=== PATIENT | female | born 1940 | race Caucasian/White ===

== ENCOUNTER 2017-03-04 08:17 | Emergency (ER) | payer MEDICARE ==
[~2017-03-04] VITALS: Ht 160 cm; Wt 52.2 kg
[~2017-03-04 08:17] MED LIST: ASP325TEC; ASP325TEC PO; ATEN25TA PO; ATN25T; BILB40CA PO; BILBERRY; CALC-80 PO; CHOL10003 PO; CLD600T; CLON0.5T3 PO; CLOP75TA PO; DEXL60CA PO; DICLOFENAC SODIUM; FERR325C PO; HSC375CCR; HYCOSAMINE PO; HYDROXYCHLOROQUINE; HYDROXYCHLOROQUINE PO; IRON1TAB94 PO; ISM30TCR; ISM60TCR PO; LISI5TAB PO; MELO7.5T; MULT1TAB63; MV,C1TAB21 PO; NF-ESOM40C; NF-PILO5T PO; NITR0.4T12 SL; NITR12SP6 TL; OMEG1CAP51 PO; OMG1KC; ONDA-43 PO; ONDA8TAB13 PO; OXYB5TAB9 PO; OXYC500S2 PO; PANT40TA PO; PL1OP15; POLY119P PO; PRAV10TA23 PO; PRV20T; RLX60T; RLX60T PO; SOLI10TA4 PO; TOLT4CAP PO; TRAM50TA2 PO; VISION FORMULA; VIT1TABL83 PO
[2017-03-04 08:44] LABS: BASOPHILS # (AUTO) 0.1 10^3/uL (0.0-0.1); BASOPHILS % (AUTO) 1 % (0-10); EOSINOPHILS # (AUTO) 0.5 10^3/uL (0.0-0.3); EOSINOPHILS % (AUTO) 9 % (0-10); LYMPHOCYTES # (AUTO) 2.1 X 10^3 (1.0-4.0); LYMPHOCYTES % (AUTO) 39 % (12-44); MEAN CORPUSCULAR HEMOGLOBIN 32 PG (25-34); MEAN CORPUSCULAR HGB CONC 32 G/DL (32-36); MEAN CORPUSCULAR VOLUME 99 FL (80-99); MEAN PLATELET VOLUME 10.1 FL (7.4-10.4); MONOCYTES # (AUTO) 0.8 X 10^3 (0.0-1.0); MONOCYTES % (AUTO) 15 % (0-12); NEUTROPHILS % (AUTO) 36 % (42-75); PLATELET COUNT 291 10^3/uL (130-400); RED BLOOD COUNT 3.95 10^6/uL (4.35-5.85); RED CELL DISTRIBUTION WIDTH 13.4 % (10.0-14.5); WHITE BLOOD COUNT 5.4 10^3/uL (4.3-11.0)
[2017-03-04] MEDS ORDERED: RX-NITROGLYCERIN 0.4 MG TAB BTL 25'S SL ONE (08:44)
[2017-03-04] MEDS ORDERED: BILB100C PO (08:47)
[2017-03-04] MEDS ORDERED: ASPI-999 PO (08:47)
[2017-03-04] MEDS ORDERED: CALC600T12 PO (08:47)
[2017-03-04] MEDS ORDERED: AMIT10TA6 PO (08:47)
[2017-03-04 08:48] LABS: PROTHROMBIN TIME PATIENT 12.9 SEC (12.2-14.7)
[2017-03-04] MEDS ORDERED: BETA1TAB12 PO (08:48)
[2017-03-04] MEDS ORDERED: CHOL10007 PO (08:48)
[2017-03-04] MEDS ORDERED: LISI-556 PO (08:48)
[2017-03-04] MEDS ORDERED: CLOP75TA28 PO (08:48)
[2017-03-04] MEDS ORDERED: CLON0.5T3 PO (08:48)
[2017-03-04] MEDS ORDERED: OMG1KC PO (08:48)
[2017-03-04] MEDS ORDERED: HYDR200T46 PO (08:48)
[2017-03-04] MEDS ORDERED: ISM60TCR PO (08:48)
[2017-03-04] MEDS ORDERED: OXYB5TAB9 PO (08:48)
[2017-03-04] MEDS: NITROGLYCERIN SUBLINGUAL 0.4 MG TAB (NITROSTAT) SL ONE (08:50)
[2017-03-04 08:59] LABS: ALANINE AMINOTRANSFERASE 19 U/L (0-55); ALBUMIN 4.2 GM/DL (3.2-4.5); ANION GAP 11 MMOL/L (5-14); ASPARTATE AMINO TRANSFERASE 23 U/L (5-34); BILIRUBIN,TOTAL 0.6 MG/DL (0.1-1.0); BLOOD UREA NITROGEN 22 MG/DL (7-18); BUN/CREATININE RATIO 21 (0-20); CALCIUM 10.1 MG/DL (8.5-10.1); CARBON DIOXIDE 23 MMOL/L (21-32); CHLORIDE 108 MMOL/L (98-107); CREATININE SERUM 1.06 MG/DL (0.60-1.30); GFR ESTIMATED 51; GLUCOSE 91 MG/DL (70-105); HEMOLYSIS 27 (-100-29); ICTERUS 0.7 (-100-1.9); LIPEMIA 2 (-100-49); MAGNESIUM 2.3 MG/DL (1.8-2.4); POTASSIUM 4.2 MMOL/L (3.6-5.0); SODIUM 142 MMOL/L (135-145); TOTAL PROTEIN 7.7 GM/DL (6.4-8.2)
--- NOTE | 2017-03-04 09:04 | Diagnostic Imaging Report ---
EXAMINATION: Portable upright radiograph of the chest. INDICATION: Chest pain. FINDINGS: The lungs are hyperinflated. The heart size is slightly enlarged. No focal infiltrate is seen. Post CABG changes and sternotomy wires are seen. There is suggestion of a minimal right pleural effusion. There is density in the lower central mediastinum, compatible with a moderate-sized hiatal hernia. IMPRESSION: COPD. Cardiomegaly. Hiatal hernia. Dictated by: Dictated on workstation # [id number]
[2017-03-04 09:05] LABS: MYOGLOBIN SERUM 47.2 NG/ML (10.0-92.0)
[2017-03-04] MEDS ORDERED: ANTACID SUSP 30 ML UDC (MYLANTA) PO ONE (09:30)
[2017-03-04] MEDS ORDERED: LIDOCAINE 2% VISCOUS 15 ML UDC PO ONE (09:30)
--- NOTE | 2017-03-04 10:02 | ED Chest Pain ---
General Chief Complaint: Chest Pain Stated Complaint: CHEST PAIN Nursing Triage Note: PT BROUGHT IN BY [facility] WITH C/O CP THAT BEGAN THIS AM WHILE PT WAS BRUSHING HER TEETH. SHE REPORTS PAIN RADIATED TO HER BACK. SHE DENIES N/V/DIAPHORESIS OR ANY OTHER S/S. 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 PT REPORTS NO PAIN AT THIS TIME. Nursing Sepsis Screen: No Definite Risk Source: patient Exam Limitations: no limitations History of Present Illness Time seen by provider: 08:23 Initial Comments Here with report of left-sided moderate to severe pressure that radiated to her back. Onset at 730 a.m. while brushing her teeth. Does have history of cardiac disease and CABG. Also has history of esophageal problems including stricture with previous rupture during dilation and large hiatal hernia that's been repaired. She has gastroenterology doctor MARIJA that follows that. She does appointment with that doctor on Tuesday (3 days). She was in route to the hospital with her daughter in the car when they became concerned and stopped and an EMS station. EMS then transported the patient here. Patient did not have any nitroglycerin at home because she was out. EMS did give her 324 mg of aspirin as well as a nitroglycerin sublingual. This did completely resolve her pain. On arrival she is pain-free. 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 SL WAXING MACHINE OPERATOR: Yes Associated Symptoms: No abdominal pain, back pain, No diaphoresis, No dizziness , No fever/chills, No nausea/vomiting, No shortness of breath, No weakness Allergies and Home Medications Allergies Coded Allergies: metoclopramide (Unverified Allergy, Severe, TARDIVE DYKENIESIA, 12/15/14) Home Medications Amitriptyline HCl 10 Mg Tablet, 10 MG PO DAILY LATE, (Reported) Aspirin 81 Mg Tab.chew, 81 MG PO DAILY, (Reported) Beta-Carotene(A) W-C & E/Min 1 Each Tablet, 1 EACH PO DAILY, (Reported) Bilberry 100 Mg Capsule, 1,000 MG PO DAILY LATE, (Reported) Calcium Carbonate 600 Mg Tablet, 600 MG PO DAILY, (Reported) Cholecalciferol (Vitamin D3) 1,000 Unit Capsule, 1,000 UNIT PO DAILY, (Reported) Clonazepam 0.5 Mg Tablet, 0.5 MG PO BID, (Reported) Clopidogrel Bisulfate 75 Mg Tablet, 75 MG PO DAILY, (Reported) Hydroxychloroquine Sulfate 200 Mg Tablet, 200 MG PO BID, (Reported) Isosorbide Mononitrate 60 Mg Tab, 60 MG PO DAILY, (Reported) Lisinopril 5 Mg Tablet, 5 MG PO DAILY LATE, (Reported) [place] 3 Polyunsat Fatty Acids 1,000 Mg Cap, 2,000 MG PO BID, (Reported) Oxybutynin Chloride 5 Mg Tablet, 5 MG PO BID, (Reported) Review of Systems Constitutional: see HPI, No chills, No fever EENTM: No Symptoms Reported Respiratory: No Symptoms Reported Cardiovascular: See HPI, Chest Pain, Denies Edema, Denies Lightheadedness Gastrointestinal: No Symptoms Reported Genitourinary: No Symptoms Reported All Other Systems Reviewed Negative Unless Noted: Yes Past Rooveqx-Aancwl-Pudsge Hx Patient Social History Alcohol Use: Denies Use Recreational Drug Use: No Smoking Status: Never a Smoker 2nd Hand Smoke Exposure: No Recent Foreign Travel: No Contact w/Someone Who Travel: No Recent Infectious Disease Expo: No Recent Hopitalizations: No Immunizations Up To Date Date of Pneumonia Vaccine: May 13, 2011 Date of Influenza Vaccine: Sep 12, 2014 Seasonal Allergies Seasonal Allergies: No Surgeries HX Surgeries: Yes (HIATEL HERNIA, RUPTURED ESPOPHAGUS/REPAIR, SPLEENECTOMY) Surgeries: Abdominal, CABG Respiratory Hx Respiratory Disorders: No Cardiovascular Hx Cardiac Disorders: Yes (DOUBLE BYPASS (CABG X2)) Cardiac Disorders: Coronary Artery Disease Neurological Hx Neurological Disorders: Yes Reproductive System Hx Reproductive Disorders: No Genitourinary Hx Genitourinary Disorders: No Gastrointestinal Hx Gastrointestinal Disorders: Yes (ESOPHAGEAL REPAIR ) Gastrointestinal Disorders: Gastroesophageal Reflux, Chronic Diarrhea, Hiatal Hernia Musculoskeletal Hx Musculoskeletal Disorders: Yes (ARTHRITIS IN HANDS ) Musculoskeletal Disorders: Osteoporosis, Arthritis, Chronic Back Pain Endocrine Hx Endocrine Disorders: No HEENT HX ENT Disorders: Yes (SJOGREN'S DX (MOUTH DOESNT PRODUCE SALIVA)) Hearing Impairment: Hard of Hearing Cancer Hx Cancer: No Psychosocial Hx Psychiatric Problems: No Integumentary HX Skin/Integumentary Disorder: Yes (ECZEMA A CHILD) Skin/Integumentary Disorders: Eczema Blood Transfusions Hx Blood Disorders: No Reviewed Nursing Assessment Reviewed/Agree w Nursing PMH: Yes Family Medical History Significant Family History: Heart Disease Family Medial History: Diabetes mellitus G8 BROTHER, , Age:62 G8 SISTER, , Age:60 years and older GREAT AUNT FH: ovarian cancer AUNT Myocardial infarction 19 FATHER, , Age:39 19 MOTHER, , Age:83 G8 BROTHER, , Age:62 G8 SISTER, , Age:60 years and older Physical Exam Vital Signs Vital Sign - Last 12Hours 03/04/17 08:20 Temp 98.3 Pulse 60 Resp 15 B/P (MAP) 147/85 Pulse Ox 95 O2 Delivery Room Air Capillary Refill : Less Than 3 Seconds General Appearance: No Apparent Distress, WD/WN HEENT: PERRL/EOMI, Pharynx Normal Neck: Non Tender, Supple Respiratory: Lungs Clear, Normal Breath Sounds Cardiovascular: Regular Rate, Rhythm, No Murmur Gastrointestinal: Non Tender, Soft Extremity: Non Tender, No Calf Tenderness Neurologic/Psychiatric: Alert, Oriented x3 Skin: Normal Color, Warm/Dry Progress/Results/Core Measures Results/Orders Lab Results Laboratory Tests Test 03/04/17 08:20 03/04/17 11:32 Range/Units White Blood Count 5.4 4.3-11.0 10^3/uL Red Blood Count 3.95 L 4.35-5.85 10^6/uL Hemoglobin 12.5 11.5-16.0 G/DL Hematocrit 39 35-52 % Mean Corpuscular Volume 99 80-99 FL Mean Corpuscular Hemoglobin 32 25-34 PG Mean Corpuscular Hemoglobin Concent 32 32-36 G/DL Red Cell Distribution Width 13.4 10.0-14.5 % Platelet Count 291 130-400 10^3/uL Mean Platelet Volume 10.1 7.4-10.4 FL Neutrophils (%) (Auto) 36 L 42-75 % Lymphocytes (%) (Auto) 39 12-44 % Monocytes (%) (Auto) 15 H 0-12 % Eosinophils (%) (Auto) 9 0-10 % Basophils (%) (Auto) 1 0-10 % Neutrophils # (Auto) 2.0 1.8-7.8 X 10^3 Lymphocytes # (Auto) 2.1 1.0-4.0 X 10^3 Monocytes # (Auto) 0.8 0.0-1.0 X 10^3 Eosinophils # (Auto) 0.5 H 0.0-0.3 10^3/uL Basophils # (Auto) 0.1 0.0-0.1 10^3/uL Prothrombin Time 12.9 12.2-14.7 SEC INR Comment 1.0 0.8-1.4 Activated Partial Thromboplast Time 42 H 24-35 SEC Sodium Level 142 135-145 MMOL/L Potassium Level 4.2 3.6-5.0 MMOL/L Chloride Level 108 H 98-107 MMOL/L Carbon Dioxide Level 23 21-32 MMOL/L Anion Gap 11 5-14 MMOL/L Blood Urea Nitrogen 22 H 7-18 MG/DL Creatinine 1.06 0.60-1.30 MG/DL Estimat Glomerular Filtration Rate 51 BUN/Creatinine Ratio 21 H 0-20 Glucose Level 91 70-105 MG/DL Calcium Level 10.1 8.5-10.1 MG/DL Magnesium Level 2.3 1.8-2.4 MG/DL Total Bilirubin 0.6 0.1-1.0 MG/DL Aspartate Amino Transf (AST/SGOT) 23 5-34 U/L Alanine Aminotransferase (ALT/SGPT) 19 0-55 U/L Alkaline Phosphatase 50 40-136 U/L Myoglobin 47.2 43.6 10.0-92.0 NG/ML Troponin I < 0.30 < 0.30 <0.30 NG/ML Total Protein 7.7 6.4-8.2 GM/DL Albumin 4.2 3.2-4.5 GM/DL My Orders Orders - VENKAT MANRIQUEZ MD Cbc With Automated Diff (03/04/17 08:37) Magnesium (03/04/17 08:37) Chest 1 View, Ap/Pa Only (03/04/17 08:37) Ekg Tracing (03/04/17 08:37) Cardiac Profile 1 (03/04/17 08:37) Comprehensive Metabolic Panel (03/04/17 08:37) Myoglobin Serum (03/04/17 08:37) Protime With Inr (03/04/17 08:37) Partial Thromboplastin Time (03/04/17 08:37) O2 (03/04/17 08:37) Monitor-Rhythm Ecg Trace Only (03/04/17 08:37) Lipid Panel (03/05/17 06:00) Saline Lock/Iv-Start (03/04/17 08:37) Nitroglycerin Sublingual (Nitrostat Sub (03/04/17 09:00) Rx-Nitroglycerin Sl Tabs (Rx-Nitrostat S (03/04/17 08:44) Lidocaine 2% Viscous 15 Ml (Xylocaine Vi (03/04/17 09:30) Antacid Suspension (Mylanta Suspension (03/04/17 09:30) Myoglobin Serum (03/04/17 11:29) Troponin I (03/04/17 11:29) Ekg Tracing (03/04/17 11:29) Medications Given in ED Current Medications Medications Dose Ordered Sig/Dahlia Route Start Time Stop Time Status Last Admin Dose Admin Al Hydrox/Mg Hydrox/Simethicone 30 ml ONCE ONCE PO 03/04/17 09:30 03/04/17 09:31 DC 03/04/17 09:36 30 ML Lidocaine HCl 15 ml ONCE ONCE PO 03/04/17 09:30 03/04/17 09:31 DC 03/04/17 09:36 15 ML Nitroglycerin 0.4 mg STK-MED ONCE SL 03/04/17 08:44 03/04/17 08:50 DC 03/04/17 08:50 0.4 MG Vital Signs/I&O Vital Sign - Last 12Hours 03/04/17 03/04/17 08:20 08:20 Temp 98.3 Pulse 60 Resp 15 B/P (MAP) 147/85 Pulse Ox 95 O2 Delivery Room Air Room Air Blood Pressure Mean: 105 Progress Note : Progress Note Seen and evaluated. IV, labs, EKG and chest x-ray ordered. Patient has received aspirin and nitroglycerin. She is pain-free currently. 0 850: Patient had return of some back pressure. Nitroglycerin sublingual given. 0930 : Patient is pain-free and remains pain free since last nitroglycerin. GI cocktail given due to her history of GI disease. We will monitor the patient and reevaluate. We discussed different options including admission and repeat testing. At a minimum, we will need to retest at 1130. If enzymes remain negative and no changes on EKG as well as pain-free, we could consider discharged home as she has follow-up. If she has any pain in the interim, patient will be admitted. Monitor patient. 1200: Repeat EKG does not show any acute changes. Repeat troponin and myoglobin are negative. Patient remains chest pain-free and wants to go home. Discharged home with return precautions. Patient verbalize understanding instructions and agreement with plan. ECG Initial ECG Impression Date: Mar 04, 2017 Initial ECG Impression Time: 08:23 Initial ECG Rate: 56 Initial ECG Rhythm: Normal Sinus Initial ECG Impression: Normal Initial ECG Comparisson: No Previous ECG Available Comment Sinus rhythm with normal axis. No evidence of ST elevation [place]. Similar to previous of 12/15/14. Interpreted by me. Diagnostic Imaging Diagonstic Imaging: Xray Plain Films/CT/US/NM/MRI: chest Comments NAME: MELLISSA DOWNING [facility] REC#: [id number] PT STATUS: REG ER : 1940 PHYSICIAN: VENKAT MANRIQUEZ MD ADMIT DATE: 03/04/17/ER Signed Date of Exam: 03/04/17 CHEST 1 VIEW, AP/PA ONLY EXAMINATION: Portable upright radiograph of the chest. INDICATION: Chest pain. FINDINGS: The lungs are hyperinflated. The heart size is slightly enlarged. No focal infiltrate is seen. Post CABG changes and sternotomy wires are seen. There is suggestion of a minimal right pleural effusion. There is density in the lower central mediastinum, compatible with a moderate-sized hiatal hernia. IMPRESSION: COPD. Cardiomegaly. Hiatal hernia. Dictated by: Dictated on workstation # [id number] Dict: 03/04/17 0850 Trans: 03/04/17 0908 Interpreted by: SUDEEP ALVARADO MD Electronically signed by: SUDEEP ALVARADO MD 03/04/17 0908 Departure Impression Impression: Primary Impression: Chest pain Qualified Codes: R07.9 - Chest pain, unspecified Disposition: 01 HOME, SELF-CARE Condition: Improved Departure-Patient Inst. Decision time for Depature: 12:10 Referrals: MENA SKY DO (PCP/Family) Primary Care Physician Patient Instructions: Chest Pain (DC), Acid Reflux (Gastroesophageal Reflux Disease), Adult (DC) Add. Discharge Instructions: All discharge instructions reviewed with patient and/or family. Voiced understanding. Continue home medications as directed. Keep appointment on Tuesday with your GI doctor. You should follow-up with your style advisor next week for recheck and further evaluation related to today's events as well. Return for worse pain, fever, vomiting, weakness, breathing problems or other concerns as needed. VENKAT MANRIQUEZ MD Mar 04, 2017 10:02
[2017-03-04 11:58] LABS: MYOGLOBIN SERUM 43.6 NG/ML (10.0-92.0); TROPONIN I < 0.30 NG/ML (<0.30)
[2017-03-04 12:14] VITALS: BP 134/74
--- OUTSIDE RECORDS SUMMARY | 2017-03-07 14:36 | XMS REPORT | Continuity of Care Document ---
Author Author [facility] Organization [facility] Address Unknown Phone Unavailable Allergies Active Description Code Type Severity Reaction Onset Reported/Identified Relationship to Patient Clinical Status Yes No Known Drug Allergies [id number] Drug Allergy Unknown N/ A 05/12/2007 Yes metoclopramide [id number] Drug Allergy Severe TARDIVE DYKENIE 12/15/2014 Medications Problems Date Dx Coded Attending Type Code Diagnosis Diagnosed By 05/18/2011 Ot 272.4 HYPERLIPIDEMIA NEC/NOS 05/18/2011 Ot 365.9 GLAUCOMA NOS 05/18/2011 Ot 401.9 HYPERTENSION NOS 05/18/2011 Ot 414.01 CORONARY ATHEROSCLEROSIS [place] CORON 05/18/2011 Ot 414.2 CHRONIC TOTAL OCCLUSION OF CORONARY [place] 05/18/2011 Ot 424.0 MITRAL VALVE DISORDER 05/18/2011 Ot 427.89 CARDIAC DYSRHYTHMIAS NEC 05/18/2011 Ot 433.10 CAROTID ARTERY OCCLUSION W O CEREBRAL IN 05/18/2011 Ot 715.90 OSTEOARTHROS NOS-UNSPEC 05/18/2011 Ot 786.59 CHEST PAIN NEC 05/18/2011 Ot V45.81 AORTOCORONARY BYPASS 05/18/2011 Ot V58.63 LONG-TERM(CURRENT)USE OF ANTIPLATELET/AN 05/18/2011 Ot V58.66 LONG-TERM (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 05/18/2011 Ot V58.69 OTH MED,LT,CURRENT USE 10/31/2012 Ot 780.60 FEVER, UNSPECIFIED 10/31/2012 Ot 787.91 DIARRHEA 01/19/2013 MENA SKY DO Ot 272.4 HYPERLIPIDEMIA NEC/NOS 01/19/2013 MENA SKY DO Ot 401.9 HYPERTENSION NOS 01/19/2013 MENA SKY DO Ot 414.01 CORONARY ATHEROSCLEROSIS [place] CORON 01/19/2013 MENA SKY DO Ot 414.8 CHR ISCHEMIC HRT DIS NEC 01/19/2013 MENA SKY DO Ot 424.1 AORTIC VALVE DISORDER 01/19/2013 MENA SKY DO Ot 427.89 CARDIAC DYSRHYTHMIAS NEC 01/19/2013 MENA SKY DO Ot 530.81 ESOPHAGEAL REFLUX 01/19/2013 MENA SKY DO Ot 553.3 DIAPHRAGMATIC HERNIA 01/19/2013 EMNA SKY DO Ot 710.2 SICCA SYNDROME 01/19/2013 MENA SKY DO Ot 715.90 OSTEOARTHROS NOS-UNSPEC 01/19/2013 MENA SKY DO Ot 733.00 OSTEOPOROSIS NOS 01/19/2013 MENA SKY DO Ot 786.50 CHEST PAIN NOS 01/19/2013 MENA SKY DO Ot V45.81 AORTOCORONARY BYPASS 03/25/2013 MENA SKY DO Ot 787.91 DIARRHEA 06/15/2013 EMRE MARS MD Ot 530.81 ESOPHAGEAL REFLUX 06/15/2013 EMRE MARS MD, Ot 553.3 DIAPHRAGMATIC HERNIA 06/19/2013 EMRE MARS MD Ot 272.0 PURE HYPERCHOLESTEROLEM 06/19/2013 EMRE MARS MD Ot 272.4 HYPERLIPIDEMIA NEC/NOS 06/19/2013 EMRE MARS MD Ot 276.8 HYPOPOTASSEMIA 06/19/2013 EMRE MARS MD Ot 338.18 OTHER ACUTE POSTOPERATIVE PAIN 06/19/2013 EMRE MARS MD Ot 401.9 HYPERTENSION NOS 06/19/2013 EMRE MARS MD Ot 410.71 AC MYOCARDIAL INFARCT,SUBENDO INFARCT,IN 06/19/2013 EMRE MARS MD Ot 414.00 CORON ATHEROSCLER NOS TYPE VESSEL, NATIV 06/19/2013 EMRE MARS MD Ot 414.8 CHR ISCHEMIC HRT DIS NEC 06/19/2013 EMRE MARS MD Ot 416.8 CHR PULMON HEART DIS NEC 06/19/2013 EMRE MARS MD Ot 424.0 MITRAL VALVE DISORDER 06/19/2013 EMRE MARS MD Ot 530.5 DYSKINESIA OF ESOPHAGUS 06/19/2013 EMRE MARS MD Ot 530.81 ESOPHAGEAL REFLUX 06/19/2013 EMRE MARS MD Ot 536.2 PERSISTENT VOMITING 06/19/2013 EMRE MARS MD Ot 553.3 DIAPHRAGMATIC HERNIA 06/19/2013 EMRE MARS MD Ot 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 06/19/2013 EMRE MARS MD Ot 710.2 SICCA SYNDROME 06/19/2013 EMRE MARS MD Ot 714.0 RHEUMATOID ARTHRITIS 06/19/2013 EMRE MARS MD Ot 733.00 OSTEOPOROSIS NOS 06/19/2013 EMRE MARS MD Ot 787.20 DYSPHAGIA, UNSPECIFIED 06/19/2013 EMRE MARS MD Ot 998.2 ACCIDENTAL OP LACERATION 06/19/2013 EMRE MARS MD Ot V45.81 AORTOCORONARY BYPASS 06/27/2014 NARCISO KERNS Ot 553.3 DIAPHRAGMATIC HERNIA 06/27/2014 NARCISO KERNS Ot 787.02 NAUSEA ALONE 06/27/2014 NARCISO KERNS Ot 789.04 ABDOMINAL PAIN, LEFT LOWER QUADRANT 06/27/2014 NARCISO KERNS Ot V58.69 OT MED,LT,CURRENT USE 11/22/2014 Ot 558.9 NONINF GASTROENTERIT NEC 11/22/2014 Ot 787.02 NAUSEA ALONE 12/12/2014 Ot 575.8 12/12/2014 Ot 789.01 12/12/2014 Ot 790.4 12/12/2014 Ot 414.01 12/12/2014 Ot 729.5 12/12/2014 Ot 786.50 12/12/2014 Ot V58.63 12/12/2014 Ot V58.66 12/12/2014 Ot V58.69 12/12/2014 Ot 433.10 12/12/2014 Ot 729.5 12/12/2014 Ot 998.12 12/12/2014 Ot 440.20 12/12/2014 Ot 780.60 12/12/2014 Ot 787.91 12/12/2014 DOMENICO MERRITT, UZMA Thompson Ot 553.3 12/12/2014 Ot 787.91 12/12/2014 EMRE MARS MD Ot 414.01 12/12/2014 EMRE MARS MD Ot 553.3 12/12/2014 EMRE MARS MD Ot 791.9 12/12/2014 EMRE MARS MD Ot V72.63 12/12/2014 EMRE MARS MD Ot V74.8 12/12/2014 MENA SKY DO Ot V55.1 12/12/2014 [place] APRN Ot V55.4 12/12/2014 MENA SKY DO Ot 781.0 12/12/2014 MENA SKY DO Ot 793.0 12/15/2014 Ot 780.60 12/15/2014 Ot 787.91 12/15/2014 Ot 787.91 12/17/2014 MENA SKY DO Ot 008.8 VIRAL ENTERITIS NOS 12/17/2014 MENA SKY DO Ot 272.4 HYPERLIPIDEMIA NEC/NOS 12/17/2014 MENA SKY DO Ot 276.2 ACIDOSIS 12/17/2014 MENA SKY DO Ot 333.85 SUBACUTE DYSKINESIA DUE TO DRUGS 12/17/2014 MENA SKY DO Ot 403.90 HYPTNSV CHR KID DIS, UNSPEC, W CHR KD ST 12/17/2014 MENA SKY DO Ot 414.00 CORON ATHEROSCLER NOS TYPE VESSEL, NATIV 12/17/2014 MENA SKY DO Ot 574.20 CHOLELITHIASIS NOS 12/17/2014 MENA SKY DO Ot 585.9 CHRONIC KIDNEY DISEASE, UNSPECIFIED 12/17/2014 MENA SKY DO Ot 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 12/17/2014 MENA SKY DO Ot 790.29 OTHER ABNORMAL GLUCOSE 12/17/2014 MENA SKY DO Ot E933.0 ADV EFF ANALLRG/ANTEMET 12/17/2014 MENA SKY DO Ot V45.81 AORTOCORONARY BYPASS 01/14/2015 MENA SKY DO Ot 793.82 01/14/2015 MENA SKY DO Ot V76.12 12/26/2015 Ot 575.8 DIS OF GALLBLADDER NEC 12/26/2015 Ot 789.01 ABDOMINAL PAIN, RIGHT UPPER QUADRANT 12/26/2015 Ot 790.4 ELEV TRANSAMINASE/LDH 12/26/2015 Ot 414.01 CORONARY ATHEROSCLEROSIS [place] CORON 12/26/2015 Ot 729.5 PAIN IN LIMB 12/26/2015 Ot 786.50 CHEST PAIN NOS 12/26/2015 Ot V58.63 LONG-TERM(CURRENT)USE OF ANTIPLATELET/AN 12/26/2015 Ot V58.66 LONG-TERM (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 12/26/2015 Ot V58.69 OT MED,LT,CURRENT USE 12/26/2015 Ot 433.10 CAROTID ARTERY OCCLUSION W O CEREBRAL IN 12/26/2015 Ot 729.5 PAIN IN LIMB 12/26/2015 Ot 998.12 HEMATOMA COMPLIC A PROC 12/26/2015 Ot 440.20 ATHEROSCLEROSIS [place] ARTERIES EXTREMIT 12/26/2015 Ot 780.60 FEVER, UNSPECIFIED 12/26/2015 Ot 787.91 DIARRHEA 12/26/2015 DOMENICO MERRITT, UZMA Thompson Ot 553.3 DIAPHRAGMATIC HERNIA 12/26/2015 Ot 787.91 DIARRHEA 12/26/2015 EMRE MARS MD Ot 414.01 CORONARY ATHEROSCLEROSIS [place] CORON 12/26/2015 EMRE MARS MD Ot 553.3 DIAPHRAGMATIC HERNIA 12/26/2015 EMRE MARS MD Ot 791.9 ABN URINE FINDINGS NEC 12/26/2015 EMRE MARS MD Ot V72.63 PRE-PROCEDURAL LABORATORY EXAMINATION 12/26/2015 EMRE MARS MD Ot V74.8 SCREEN-BACTERIAL DIS NEC 12/26/2015 MENA SKY DO Ot V55.1 ATTEN TO GASTROSTOMY 12/26/2015 [place] APRN Ot V55.4 ATTEN TO ENTEROSTOMY NEC 12/26/2015 MENA SKY DO Ot 781.0 ABN INVOLUN MOVEMENT NEC 12/26/2015 MENA SKY DO Ot 793.0 NOSP (ABN) FINDINGS ON RADIOLOGICAL OT 12/26/2015 MENA SYK DO Ot 793.82 INCONCLUSIVE MAMMOGRAM 12/26/2015 MENA SKY DO Ot V76.12 OT SCREEN MAMMO-MALIGN NEOPLASM OF [place] 12/29/2015 MENA SKY DO Ot Z12.31 ENCNTR SCREEN MAMMOGRAM FOR MALIGNANT NE 12/29/2015 MENA SKY DO Ot Z12.31 ENCNTR SCREEN MAMMOGRAM FOR MALIGNANT NE 01/01/2016 MENA SKY DO Ot Z12.31 ENCNTR SCREEN MAMMOGRAM FOR MALIGNANT NE 01/15/2016 MENA SKY DO Ot Z12.31 ENCNTR SCREEN MAMMOGRAM FOR MALIGNANT NE Procedures Code Description Performed By Performed On 45.13 06/16/2013 Results Test Result Range Complete blood count (CBC) with automated white blood cell (WBC) differential - 03/04/17 08:20 Blood leukocytes automated count (number/volume) 5.4 10*3/ uL 4.3-11.0 Blood erythrocytes automated count (number/volume) 3.95 10*6 /uL 4.35-5.85 Venous blood hemoglobin measurement (mass/volume) 12.5 g/dL 11.5-16.0 Blood hematocrit (volume fraction) 39 % 35-52 Automated erythrocyte mean corpuscular volume 99 [foz_us] 80-99 Automated erythrocyte mean corpuscular hemoglobin (mass per erythrocyte) 32 pg 25-34 Automated erythrocyte mean corpuscular hemoglobin concentration measurement ( mass/volume) 32 g/dL 32-36 Automated erythrocyte distribution width ratio 13.4 % 10.0-14.5 Automated blood platelet count (count/volume) 291 10*3/uL 130-400 Automated blood platelet mean volume measurement 10.1 [foz_ us] 7.4-10.4 Automated blood neutrophils/100 leukocytes 36 % 42-75 Automated blood lymphocytes/100 leukocytes 39 % 12-44 Blood monocytes/100 leukocytes 15 % 0-12 Automated blood eosinophils/100 leukocytes 9 % 0-10 Automated blood basophils/100 leukocytes 1 % 0-10 Blood neutrophils automated count (number/volume) 2.0 10*3 1.8-7.8 Blood lymphocytes automated count (number/volume) 2.1 10*3 1.0-4.0 Blood monocytes automated count (number/volume) 0.8 10*3 0.0-1.0 Automated eosinophil count 0.5 10*3/uL 0.0-0.3 Automated blood basophil count (count/volume) 0.1 10*3/uL 0.0-0.1 PT panel in platelet poor plasma by coagulation assay - 03/04/17 08:20 Prothrombin time (PT) in platelet poor plasma by coagulation assay 12.9 s 12.2-14.7 INR in platelet poor plasma or blood by coagulation assay 1.0 0.8-1.4 Activated partial thromboplastin time (aPTT) in platelet poor plasma bycoagulation assay - 03/04/17 08:20 Activated partial thromboplastin time (aPTT) in platelet poor plasma bycoagulation assay 42 s 24-35 Comprehensive metabolic panel - 03/04/17 08:20 Serum or plasma sodium measurement (moles/volume) 142 mmol/ L 135-145 Serum or plasma potassium measurement (moles/volume) 4.2 mmol/L 3.6-5.0 Serum or plasma chloride measurement (moles/volume) 108 mmol /L 98-107 Carbon dioxide 23 mmol/L 21-32 Serum or plasma anion gap determination (moles/volume) 11 mmol/L 5-14 Serum or plasma urea nitrogen measurement (mass/volume) 22 mg/dL 7-18 Serum or plasma creatinine measurement (mass/volume) 1.06 mg /dL 0.60-1.30 Serum or plasma urea nitrogen/creatinine mass ratio 21 0-20 Serum or plasma creatinine measurement with calculation of estimated glomerular filtration rate 51 NRG Serum or plasma glucose measurement (mass/volume) 91 mg/dL 70-105 Serum or plasma calcium measurement (mass/volume) 10.1 mg/ dL 8.5-10.1 Serum or plasma total bilirubin measurement (mass/volume) 0.6 mg/dL 0.1-1.0 Serum or plasma alkaline phosphatase measurement (enzymatic activity/volume) 50 U/L 40-136 Serum or plasma aspartate aminotransferase measurement (enzymatic activity/ volume) 23 U/L 5-34 Serum or plasma alanine aminotransferase measurement (enzymatic activity/volume ) 19 U/L 0-55 Serum or plasma protein measurement (mass/volume) 7.7 g/dL 6.4-8.2 Serum or plasma albumin measurement (mass/volume) 4.2 g/dL 3.2-4.5 Magnesium - 03/04/17 08:20 Magnesium 2.3 mg/dL 1.8-2.4 Serum or plasma troponin i.cardiac measurement (mass/volume) - 03/04/17 08:20 Serum or plasma troponin i.cardiac measurement (mass/volume) < ng/mL <0.30 Myoglobin, serum - 03/04/17 08:20 Myoglobin, serum 47.2 ng/mL 10.0-92.0 Serum or plasma troponin i.cardiac measurement (mass/volume) - 03/04/17 11:32 Serum or plasma troponin i.cardiac measurement (mass/volume) < ng/mL <0.30 Myoglobin, serum - 03/04/17 11:32 Myoglobin, serum 43.6 ng/mL 10.0-92.0 Encounters ACCT No. Visit Date/Time Discharge Status Pt. Type Provider Facility Loc./Unit Complaint [id number] 03/04/2017 08:19:00 2016 12:14:00 DIS Emergency VENKAT MANRIQUEZ MD [facility] ER CHEST PAIN [id number] 12/15/2014 16:40:00 2014 10:28:00 DIS Inpatient JOSE DANIEL DAHL MENA Tamela [facility] CSD [id number] 12/13/2014 09:32:00 2014 23:59:59 CLS Outpatient MENA SKY DO [facility] RAD [id number] 06/27/2014 16:32:00 2013 20:58:00 DIS Emergency NARCISO KERNS [facility] ER [id number] 03/26/2014 09:28:00 2013 23:59:59 CLS Outpatient MENA SKY DO [facility] RAD [id number] 07/24/2013 14:12:00 2012 23:59:59 CLS Outpatient [place] APRN [facility] RAD [id number] 07/23/2013 17:24:00 2012 23:59:59 CLS Outpatient MENA SKY DO [facility] RAD [id number] 06/16/2013 12:56:00 2012 16:10:00 DIS Inpatient EMRE MARS MD [facility] ICU [id number] 06/14/2013 08:58:00 2012 15:45:00 DIS Outpatient EMRE MARS MD [facility] SDC [id number] 06/12/2013 13:32:00 2012 23:59:59 CLS Outpatient EMRE MARS MD [facility] PREOP [id number] 01/02/2013 11:34:00 2012 00:01:00 DIS Outpatient MENA SKY DO [facility] LAB [id number] 03/16/2013 09:07:00 2012 23:59:59 CLS Outpatient DOMENICO MERRITT, UZMA Thompson [facility] RAD [id number] 01/18/2013 17:16:00 2012 10:54:00 DIS Inpatient MENA SKY DO [facility] [id number] 12/26/2015 15:29:00 ACT Outpatient MENA SKY DO [facility] RAD [id number] 12/12/2014 15:27:00 Document Registration [id number] 12/12/2014 15:27:00 Document Registration [id number] 11/22/2014 08:33:00 Document Registration [id number] 03/26/2013 00:00:00 Document Registration [id number] 11/01/2012 00:00:00 Document Registration [id number] 08/02/2012 13:58:00 Document Registration [id number] 11/04/2011 11:45:00 Document Registration [id number] 05/18/2011 11:09:00 Document Registration [id number] 12/21/2010 11:30:00 Document Registration [id number] 12/14/2010 11:55:00 Document Registration
--- OUTSIDE RECORDS SUMMARY | 2017-03-07 14:36 | XMS REPORT | Continuity of Care Document ---
Author Author [facility] Organization [facility] Address Unknown Phone Unavailable Care Team Providers Care Swiss Type Screw Machine Operator Name Role Phone Armin Ulrich PCP Unavailable Source Comments Some departments are not documenting in the electronic medical record. If you do not see the information that you expected, contact Release of Information in the Health Information Management department at [phone] for further assistance in locating additional records.[facility] Active Allergies and Adverse Reactions Allergen Noted Date Severity Reactions Comments Metoclopramide 07/26/2014 Low AGITATION causes involuntary body movements rigidity Current Medications Prescription Sig. Disp. Refills Start End Date Status Date fish oil /omega-3 fatty Take 2 Caps by mouth Active acids (SEA-OMEGA) twice daily. 340/1000 mg capsule BILBERRY PO Take 2 Caps by mouth at Active bedtime daily. calcium carbonate/vitamin Take 1 Tab by mouth four Active D-3 (OSCAL-500+D) 1250 times weekly. Calcium mg/200 unit tablet Carb 1250mg delivers 500mg elemental Ca ferrous sulfate 325 mg Take 325 mg by mouth Active (65 mg iron) tablet daily. hydroxychloroquine Take 200 mg by mouth Active (PLAQUENIL) 200 mg tablet twice daily. pravastatin (PRAVACHOL) Take 10 mg by mouth every Active 10 mg tablet morning. pantoprazole [address] Take 40 mg by mouth every Active (PROTONIX) 40 mg tablet morning. clopiDOGrel (PLAVIX) 75 Take 75 mg by mouth every Active mg tablet morning. lisinopril (PRINIVIL; Take 5 mg by mouth at Active ZESTRIL) 5 mg tablet bedtime daily. isosorbide mononitrate SR Take 30 mg by mouth every Active (IMDUR) 30 mg tablet morning. tolterodine LA(+) (DETROL Take 4 mg by mouth twice Active LA) 4 mg capsule daily. cholecalciferol (Vitamin Take 1,000 Units by mouth Active D3) (VITAMIN D-3) 1,000 daily. units tablet nitroglycerin (NITROSTAT) Place 0.4 mg under tongue Active 0.4 mg tablet every 5 minutes as needed for Chest Pain. Vit C-Vit Take 1 Cap by mouth Active Y-Edpwnl-Epj-OM-3 daily. 781-92-8-150 cq-xxgn-nc-mg cap Cyanocobalamin 1,[address] 1 Tab under tongue Active subl daily. naproxen sodium(+) Take 220 mg by mouth Active (ALEVE) 220 mg tablet twice daily. amitriptyline (ELAVIL) 10 Take 20 mg by mouth at Active mg tablet bedtime daily. magnesium chloride (MAG Take 535 mg by mouth Active DELAY) 64 mg tablet twice daily. acetaminophen SR(+) Take 650 mg by mouth Active (TYLENOL) 650 mg tablet twice daily. zinc sulfate 220 mg (50 Take 220 mg by mouth Active mg elemental zinc) daily. capsule aspirin EC 81 mg tablet Take 81 mg by mouth Active daily. oxybutynin XL (DITROPAN Take 10 mg by mouth. Active XL) 5 mg tablet acetaminophen/lidocaine/a Take 5 to 10 mL by mouth 60 mL 0 03/07/20 Active ntacid DS(#) (GI every 8 hours as needed. 17 COCKTAIL) 1:1:3 oxyCODONE/acetaminophen Take 1-2 Tabs by mouth 60 Tab 0 02/22/20 Discontin (PERCOCET; ENDOCET; every 6 hours as needed 16 17 ued ROXICET) 5/325 mg tablet for Pain Earliest Fill Date: 02/22/16 polyethylene glycol 3350 Take 17 g by mouth daily. 238 g 3 02/22/20 03/07/20 Discontin (GLYCOLAX; MIRALAX) 17 16 17 ued gram/dose powder senna (SENOKOT) 8.6 mg Take 1-2 Tabs by mouth 90 Tab 3 02/22/20 Discontin tablet twice daily. 16 17 ued Active Problems Problem Noted Date S/P ventral herniorrhaphy 02/20/2016 Incisional hernia, without obstruction or gangrene 01/20/2016 Gastroparesis 05/13/2015 Nausea and vomiting 12/24/2014 Acute blood loss anemia 08/07/2014 Metabolic acidosis 08/07/2014 Lactic acidosis 08/07/2014 Acute respiratory failure (HCC) 08/07/2014 Pulmonary hypertension (HCC) 06/21/2013 History of [place] (myocardial infarction) 06/20/2013 Status post Robert fundoplication (without gastrostomy tube) procedure 06/20 S/P CABG (coronary artery bypass graft) 06/20/2013 Esophageal perforation 06/19/2013 Hiatal hernia 06/19/2013 Most Recent Encounters Date Type Specialty Providers Description 03/07/2017 Office Visit Gastroenterology Delfina Parks ARNP Arrived 03/07/2017 Surgery Elliott Daigle MD ESOPHAGOGASTRODUODENOSCOP Y 03/07/2017 Hospital Elliott Daigle MD Dysphagia Encounter 03/07/2017 Prep for Case Gastroenterology Dlefina Parks ARNP Immunizations Name Dates Previously Given Next Due Acthib Vaccine 08/14/2014 Flu Vaccine Trivalent=>3 06/27/2013 Yo (Preservative Free) Meningococcal Conjug 08/14/2014 Vaccine Pneumococcal Vaccine 08/14/2014 (23-Jasmina Adult) Social History Tobacco Use Types Packs/Day Years Used Date Never Smoker Smokeless Tobacco: Never Used Alcohol Use Drinks/Week oz/Week Comments No Last Filed Vital Signs Vital Sign Reading Time Taken Blood Pressure 126/62 03/07/2017 9:28 AM CDT Pulse 48 03/07/2017 9:28 AM CDT Temperature 36.4 C (97.6 F) 03/07/2017 9:28 AM CDT Respiratory Rate 12 03/07/2017 9:28 AM CDT Height 1.626 m (5' 4") 03/07/2017 9:28 AM CDT Weight 60.056 kg (132 lb 6.4 oz) 03/07/2017 9:28 AM CDT Body Mass Index 22.72 03/07/2017 9:28 AM CDT Oxygen Saturation 92% 02/22/2016 11:01 AM CDT Plan of Care Health Maintenance Due Date Last Done Comments Physical (Comprehensive) 1947 Exam Pertussis Vaccine 1952 Tetanus Vaccine 1958 Colorectal Cancer 1991 Screening Shingles Vaccine 2001 Osteoporosis Screening 2006 Prevnar/Pneumovax (#2) 08/14/2015 08/14/2014 Influenza Vaccine 05/13/2017 06/27/2013 Results from Last 3 Months Not on file
== END 2017-03-04 12:14 | disposition home or self-care (01) ==
LOC: EDUNIT# 08:17 → ER 08:19
DX: R07.9 Chest pain, unspecified (principal); K21.9 Gastro-esophageal reflux disease without esophagitis; I25.10 Atherosclerotic heart disease of native coronary artery without angina pectoris; Z95.1 Presence of aortocoronary bypass graft; Z79.82 Long term (current) use of aspirin
CPT/HCPCS: 36415; 71010; 80053; 83735; 83874; 84484; 85025; 85610; 85730; 93005; 93041

== ENCOUNTER 2017-09-03 18:52 | Emergency (ER) | payer MEDICARE ==
[~2017-09-03] VITALS: Ht 160 cm; Wt 52.2 kg
[~2017-09-03 18:52] MED LIST changes: +AMIT10TA6 PO; +ASPI-999 PO; +BETA1TAB12 PO; +BILB100C PO; +CALC600T12 PO; +CHOL10007 PO; +CLOP75TA28 PO; +HYDR200T46 PO; +LISI-556 PO; +OMG1KC PO
--- OUTSIDE RECORDS SUMMARY | 2017-09-03 18:59 | XMS REPORT | Clinical Summary ---
Author Author [facility] Organization [facility] Address Unknown Phone Unavailable Care Team Providers Care Complex Director Name Role Phone PCP Unavailable Source Comments Some departments are not documenting in the electronic medical record. If you do not see the information that you expected, contact Release of Information in the Health Information Management department at [phone] for further assistance in locating additional records.[facility] Allergies Active Allergy Reactions Severity Noted Date Comments Metoclopramide AGITATION Low 07/26/2014 causes involuntary body movements rigidity Current Medications [...] C-Vit Take 1 Cap by mouth Active Q-Dytols-Uee-OM-3 daily. 790-31-8-150 en-zgqz-dn-mg cap Cyanocobalamin 1,[address] 1 Tab [...] 10 mL by mouth 60 mL 0 06/13/20 Active ntacid DS(#) (GI every 8 hours as needed. 17 COCKTAIL) 1:1:3 Active Problems Problem Noted Date Slipped Robert fundoplication 05/10/2017 Overview: Added automatically from request for surgery [id number] S/P ventral herniorrhaphy 02/20/2016 Incisional hernia, without obstruction or gangrene 01/20/2016 Gastroparesis 05/13/2015 Nausea and vomiting 12/24/2014 Acute blood loss anemia 08/07/2014 Metabolic acidosis 08/07/2014 Lactic acidosis 08/07/2014 Acute respiratory failure (HCC) 08/07/2014 Pulmonary hypertension 06/21/2013 History of [place] (myocardial infarction) 06/20/2013 Status post Robert fundoplication (without gastrostomy tube) procedure 06/20 S/P CABG (coronary artery bypass graft) 06/20/2013 Esophageal perforation 06/19/2013 Hiatal hernia 06/19/2013 Encounters Date Type Specialty Care Team Description 2017 Office Visit Cardiothoracic Surgery Elliott Daigle MD Slipped Robert George Lynch, fundoplication (Primary MD Dx) 07/22/2017 Documentation Cardiothoracic Surgery George Lynch MD 06/21/2017 Telephone Gastroenterology Elliott Daigle MD Follow-up Phone Call 06/10/2017 Refill Gastroenterology Delfina Parks ARNP 06/10/2017 Orders Only Gastroenterology Delfina Parks ARNP from Last 3 Months Immunizations Name Dates Previously Given Next Due Acthib Vaccine 08/14/2014 Flu Vaccine Trivalent=>3 06/27/2013 Yo (Preservative Free) Meningococcal Conjug 08/14/2014 Vaccine Pneumococcal Vaccine 08/14/2014 (23-Jasmina Adult) Family History Medical History Relation Name Comments Diabetes Type II Brother Cancer-Ovarian Maternal Aunt Diabetes Type II Sister Colon Polyps Neg Hx Inflammatory Bowel Neg Hx Disease Ulcerative Colitis Neg Hx Relation Name Status Comments Brother Maternal Aunt Sister Social History Tobacco Use Types Packs/Day Years Used Date Never Smoker Smokeless Tobacco: Never Used Alcohol Use Drinks/Week oz/Week Comments No Sex Assigned at Date Recorded Not on file Last Filed Vital Signs Vital Sign Reading Time Taken Blood Pressure 116/64 2017 8:43 AM BAKERY SALES CLERK Pulse 61 2017 8:43 AM BAKERY SALES CLERK Temperature 36.7 C (98.1 F) 2017 8:43 AM BAKERY SALES CLERK Respiratory Rate 12 03/07/2017 9:28 AM CDT Oxygen Saturation 98% 2017 8:43 AM BAKERY SALES CLERK Inhaled Oxygen - - Concentration Weight 59.9 kg (132 lb) 2017 8:43 AM BAKERY SALES CLERK Height 162.6 cm (5' 4") 2017 8:43 AM BAKERY SALES CLERK Body Mass Index 22.66 2017 8:43 AM BAKERY SALES CLERK Plan of Treatment Health Maintenance Due Date Last Done Comments PHYSICAL (COMPREHENSIVE) 1947 EXAM PERTUSSIS VACCINE 1952 TETANUS VACCINE 1958 SHINGLES VACCINE 2001 OSTEOPOROSIS SCREENING 2006 PREVNAR/PNEUMOVAX (#2) 08/14/2015 08/14/2014 INFLUENZA VACCINE 04/12/2017 06/27/2013 Implants Implanted Type Area Embossed Or Impressed Lettering Painter Device Expiration Model / Identifier Date Serial / Lot Mesh Surgical Proceed 6x4in Fascial JandJ:ETHICON:E 11/10/2016 [id number] / Flexible Tissue Separate NDO-SURGERY NA / Implanted: Qty: 1 on 02/20/2016 by [id number] Lance Mahmood MD Results Not on filefrom Last 3 Months
--- OUTSIDE RECORDS SUMMARY | 2017-09-03 18:59 | XMS REPORT | Encounter Summary ---
Author Author [facility] Organization [facility] Address Unknown Phone Unavailable Care Team Providers Care Door Core Assembler Name Role Phone PCP Unavailable Reason for Visit * Reason Comments Appointment Encounter Details Date Type Department Care Team Description 07/22/2017 Documentation [facility] Cardi[facility] Sur[facility] [address] [place] [address] [place] [address] [place] [address] [phone] Social History Tobacco Use Types Packs/Day Years Used Date Never Smoker Smokeless Tobacco: Never Used Alcohol Use Drinks/Week oz/Week Comments No Sex Assigned at Date Recorded Not on file as of this encounter Functional Status Functional Status Response Date of Assessment Does the patient have a hearing impairment: No 03/07/2017 Does the patient have a visual impairment: Yes 03/07/2017 Does the patient have impaired ambulation: No 03/07/2017 Does the patient have an activity of daily living No 03/07/2017 (ADL) impairment: Does the patient have an instrumental activity of No 03/07/2017 daily living (IADL) impairment: Cognitive Status Response Date of Assessment Does the patient have a cognitive impairment: No 03/07/2017 as of this encounter Progress Notes * Laura Bledsoe, RN - 07/22/2017 10:14 AM [facility] Thoracic Surgery Navigation Intake Document Patient Name: Eboni Avila : 1940 --- Patient being seen on her birthday! Insurance: Medicare Appointment Info: , 07/28/17 at 9:00am w/ Dr. Lizeth Lynch Diagnosis & Reason for Visit: Dysphagia R13.10; slipped Robert K91.89/discuss surgical options Physician Info: Referring Physician: Dr. Elliott Daigle Contact Name & Number: [phone] Surgeon: Dr. Gonsalez ([place], [place]); Dr. Mahmood and Dr. Nix PCP: Dr. Armin Ulrich - [place], [place] Location of Films: IN HOUSE Location of Pathology: n/a History/timeline: 06/14/13 - surgery w/ Dr. Gonsalez ([place], [place]) - Laparoscopic hiatal hernia repair; Robert fundoplication 06/19/13 - trasferred to [facility] w/ iatrogenic esophageal perforation 06/19/13 - surgery w/ Dr. Nix - left thoracotomy w/ exploration; repair o esophageal perforation/ mini laparotomy w/ placement of gastrostomy tube 06/26/13 - exploratory lap, replacement of gastrostomy tube, jejunostomy placed 08/07/14 - surgery w/ Dr. Mahmood - robotic-assisted laparoscopic exploration converted to open hiatal hernia repair w/ SurgiMend mesh, Robert fundoplication and splenectomy 01/17/2016 - CT c/a/p - development of tiny upper abdominal midline fat- containing ventral hernia; below this level is a new moderate-sized midline ventral hernia containing a portion of the transverse colon, w/ assoc diastases of the rectus musculature. 02/20/16 - surgery w/ Dr. Mahmood - Incisional hernia hernia repair, lysis of adhesions, implantation of mesh 04/20/17 - EGD - Tortuous esophagus; food in the lower third of the esophagus; Robert fundoplication found, wrap appears intact; paraesophageal hernia 05/06/17 - esophagram - s/p gastric fundoplication; findings suggestive of a slipped fundal wrap and recurrent hiatal hernia; mildly patulous esophagus w/ visualization of scattered tertiary contractions consistent w/ mild esophageal dysmotility. 05/13/17 - esophageal manometry Comments: Patient lives in [place], [place] (2+ hrs from [facility]) Have requested office notes from PCP - will forward as soon as received. in this encounter Plan of Treatment Not on fileas of this encounter Visit Diagnoses Not on filein this encounter
--- OUTSIDE RECORDS SUMMARY | 2017-09-03 18:59 | XMS REPORT | Encounter Summary ---
Author Author [facility] Organization [facility] Address Unknown Phone Unavailable Care Team Providers Care Satellite Installation Technician Name Role Phone PCP Unavailable Reason for Visit * Reason Comments Medication Refill APAP/LIDO/ANTACID DS Encounter Details Date Type Department Care Team Description 06/10/2017 Refill [facility] Delfina Parks ARNP Physicians - Internal [address] [facility] Medicine [place] [address] [place] [address] [place] [address] Social History Tobacco Use Types Packs/Day Years [...] impairment: No 03/07/2017 as of this encounter Miscellaneous Notes * Telephone Encounter - Tahmina Sadlivar LPN - 06/10/2017 3:37 PM CDT REFILL APAP/LIDO/ANTACID DS in this encounter Plan of Treatment Not on fileas of this encounter Visit Diagnoses Not on filein this encounter
--- OUTSIDE RECORDS SUMMARY | 2017-09-03 18:59 | XMS REPORT | Encounter Summary ---
Author Author [facility] Organization [facility] Address Unknown Phone Unavailable Care Team Providers Care Boat Fueler Name Role Phone PCP Unavailable Encounter Details Date Type Department Care Team Description 06/10/2017 Orders Only [facility] Delfina Parks ARNP Physicians - Internal [address] [facility] Medicine [place] [address] [place] [address] [place] [phone] Social History Tobacco Use Types Packs/Day Years [...] impairment: No 03/07/2017 as of this encounter Plan of Treatment Not on fileas of this encounter Visit Diagnoses Not on filein this encounter
--- OUTSIDE RECORDS SUMMARY | 2017-09-03 18:59 | XMS REPORT | Encounter Summary ---
Author Author [facility] Organization [facility] Address Unknown Phone Unavailable Care Team Providers Care Ammonia Print Operator Name Role Phone PCP Unavailable Reason for Referral * Consult, Test & Treat Status Reason Specialty Diagnoses / Referred By Referred To Procedures Contact Contact New Request Specialty Cardiothoracic Diagnoses Elliott Daigle, Services Surgery Slipped MD George Jenkins MD Required fundoplication [address] [place] [address] [place], [place] [phone] Phone: Reason for Visit * Reason Comments Follow-up Phone Call Encounter Details Date Type Department Care Team Description 06/21/2017 Telephone [facility] Elliott Daigle MD Follow -up Phone Call Physicians - Internal [address] [facility] Medicine [place] [address] [place] [address] [address] [facility] MED [phone] [place] [address] Social History Tobacco Use Types Packs/Day Years [...] encounter Miscellaneous Notes * Telephone Encounter - Dago Flores RN - 06/23/2017 4:09 PM CDT Pt agreeing to referral. Placing. Dago Flores RN * Telephone Encounter - Elliott Daigle MD - 06/21/2017 2:11 PM CDT EGD, manometry and esophagram all consistent with slipped Robert, recurrent hiatal hernia We had discussed consultation with Dr. Lynch, if she would like to pursue that. * Telephone Encounter - Dago Flores RN - 06/21/2017 1:36 PM CDT Pt calling in for results from her recent manometry done. Dago Flores RN in this encounter Plan of Treatment Name Priority Associated Diagnoses Order Schedule AMB REFERRAL TO CARDIOTHORACIC SURGEON Routine Slipped Robert Ordered: 06/23/2017 fundoplication as of this encounter Visit Diagnoses Diagnosis Slipped Robert fundoplication - Primary Other digestive system complications in this encounter
--- OUTSIDE RECORDS SUMMARY | 2017-09-03 18:59 | XMS REPORT | Continuity of Care Document ---
Author Author [facility] Organization [facility] Address Unknown Phone Unavailable Care Team Providers Care Ship Fitter Name Role Phone [facility] Unavailable Unavailable Problems Medications Allergies, Adverse Reactions, Alerts Immunizations Results Vital Signs Encounters Procedures Plan of Care Social History Assessment and Plan Family History Value Date Source Advance Directives Order Name Results Value Date Source
--- OUTSIDE RECORDS SUMMARY | 2017-09-03 18:59 | XMS REPORT | Encounter Summary ---
Author Author [facility] Organization [facility] Address Unknown Phone Unavailable Care Team Providers Care Cardiothoracic Physiotherapist Name Role Phone PCP Unavailable Reason for Visit * Reason Comments New Patient Dysphagia R13.10, slipped Robert K91.89 * Consult, Test & Treat Status Reason Specialty Diagnoses / Referred By Referred To Procedures Contact Contact New Request Specialty Cardiothoracic Diagnoses Elliott Daigle, Services Surgery Slipped MD George Jenkins MD Required fundoplication [address] [place] [address] [place] [address] Phone: Encounter Details Date Type Department Care Team Description 2017 Office Visit [facility] Elliott Daigle MD Slipped Robert [facility] [address] fundoplication (Primary [address] [place] [address] [place]x) [place] [address] [place] [address] [phone] George Peter MD [address] [place] [address] [place] [address] [phone] Social History Tobacco Use Types Packs/Day Years Used Date Never Smoker Smokeless Tobacco: Never Used Alcohol Use Drinks/Week oz/Week Comments No Sex Assigned at Date Recorded Not on file as of this encounter Last Filed Vital Signs Vital Sign Reading Time Taken Blood Pressure 116/64 2017 8:43 AM [facility] Pulse 61 2017 8:43 AM [facility] Temperature 36.7 C (98.1 F) 2017 8:43 AM [facility] Respiratory Rate - - Oxygen Saturation 98% 2017 8:43 AM [facility] Inhaled Oxygen - - Concentration Weight 59.9 kg (132 lb) 2017 8:43 AM [facility] Height 162.6 cm (5' 4") 2017 8:43 AM [facility] Body Mass Index 22.66 2017 8:43 AM [facility] in this encounter Functional Status Functional Status Response [...] as of this encounter Progress Notes * George Lynch MD - 2017 9:00 AM [facility] Formatting of this note may be different from the original. Date of Service: 2017 Name: Eboni Avila : 1940 Referring Provider: Elliott Daigle PCP: Armin Ulrich (Inactive) Chief Complaint Patient presents with New Patient Dysphagia R13.10, slipped Robert K91.89 History of Present Illness Eboni Avila is a 77 y.o. female who She has a many-year history of significant dysphagia. The patient reports regurgitation and food sticking. She often depends on a cocktail of antacid and viscus lidocaine to help with pain with eating. ([id number]) History Past Medical History: Diagnosis Date Accidental perforation of esophagus during procedure 2012 Arthritis CAD (coronary artery disease) Chest pain Hiatal hernia HTN (hypertension) Hx of CABG Nausea & vomiting Osteoporosis Past Surgical History: Procedure Laterality Date GASTRIC FUNDOPLICATION 2013 NM ROBOTIC SURGICAL SYSTEM N/A 02/20/2016 ROBOT-ASSISTED INCISIONAL HERNIA REPAIR, LYSIS OF ADHESIONS 35 MINUTES, IMPLANTATION OF MESH performed by Lance Mahmood MD at Main OR/Periop UPPER GASTROINTESTINAL ENDOSCOPY N/A 04/20/2017 ESOPHAGOGASTRODUODENOSCOPY performed by Elliott Daigle MD at ENDO/GI UPPER GASTROINTESTINAL ENDOSCOPY 04/20/2017 ESOPHAGOGASTRODUODENOSCOPY BIOPSY performed by Elliott Daigle MD at ENDO/GI ESOPHAGEAL MOTILITY STUDY N/A 05/13/2017 MANOMETRY ESOPHAGEAL performed by Olivia Dumas MD at ENDO/GI ESOPHAGUS SURGERY repair of perforation HX CORONARY ARTERY BYPASS GRAFT 20 years ago HX HEART CATHETERIZATION HX TUBAL LIGATION SPLENECTOMY Social History Social History Marital status: Single Spouse name: N/A Number of children: N/A Years of education: N/A Social History Main Topics Smoking status: Never Smoker Smokeless tobacco: Never Used Alcohol use No Drug use: No Sexual activity: Not Asked Other Topics Concern None Social History Narrative Family History Problem Relation Age of Onset Diabetes Type II Brother Diabetes Type II Sister Cancer-Ovarian Maternal Aunt Colon Polyps Neg Hx Ulcerative Colitis Neg Hx Inflammatory Bowel Disease Neg Hx Allergies Allergen Reactions Metoclopramide AGITATION causes involuntary body movements rigidity Immunization History Administered Date(s) Administered Acthib Vaccine 08/14/2014 Flu Vaccine Trivalent=>3 Yo (Preservative Free) 06/27/2013 Meningococcal Conjug Vaccine 08/14/2014 Pneumococcal Vaccine (23-Jasmina Adult) 08/14/2014 Medications: acetaminophen SR(+) (TYLENOL) 650 mg tablet Take 650 mg by mouth twice daily. acetaminophen/lidocaine/antacid DS(#) (GI COCKTAIL) 1:1:3 Take 5 to 10 mL by mouth every 8 hours as needed. amitriptyline (ELAVIL) 10 mg tablet Take 20 mg by mouth at bedtime daily. aspirin EC 81 mg tablet Take 81 mg by mouth daily. BILBERRY PO Take 2 Caps by mouth at bedtime daily. calcium carbonate/vitamin D-3 (OSCAL-500+D) 1250 mg/200 unit tablet Take 1 Tab by mouth four times weekly. Calcium Carb 1250mg delivers 500mg elemental Ca cholecalciferol (Vitamin D3) (VITAMIN D-3) 1,000 units tablet Take 1,000 Units by mouth daily. clopiDOGrel (PLAVIX) 75 mg tablet Take 75 mg by mouth every morning. Cyanocobalamin 1,[address] 1 Tab under tongue daily. ferrous sulfate 325 mg (65 mg iron) tablet Take 325 mg by mouth daily. fish oil /omega-3 fatty acids (SEA-OMEGA) 340/1000 mg capsule Take 2 Caps by mouth twice daily. hydroxychloroquine (PLAQUENIL) 200 mg tablet Take 200 mg by mouth twice daily. isosorbide mononitrate SR (IMDUR) 30 mg tablet Take 30 mg by mouth every morning. lisinopril (PRINIVIL; ZESTRIL) 5 mg tablet Take 5 mg by mouth at bedtime daily. magnesium chloride (MAG DELAY) 64 mg tablet Take 535 mg by mouth twice daily. naproxen sodium(+) (ALEVE) 220 mg tablet Take 220 mg by mouth twice daily. nitroglycerin (NITROSTAT) 0.[address] 0.4 mg under tongue every 5 minutes as needed for Chest Pain. oxybutynin XL (DITROPAN XL) 5 mg tablet Take [address] (PROTONIX) 40 mg tablet Take 40 mg by mouth every morning. pravastatin (PRAVACHOL) 10 mg tablet Take 10 mg by mouth every morning. tolterodine LA(+) (DETROL LA) 4 mg capsule Take 4 mg by mouth twice daily. Vit C-Vit [id number]-OM-3 128-28-4-150 jj-masy-sp-mg cap Take 1 Cap by mouth daily. zinc sulfate 220 mg (50 mg elemental zinc) capsule Take 220 mg by mouth daily. I have reviewed the [facility] [employer] [facility] meds and they are correct. Anti-coagulation: clopidogrel (Plavix) Occupation: retired Functional Assessment [place] Performance Status: 1 - Symptomatic but completely ambulatory ( Restricted in physically strenuous activity but ambulatory and able to carry out work of a light or sedentary nature. For example, light housework, office work.)) Pain Scale (0=No Pain, 10=Severe Pain): 0 Comments/Interventions: none Clinical Nutrition Status PO Intake compared to normal: Dysphagia to solids and liquids Weight loss last 3 months: 0 lbs Estimated body mass index is 22.66 kg/(m^2) as calculated from the following: Height as of this encounter: 1.626 m (5' 4"). Weight as of this encounter: 59.9 kg (132 lb). BMI class: Acceptable (19 to <25) Patient demonstrates no malnutrition Review of Systems Constitution: Negative. HENT: Negative. Eyes: Negative. Cardiovascular: Negative. Respiratory: Negative. Endocrine: Negative. Hematologic/Lymphatic: Negative. Skin: Negative. Musculoskeletal: Positive for arthritis. Gastrointestinal: Positive for dysphagia and hemorrhoids. Genitourinary: Negative. Neurological: Negative. Psychiatric/Behavioral: Negative. Review of systems Obtained from patient Physical Exam Constitutional: oriented to person, place, and time. appears thin and elderly. No distress. HENT: Head: Normocephalic and atraumatic. Mouth/Throat: Oropharynx is clear and moist. Eyes: EOM are normal. Pupils are equal, round, and reactive to light. No scleral icterus. Neck: Normal range of motion. Cardiovascular: Normal rate and regular rhythm. No murmur heard. Pulmonary/Chest: Effort normal. No respiratory distress. Abdominal: . Soft, NT, no masses, incisions healed. Musculoskeletal: Normal range of motion. no back tenderness Lymphadenopathy: no cervical or supraclavicular adenopathy Neurological: He is alert and oriented to person, place, and time. No cranial nerve deficit. He exhibits normal muscle tone. Coordination normal. Skin: Skin is warm and dry. No rash noted. Vitals reviewed. Objective Vitals: 07/28/17 0843 BP: 116/64 Pulse: 61 Temp: 36.7 C (98.1 F) SpO2: 98% Primary Diagnosis: No diagnosis found. Currently Active Problems: Patient Active Problem List Diagnosis Date Noted Slipped Robert fundoplication 05/10/2017 S/P ventral herniorrhaphy 02/20/2016 Incisional hernia, without obstruction or gangrene 01/20/2016 Gastroparesis 05/13/2015 Nausea and vomiting 12/24/2014 Acute blood loss anemia 08/07/2014 Metabolic acidosis 08/07/2014 Lactic acidosis 08/07/2014 Acute respiratory failure (HCC) 08/07/2014 Pulmonary hypertension 06/21/2013 History of RI (myocardial infarction) 06/20/2013 Status post Robert fundoplication (without gastrostomy tube) procedure 06/20 S/P CABG (coronary artery bypass graft) 06/20/2013 Esophageal perforation 06/19/2013 Hiatal hernia 06/19/2013 Assessment and Plan Mrs. Avila is a 77-year-old referred to me from Dr. Carlos Daigle. This is a patient with a very complex surgical history. In 2012, she had attempted laparoscopic hiatal hernia repair which was complicated by an esophageal perforation. She was transferred to within days of that operation and underwent a left thoracotomy with exploration and repair of the perforation. She subsequently, one year later, saw Dr. Lance Mahmood who performed a robotic-assisted laparoscopic exploration in order to fix this hernia. He converted this to an open operation and performed a splenectomy at the same time. Over the subsequent 2 years, the patient has developed additional surgical complications including an incision repaired with mesh again by Dr. Mahmood. Since her last operation in 2013, the patient has found it increasingly difficult to eat. The patient reports that even liquids sometimes cause dysphagia and sensation of fullness at the level of the mid chest. An esophagogram was performed in April of this year which demonstrates a very patulous distal esophagus with a portion of her stomach in the intrathoracic location. The fundoplication appears to have unraveled partially. Manometry done a few days after this reveals a significant esophageal dysmotility problem with essentially a minimally peristaltic esophagus with only one of 10 swallows actually being cleared. The patient requests consultation for any potential surgical intervention. Unfortunately, there is no straight forward way of repairing this problem. Typically, for patients like this, I would recommend an esophagectomy. However , this is further complicated in this patient. She is elderly and frail. Her main activity is to walk around her yard. She lives under the care of one of her daughters. I explained the conduct of an operation. I would doubt the multiple operations that she had that her stomach would be usable as a gastric conduit in which case we would need to realistically plan for a colon interposition. The patient's health status is further complicated by what appears to be symptoms of rectal prolapse for which she is seeing a local surgeon. Given her overall frail status and relatively stable weight, I recommended continued treatment in the manner that she is currently undergoing. In the event the patient starts to experience worsening dysphagia, or begins to experience weight loss or malnutrition, one reasonable option is to consider replacement of her gastrostomy feeding tube. I explained the quality of life with feeding tube, and she is agreeable to this should the need arise. I spent over 30 minutes with the patient and her daughter in consultation. I reviewed all of the available films as well as the manometry studies. I answered all their questions to their satisfaction, and they understand the underlying anatomic and pathophysiologic problems. I am pleased to see them in followup as needed. ([id number]) in this encounter Plan of Treatment Not on fileas of this encounter Visit Diagnoses Diagnosis Slipped Robert fundoplication - Primary Other digestive system complications in this encounter
--- OUTSIDE RECORDS SUMMARY | 2017-09-03 19:00 | XMS REPORT | Continuity of Care Document ---
Author Author [facility] Organization [facility] Address Unknown Phone Unavailable Allergies Active Description Code Type Severity Reaction Onset Reported/Identified Relationship to Patient Clinical Status Yes No Known Drug Allergies [id number] Drug Allergy Unknown N/A 05/12/2007 Yes metoclopramide [id number] Drug Allergy Severe TARDIVE DYKENIE 12/15/2014 Medications There is no data. Problems Date Dx Coded Attending Type Code Diagnosis Diagnosed By 05/18/2011 Ot 272.4 HYPERLIPIDEMIA NEC/NOS 05/18/2011 Ot 365.9 GLAUCOMA NOS 05/18/2011 Ot 401.9 HYPERTENSION NOS 05/18/2011 Ot 414.01 CORONARY ATHEROSCLEROSIS OF [place] CORON 05/18/2011 Ot 414.2 CHRONIC TOTAL OCCLUSION OF CORONARY [place] 05/18/2011 Ot 424.0 MITRAL VALVE DISORDER 05/18/2011 Ot 427.89 CARDIAC DYSRHYTHMIAS NEC 05/18/2011 Ot 433.10 CAROTID ARTERY OCCLUSION W O CEREBRAL IN 05/18/2011 Ot 715.90 OSTEOARTHROS NOS-UNSPEC 05/18/2011 Ot 786.59 CHEST PAIN NEC 05/18/2011 Ot V45.81 AORTOCORONARY BYPASS 05/18/2011 Ot V58.63 LONG-TERM( CURRENT)USE OF ANTIPLATELET/AN 05/18/2011 Ot V58.66 LONG-TERM ( 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 05/18/2011 Ot V58.69 OTH MED,LT, CURRENT USE 10/31/2012 Ot 780.60 FEVER, UNSPECIFIED 10/31/2012 Ot 787.91 DIARRHEA 01/19/2013 MENA SKY DO Ot 272.4 HYPERLIPIDEMIA NEC/NOS 01/19/2013 MENA SKY DO Ot 401.9 HYPERTENSION NOS 01/19/2013 MENA SKY DO Ot 414.01 CORONARY ATHEROSCLEROSIS OF [place] CORON 01/19/2013 MENA SKY DO Ot 414.8 CHR ISCHEMIC HRT DIS NEC 01/19/2013 MENA SKY DO Ot 424.1 AORTIC VALVE DISORDER 01/19/2013 MENA SKY DO Ot 427.89 CARDIAC DYSRHYTHMIAS NEC 01/19/2013 MENA SKY DO Ot 530.81 ESOPHAGEAL REFLUX 01/19/2013 MENA SKY DO Ot 553.3 DIAPHRAGMATIC HERNIA 01/19/2013 MENA SKY DO Ot 710.2 SICCA SYNDROME 01/19/2013 MENA SKY DO Ot 715.90 OSTEOARTHROS NOS-UNSPEC 01/19/2013 MENA SKY DO Ot 733.00 OSTEOPOROSIS NOS 01/19/2013 MENA SKY DO Ot 786.50 CHEST PAIN NOS 01/19/2013 MENA SKY DO Ot V45.81 AORTOCORONARY BYPASS 03/25/2013 MENA SKY DO Ot 787.91 DIARRHEA 06/15/2013 EMRE MARS MD, Ot 530.81 ESOPHAGEAL REFLUX 06/15/2013 EMRE MARS MD Ot 553.3 DIAPHRAGMATIC HERNIA [...] MARS MD Ot 536.2 PERSISTENT VOMITING 06/19/2013 KIDO MD, TAKAAKI Ot 553.3 DIAPHRAGMATIC HERNIA 06/19/2013 JERAD MERRITT, EMRE Ot 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 06/19/2013 JERAD MERRITT, EMRE Ot 710.2 SICCA SYNDROME 06/19/2013 JERAD MERRITT, EMRE Ot 714.0 RHEUMATOID ARTHRITIS 06/19/2013 JERAD MERRITT, EMRE Ot 733.00 OSTEOPOROSIS NOS 06/19/2013 JERAD MERRITT, EMRE Ot 787.20 DYSPHAGIA, UNSPECIFIED 06/19/2013 JERAD MERRITT, EMRE Ot 998.2 ACCIDENTAL OP LACERATION 06/19/2013 JERAD MERRITT, EMRE Ot V45.81 AORTOCORONARY BYPASS 06/27/2014 NARCISO KERNS [...] Thompson Ot 553.3 12/12/2014 Ot 787.91 12/12/2014 JERAD MERRITT, EMRE Ot 414.01 12/12/2014 JERAD MERRITT, EMRE Ot 553.3 12/12/2014 JERAD MERRITT, EMRE Ot 791.9 12/12/2014 JERAD MERRITT, EMRE Ot V72.63 12/12/2014 EMRE MARS MD Ot [...] TRANSAMINASE/LDH 12/26/2015 Ot 414.01 CORONARY ATHEROSCLEROSIS [place] CORON 12/26/2015 Ot 729.5 PAIN IN LIMB 12/26/2015 Ot 786.50 CHEST PAIN NOS 12/26/2015 Ot V58.63 LONG-TERM( CURRENT)USE OF ANTIPLATELET/AN 12/26/2015 Ot V58.66 LONG-TERM ( 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 12/26/2015 Ot V58.69 OTH MED,LT, CURRENT USE 12/26/2015 Ot 433.10 CAROTID ARTERY OCCLUSION W O CEREBRAL IN 12/26/2015 Ot 729.5 PAIN IN LIMB 12/26/2015 Ot 998.12 HEMATOMA COMPLIC A PROC 12/26/2015 Ot 440.20 ATHEROSCLEROSIS [place] ARTERIES EXTREMIT 12/26/2015 Ot 780.60 FEVER, UNSPECIFIED 12/26/2015 Ot 787.91 DIARRHEA 12/26/2015 DOMENICO MERRITT, UZMA Thompson Ot 553.3 DIAPHRAGMATIC HERNIA 12/26/2015 Ot 787.91 DIARRHEA 12/26/2015 EMRE MARS MD Ot 414.01 CORONARY ATHEROSCLEROSIS OF [place] CORON 12/26/2015 EMRE MARS MD Ot 553.3 DIAPHRAGMATIC HERNIA 12/26/2015 EMRE MARS MD Ot 791.9 ABN URINE FINDINGS NEC 12/26/2015 EMRE MARS MD Ot V72.63 PRE-PROCEDURAL LABORATORY EXAMINATION 12/26/2015 EMRE MARS MD Ot V74.8 SCREEN-BACTERIAL DIS NEC 12/26/2015 MENA SKY DO Ot V55.1 ATTEN TO GASTROSTOMY 12/26/2015 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[employer] Ot V55.4 ATTEN TO ENTEROSTOMY NEC 12/26/2015 MENA SKY DO Ot 781.0 ABN INVOLUN MOVEMENT NEC 12/26/2015 MENA SKY DO Ot 793.0 NOSP (ABN) FINDINGS ON RADIOLOGICAL OT 12/26/2015 MENA SKY DO Ot 793.82 INCONCLUSIVE MAMMOGRAM 12/26/2015 MENA SKY DO Ot V76.12 OTH SCREEN MAMMO-MALIGN NEOPLASM OF [place] 12/29/2015 MENA SKY DO Ot Z12.31 ENCNTR SCREEN MAMMOGRAM FOR MALIGNANT NE 12/29/2015 MENA SKY DO Ot Z12.31 ENCNTR SCREEN MAMMOGRAM FOR MALIGNANT NE 01/01/2016 MENA SKY DO Ot Z12.31 ENCNTR SCREEN MAMMOGRAM FOR MALIGNANT NE 01/15/2016 MENA SKY DO, Ot Z12.31 ENCNTR SCREEN MAMMOGRAM FOR MALIGNANT NE 03/04/2017 VENKAT MANRIQUEZ MD, Ot I25.10 ATHSCL HEART DISEASE OF [place] CORONARY 03/04/2017 VENKAT MANRIQUEZ MD, Ot K21.9 GASTRO-ESOPHAGEAL REFLUX DISEASE WITHOUT 03/04/2017 VENKAT MANRIQUEZ MD, Ot R07.9 CHEST PAIN, UNSPECIFIED 03/04/2017 VENKAT MANRIQUEZ MD, Ot 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 03/04/2017 VENKAT MANRIQUEZ MD, Ot Z95.1 PRESENCE OF AORTOCORONARY BYPASS GRAFT 03/10/2017 VENKAT MANRIQUEZ MD, Ot I25.10 ATHSCL HEART DISEASE OF [place] CORONARY 03/10/2017 VENKAT MANRIQUEZ MD, Ot K21.9 GASTRO-ESOPHAGEAL REFLUX DISEASE WITHOUT 03/10/2017 VENKAT MANRIQUEZ MD, Ot R07.9 CHEST PAIN, UNSPECIFIED 03/10/2017 VENKAT MANRIQUEZ MD, Ot 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..] Serum or plasma sodium measurement (moles/volume) 142 mmol/L 135-145 Serum or plasma potassium measurement (moles/volume) 4.2 mmol/L 3.6-5.0 Serum or plasma chloride measurement (moles/volume) 108 mmol/L 98-107 Carbon dioxide 23 mmol/L 21-32 Serum or plasma anion gap determination (moles/volume) 11 mmol/L 5-14 Serum or plasma urea nitrogen measurement (mass/volume) 22 mg/dL 7-18 Serum or plasma creatinine measurement (mass/volume) 1.06 mg/dL 0.60-1.30 Serum or plasma urea nitrogen/creatinine mass ratio 21 0 -20 Serum or plasma creatinine measurement with calculation of estimated glomerular filtration rate 51 NRG Serum or plasma glucose measurement (mass/volume) 91 mg/dL 70-105 Serum or plasma calcium measurement (mass/volume) 10.1 mg/dL 8.5-10.1 Serum or plasma total bilirubin measurement [...] or plasma troponin i.cardiac measurement (mass/volume) < ng/ mL <0.30 Myoglobin, serum - 03/04/17 08:20 Myoglobin, serum 47.2 ng/mL 10.0-92.0 Serum or plasma troponin i.cardiac measurement (mass/volume) - 03/04/17 11:32 Serum or plasma troponin i.cardiac measurement (mass/volume) < ng/ mL <0.30 Myoglobin, serum - 03/04/17 11:32 Myoglobin, serum 43.6 ng/mL 10.0-92.0 Encounters ACCT No. Visit Date/Time Discharge Status Pt. Type Provider Facility Loc./Unit Complaint [id number] 03/04/2017 08:19:00 03/04/2017 12:14:00 DIS Emergency DECLAN MERRITT, VENKAT Hood [facility] ER CHEST PAIN [id number] 12/26/2015 15:29:00 12/26/2015 23:59:59 CLS Outpatient MENA SKY DO [facility] RAD [id number] 12/15/2014 16:40:00 12/17/2014 10:28:00 DIS Inpatient MENA SKY DO [facility] [id number] 12/13/2014 09:32:00 12/13/2014 23:59:59 CLS Outpatient MENA SKY DO [facility] RAD [id number] 06/27/2014 16:32:00 06/27/2014 20:58:00 DIS Emergency ROGER BRUCE NARCISO Baumann [facility] ER [id number] 03/26/2014 09:28:00 03/26/2014 23:59:59 CLS Outpatient MENA SKY DO [facility] RAD [id number] 07/24/2013 14:12:00 07/24/2013 23:59:59 CLS Outpatient [place] APRN [facility] RAD [id number] 07/23/2013 17:24:00 07/23/2013 23:59:59 CLS Outpatient MENA SKY DO [facility] RAD [id number] 06/16/2013 12:56:00 06/19/2013 16:10:00 DIS Inpatient EMRE MARS MD [facility] ICU [id number] 06/14/2013 08:58:00 06/15/2013 15:45:00 DIS Outpatient EMRE MARS MD [facility] SDC [id number] 06/12/2013 13:32:00 06/12/2013 23:59:59 CLS Outpatient EMRE MARS MD [facility] PREOP [id number] 01/02/2013 11:34:00 03/25/2013 00:01:00 DIS Outpatient MNEA SKY DO [facility] LAB [id number] 03/16/2013 09:07:00 03/16/2013 23:59:59 CLS Outpatient UZMA ACUÑA MD [facility] RAD [id number] 01/18/2013 17:16:00 01/19/2013 10:54:00 DIS Inpatient MENA SKY DO [facility] [id number] 12/12/2014 15:27:00 Document Registration [id number] 12/12/2014 15:27:00 Document Registration [id number] 11/22/2014 08:33:00 Document Registration [id number] 03/26/2013 00:00:00 Document Registration [id number] 11/01/2012 00:00:00 Document Registration [id number] 08/02/2012 13:58:00 Document Registration [id number] 11/04/2011 11:45:00 Document Registration [id number] 05/18/2011 11:09:00 Document Registration [id number] 12/21/2010 11:30:00 Document Registration [id number] 12/14/2010 11:55:00 Document Registration
[2017-09-03] MEDS ORDERED: ONDANSETRON 4 MG/2 ML (SDV) Z0FRAN ONE ×2 (19:06→19:15)
[2017-09-03] MEDS ORDERED: LACTATED RINGERS 1,000 ML IV ONE ×2 (19:21→20:39)
[2017-09-03] MEDS ORDERED: PROMETHAZINE INJ 25 MG/ML (PHENERGAN) AMP ONE (19:26)
[2017-09-03 19:27] LABS: BASOPHILS % (AUTO) 0 % (0-10); EOSINOPHILS % (AUTO) 0 % (0-10); LYMPHOCYTES # (AUTO) 2.8 X 10^3 (1.0-4.0); LYMPHOCYTES % (AUTO) 25 % (12-44); MEAN CORPUSCULAR HEMOGLOBIN 32 PG (25-34); MEAN CORPUSCULAR HGB CONC 33 G/DL (32-36); MEAN CORPUSCULAR VOLUME 96 FL (80-99); MEAN PLATELET VOLUME 10.6 FL (7.4-10.4); MONOCYTES # (AUTO) 0.4 X 10^3 (0.0-1.0); MONOCYTES % (AUTO) 3 % (0-12); NEUTROPHILS # (AUTO) 8.1 X 10^3 (1.8-7.8); NEUTROPHILS % (AUTO) 72 % (42-75); PLATELET COUNT 372 10^3/uL (130-400); RED BLOOD COUNT 4.26 10^6/uL (4.35-5.85); RED CELL DISTRIBUTION WIDTH 13.1 % (10.0-14.5); WHITE BLOOD COUNT 11.3 10^3/uL (4.3-11.0)
[2017-09-03] MEDS ORDERED: SCOPOLAMINE 1.5 MG (TRANSDERM-SCOP) PATCH TD ONE (19:30)
[2017-09-03] MEDS ORDERED: PANTOPRAZOLE 40 MG/10 ML (PROTONIX) VIAL IV ONE (19:30)
[2017-09-03] MEDS ORDERED: PROMETHAZINE INJ 25 MG/ML (PHENERGAN) AMP IVP ONE (19:30)
[2017-09-03] MEDS ORDERED: diphenhydrAMINE 50 MG/ML INJ (BENADRYL) IVP ONE (19:30)
[2017-09-03] MEDS ORDERED: ONDANSETRON 4 MG/2 ML (SDV) Z0FRAN IVP ONE (19:30)
[2017-09-03 19:47] LABS: ALBUMIN 4.3 GM/DL (3.2-4.5); BILIRUBIN,TOTAL 0.6 MG/DL (0.1-1.0); CALCIUM 10.8 MG/DL (8.5-10.1); CREATININE SERUM 1.08 MG/DL (0.60-1.30); POTASSIUM 4.1 MMOL/L (3.6-5.0); TOTAL PROTEIN 8.4 GM/DL (6.4-8.2)
--- NOTE | 2017-09-03 19:50 | ED GI ---
General Chief Complaint: Abdominal/GI Problems Stated Complaint: VOMITING Nursing Triage Note: N/V x 1 day Sepsis Screen: No Definite Risk Source of Information: Patient (DOESN'T WANT TO TALK--DAUGHTER DOES ALL TALKING FOR PT), Family (DAUGHTER) History of Present Illness Time Seen By Provider: 19:20 Initial Comments PT ARRIVES VIA POV FROM HOME C/O NAUSEA/ VOMITING SINCE 529 THIS AM C/O EMESIS APPROXIMATELY 15 TIMES NO DIARRHEA NO SIGNIFICANT ABDOMINAL PAIN, STATES STOMACH IS A LITTLE SORE FROM VOMITING HAS HAD DECREASED URINE OUTPUT TODAY NO FEVER HAS NOT BEEN ABLE TO TAKE ANY OF HER MEDICATIONS TODAY NON KNOWN SICK CONTACTS OR SUSPICIOUS FOODS FELT FINE YESTERDAY PT HAS SURGERY IN [place] ON 08/15/17 FOR RECTAL PROLAPSE--STATES HAS ONLY HAD A FEW BM'S SINCE SURGERY, AND LAST BM WAS YESTERDAY PT HAS HISTORY OF GERD AND HIATAL HERNIA REPAIR WITH SIGNIFICANT COMPLICATIONS - -SENT TO [facility]--ESOPHAGEAL TEAR AND SPLEEN INJURY RESULTING IN SPLENECTOMY Allergies and Home Medications Allergies Coded Allergies: metoclopramide (Unverified Allergy, Severe, TARDIVE DYKENIESIA, 12/15/14) Home Medications Amitriptyline HCl 10 Mg Tablet, 10 MG PO DAILY LATE, (Reported) Aspirin 81 Mg Tab.chew, 81 MG PO DAILY, (Reported) Beta-Carotene(A) W-C & E/Min 1 Each Tablet, 1 EACH PO DAILY, (Reported) Bilberry 100 Mg Capsule, 1,000 MG PO DAILY LATE, (Reported) Calcium Carbonate 600 Mg Tablet, 600 MG PO DAILY, (Reported) Cholecalciferol (Vitamin D3) 1,000 Unit Capsule, 1,000 UNIT PO DAILY, (Reported) Clonazepam 0.5 Mg Tablet, 0.5 MG PO BID, (Reported) Clopidogrel Bisulfate 75 Mg Tablet, 75 MG PO DAILY, (Reported) Hydroxychloroquine Sulfate 200 Mg Tablet, 200 MG PO BID, (Reported) Isosorbide Mononitrate 60 Mg Tab, 60 MG PO DAILY, (Reported) Lisinopril 5 Mg Tablet, 5 MG PO DAILY LATE, (Reported) [place] 3 Polyunsat Fatty Acids 1,000 Mg Cap, 2,000 MG PO BID, (Reported) Ondansetron 8 Mg Tab.rapdis, 8 MG PO Q4H, #14 Prescribed by: CHAPITO KHANNA on 09/03/172110 Oxybutynin Chloride 5 Mg Tablet, 5 MG PO BID, (Reported) Pantoprazole Sodium 40 Mg Tablet.dr, 40 MG PO DAILY, #15 Prescribed by: CHAPITO KHANNA on 09/03/172110 Promethazine HCl 25 Mg Supp.rect, 25 MG RC Q4H, #10 Prescribed by: CHAPITO KHANNA on 09/03/172110 Review of Systems Constitutional: No fever, malaise, weakness EENTM: No Symptoms Reported Respiratory: No Symptoms Reported Cardiovascular: No Symptoms Reported Gastrointestinal: See HPI, Abdominal Pain, Denies Diarrhea, Nausea, Poor Appetite, Poor Fluid Intake, Denies Rectal Bleeding, Vomiting Genitourinary: See HPI Musculoskeletal: no symptoms reported Skin: no symptoms reported Psychiatric/Neurological: No Symptoms Reported Endocrine: No Symptoms Reported Hematologic/Lymphatic: No Symptoms Reported Past Afbjwqt-Jbfvjf-Sqxeco Hx Patient Social History Alcohol Use: Denies Use Recreational Drug Use: No Smoking Status: Never a Smoker 2nd Hand Smoke Exposure: No Recent Foreign Travel: No Contact w/Someone Who Travel: No Recent Infectious Disease Expo: No Recent Hopitalizations: No Physical Abuse: No Sexual Abuse: No Mistreated: No Fear: No Immunizations Up To Date Tetanus Booster (TDap): Unknown Date of Pneumonia Vaccine: May 13, 2015 Date of Influenza Vaccine: Jun 12, 2017 Seasonal Allergies Seasonal Allergies: No Surgeries History of Surgeries: Yes (HIATEL HERNIA, RUPTURED ESPOPHAGUS/REPAIR, SPLEENECTOMY DUE TO INJURY DURING OPEN HIATAL HERNIA REPAIR; INCISIONAL HERNIA REPAIR; MULTIPLE CARDIAC CATHS--NO STENTS; COLONOSCOPIES/EGD'S; CABG) Surgeries: Abdominal, Cardiac, CABG, Tubal Ligation Respiratory History of Respiratory Disorde: No Cardiovascular History of Cardiac Disorders: Yes (DOUBLE BYPASS (CABG X2)) Cardiac Disorders: Coronary Artery Disease, High Cholesterol, Hypertension Neurological History of Neurological Disord: No Reproductive System Hx Reproductive Disorders: No Genitourinary History of Genitourinary Disor: No Gastrointestinal History of Gastrointestinal Di: Yes (ESOPHAGEAL REPAIR-FROM INJURYDURING HIATAL HERNIA REPAIR, THEN HAD SPLEEN INJURY DURING OPEN HIATAL HERNIA REPAIR AND HAD SPLEENECTOMY; INCISIONAL HERNIA REPAIR. ) Gastrointestinal Disorders: Abdominal Hernia, Gastroesophageal Reflux, Chronic Diarrhea, Hiatal Hernia Musculoskeletal History of Musculoskeletal Dis: Yes (ARTHRITIS IN HANDS ) Musculoskeletal Disorders: Osteoporosis, Arthritis, Chronic Back Pain Endocrine History of Endocrine Disorders: No HEENT History of HEENT Disorders: Yes (NO TEETH) Hearing Impairment: Hard of Hearing Cancer History of Cancer: No Psychosocial History of Psychiatric Problem: No Suicide Risk Score: 1 Integumentary History of Skin or Integumenta: Yes (ECZEMA A CHILD) Skin/Integumentary Disorders: Eczema Blood Transfusions History of Blood Disorders: No Family Medical History Significant Family History: Heart Disease Family Medial History: Diabetes mellitus G8 BROTHER, , Age:62 G8 SISTER, , Age:60 years and older GREAT AUNT FH: ovarian cancer AUNT Myocardial infarction 19 FATHER, , Age:39 19 MOTHER, , Age:83 G8 BROTHER, , Age:62 G8 SISTER, , Age:60 years and older Physical Exam Vital Signs VS - Last 72 Hours, by Label 09/03/17 09/03/17 19:00 22:27 Temp 97.6 Pulse 73 63 Resp 18 18 B/P (MAP) 149/89 (109) Pulse Ox 98 99 O2 Delivery Room Air Room Air Capillary Refill : Less Than 3 Seconds General Appearance: WD/WN, no apparent distress, other (LOOKS ILL, ACTIVELY VOMITING. 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 as tested, no motor/sensory deficits, alert, oriented x 3 Skin: warm/dry, pallor Progress/Results/Core Measures Results/Orders Lab Results Laboratory Tests Test 09/03/17 19:00 Range/Units White Blood Count 11.3 H 4.3-11.0 10^3/uL Red Blood Count 4.26 L 4.35-5.85 10^6/uL Hemoglobin 13.4 11.5-16.0 G/DL Hematocrit 41 35-52 % Mean Corpuscular Volume 96 80-99 FL Mean Corpuscular Hemoglobin 32 25-34 PG Mean Corpuscular Hemoglobin Concent 33 32-36 G/DL Red Cell Distribution Width 13.1 10.0-14.5 % Platelet Count 372 130-400 10^3/uL Mean Platelet Volume 10.6 H 7.4-10.4 FL Neutrophils (%) (Auto) 72 42-75 % Lymphocytes (%) (Auto) 25 12-44 % Monocytes (%) (Auto) 3 0-12 % Eosinophils (%) (Auto) 0 0-10 % Basophils (%) (Auto) 0 0-10 % Neutrophils # (Auto) 8.1 H 1.8-7.8 X 10^3 Lymphocytes # (Auto) 2.8 1.0-4.0 X 10^3 Monocytes # (Auto) 0.4 0.0-1.0 X 10^3 Eosinophils # (Auto) 0.0 0.0-0.3 10^3/uL Basophils # (Auto) 0.0 0.0-0.1 10^3/uL Sodium Level 144 135-145 MMOL/L Potassium Level 4.1 3.6-5.0 MMOL/L Chloride Level 105 98-107 MMOL/L Carbon Dioxide Level 22 21-32 MMOL/L Anion Gap 17 H 5-14 MMOL/L Blood Urea Nitrogen 19 H 7-18 MG/DL Creatinine 1.08 0.60-1.30 MG/DL Estimat Glomerular Filtration Rate 49 BUN/Creatinine Ratio 18 Glucose Level 146 H 70-105 MG/DL Calcium Level 10.8 H 8.5-10.1 MG/DL Total Bilirubin 0.6 0.1-1.0 MG/DL Aspartate Amino Transf (AST/SGOT) 22 5-34 U/L Alanine Aminotransferase (ALT/SGPT) 17 0-55 U/L Alkaline Phosphatase 63 40-136 U/L Total Protein 8.4 H 6.4-8.2 GM/DL Albumin 4.3 3.2-4.5 GM/DL Amylase Level 65 25-125 U/L Lipase 9 8-78 U/L My Orders Orders - CHAPITO KHANNA DO Ondansetron Injection (Zofran Injectio (09/03/17 19:06) Ondansetron Injection (Zofran Injectio (09/03/17 19:15) Saline Lock/Iv-Start (09/03/17 19:21) Monitor-Rhythm Ecg Trace Only (09/03/17 19:21) Amylase (09/03/17 19:21) Cbc With Automated Diff (09/03/17 19:21) Comprehensive Metabolic Panel (09/03/17 19:21) Lipase (09/03/17 19:21) Saline Lock/Iv-Start (09/03/17 19:21) Lactated Ringers (Lr 1000 Ml Iv Solution (09/03/17 19:21) Ondansetron Injection (Zofran Injectio (09/03/17 19:30) Promethazine Injection (Phenergan Injec (09/03/17 19:30) Diphenhydramine Injection (Benadryl Inje (09/03/17 19:30) Pantoprazole Injection (Protonix Injecti (09/03/17 19:30) Scopolamine Patch (Transderm-Scop Patch) (09/03/17 19:30) Promethazine Injection (Phenergan Injec (09/03/17 19:26) Ct Abdomen/Pelvis Wo (09/03/17 19:38) Saline Lock/Iv-Start (09/03/17 20:39) Lactated Ringers (Lr 1000 Ml Iv Solution (09/03/17 20:39) Rx-Ondansetron Po (Rx-Zofran Po) (09/03/17 21:08) Rx-Promethazine Hcl (Rx-Phenergan Supp) (09/03/17 21:08) Medications Given in ED Vital Signs/I&O Vital Sign - Last 12Hours 09/03/17 09/03/17 19:00 22:27 Temp 97.6 Pulse 73 63 Resp 18 18 B/P (MAP) 149/89 (109) Pulse Ox 98 99 O2 Delivery Room Air Room Air Blood Pressure Mean: 109 Progress Note : Progress Note FEELING MUCH BETTER, AND NO VOMITING DURING ER STAY ABLE TO VOID AND KEEP DOWN WATER, PRIOR TO DISMISSAL--PT VOIDED FOR THE FIRST TIME AT 2029, BUT HAD STOOL MIXED WITH IT, SO UNABLE TO COLLECT FOR ANALYSIS. VOIDED AGAIN BUT DID NOT CATCH IT. Diagnostic Imaging Comments CT ABD/PELVIS--NO ACUTE PROCESS, HIATAL HERNIA WITH FLUID. PER RADIOLOGIST REPORT @ 2024 Reviewed: Reviewed by Me Departure Impression Impression: Primary Impression: Gastroenteritis Disposition: HOME, SELF-CARE Condition: Improved Departure-Patient Inst. Referrals: MENA SKY DO (PCP/Family) Primary Care Physician Patient Instructions: [id number], Viral Gastroenteritis, Adult ( DC) Add. Discharge Instructions: CLEAR LIQUIDS, SIPS AT A TIME--WATER, BROTH, JELLO, GATORADE TOMORROW IF YOU ARE BETTER, ADD BRATS DIET TO CLEAR LIQUIDS--BANANAS, RICE, APPLESAUCE, TOAST, SALTINES LEAVE SCOPOLAMINE PATCH ON FOR 3 DAYS FOLLOW UP WITH YOUR DR IN 2-3 DAYS IF NO BETTER, OR RETURN TO ER IF WORSE All discharge instructions reviewed with patient and/or family. Voiced understanding. Scripts Pantoprazole Sodium (Protonix) 40 Mg Tablet.dr 40 MG PO DAILY, #15 TAB Prov: CHAPITO KHANNA DO 09/03/17 Promethazine HCl (Phenergan) 25 Mg Supp.rect 25 MG RC Q4H for Nausea/Vomiting, #10 SUPP.RECT Prov: CHAPITO KHANNA DO 09/03/17 Ondansetron (Zofran Odt) 8 Mg Tab.rapdis 8 MG PO Q4H for Nausea/Vomiting, #14 TAB Prov: CHAPITO KHANNA DO 09/03/17 CHAPITO KHANNA DO Sep 03, 2017 19:50
--- NOTE | 2017-09-03 20:20 | Diagnostic Imaging Report ---
PROCEDURE: CT abdomen and pelvis without contrast. TECHNIQUE: Multiple contiguous axial images were obtained through the abdomen and pelvis without the use of intravenous contrast. INDICATION: Abdominal pain, nausea and vomiting. COMPARISON: 06/27/2014. FINDINGS: A hiatal hernia is present. There is an air-fluid level in the distal esophagus. Otherwise, the lungs are clear. No pleural effusion is seen. The spleen is surgically absent. The liver, gallbladder, pancreas, adrenal glands, kidneys, vascular structures and bowel are unremarkable. There is no free air or free fluid. There is some slight constipation in the colon. No inflammatory process is seen. Osseous structures are age-appropriate. IMPRESSION: 1. Hiatal hernia with air-fluid level in the distal esophagus. 2. Surgically absent spleen. 3. Slight constipation without obstruction, ileus, free air or inflammatory process. Dictated by: Dictated on workstation # [id number]
[2017-09-03] MEDS ORDERED: RX-ONDANSETRON 4 MG ODT (ZOFRAN) PPK #4 PO STA (21:08)
[2017-09-03] MEDS ORDERED: RX-PHENERGAN 25 MG SUPP PPK#3 PR STA (21:08)
[2017-09-03] MEDS ORDERED: ONDA8TAB9 PO ×2 (21:10→21:11)
[2017-09-03] MEDS ORDERED: PANT40TA2 PO ×2 (21:10→21:11)
[2017-09-03] MEDS ORDERED: PROM25SU43 RC ×2 (21:10→21:11)
[2017-09-03 22:27] VITALS: BP 117/52
== END 2017-09-03 22:28 | disposition home or self-care (01) ==
LOC: EDUNIT# 18:52 → ER 18:54
DX: K52.9 Noninfective gastroenteritis and colitis, unspecified (principal); I25.10 Atherosclerotic heart disease of native coronary artery without angina pectoris; I10 Essential (primary) hypertension; E78.00 Pure hypercholesterolemia, unspecified; K21.9 Gastro-esophageal reflux disease without esophagitis; M81.0 Age-related osteoporosis without current pathological fracture; Z82.49 Family history of ischemic heart disease and other diseases of the circulatory system; Z80.41 Family history of malignant neoplasm of ovary; Z79.82 Long term (current) use of aspirin; Z87.19 Personal history of other diseases of the digestive system; Z90.81 Acquired absence of spleen; Z98.51 Tubal ligation status; Z95.1 Presence of aortocoronary bypass graft
CPT/HCPCS: 36415; 74176; 80053; 82150; 83690; 85025; 93041

== ENCOUNTER 2018-08-04 10:19 | Emergency (ER) | payer MEDICARE ==
[~2018-08-04] VITALS: Ht 160 cm; Wt 52.2 kg
[~2018-08-04 10:19] MED LIST changes: +CLON0.5T13 PO; +ONDA8TAB9 PO; +PANT40TA2 PO; +PROM25SU43 RC
[2018-08-04] MEDS ORDERED: NS IV 1000 ML 1,000 ML IV SCH (10:30)
[2018-08-04] MEDS ORDERED: ONDANSETRON 4 MG/2 ML (SDV) Z0FRAN IVP ONE (10:30)
[2018-08-04 10:49] LABS: BASOPHILS % (AUTO) 0 % (0-10); EOSINOPHILS # (AUTO) 0.4 10^3/uL (0.0-0.3); EOSINOPHILS % (AUTO) 4 % (0-10); HEMATOCRIT 42 % (35-52); HEMOGLOBIN 13.6 G/DL (11.5-16.0); LYMPHOCYTES # (AUTO) 1.5 X 10^3 (1.0-4.0); LYMPHOCYTES % (AUTO) 16 % (12-44); MEAN CORPUSCULAR HEMOGLOBIN 32 PG (25-34); MEAN CORPUSCULAR HGB CONC 32 G/DL (32-36); MEAN CORPUSCULAR VOLUME 99 FL (80-99); MEAN PLATELET VOLUME 9.7 FL (7.4-10.4); MONOCYTES # (AUTO) 0.8 X 10^3 (0.0-1.0); MONOCYTES % (AUTO) 9 % (0-12); NEUTROPHILS # (AUTO) 6.4 X 10^3 (1.8-7.8); NEUTROPHILS % (AUTO) 70 % (42-75); PLATELET COUNT 317 10^3/uL (130-400); RED BLOOD COUNT 4.27 10^6/uL (4.35-5.85); RED CELL DISTRIBUTION WIDTH 12.9 % (10.0-14.5)
[2018-08-04 10:50] LABS: BILIRUBIN,URINE NEGATIVE (NEGATIVE); CLARITY,URINE CLEAR; COLOR,URINE YELLOW; GLUCOSE, URINE (UA) NEGATIVE (NEGATIVE); KETONES,URINE 1+ (NEGATIVE); LEUKOCYTE ESTERASE ,URINE 3+ (NEGATIVE); NITRITE,URINE NEGATIVE (NEGATIVE); PH,URINE 7 (5-9); PROTEIN,URINE 1+ (NEGATIVE); UROBILINOGEN,URINE NORMAL (NORMAL)
--- NOTE | 2018-08-04 10:52 | ED GI ---
General Stated Complaint: NAUSEA/VOMITING Source of Information: Patient Exam Limitations: No Limitations History of Present Illness Date Seen by Provider: Aug 04, 2018 Time Seen by Provider: 10:48 Initial Comments To ER per private vehicle accompanied by her daughter with reports of nausea and vomiting since Tuesday of this week. Today is Tuesday. She denies any abdominal pains, fevers or chills, changes in stools. No chest pains or shortness of breath. At this time, she is not nauseated. Timing/Duration: 1-2 Days Associated Symptoms: Nausea/Vomiting Allergies and Home Medications Allergies Coded Allergies: metoclopramide (Unverified Allergy, Severe, TARDIVE DYKENIESIA, 08/04/18) Home Medications Amitriptyline HCl 10 Mg Tablet, 10 MG PO DAILY LATE, (Reported) Aspirin 81 Mg Tab.chew, 81 MG PO DAILY, (Reported) Beta-Carotene(A) W-C & E/Min 1 Each Tablet, 1 EACH PO DAILY, (Reported) Bilberry 100 Mg Capsule, 1,000 MG PO DAILY LATE, (Reported) Calcium Carbonate 600 Mg Tablet, 600 MG PO DAILY, (Reported) Cholecalciferol (Vitamin D3) 1,000 Unit Capsule, 1,000 UNIT PO DAILY, (Reported) Clonazepam 0.5 Mg Tablet, 0.5 MG PO BID, (Reported) Clopidogrel Bisulfate 75 Mg Tablet, 75 MG PO DAILY, (Reported) Hydroxychloroquine Sulfate 200 Mg Tablet, 200 MG PO BID, (Reported) Isosorbide Mononitrate 60 Mg Tab, 60 MG PO DAILY, (Reported) Lisinopril 5 Mg Tablet, 5 MG PO DAILY LATE, (Reported) [place] 3 Polyunsat Fatty Acids 1,000 Mg Cap, 2,000 MG PO BID, (Reported) Ondansetron 8 Mg Tab.rapdis, 8 MG PO Q4H Prescribed by: CHAPITO KHANNA on 09/03/172110 Ondansetron HCl 4 Mg Tab, 4 MG PO Q4H PRN for NAUSEA/VOMITING Prescribed by: SUSHIL NI on 08/04/181117 Oxybutynin Chloride 5 Mg Tablet, 5 MG PO BID, (Reported) Pantoprazole Sodium 40 Mg Tablet.dr, 40 MG PO DAILY Prescribed by: CHAPITO KHANNA on 09/03/172110 Promethazine HCl 25 Mg Supp.rect, 25 MG RC Q4H Prescribed by: CHAPITO KHANNA on 09/03/172110 Patient Home Medication List Home Medication List Reviewed: Yes Review of Systems Review of Systems Constitutional: see HPI; No chills, No fever EENTM: No Symptoms Reported Respiratory: No Symptoms Reported Cardiovascular: No Symptoms Reported Gastrointestinal: See HPI; Denies Abdominal Pain, Denies Constipated, Denies Diarrhea; Nausea, Vomiting Genitourinary: No Symptoms Reported Musculoskeletal: no symptoms reported Skin: no symptoms reported Psychiatric/Neurological: No Symptoms Reported Endocrine: No Symptoms Reported Hematologic/Lymphatic: No Symptoms Reported Past Udxpfyq-Jkveuy-Mhouen Hx Patient Social History 2nd Hand Smoke Exposure: No Recent Foreign Travel: No Contact w/Someone Who Travel: No Recent Hopitalizations: No Immunizations Up To Date Tetanus Booster (TDap): Unknown Date of Pneumonia Vaccine: May 13, 2015 Date of Influenza Vaccine: Jun 12, 2017 Seasonal Allergies Seasonal Allergies: No Past Medical History Surgeries: Yes Abdominal, Cardiac, CABG, Tubal Ligation Respiratory: No Cardiac: Yes (DOUBLE BYPASS (CABG X2)) Coronary Artery Disease, High Cholesterol, Hypertension Neurological: No Reproductive Disorders: No Genitourinary: No Gastrointestinal: Yes Abdominal Hernia, Gastroesophageal Reflux, Chronic Diarrhea, Hiatal Hernia Musculoskeletal: Yes (ARTHRITIS IN HANDS ) Osteoporosis, Arthritis, Chronic Back Pain Endocrine: No HEENT: Yes (NO TEETH) Hearing Impairment: Hard of Hearing Cancer: No Psychosocial: No Integumentary: Yes (ECZEMA A CHILD) Eczema Blood Disorders: No Family Medical History Diabetes mellitus G8 BROTHER, , Age:62 G8 SISTER, , Age:60 years and older GREAT AUNT FH: ovarian cancer AUNT Myocardial infarction 19 FATHER, , Age:39 19 MOTHER, , Age:83 G8 BROTHER, , Age:62 G8 SISTER, , Age:60 years and older Heart Disease Physical Exam Vital Signs Vital Signs - First Documented 08/04/18 10:36 Temp 98.3 Pulse 56 Resp 18 B/P (MAP) 137/78 (97) Pulse Ox 98 Capillary Refill : Height/Weight/BMI Height: 5'3.00" Weight: 115lbs. 1.0oz. 52.667118cy; 20.01 BMI Method:Stated General Appearance: WD/WN, no apparent distress, other (alert and oriented, talkative, pleasant. No distress.) HEENT: PERRL/EOMI, normal ENT inspection Neck: non-tender, full range of motion, supple Respiratory: normal breath sounds, no respiratory distress, no accessory muscle use Cardiovascular: regular rate, rhythm, no murmur Gastrointestinal: normal bowel sounds, non tender, soft; No tenderness Extremities: normal range of motion, non-tender Neurologic/Psychiatric: alert, normal mood/affect, oriented x 3 Skin: normal color, warm/dry Progress/Results/Core Measures Results/Orders Lab Results Laboratory Tests Test 08/04/18 10:42 Range/Units White Blood Count 9.0 4.3-11.0 10^3/uL Red Blood Count 4.27 L 4.35-5.85 10^6/uL Hemoglobin 13.6 11.5-16.0 G/DL Hematocrit 42 35-52 % Mean Corpuscular Volume 99 80-99 FL Mean Corpuscular Hemoglobin 32 25-34 PG Mean Corpuscular Hemoglobin Concent 32 32-36 G/DL Red Cell Distribution Width 12.9 10.0-14.5 % Platelet Count 317 130-400 10^3/uL Mean Platelet Volume 9.7 7.4-10.4 FL Neutrophils (%) (Auto) 70 42-75 % Lymphocytes (%) (Auto) 16 12-44 % Monocytes (%) (Auto) 9 0-12 % Eosinophils (%) (Auto) 4 0-10 % Basophils (%) (Auto) 0 0-10 % Neutrophils # (Auto) 6.4 1.8-7.8 X 10^3 Lymphocytes # (Auto) 1.5 1.0-4.0 X 10^3 Monocytes # (Auto) 0.8 0.0-1.0 X 10^3 Eosinophils # (Auto) 0.4 H 0.0-0.3 10^3/uL Basophils # (Auto) 0.0 0.0-0.1 10^3/uL Urine Color YELLOW Urine Clarity CLEAR Urine pH 7 5-9 Urine Specific [place] 1.010 L 1.016-1.022 Urine Protein 1+ H NEGATIVE Urine Glucose (UA) NEGATIVE NEGATIVE Urine Ketones 1+ H NEGATIVE Urine Nitrite NEGATIVE NEGATIVE Urine Bilirubin NEGATIVE NEGATIVE Urine Urobilinogen NORMAL NORMAL MG/DL Urine Leukocyte Esterase 3+ H NEGATIVE Urine RBC (Auto) NEGATIVE NEGATIVE Urine RBC NONE /HPF Urine WBC 2-5 /HPF Urine Squamous Epithelial Cells 2-5 /HPF Urine Renal Epithelial Cells 0-2 /HPF Urine Crystals NONE /LPF Urine Amorphous Sediment LARGE SANDRA URATES H /LPF Urine Bacteria NEGATIVE /HPF Urine Casts NONE /LPF Urine Mucus NEGATIVE /LPF Urine Culture Indicated NO Sodium Level 141 135-145 MMOL/L Potassium Level 3.6 3.6-5.0 MMOL/L Chloride Level 101 98-107 MMOL/L Carbon Dioxide Level 28 21-32 MMOL/L Anion Gap 12 5-14 MMOL/L Blood Urea Nitrogen 28 H 7-18 MG/DL Creatinine 1.28 0.60-1.30 MG/DL Estimat Glomerular Filtration Rate 40 BUN/Creatinine Ratio 22 Glucose Level 103 70-105 MG/DL Calcium Level 11.4 H 8.5-10.1 MG/DL Corrected Calcium 11.0 H 8.5-10.1 MG/DL Total Bilirubin 0.6 0.1-1.0 MG/DL Aspartate Amino Transf (AST/SGOT) 23 5-34 U/L Alanine Aminotransferase (ALT/SGPT) 13 0-55 U/L Alkaline Phosphatase 51 40-136 U/L Troponin I < 0.30 <0.30 NG/ML Total Protein 7.9 6.4-8.2 GM/DL Albumin 4.5 3.2-4.5 GM/DL Lipase 12 8-78 U/L My Orders Orders - SUSHIL NI APRN Cbc With Automated Diff (08/04/18 10:24) Comprehensive Metabolic Panel (08/04/18 10:24) Ua Culture If Indicated (08/04/18 10:24) Troponin I (08/04/18 10:24) Ekg Tracing (08/04/18 10:24) Lipase (08/04/18 10:24) Iv [place]ock-Insert (Order) (08/04/18 10:24) Ondansetron Injection (Zofran Injectio (08/04/18 10:30) Ns Iv 1000 Ml (Sodium Chloride 0.9%) (08/04/18 10:30) Medications Given in ED Current Medications Medications Dose Ordered Sig/Dahlia Route Start Time Stop Time Status Last Admin Dose Admin Ondansetron HCl 8 mg ONCE ONCE IVP 08/04/18 10:30 08/04/18 10:31 DC 08/04/18 10:53 8 MG Vital Signs/I&O 08/04/18 10:36 Temp 98.3 Pulse 56 Resp 18 B/P (MAP) 137/78 (97) Pulse Ox 98 Departure Impression Primary Impression: Nausea and vomiting Qualified Codes: R11.2 - Nausea with vomiting, unspecified Disposition: HOME, SELF-CARE Condition: Stable Departure-Patient Inst. Decision time for Depature: 11:17 Referrals: MENA ULRICH DO (PCP/Family) Primary Care Physician Patient Instructions: Nausea and Vomiting, Adult Add. Discharge Instructions: 1. Return to ER for any concerns. Follow-up with Dr. Ulrich on Tuesday. Take nausea medication as needed in the meantime. Scripts Ondansetron HCl (Zofran) 4 Mg Tab 4 MG PO Q4H PRN for NAUSEA/VOMITING, #10 TAB Prov: SUSHIL NI APRN 08/04/18 Copy Copies To 1: MENA ULRICH PETER J APRN Aug 04, 2018 10:52
[2018-08-04 10:58] LABS: AMORPHOUS SEDIMENT,UR LARGE AMOR URATES /LPF; BACTERIA,URINE NEGATIVE /HPF; RENAL EPITHELIAL CELLS,URINE 0-2 /HPF
[2018-08-04 11:10] LABS: ALANINE AMINOTRANSFERASE 13 U/L (0-55); ALBUMIN 4.5 GM/DL (3.2-4.5); ALKALINE PHOSPHATASE 51 U/L (40-136); BILIRUBIN,TOTAL 0.6 MG/DL (0.1-1.0); BUN/CREATININE RATIO 22; CALCIUM 11.4 MG/DL (8.5-10.1); CARBON DIOXIDE 28 MMOL/L (21-32); CHLORIDE 101 MMOL/L (98-107); CREATININE SERUM 1.28 MG/DL (0.60-1.30); GFR ESTIMATED 40; GLUCOSE 103 MG/DL (70-105); LIPASE 12 U/L (8-78); POTASSIUM 3.6 MMOL/L (3.6-5.0); SODIUM 141 MMOL/L (135-145); TOTAL PROTEIN 7.9 GM/DL (6.4-8.2)
[2018-08-04] MEDS ORDERED: ONDN4T PO (11:18)
[2018-08-04 12:24] VITALS: BP 151/80
== END 2018-08-04 12:24 | disposition home or self-care (01) ==
LOC: EDUNIT# 10:19 → ER 10:20
DX: R11.2 Nausea with vomiting, unspecified (principal); I25.10 Atherosclerotic heart disease of native coronary artery without angina pectoris; I10 Essential (primary) hypertension; K21.9 Gastro-esophageal reflux disease without esophagitis; E78.00 Pure hypercholesterolemia, unspecified; M81.0 Age-related osteoporosis without current pathological fracture; Z79.82 Long term (current) use of aspirin; Z87.19 Personal history of other diseases of the digestive system; Z80.41 Family history of malignant neoplasm of ovary; Z95.1 Presence of aortocoronary bypass graft; Z82.49 Family history of ischemic heart disease and other diseases of the circulatory system; Z98.51 Tubal ligation status
CPT/HCPCS: 36415; 80053; 81000; 83690; 84484; 85025; 93005

== ENCOUNTER 2018-08-26 10:27 | Emergency (ER) | payer MEDICARE ==
[~2018-08-26] VITALS: Ht 162.6 cm; Wt 61.2 kg
[~2018-08-26 10:27] MED LIST changes: +ONDN4T PO
--- OUTSIDE RECORDS SUMMARY | 2018-08-26 10:32 | XMS REPORT | Clinical Summary ---
Author Author [facility] Address Unknown Phone Unavailable Care Team Providers Care Seasonal Package Handler Name Role Phone Bud Dash RN Unavailable Unavailable Armin Ulrich PCP Unavailable Lance Mahmood MD Unavailable Unavailable Jasmin Galeas RN Unavailable Unavailable Christina Galloway RN Unavailable Unavailable Robbi Martinez RN Unavailable Unavailable Joaquin Nuno MD Unavailable Osiris Teran RN Unavailable Unavailable Belem Styles RN Unavailable Unavailable Ana Lilia Giron RN Unavailable Unavailable Jayshree Quan RN Unavailable Unavailable Mikayla Ivory LPN Unavailable Unavailable Source Comments Some departments are not documenting in the electronic medical record. If you do not see the information that you expected, contact Release of Information in the Health Information Management department at [phone] for further assistance in locating additional records.[facility] Allergies Comments Active Allergy Reactions Severity Noted Date causes involuntary body movements rigidity Metoclopramide AGITATION Low 07/26/2014 Medications End Date Status Medication Sig Dispensed Refills Start Date Active fish oil /omega-3 fatty Take 2 Caps 0 acids (SEA-OMEGA) by mouth 340/1000 mg capsule twice daily. Active BILBERRY PO Take 2 Caps 0 by mouth at bedtime daily. Active calcium carbonate/vitamin Take 1 Tab by 0 D-3 (OSCAL-500+D) 1250 mouth four mg/200 unit tablet times weekly. Calcium Carb 1250mg delivers 500mg elemental Ca Active ferrous sulfate 325 mg Take 325 mg 0 (65 mg iron) tablet by mouth daily. Active hydroxychloroquine Take 200 mg 0 (PLAQUENIL) 200 mg tablet by mouth twice daily. Active pravastatin (PRAVACHOL) Take 10 mg by 0 10 mg tablet mouth every morning. Active pantoprazole DR Take 40 mg by 0 (PROTONIX) 40 mg tablet mouth every morning. Active clopiDOGrel (PLAVIX) 75 Take 75 mg by 0 mg tablet mouth every morning. Active lisinopril (PRINIVIL; Take 5 mg by 0 ZESTRIL) 5 mg tablet mouth at bedtime daily. Active isosorbide mononitrate SR Take 30 mg by 0 (IMDUR) 30 mg tablet mouth every morning. Active tolterodine LA(+) (DETROL Take 4 mg by 0 LA) 4 mg capsule mouth twice daily. Active cholecalciferol (Vitamin Take 1,000 0 D3) (VITAMIN D-3) 1,000 Units by units tablet mouth daily. Active nitroglycerin (NITROSTAT) Place 0.4 mg 0 0.4 mg tablet under tongue every 5 minutes as needed for Chest Pain. Active Vit C-Vit Take 1 Cap by 0 [id number] mouth daily. 928-99-2-150 kr-zgrj-jw-mg cap Active Cyanocobalamin 1,[address] 1 Tab 0 subl under tongue daily. Active naproxen sodium(+) Take 220 mg 0 (ALEVE) 220 mg tablet by mouth twice daily. Active amitriptyline (ELAVIL) 10 Take 20 mg by 0 mg tablet mouth at bedtime daily. Active magnesium chloride (MAG Take 535 mg 0 DELAY) 64 mg tablet by mouth twice daily. Active acetaminophen SR(+) Take 650 mg 0 (TYLENOL) 650 mg tablet by mouth twice daily. Active zinc sulfate 220 mg (50 Take 220 mg 0 mg elemental zinc) by mouth capsule daily. Active aspirin EC 81 mg tablet Take 81 mg by 0 mouth daily. Active oxybutynin XL (DITROPAN Take 10 mg by 0 XL) 5 mg tablet mouth. Active acetaminophen/lidocaine/a Take 5 to 10 60 mL 0 ntacid DS(#) (GI mL by mouth 7 COCKTAIL) 1:1:3 every 8 hours as needed. Active Problems Problem Noted Date Slipped Robert fundoplication 05/10/2017 Overview: Added automatically from request for surgery [id number] S/P ventral herniorrhaphy 02/20/2016 Incisional hernia, without obstruction or gangrene 01/20/2016 Gastroparesis 05/13/2015 Nausea and vomiting 12/24/2014 Acute blood loss anemia 08/07/2014 Metabolic acidosis 08/07/2014 Lactic acidosis 08/07/2014 Acute respiratory failure 08/07/2014 Pulmonary hypertension 06/21/2013 History of [place] (myocardial infarction) 06/20/2013 Status post Robert fundoplication (without gastrostomy tube) procedure 06/20 S/P CABG (coronary artery bypass graft) 06/20/2013 Esophageal perforation 06/19/2013 Hiatal hernia 06/19/2013 Immunizations Name Dates Previously Given Next Due [...] Comments Brother Maternal Aunt Sister Social History Date Tobacco Use Types Packs/Day Years Used Never Smoker Smokeless Tobacco: Never Used Alcohol Use Drinks/Week oz/Week Comments No Sex Assigned at Date Recorded Not on file Industry Job Start Date Occupation Not on file Not on file Not on file Travel End Travel History Travel Start No recent travel history available. Last Filed Vital Signs Time Taken Vital Sign Reading 2017 8:43 AM [facility] Blood Pressure 116/64 2017 8:43 AM [facility] Pulse 61 2017 8:43 AM [facility] Temperature 36.7 C (98.1 F) 03/07/2017 9:28 AM CDT Respiratory Rate 12 2017 8:43 AM [facility] Oxygen Saturation 98% - Inhaled Oxygen - Concentration 2017 8:43 AM [facility] Weight 59.9 kg (132 lb) 2017 8:43 AM [facility] Height 162.6 cm (5' 4") 2017 8:43 AM [facility] Body Mass Index 22.66 Plan of Treatment Health Maintenance Due Date Last Done Comments PHYSICAL (COMPREHENSIVE) 1948 EXAM DTAP/TDAP VACCINES (1 - 1959 Tdap) SHINGLES RECOMBINANT 1991 VACCINE (1 of 2) OSTEOPOROSIS 2006 SCREENING/MONITORING PNEUMONIA (PCV13/PPSV23) 08/14/2015 08/14/2014 VACCINES (2 of 2 - PCV13) INFLUENZA VACCINE 04/12/2018 06/27/2013, 05/30/2009, 07/04/2007, Additional history exists Implants Device Identifier Shelf Expiration Date Model / Serial / Lot Implanted Type Area Manufactur er 11/10/2016 [id number] / NA / [id number] Mesh Surgical Proceed 6x4in Fascial [id number]:[id number] Flexible Tissue Separate CON:ENDO-S Implanted: Qty: 1 on 02/20/2016 by Lance Ruelas MD Results Not on filefrom Last 3 Months Insurance Payer Benefit Subscriber ID Type Phone Address Plan / Group MEDICARE MEDICARE xxxxxxxxxx Medicare PART A AND B BCBS [place] BCBS xxxxxxxxxxxx Medicare SUPPLEMENT Advance Directives Patient has advance care planning documents, and code status on file. For more information, please contact: [facility] [address] [place] [address] [place] [address] Date Inactivated Comments Code Status Date Activated 02/22/2016 4:58 PM Full Code 02/20/2016 8:12 PM Provider has discussed Code Status Yes w/Patient or Family? 08/14/2014 2:01 PM Full Code 08/07/2014 2:40 PM Provider has discussed Code Status Yes w/Patient or Family? 07/02/2013 2:37 PM Full Code 06/19/2013 5:59 PM Provider has discussed Code Status Yes w/Patient or Family?
--- OUTSIDE RECORDS SUMMARY | 2018-08-26 10:36 | XMS REPORT | Continuity of Care Document ---
Author Author [facility] Organization [facility] Address Unknown Phone Unavailable Allergies Active Description Code Type Severity Reaction Onset Reported/Identified Relationship to Patient Clinical Status Yes No Known Drug Allergies [id number] Drug Allergy Unknown N/A 05/12/2007 Yes metoclopramide [id number] Drug Allergy Severe TARDIVE DYKENIE 08/04/2018 Medications There is no data. Problems Date Dx Coded Attending Type Code Diagnosis Diagnosed By 05/18/2011 Ot 272.4 HYPERLIPIDEMIA NEC/NOS 05/18/2011 Ot 365.9 GLAUCOMA NOS 05/18/2011 Ot 401.9 HYPERTENSION NOS 05/18/2011 Ot 414.01 CORONARY ATHEROSCLEROSIS OF [place] CORON 05/18/2011 Ot 414.2 CHRONIC TOTAL OCCLUSION [...] SKY DO Ot 414.01 CORONARY ATHEROSCLEROSIS OF [place] CORON 01/19/2013 MENA SKY DO Ot 414.8 [...] MARS MD Ot 553.3 DIAPHRAGMATIC HERNIA 06/19/2013 JERAD MERRITT, EMRE Ot 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 06/19/2013 JERAD MERRITT, EMER Ot 710.2 SICCA SYNDROME 06/19/2013 JERAD MERRITT, [...] TRANSAMINASE/LDH 12/26/2015 Ot 414.01 CORONARY ATHEROSCLEROSIS OF [place] CORON 12/26/2015 Ot 729.5 PAIN IN LIMB 12/26/2015 Ot 786.50 CHEST PAIN NOS 12/26/2015 Ot V58.63 LONG-TERM( CURRENT)USE OF ANTIPLATELET/AN 12/26/2015 Ot V58.66 LONG-TERM ( 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 12/26/2015 Ot V58.69 OTH MED,LT, CURRENT USE 12/26/2015 Ot 433.10 CAROTID ARTERY OCCLUSION W O CEREBRAL IN 12/26/2015 Ot 729.5 PAIN IN LIMB 12/26/2015 Ot 998.12 HEMATOMA COMPLIC A PROC 12/26/2015 Ot 440.20 ATHEROSCLEROSIS [place] ARTERIES EXTREMIT 12/26/2015 Ot 780.60 FEVER, UNSPECIFIED 12/26/2015 Ot 787.91 DIARRHEA 12/26/2015 DOMENICO MERRITT, UZMA Thompson Ot 553.3 DIAPHRAGMATIC HERNIA 12/26/2015 Ot 787.91 DIARRHEA 12/26/2015 EMRE MARS MD Ot 414.01 CORONARY ATHEROSCLEROSIS OF [place] CORON 12/26/2015 EMRE MARS MD Ot 553.3 DIAPHRAGMATIC HERNIA 12/26/2015 EMRE MARS MD Ot 791.9 ABN URINE FINDINGS NEC 12/26/2015 EMRE MARS MD Ot V72.63 PRE-PROCEDURAL LABORATORY EXAMINATION 12/26/2015 EMRE MARS MD Ot V74.8 SCREEN-BACTERIAL DIS NEC 12/26/2015 MENA SKY DO Ot V55.1 ATTEN TO GASTROSTOMY 12/26/2015 RIDKOSTAS [place] C SENIOR CONSUMER INSIGHTS CONSULTANT Ot V55.4 ATTEN TO ENTEROSTOMY NEC 12/26/2015 [...] MAMMOGRAM FOR MALIGNANT NE 03/04/2017 VENKAT MANRIQUEZ MD Ot I25.10 ATHSCL HEART DISEASE OF [place] CORONARY 03/04/2017 VENKAT MANRIQUEZ MD Ot K21.9 GASTRO-ESOPHAGEAL REFLUX DISEASE WITHOUT 03/04/2017 VENKAT MANRIQUEZ MD Ot R07.9 CHEST PAIN, UNSPECIFIED 03/04/2017 VENKAT MANRIQUEZ MD Ot 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 BOOMSWING OPERATOR (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 03/04/2017 VENKAT MANRIQUEZ MD Ot Z95.1 PRESENCE OF AORTOCORONARY BYPASS GRAFT 03/10/2017 VENKAT MANRIQUEZ MD, Ot I25.10 ATHSCL HEART DISEASE OF [place] CORONARY 03/10/2017 VENKAT MANRIQUEZ MD Ot K21.9 GASTRO-ESOPHAGEAL REFLUX DISEASE WITHOUT 03/10/2017 VENKAT MANRIQUEZ MD Ot R07.9 CHEST PAIN, UNSPECIFIED 03/10/2017 VENKAT MANRIQUEZ MD Ot Z79.82 BOOMSWING OPERATOR (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 03/10/2017 VENKAT MANRIQUEZ MD Ot Z95.1 PRESENCE OF AORTOCORONARY BYPASS GRAFT 09/03/2017 Ot 780.60 FEVER, UNSPECIFIED 09/03/2017 Ot 787.91 DIARRHEA 09/03/2017 DOMENICO MERRITT, UZMA Thompson Ot 553.3 DIAPHRAGMATIC HERNIA 09/03/2017 Ot 787.91 DIARRHEA 09/03/2017 EMRE MARS MD Ot 414.01 CORONARY ATHEROSCLEROSIS OF [place] CORON 09/03/2017 EMRE MARS MD Ot 553.3 DIAPHRAGMATIC HERNIA 09/03/2017 EMRE MARS MD Ot 791.9 ABN URINE FINDINGS NEC 09/03/2017 EMRE MARS MD Ot V72.63 PRE-PROCEDURAL LABORATORY EXAMINATION 09/03/2017 EMRE MARS MD Ot V74.8 SCREEN-BACTERIAL DIS NEC 09/03/2017 MENA SKY DO Ot V55.1 ATTEN TO GASTROSTOMY 09/03/2017 [place] Pardeep PEREZ Ot V55.4 ATTEN TO ENTEROSTOMY NEC 09/03/2017 MENA SKY DO Ot 781.0 ABN INVOLUN MOVEMENT NEC 09/03/2017 JOSE DANIEL DAHL MENA Tamela Ot 793.0 NOSP (ABN) FINDINGS ON RADIOLOGICAL OT 09/03/2017 JOSE DANIEL DAHL MENA Tamela Ot 793.82 INCONCLUSIVE MAMMOGRAM 09/03/2017 SKY DOMENA Ot V76.12 OTH SCREEN MAMMO-MALIGN NEOPLASM OF [place] 09/03/2017 SKY DO MENA Tamela Ot Z12.31 ENCNTR SCREEN MAMMOGRAM FOR MALIGNANT NE 09/03/2017 JEY DAHL CHAPITO Adam Ot E78.00 PURE HYPERCHOLESTEROLEMIA, UNSPECIFIED 09/03/2017 CHAPITO KHANNA DO Ot I10 ESSENTIAL (PRIMARY) HYPERTENSION 09/03/2017 CHAPITO KHANNA DO Ot I25.10 ATHSCL HEART DISEASE OF [place] CORONARY 09/03/2017 CHAPITO KHANNA DO Ot K21.9 GASTRO-ESOPHAGEAL REFLUX DISEASE WITHOUT 09/03/2017 CHAPITO KHANNA DO Ot K52.9 NONINFECTIVE GASTROENTERITIS AND COLITIS 09/03/2017 RUFINO KHANNA DOA Adam Ot M81.0 AGE-RELATED OSTEOPOROSIS W/O CURRENT PAT 09/03/2017 CHAPITO KHANNA DO Ot R11.2 NAUSEA WITH VOMITING, UNSPECIFIED 09/03/2017 JEY DAHL CHAPITO K Ot Z79.82 CUSTODIAL (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 09/03/2017 CHAPITO KHANNA DO Ot Z80.41 FAMILY HISTORY OF MALIGNANT NEOPLASM OF 09/03/2017 CHAPITO KHANNA DO Ot Z82.49 FAMILY HX OF ISCHEM HEART DIS AND OTH DI 09/03/2017 RUFINO KHANNA DOA Adam Ot Z87.19 PERSONAL HISTORY OF OTHER DISEASES OF TH 09/03/2017 CHAPITO KHANNA DO Ot Z90.81 ACQUIRED ABSENCE OF SPLEEN 09/03/2017 CHAPITO KHANNA DO Ot Z95.1 PRESENCE OF AORTOCORONARY BYPASS GRAFT 09/03/2017 CHAPITO KHANNA DO Ot Z98.51 TUBAL LIGATION STATUS 09/04/2017 Ot 780.60 FEVER, UNSPECIFIED 09/04/2017 Ot 787.91 DIARRHEA 09/04/2017 DOMENICO MERRITT, UZMA Thompson Ot 553.3 DIAPHRAGMATIC HERNIA 09/04/2017 Ot 787.91 DIARRHEA 09/04/2017 JERAD MERRITT, EMRE Ot 414.01 CORONARY ATHEROSCLEROSIS OF [place] CORON 09/04/2017 EMRE MARS MD Ot 553.3 DIAPHRAGMATIC HERNIA 09/04/2017 EMRE MARS MD Ot 791.9 ABN URINE FINDINGS NEC 09/04/2017 EMRE MARS MD Ot V72.63 PRE-PROCEDURAL LABORATORY EXAMINATION 09/04/2017 EMRE MARS MD Ot V74.8 SCREEN-BACTERIAL DIS NEC 09/04/2017 MENA SKY DO Ot V55.1 ATTEN TO GASTROSTOMY 09/04/2017 RIDINGSKINGS APRN Ot V55.4 ATTEN TO ENTEROSTOMY NEC 09/04/2017 SKYMENA BARTON DO Ot 781.0 ABN INVOLUN MOVEMENT NEC 09/04/2017 MENA SKY DO Ot 793.0 NOSP (ABN) FINDINGS ON RADIOLOGICAL OT 09/04/2017 MENA SKY DO Ot 793.82 INCONCLUSIVE MAMMOGRAM 09/04/2017 MENA SKY DO Ot V76.12 OTH SCREEN MAMMO-MALIGN NEOPLASM OF [place] 09/04/2017 MENA SKY DO Ot Z12.31 ENCNTR SCREEN MAMMOGRAM FOR MALIGNANT NE 08/04/2018 Ot 787.91 DIARRHEA 08/04/2018 DOMENICO MERRITT, UZMA Thompson Ot 553.3 DIAPHRAGMATIC HERNIA 08/04/2018 Ot 787.91 DIARRHEA 08/04/2018 EMRE MARS MD Ot 414.01 CORONARY ATHEROSCLEROSIS OF [place] CORON 08/04/2018 EMRE MARS MD Ot 553.3 DIAPHRAGMATIC HERNIA 08/04/2018 EMRE MARS MD Ot 791.9 ABN URINE FINDINGS NEC 08/04/2018 EMRE MARS MD Ot V72.63 PRE-PROCEDURAL LABORATORY EXAMINATION 08/04/2018 EMRE MARS MD Ot V74.8 SCREEN-BACTERIAL DIS NEC 08/04/2018 MENA SKY DO Ot V55.1 ATTEN TO GASTROSTOMY 08/04/2018 R[place]KINGS KENYON APRN Ot V55.4 ATTEN TO ENTEROSTOMY NEC 08/04/2018 MENA SKY DO Ot 781.0 ABN INVOLUN MOVEMENT NEC 08/04/2018 MENA SKY DO Ot 793.0 NOSP (ABN) FINDINGS ON RADIOLOGICAL OT 08/04/2018 MENA SKY DO Ot 793.82 INCONCLUSIVE MAMMOGRAM 08/04/2018 MENA SKY DO Ot V76.12 OTH SCREEN MAMMO-MALIGN NEOPLASM OF [place] 08/04/2018 MENA SKY DO Ot Z12.31 ENCNTR SCREEN MAMMOGRAM FOR MALIGNANT NE 08/04/2018 SUSHIL NI APRN Ot E78.00 PURE HYPERCHOLESTEROLEMIA, UNSPECIFIED 08/04/2018 SUSHIL NI APRN Ot I10 ESSENTIAL (PRIMARY) HYPERTENSION 08/04/2018 SUSHIL NI APRN Ot I25.10 ATHSCL HEART DISEASE OF [place] CORONARY 08/04/2018 SUSHIL NI APRN Ot K21.9 GASTRO-ESOPHAGEAL REFLUX DISEASE WITHOUT 08/04/2018 SUSHIL NI APRN Ot M81.0 AGE-RELATED OSTEOPOROSIS W/O CURRENT PAT 08/04/2018 SUSHIL NI APRN Ot R11.2 NAUSEA WITH VOMITING, UNSPECIFIED 08/04/2018 SUSHIL NI APRN Ot Z79.82 BOOMSWING OPERATOR (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 08/04/2018 SUSHIL NI APRN Ot Z80.41 FAMILY HISTORY OF MALIGNANT NEOPLASM OF 08/04/2018 SUSHIL NI APRN Ot Z82.49 FAMILY HX OF ISCHEM HEART DIS AND OTH DI 08/04/2018 SUSHIL NI APRN Ot Z87.19 PERSONAL HISTORY OF OTHER DISEASES OF TH 08/04/2018 SUSHIL NI APRN Ot Z95.1 PRESENCE OF AORTOCORONARY BYPASS GRAFT 08/04/2018 SUSHIL NI APRN Ot Z98.51 TUBAL LIGATION STATUS 08/07/2018 SUSHIL NI APRN Ot E78.00 PURE HYPERCHOLESTEROLEMIA, UNSPECIFIED 08/07/2018 SUSHIL NI APRN Ot I10 ESSENTIAL (PRIMARY) HYPERTENSION 08/07/2018 SUSHIL NI APRN Ot I25.10 ATHSCL HEART DISEASE OF [place] CORONARY 08/07/2018 SUSHIL NI APRN Ot K21.9 GASTRO-ESOPHAGEAL REFLUX DISEASE WITHOUT 08/07/2018 SUSHIL NI APRN Ot M81.0 AGE-RELATED OSTEOPOROSIS W/O CURRENT PAT 08/07/2018 SUSHIL NI APRN Ot R11.2 NAUSEA WITH VOMITING, UNSPECIFIED 08/07/2018 SUSHIL NI APRN Ot Z79.82 CUSTODIAL (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 08/07/2018 SUSHIL NI APRN Ot Z80.41 FAMILY HISTORY OF MALIGNANT NEOPLASM OF 08/07/2018 SUSHIL NI APRN Ot Z82.49 FAMILY HX OF ISCHEM HEART DIS AND OTH DI 08/07/2018 SUSHIL NI APRN Ot Z87.19 PERSONAL HISTORY OF OTHER DISEASES OF 08/07/2018 SUSHIL NI APRN Ot Z95.1 PRESENCE OF AORTOCORONARY BYPASS GRAFT 08/07/2018 SUSHIL NI APRN Ot Z98.51 TUBAL LIGATION STATUS Procedures Code Description Performed By Performed On 45.13 OTHER ENDOSCOPY OF INTEST 06/16/2013 Results Test Result Range Complete blood [...] 03/04/17 11:32 Myoglobin, serum 43.6 ng/mL 10.0-92.0 Complete blood count (CBC) with automated white blood cell (WBC) differential - 09/03/17 19:00 Blood leukocytes automated count (number/volume) 11.3 10*3/uL 4.3-11.0 Blood erythrocytes automated count (number/volume) 4.26 10*6/uL 4.35-5.85 Venous blood hemoglobin measurement (mass/volume) 13.4 g/dL 11.5-16.0 Blood hematocrit (volume fraction) 41 % 35-52 Automated erythrocyte mean corpuscular volume 96 [foz_us] 80-99 Automated erythrocyte mean corpuscular hemoglobin (mass per erythrocyte) 32 pg 25-34 Automated erythrocyte mean corpuscular hemoglobin concentration measurement ( mass/volume) 33 g/dL 32-36 Automated erythrocyte distribution width ratio 13.1 % 10.0-14.5 Automated blood platelet count (count/volume) 372 10*3/uL 130-400 Automated blood platelet mean volume measurement 10.6 [foz_us] 7.4-10.4 Automated blood neutrophils/100 leukocytes 72 % 42-75 Automated blood lymphocytes/100 leukocytes 25 % 12-44 Blood monocytes/100 leukocytes 3 % 0-12 Automated blood eosinophils/100 leukocytes 0 % 0-10 Automated blood basophils/100 leukocytes 0 % 0-10 Blood neutrophils automated count (number/volume) 8.1 10*3 1.8-7.8 Blood lymphocytes automated count (number/volume) 2.8 10*3 1.0-4.0 Blood monocytes automated count (number/volume) 0.4 10*3 0.0-1.0 Automated eosinophil count 0.0 10*3/uL 0.0-0.3 Automated blood basophil count (count/volume) 0.0 10*3/uL 0.0-0.1 Comprehensive metabolic panel - 09/03/17 19:00 Serum or plasma sodium measurement (moles/volume) 144 mmol/L 135-145 Serum or plasma potassium measurement (moles/volume) 4.1 mmol/L 3.6-5.0 Serum or plasma chloride measurement (moles/volume) 105 mmol/L 98-107 Carbon dioxide 22 mmol/L 21-32 Serum or plasma anion gap determination (moles/volume) 17 mmol/L 5-14 Serum or plasma urea nitrogen measurement (mass/volume) 19 mg/dL 7-18 Serum or plasma creatinine measurement (mass/volume) 1.08 mg/dL 0.60-1.30 Serum or plasma urea nitrogen/creatinine mass ratio 18 NRG Serum or plasma creatinine measurement with calculation of estimated glomerular filtration rate 49 NRG Serum or plasma glucose measurement (mass/volume) 146 mg/dL 70-105 Serum or plasma calcium measurement (mass/volume) 10.8 mg/dL 8.5-10.1 Serum or plasma total bilirubin measurement (mass/volume) 0.6 mg/dL 0.1-1.0 Serum or plasma alkaline phosphatase measurement (enzymatic activity/volume) 63 U/L 40-136 Serum or plasma aspartate aminotransferase measurement (enzymatic activity/ volume) 22 U/L 5-34 Serum or plasma alanine aminotransferase measurement (enzymatic activity/volume ) 17 U/L 0-55 Serum or plasma protein measurement (mass/volume) 8.4 g/dL 6.4-8.2 Serum or plasma albumin measurement (mass/volume) 4.3 g/dL 3.2-4.5 Serum or plasma amylase measurement (enzymatic activity/volume) - 09/03/17 19: 00 Serum or plasma amylase measurement (enzymatic activity/volume) 65 U /L 25-125 Lipase - 09/03/17 19:00 Lipase 9 U/L 8-78 Complete blood count (CBC) with automated white blood cell (WBC) differential - 08/04/18 10:42 Blood leukocytes automated count (number/volume) 9.0 10*3/uL 4.3-11.0 Blood erythrocytes automated count (number/volume) 4.27 10*6/uL 4.35-5.85 Venous blood hemoglobin measurement (mass/volume) 13.6 g/dL 11.5-16.0 Blood hematocrit (volume fraction) 42 % 35-52 Automated erythrocyte mean corpuscular volume 99 [foz_us] 80-99 Automated erythrocyte mean corpuscular hemoglobin (mass per erythrocyte) 32 pg 25-34 Automated erythrocyte mean corpuscular hemoglobin concentration measurement ( mass/volume) 32 g/dL 32-36 Automated erythrocyte distribution width ratio 12.9 % 10.0-14.5 Automated blood platelet count (count/volume) 317 10*3/uL 130-400 Automated blood platelet mean volume measurement 9.7 [foz_us] 7.4-10.4 Automated blood neutrophils/100 leukocytes 70 % 42-75 Automated blood lymphocytes/100 leukocytes 16 % 12-44 Blood monocytes/100 leukocytes 9 % 0-12 Automated blood eosinophils/100 leukocytes 4 % 0-10 Automated blood basophils/100 leukocytes 0 % 0-10 Blood neutrophils automated count (number/volume) 6.4 10*3 1.8-7.8 Blood lymphocytes automated count (number/volume) 1.5 10*3 1.0-4.0 Blood monocytes automated count (number/volume) 0.8 10*3 0.0-1.0 Automated eosinophil count 0.4 10*3/uL 0.0-0.3 Automated blood basophil count (count/volume) 0.0 10*3/uL 0.0-0.1 Complete urinalysis with reflex to culture - 08/04/18 10:42 Urine color determination YELLOW NRG Urine clarity determination CLEAR NRG Urine pH measurement by test strip 7 5-9 Specific gravity of urine by test strip 1.010 1.016- 1.022 Urine protein assay by test strip, semi-quantitative 1+ NEGATIVE Urine glucose detection by automated test strip NEGATIVE NEGATIVE Erythrocytes detection in urine sediment by light microscopy NEGATIVE NEGATIVE Urine ketones detection by automated test strip 1+ NEGATIVE Urine nitrite detection by test strip NEGATIVE NEGATIVE Urine total bilirubin detection by test strip NEGATIVE NEGATIVE Urine urobilinogen measurement by automated test strip (mass/volume) NORMAL NORMAL Urine leukocyte esterase detection by dipstick 3+ NEGATIVE Automated urine sediment erythrocyte count by microscopy (number/high power field) NONE NRG Automated urine sediment leukocyte count by microscopy (number/high power field ) [HPF] NRG Bacteria detection in urine sediment by light microscopy NEGATIVE NRG Squamous epithelial cells detection in urine sediment by light microscopy 2-5 NRG Crystals detection in urine sediment by light microscopy NONE NRG Casts detection in urine sediment by light microscopy NONE NRG Mucus detection in urine sediment by light microscopy NEGATIVE NRG Complete urinalysis with reflex to culture NO NRG Amorphous sediment detection in urine sediment by light microscopy LARGE SANDRA URATES NRG Renal epithelial cells detection in urine sediment by light microscopy 0-2 NRG Comprehensive metabolic panel - 08/04/18 10:42 Serum or plasma sodium measurement (moles/volume) 141 mmol/L 135-145 Serum or plasma potassium measurement (moles/volume) 3.6 mmol/L 3.6-5.0 Serum or plasma chloride measurement (moles/volume) 101 mmol/L 98-107 Carbon dioxide 28 mmol/L 21-32 Serum or plasma anion gap determination (moles/volume) 12 mmol/L 5-14 Serum or plasma urea nitrogen measurement (mass/volume) 28 mg/dL 7-18 Serum or plasma creatinine measurement (mass/volume) 1.28 mg/dL 0.60-1.30 Serum or plasma urea nitrogen/creatinine mass ratio 22 NRG Serum or plasma creatinine measurement with calculation of estimated glomerular filtration rate 40 NRG Serum or plasma glucose measurement (mass/volume) 103 mg/dL 70-105 Serum or plasma calcium measurement (mass/volume) 11.4 mg/dL 8.5-10.1 Serum or plasma total bilirubin measurement (mass/volume) 0.6 mg/dL 0.1-1.0 Serum or plasma alkaline phosphatase measurement (enzymatic activity/volume) 51 U/L 40-136 Serum or plasma aspartate aminotransferase measurement (enzymatic activity/ volume) 23 U/L 5-34 Serum or plasma alanine aminotransferase measurement (enzymatic activity/volume ) 13 U/L 0-55 Serum or plasma protein measurement (mass/volume) 7.9 g/dL 6.4-8.2 Serum or plasma albumin measurement (mass/volume) 4.5 g/dL 3.2-4.5 CALCIUM CORRECTED 11.0 mg/dL 8.5-10.1 Serum or plasma troponin i.cardiac measurement (mass/volume) - 08/04/18 10:42 Serum or plasma troponin i.cardiac measurement (mass/volume) < ng/ mL <0.30 Lipase - 08/04/18 10:42 Lipase 12 U/L 8-78 Encounters ACCT No. Visit Date/Time Discharge Status Pt. Type Provider Facility Loc./Unit Complaint [id number] 08/04/2018 10:20:00 08/04/2018 12:24:00 DIS Emergency SUSHIL NI SENIOR CONSUMER INSIGHTS CONSULTANT [facility] ER NAUSEA/VOMITING [id number] 09/03/2017 18:54:00 09/03/2017 22:28:00 DIS Emergency CHAPITO KHANNA DO [facility] ER VOMITING [id number] 03/04/2017 08:19:00 03/04/2017 12:14:00 DIS Emergency VENKAT MANRIQUEZ MD [facility] ER CHEST PAIN [id number] 12/26/2015 15:29:00 12/26/2015 23:59:59 CLS Outpatient MENA SKY DO [facility] RAD SCREENING [id number] 12/15/2014 16:40:00 12/17/2014 10:28:00 DIS Inpatient MENA SKY DO [facility] CSD UPPER BACK PAIN CAD NAUSEA/VOMITING/DIARRHEA [id number] 12/13/2014 09:32:00 12/13/2014 23:59:59 CLS Outpatient MENA SKY DO [facility] RAD SCREENING [id number] 06/27/2014 16:32:00 06/27/2014 20:58:00 DIS Emergency NARCISO KERNS [facility] ER ABD PAIN;NAUSEA;L SHOULDER PAIN [id number] 03/26/2014 09:28:00 03/26/2014 23:59:59 CLS Outpatient MENA SKY DO [facility] RAD NEW ONSET TREMOR [id number] 07/24/2013 14:12:00 07/24/2013 23:59:59 CLS Outpatient [place] APRN [facility] RAD PEG PATENCY W/ GASTROGRAPHEN [id number] 07/23/2013 17:24:00 07/23/2013 23:59:59 CLS Outpatient MENA SKY DO [facility] RAD FEEDING TUBE PLACEMENT [id number] 06/16/2013 12:56:00 06/19/2013 16:10:00 DIS Inpatient EMRE MARS MD [facility] ICU POST OP PAIN,INTRACTABLE VOMITING, NSTEMI [id number] 06/14/2013 08:58:00 06/15/2013 15:45:00 DIS Outpatient EMRE MARS MD [facility] SDC HIATAL HERNIA [id number] 06/12/2013 13:32:00 06/12/2013 23:59:59 CLS Outpatient EMRE MARS MD [facility] PREOP HIATAL HERNIA [id number] 01/02/2013 11:34:00 03/25/2013 00:01:00 DIS Outpatient MENA SKY DO [facility] LAB CHRONIC DIARRHEA [id number] 03/16/2013 09:07:00 03/16/2013 23:59:59 CLS Outpatient UZMA ACUÑA MD [facility] RAD PARAESOPHAGEAL HERNIA [id number] 01/18/2013 17:16:00 01/19/2013 10:54:00 DIS Inpatient MENA SKY DO [facility] CSD CHEST PAIN; RCMI [id number] 08/26/2018 10:28:00 ACT Emergency RODRÍGUEZ MERRITT, SCHUYLER Mckinney [facility] ER NAUSEA [id number] 12/12/2014 15:27:00 Document Registration [id number] 12/12/2014 15:27:00 Document Registration [id number] 11/22/2014 08:33:00 Document Registration [id number] 03/26/2013 00:00:00 Document Registration [id number] 11/01/2012 00:00:00 Document Registration [id number] 08/02/2012 13:58:00 Document Registration [id number] 11/04/2011 11:45:00 Document Registration [id number] 05/18/2011 11:09:00 Document Registration [id number] 12/21/2010 11:30:00 Document Registration [id number] 12/14/2010 11:55:00 Document Registration [id number] 12/15/2014 13:32:38 ACT Document Registration
[2018-08-26] MEDS ORDERED: LACTATED RINGERS 1,000 ML IV SCH (11:15)
--- NOTE | 2018-08-26 11:16 | ED GI ---
General Stated Complaint: NAUSEA Source of Information: Patient, Family Exam Limitations: No Limitations History of Present Illness Date Seen by Provider: Aug 26, 2018 Time Seen by Provider: 11:14 Initial Comments To ER per private vehicle from home with reports of recurrent nausea. She's had several episodes of this. She was evaluated here in the emergency room on August 04 for nausea and vomiting without diarrhea. She was given laboratory evaluation, urinalysis, CT abdomen and pelvis and a prescription for Zofran which she states does help temporarily resolved the nausea but when the Zofran wears off, the nausea returns. This morning she has a headache. No fevers or chills. No abdominal pains. No dysuria. She has not yet followed up with primary care, Dr. Ulrich. At this very moment she reports that she is not nauseated but she does have a headache in the right frontal region, and states that she has a history of frequent headaches but hasn't had one in a long time. She did vomit twice this morning Timing/Duration: 1-2 Days Severity/Quality: Moderate Associated Symptoms: Nausea/Vomiting Allergies and Home Medications Allergies Coded Allergies: metoclopramide (Unverified Allergy, Severe, TARDIVE DYKENIESIA, 08/04/18) Home Medications Amitriptyline HCl 10 Mg Tablet, 10 MG PO DAILY LATE, (Reported) Aspirin 81 Mg Tab.chew, 81 MG PO DAILY, (Reported) Beta-Carotene(A) W-C & E/Min 1 Each Tablet, 1 EACH PO DAILY, (Reported) Bilberry 100 Mg Capsule, 1,000 MG PO DAILY LATE, (Reported) Calcium Carbonate 600 Mg Tablet, 600 MG PO DAILY, (Reported) Cholecalciferol (Vitamin D3) 1,000 Unit Capsule, 1,000 UNIT PO DAILY, (Reported) Clonazepam 0.5 Mg Tablet, 0.5 MG PO BID, (Reported) Clopidogrel Bisulfate 75 Mg Tablet, 75 MG PO DAILY, (Reported) Hydroxychloroquine Sulfate 200 Mg Tablet, 200 MG PO BID, (Reported) Isosorbide Mononitrate 60 Mg Tab, 60 MG PO DAILY, (Reported) Lisinopril 5 Mg Tablet, 5 MG PO DAILY LATE, (Reported) [place] 3 Polyunsat Fatty Acids 1,000 Mg Cap, 2,000 MG PO BID, (Reported) Ondansetron 8 Mg Tab.rapdis, 8 MG PO Q4H Prescribed by: CHAPITO KHANNA on 09/03/172110 Ondansetron HCl 4 Mg Tab, 4 MG PO Q4H PRN for NAUSEA/VOMITING Prescribed by: SUSHIL NI on 08/04/18 111 Oxybutynin Chloride 5 Mg Tablet, 5 MG PO BID, (Reported) Pantoprazole Sodium 40 Mg Tablet.dr, 40 MG PO DAILY Prescribed by: CHAPITO KHANNA on 09/03/172110 Promethazine HCl 25 Mg Supp.rect, 25 MG RC Q4H Prescribed by: CHAPITO KHANNA on 09/03/172110 Promethazine HCl 25 Mg Tablet, 12.5 MG PO Q6H PRN for NAUSEA/VOMITING Prescribed by: SUSHIL NI on 08/26/18 1237 Patient Home Medication List Home Medication List Reviewed: Yes Review of Systems Review of Systems Constitutional: see HPI; No chills, No diaphoresis, No fever EENTM: No Symptoms Reported Respiratory: No Symptoms Reported Cardiovascular: No Symptoms Reported; Denies Chest Pain Gastrointestinal: See HPI; Denies Abdominal Pain, Denies Diarrhea; Nausea, Vomiting Genitourinary: No Symptoms Reported Musculoskeletal: no symptoms reported Skin: no symptoms reported Psychiatric/Neurological: No Symptoms Reported Endocrine: No Symptoms Reported Hematologic/Lymphatic: No Symptoms Reported Past Xxhlags-Fiyhaf-Hcvfsd Hx Patient Social History 2nd Hand Smoke Exposure: No Recent Foreign Travel: No Contact w/Someone Who Travel: No Recent Hopitalizations: No Immunizations Up To Date Tetanus Booster (TDap): Unknown Date of Pneumonia Vaccine: May 13, 2015 Date of Influenza Vaccine: Jun 12, 2017 Seasonal Allergies Seasonal Allergies: No Past Medical History Surgeries: Yes (spleenectomy, HH sx) Abdominal, Cardiac, CABG, Tubal Ligation Respiratory: No Cardiac: Yes (DOUBLE BYPASS (CABG X2)) Coronary Artery Disease, High Cholesterol, Hypertension Neurological: No Reproductive Disorders: No Genitourinary: No Gastrointestinal: Yes (rectal prolapse, ) Abdominal Hernia, Gastroesophageal Reflux, Chronic Diarrhea, Hiatal Hernia Musculoskeletal: Yes (ARTHRITIS IN HANDS ) Osteoporosis, Arthritis, Chronic Back Pain Endocrine: No HEENT: Yes (NO TEETH) Hearing Impairment: Hard of Hearing Cancer: No Psychosocial: No Integumentary: Yes (ECZEMA A CHILD) Eczema Blood Disorders: No Family Medical History Diabetes mellitus G8 BROTHER, , Age:62 G8 SISTER, , Age:60 years and older GREAT AUNT FH: ovarian cancer AUNT Myocardial infarction 19 FATHER, , Age:39 19 MOTHER, , Age:83 G8 BROTHER, , Age:62 G8 SISTER, , Age:60 years and older Heart Disease Physical Exam Vital Signs Vital Signs - First Documented 08/26/18 11:05 Temp 99.5 Pulse 67 Resp 16 B/P (MAP) 167/106 (126) Pulse Ox 97 O2 Delivery Room Air Capillary Refill : Height/Weight/BMI Height: 5'3.00" Weight: 115lbs. 1.0oz. 52.924275hp; 20.01 BMI Method:Stated General Appearance: WD/WN, no apparent distress HEENT: PERRL/EOMI, normal ENT inspection Respiratory: no respiratory distress, no accessory muscle use Cardiovascular: regular rate, rhythm, no murmur Gastrointestinal: normal bowel sounds, non tender, soft Extremities: normal range of motion, non-tender Neurologic/Psychiatric: alert, normal mood/affect, oriented x 3 Skin: normal color, warm/dry Progress/Results/Core Measures Results/Orders Lab Results Laboratory Tests Test 08/26/18 11:13 08/26/18 11:21 Range/Units White Blood Count 8.9 4.3-11.0 10^3/uL Red Blood Count 4.00 L 4.35-5.85 10^6/uL Hemoglobin 13.0 11.5-16.0 G/DL Hematocrit 40 35-52 % Mean Corpuscular Volume 100 H 80-99 FL Mean Corpuscular Hemoglobin 33 25-34 PG Mean Corpuscular Hemoglobin Concent 33 32-36 G/DL Red Cell Distribution Width 13.2 10.0-14.5 % Platelet Count 292 130-400 10^3/uL Mean Platelet Volume 10.4 7.4-10.4 FL Neutrophils (%) (Auto) 67 42-75 % Lymphocytes (%) (Auto) 19 12-44 % Monocytes (%) (Auto) 9 0-12 % Eosinophils (%) (Auto) 5 0-10 % Basophils (%) (Auto) 0 0-10 % Neutrophils # (Auto) 6.0 1.8-7.8 X 10^3 Lymphocytes # (Auto) 1.7 1.0-4.0 X 10^3 Monocytes # (Auto) 0.8 0.0-1.0 X 10^3 Eosinophils # (Auto) 0.4 H 0.0-0.3 10^3/uL Basophils # (Auto) 0.0 0.0-0.1 10^3/uL Sodium Level 142 135-145 MMOL/L Potassium Level 4.5 3.6-5.0 MMOL/L Chloride Level 106 98-107 MMOL/L Carbon Dioxide Level 25 21-32 MMOL/L Anion Gap 11 5-14 MMOL/L Blood Urea Nitrogen 21 H 7-18 MG/DL Creatinine 1.10 0.60-1.30 MG/DL Estimat Glomerular Filtration Rate 48 BUN/Creatinine Ratio 19 Glucose Level 84 70-105 MG/DL Calcium Level 10.5 H 8.5-10.1 MG/DL Corrected Calcium 10.2 H 8.5-10.1 MG/DL Total Bilirubin 0.4 0.1-1.0 MG/DL Aspartate Amino Transf (AST/SGOT) 26 5-34 U/L Alanine Aminotransferase (ALT/SGPT) 17 0-55 U/L Alkaline Phosphatase 44 40-136 U/L Troponin I < 0.30 <0.30 NG/ML Total Protein 8.0 6.4-8.2 GM/DL Albumin 4.4 3.2-4.5 GM/DL Lipase 12 8-78 U/L Urine Color YELLOW Urine Clarity VERY CLOUDY H Urine pH 8 5-9 Urine Specific [place] 1.010 L 1.016-1.022 Urine Protein NEGATIVE NEGATIVE Urine Glucose (UA) NEGATIVE NEGATIVE Urine Ketones NEGATIVE NEGATIVE Urine Nitrite NEGATIVE NEGATIVE Urine Bilirubin NEGATIVE NEGATIVE Urine Urobilinogen NORMAL NORMAL MG/DL Urine Leukocyte Esterase NEGATIVE NEGATIVE Urine RBC (Auto) NEGATIVE NEGATIVE Urine RBC NONE /HPF Urine WBC RARE /HPF Urine Squamous Epithelial Cells 0-2 /HPF Urine Crystals NONE /LPF Urine Amorphous Sediment LARGE SANDRA PHOSPHATE H /LPF Urine Bacteria NEGATIVE /HPF Urine Casts NONE /LPF Urine Mucus NEGATIVE /LPF Urine Culture Indicated NO My Orders Orders - SUSHIL NI [employer] Cbc With Automated Diff (08/26/18 11:11) Comprehensive Metabolic Panel (08/26/18 11:11) Lipase (08/26/18 11:11) Ua Culture If Indicated (08/26/18 11:11) Troponin I (08/26/18 11:11) Ct Head Wo (08/26/18 11:11) Iv Heplock-Insert (Order) (08/26/18 11:11) Lactated Ringers (Lr 1000 Ml Iv Solution (08/26/18 11:15) Promethazine Injection (Phenergan Injec (08/26/18 11:30) Medications Given in ED Current Medications Medications Dose Ordered Sig/Dahlia Route Start Time Stop Time Status Last Admin Dose Admin Promethazine HCl 12.5 mg ONCE ONCE IVP 08/26/18 11:30 08/26/18 11:31 DC 08/26/18 11:26 12.5 MG Vital Signs/I&O 08/26/18 11:05 Temp 99.5 Pulse 67 Resp 16 B/P (MAP) 167/106 (126) Pulse Ox 97 O2 Delivery Room Air Departure Communication (Admissions) 1237- upon my initial exam she denied any nausea at that time. A short while later she did develop some nausea so 12.5 mg of Phenergan was ordered. She feels better at this time. Impression Primary Impression: Nausea & vomiting Qualified Codes: R11.2 - Nausea with vomiting, unspecified Disposition: HOME, SELF-CARE Condition: Improved Departure-Patient Inst. Decision time for Depature: 12:36 Referrals: MENA ULRICH DO (PCP/Family) Primary Care Physician Patient Instructions: Nausea and Vomiting, Adult Add. Discharge Instructions: 1. Return to ER for any concerns 2. Follow-up with your doctor next week. Call Tuesday to make an appointment to be seen for further evaluation even if you are feeling better. He may wish to order gallbladder studies 3. Use the promethazine as needed for nausea control if the ondansetron does not work. Scripts Promethazine HCl (Promethazine Tablet) 25 Mg Tablet 12.5 MG PO Q6H PRN for NAUSEA/VOMITING, #14 TAB Prov: SUSHIL NI APRN 08/26/18 Copy Copies To 1: MENA ULRICH PETER J APRN Aug 26, 2018 11:16
[2018-08-26 11:28] LABS: BASOPHILS % (AUTO) 0 % (0-10); EOSINOPHILS # (AUTO) 0.4 10^3/uL (0.0-0.3); EOSINOPHILS % (AUTO) 5 % (0-10); HEMATOCRIT 40 % (35-52); LYMPHOCYTES # (AUTO) 1.7 X 10^3 (1.0-4.0); LYMPHOCYTES % (AUTO) 19 % (12-44); MEAN CORPUSCULAR HEMOGLOBIN 33 PG (25-34); MEAN CORPUSCULAR HGB CONC 33 G/DL (32-36); MEAN CORPUSCULAR VOLUME 100 FL (80-99); MEAN PLATELET VOLUME 10.4 FL (7.4-10.4); MONOCYTES # (AUTO) 0.8 X 10^3 (0.0-1.0); MONOCYTES % (AUTO) 9 % (0-12); NEUTROPHILS % (AUTO) 67 % (42-75); PLATELET COUNT 292 10^3/uL (130-400); RED CELL DISTRIBUTION WIDTH 13.2 % (10.0-14.5); WHITE BLOOD COUNT 8.9 10^3/uL (4.3-11.0)
[2018-08-26] MEDS ORDERED: PROMETHAZINE INJ 25 MG/ML (PHENERGAN) AMP IVP ONE (11:30)
--- NOTE | 2018-08-26 11:52 | Diagnostic Imaging Report ---
PROCEDURE: CT head without contrast. TECHNIQUE: Multiple contiguous axial images were obtained through the brain without the use of intravenous contrast. INDICATION: Headache. COMPARISON: 03/26/2014. DISCUSSION: Mild diffuse brain volume loss is again noted, likely age related. White matter hypoattenuation is nonspecific though not greater than expected for age related chronic small vessel ischemic disease, stable. No acute intracranial hemorrhage, mass, midline shift, hydrocephalus. The orbits, sinuses, mastoid air cells, and calvarium are unremarkable. IMPRESSION: 1. Stable senescent changes as described. No acute intracranial abnormality identified otherwise. Dictated by: Dictated on workstation # [id number]
[2018-08-26 12:01] LABS: ALANINE AMINOTRANSFERASE 17 U/L (0-55); ALBUMIN 4.4 GM/DL (3.2-4.5); ALKALINE PHOSPHATASE 44 U/L (40-136); BILIRUBIN,TOTAL 0.4 MG/DL (0.1-1.0); BUN/CREATININE RATIO 19; CALCIUM 10.5 MG/DL (8.5-10.1); CARBON DIOXIDE 25 MMOL/L (21-32); CHLORIDE 106 MMOL/L (98-107); GFR ESTIMATED 48; GLUCOSE 84 MG/DL (70-105); LIPASE 12 U/L (8-78); POTASSIUM 4.5 MMOL/L (3.6-5.0); SODIUM 142 MMOL/L (135-145)
[2018-08-26 12:02] LABS: BILIRUBIN,URINE NEGATIVE (NEGATIVE); CLARITY,URINE VERY CLOUDY; COLOR,URINE YELLOW; GLUCOSE, URINE (UA) NEGATIVE (NEGATIVE); KETONES,URINE NEGATIVE (NEGATIVE); LEUKOCYTE ESTERASE ,URINE NEGATIVE (NEGATIVE); NITRITE,URINE NEGATIVE (NEGATIVE); PH,URINE 8 (5-9); PROTEIN,URINE NEGATIVE (NEGATIVE); UROBILINOGEN,URINE NORMAL (NORMAL)
[2018-08-26 12:33] LABS: AMORPHOUS SEDIMENT,UR LARGE AMOR PHOSPHATE /LPF; BACTERIA,URINE NEGATIVE /HPF; SQUAMOUS EPITHELIAL CELL,UR 0-2 /HPF; WBC,URINE RARE /HPF
[2018-08-26] MEDS ORDERED: PROM25TA14 PO (12:37)
[2018-08-26 13:12] VITALS: BP 154/64
== END 2018-08-26 13:12 | disposition home or self-care (01) ==
LOC: EDUNIT# 10:27 → ER 10:28
DX: R11.2 Nausea with vomiting, unspecified (principal); I25.10 Atherosclerotic heart disease of native coronary artery without angina pectoris; E78.00 Pure hypercholesterolemia, unspecified; I10 Essential (primary) hypertension; K21.9 Gastro-esophageal reflux disease without esophagitis; M81.0 Age-related osteoporosis without current pathological fracture; Z80.41 Family history of malignant neoplasm of ovary; Z82.49 Family history of ischemic heart disease and other diseases of the circulatory system; Z87.19 Personal history of other diseases of the digestive system; Z79.82 Long term (current) use of aspirin; Z79.02 Long term (current) use of antithrombotics/antiplatelets; Z98.890 Other specified postprocedural states; Z98.51 Tubal ligation status; Z95.1 Presence of aortocoronary bypass graft; Z90.81 Acquired absence of spleen
CPT/HCPCS: 36415; 70450; 80053; 81000; 83690; 84484; 85025

== ENCOUNTER → 2018-08-30 | Outpatient (CLI) | payer MEDICARE ==
[~2018-08-30] MED LIST changes: +PROM25TA14 PO
--- NOTE | 2018-08-30 14:30 | Diagnostic Imaging Report ---
PROCEDURE: US Gallbladder. TECHNIQUE: Multiple real-time grayscale images were obtained over the right upper quadrant in various projections. INDICATION: Nausea and vomiting. FINDINGS: The liver is normal in size. No discrete liver mass is identified. The portal vein is patent and shows normal direction of flow. Gallbladder is without stones or sludge. No wall thickening or pericholecystic fluid is seen. There is no biliary duct dilatation. The pancreas is obscured by bowel gas. Right kidney is unremarkable. There is no ascites. IMPRESSION: Unremarkable gallbladder ultrasound. Dictated by: Dictated on workstation # [id number]
== END ==
LOC: RAD 06:45
PROVIDERS: ATTEND Internal Medicine
DX: R10.13 Epigastric pain (principal); R11.2 Nausea with vomiting, unspecified
CPT/HCPCS: 76705

== ENCOUNTER → 2018-09-01 | Outpatient (CLI) | payer MEDICARE ==
[~2018-09-01] MED LIST changes: +CATHETER FLUSH 10 ML SYR IV PRN
--- NOTE | 2018-09-01 12:12 | Diagnostic Imaging Report ---
Indication: Nausea and vomiting. Technique: The patient was given 4.7 mCi of technetium 99 Choletec intravenously. Continuous imaging of the abdomen performed through 60 minutes. At that point Ensure was ingested for gallbladder stimulation and additional imaging performed. There was homogenous distribution of uptake throughout the liver parenchyma. There was quick aggregation of activity within the intra- and extrahepatic bile ducts as well as the gallbladder identified within 15 minutes. With stimulation, there was good gallbladder contractility. The ejection fraction was 88%. There was no evidence for cystic or common duct obstruction. Impression: Normal nuclear medicine hepatobiliary scanning and normal gallbladder ejection fraction. Dictated by: Dictated on workstation # [id number]
== END ==
LOC: CARD 06:56
PROVIDERS: ATTEND Internal Medicine
DX: R11.2 Nausea with vomiting, unspecified (principal)
CPT/HCPCS: 78227

== ENCOUNTER 2018-12-23 17:17 | Emergency (ER) | payer MEDICARE ==
[~2018-12-23] VITALS: Ht 157.5 cm; Wt 54.4 kg
[~2018-12-23 17:17] MED LIST changes: -CATHETER FLUSH 10 ML SYR IV PRN
--- OUTSIDE RECORDS SUMMARY | 2018-12-23 17:23 | XMS REPORT | Clinical Summary ---
Author Author [facility] Organization [facility] Address Unknown Phone Unavailable Care Team Providers Care Shank Turner Name Role Phone Brady Huber MD [id number] Yaya Vallecillo MD [id number] Marcio Ndiaye [id number] Reyna Cisneros MD PCP Source Comments Some departments are not documenting in the electronic medical record. If you do not see the information that you expected, contact Release of Information in the Health Information Management department at [phone] for further assistance in locating additional records.[facility] Allergies Comments Active Allergy Reactions Severity Noted Date causes involuntary body movements rigidity Metoclopramide AGITATION Medium 07/26/2014 Medications End Date Status Medication Sig Dispensed Refills Start Date Active fish oil /omega-3 fatty Take 2 Caps 0 acids (SEA-OMEGA) by mouth 340/1000 mg capsule twice daily. Active BILBERRY PO Take 1 0 capsule by mouth at bedtime daily. Active calcium carbonate/vitamin Take 1 tablet 0 D-3 (OSCAL-500+D) 1250 by mouth mg/200 unit tablet daily. Calcium Carb 1250mg delivers 500mg elemental Ca [...] 4 mg capsule mouth twice daily. Active nitroglycerin (NITROSTAT) Place 0.4 mg 0 0.4 mg tablet under tongue every 5 minutes as needed for Chest Pain. Active Vit C-Vit Take 1 Cap by 0 T-Pispja-Osx-OM-3 mouth daily. [id number] ku-uvgy-rp-mg cap Active naproxen sodium(+) Take 220 mg 0 (ALEVE) 220 mg tablet by mouth twice daily. Active amitriptyline (ELAVIL) 10 Take 10 mg by 0 mg tablet mouth at [...] mg by 0 XL) 5 mg tablet mouth daily. Active acetaminophen/lidocaine/a Take 5 to 10 60 mL 0 ntacid DS(#) (GI mL by mouth 7 COCKTAIL) 1:1:3 every 8 hours as needed. Active ondansetron (ZOFRAN ODT) Dissolve one 3 tablet 0 8 mg rapid dissolve tablet by 9 tabletIndications: mouth every 6 Drug-induced nausea and hours as vomiting needed for Nausea or Vomiting. Place on tongue to disolve. Active cyanocobalamin 1,000 mcg Take 1,000 0 tablet mcg by mouth daily. Active oxyCODONE (ROXICODONE, Take one 50 tablet 0 OXY-IR) 5 mg tablet tablet to two 9 tablets by mouth every 4 hours as needed Earliest Fill Date: 12/12/18 12/07/2018 Discontinued metroNIDAZOLE (FLAGYL) 2 tablets PO 6 tablet 0 500 mg tablet at 1 pm, 3 pm 9 and 11 pm the day prior to surgery 12/07/2018 Discontinued neomycin 500 mg tablet 2 tablets PO 6 tablet 0 at 1 pm, 3 pm 9 and 11 pm the day prior to surgery Active Problems Problem Noted Date Rectal prolapse 12/07/2018 Slipped Robert fundoplication 05/10/2017 Overview: Added automatically from request for surgery [id number] S/P ventral herniorrhaphy 02/20/2016 Incisional hernia, without obstruction or gangrene 01/20/2016 Gastroparesis 05/13/2015 Nausea and vomiting 12/24/2014 Acute blood loss anemia 08/07/2014 Metabolic acidosis 08/07/2014 Lactic acidosis 08/07/2014 Acute respiratory failure 08/07/2014 Pulmonary hypertension 06/21/2013 History of CA (myocardial infarction) 06/20/2013 Status post Robert fundoplication (without gastrostomy tube) procedure 06/20 S/P CABG (coronary artery bypass graft) 06/20/2013 Esophageal perforation 06/19/2013 Hiatal hernia 06/19/2013 Encounters Care Team Description Date Type Specialty Vickie Cordoba APRN Rectal prolapse (Primary Dx); Post-operative state 12/21/2018 Office Visit Oncology Vickie Cordoba APRN 12/21/2018 Documentation Oncology Vickie Cordoba APRN Appointment Request 12/12/2018 Telephone Oncology Shyla Navarrete APRN 12/07/2018 Anesthesia Event Ryan Montano MD EXPLORATORY LAPAROTOMY 12/07/2018 Surgery Ryan Montano MD Ashcraft, John H, DO Rectal prolapse 12/07/2018 Hospital - Encounter 12/12/2018 Ryan Montano MD History of coronary artery bypass graft (Primary Dx); Pre-operative cardiovascular examination; Preop testing 11/21/2018 PAC Office Anesthesiology Visit Ryan Montano MD Rectal prolapse (Primary Dx) 11/06/2018 Prep for Case Oncology Ryan Montano MD Drug-induced nausea and vomiting (Primary Dx); Rectal prolapse 11/03/2018 Office Visit Oncology Tahmina Sanchez New Patient 10/06/2018 Telephone General Surgery from Last 3 Months Immunizations Name Dates [...] Vital Signs Time Taken Vital Sign Reading 12/21/2018 11:52 AM CDT Blood Pressure 119/76 12/21/2018 11:52 AM CDT Pulse 78 12/21/2018 11:52 AM CDT Temperature 37 C (98.6 F) 12/21/2018 11:52 AM CDT Respiratory Rate 14 12/21/2018 11:52 AM CDT Oxygen Saturation 99% - Inhaled Oxygen - Concentration 12/21/2018 11:52 AM CDT Weight 53.1 kg (117 lb) 12/07/2018 6:15 AM CDT Height 157.5 cm (5' 2") 12/07/2018 6:15 AM CDT Body Mass Index 21.4 Plan of Treatment Health Maintenance Due Date Last Done Comments PHYSICAL (COMPREHENSIVE) 1948 EXAM DTAP/TDAP VACCINES (1 - 1959 Tdap) SHINGLES RECOMBINANT 1991 VACCINE (1 of 2) OSTEOPOROSIS 2006 SCREENING/MONITORING PNEUMONIA (PCV13/PPSV23) 08/14/2015 08/14/2014 VACCINES (2 of 2 - PCV13) INFLUENZA VACCINE 04/12/2019 06/27/2013, 05/30/2009, 07/04/2007, Additional history exists Implants Device Identifier Shelf Expiration Date Model / Serial / Lot Implanted Type Area Manufactur er 11/10/2016 [id number] / NA / [id number] Mesh Surgical Proceed 6x4in Fascial JandJ:ETHI Flexible Tissue Separate CON:ENDO-S Implanted: Qty: 1 on 02/20/2016 by Lance Ruelas MD Procedures Comments Procedure Name Priority Date/Time Associated Diagnosis CBC Routine 12/12/2018 4:15 AM CDT BASIC METABOLIC PANEL Routine 12/12/2018 4:15 AM CDT CBC Routine 12/11/2018 4:33 AM CDT BASIC METABOLIC PANEL Routine 12/11/2018 4:33 AM CDT BASIC METABOLIC PANEL Routine 12/10/2018 5:07 AM CDT CBC Routine 12/10/2018 5:07 AM CDT BASIC METABOLIC PANEL Routine 12/09/2018 4:28 AM CDT CBC Routine 12/09/2018 4:28 AM CDT BASIC METABOLIC PANEL Routine 12/08/2018 4:24 AM CDT CBC Routine 12/08/2018 4:24 AM CDT ANESTHESIA ARTERIAL LINE Routine 12/07/2018 INSERTION 11:00 AM CDT Procedure Note - Go Mejia MD - 12/07/2018 11:00 AM CDT Anesthesi a Procedure: Arterial Line Placement A-LINE INSERTION Date/Time: 12/07/2018 8:41 AM Patient location: OR Indication s: hemodynami c monitoring Preproced ure checklist performed: 2 patient identifier s, risks & benefits discussed, patient evaluated, timeout performed, consent obtained, patient being monitored and sterile drape Sterile technique: - Proper hand washing - Cap, mask - Sterile gloves - Skin prep for antisepsis Arterial Line Procedure Patient sedated: yes (see MAR) Sedation type: general; Artery prepped with chlorhexid ine; skin prep agent completely dried prior to procedure. Location: radial artery Laterality : left Technique: palpation and ultrasound Needle gauge: 20 G Number of attempts: 4 Procedure Outcome Catheter secured with adhesive dressing applied Events: no complicati ons noted during insertion and skin intact, warm, and dry Observatio n: pt tolerated well Additiona l notes: ATTESTATIO N I personally performed the procedure myself. Staff name: Go Mejia MD Date: 12/07/2018 Performed by: Go Mejia MD Authorized by: Go Mejia MD ANESTHESIA EPIDURAL BLOCK Routine 12/07/2018 10:56 AM CDT Procedure Note - Go Mejia MD - 12/07/2018 10:56 AM CDT Anesthesi a Procedure: Epidural Block EPIDURAL BLOCK Date/Time: 12/07/2018 7:26 AM Patient location: pre-op Reason for block: post-op pain management Preproced ure checklist performed: 2 patient identifier s, risks & benefits discussed, patient evaluated, timeout performed, consent obtained, patient being monitored, existing labs reviewed, no anticoagul ant within risk period and sterile drape Sterile technique: - Proper hand washing - Cap, mask - Sterile gloves - Skin prep for antisepsis Epidural Procedure Patient position: sitting Prep: ChloraPrep Monitoring : BP, EKG and continuous pulse ox Approach: right paramedian Location: thoracic Level/Inte rspace: T8-9 Injection technique: KIMBERLY saline Procedures : landmark technique Local infiltrati on: 1% lidocaine injected locally Number of attempts: 1 Needle/ep idural catheter: Needle type: Tuohy Needle gauge: 18 G Needle length: 3.5 in Needle insertion depth: 4 cm Catheter type: multi orifice Catheter size: 20 G Catheter at skin depth: 9 cm Procedure Outcome Events: negative test dose, no paresthesi a and negative aspiration test Patient tolerance of procedure: patient tolerated the procedure well with no immediate complicati ons Additiona l notes: ATTESTATIO N I personally performed the procedure myself. Staff name: Go Mejia MD Date: 12/07/2018 Refer to nursing documentat ion for vitals and monitoring data during procedure. Performed by: Go Mejia MD Authorized by: Go Mejia MD ABDOMEN AP ONLY Routine 12/07/2018 10:29 AM CDT SURGICAL PATHOLOGY 12/07/2018 9:16 AM CDT ABDOMINAL PROCTOPEXY WITH 12/07/2018 Rectal prolapse SIGMOID RESECTION 7:30 AM CDT EXPLORATORY LAPAROTOMY 12/07/2018 Rectal prolapse WITH/ WITHOUT BIOPSY 7:30 AM CDT TYPE & CROSSMATCH STAT 12/07/2018 Preop testing 6:16 AM CDT TELEMETRY STRIPS-SCAN 12/07/2018 12:00 AM CDT TYPE & SCREEN (NOT Routine 11/21/2018 Preop testing CROSSMATCH ELIGIBLE) 11:47 AM CDT BASIC METABOLIC PANEL Routine 11/21/2018 Preop testing 11:47 AM CDT CBC Routine 11/21/2018 Preop testing 11:47 AM CDT ECG-SCAN 11/21/2018 12:00 AM CDT from Last 3 Months Results * CBC (12/12/2018 4:15 AM CDT) Only the most recent of 6 results within the time period is included. White Blood 8.6 4.5 - 11.0 K/UL [facility] Cells RBC 3.18 (L) 4.0 - 5.0 M/UL [facility] Hemoglobin 10.4 (L) 12.0 - 15.0 GM/DL [facility] Hematocrit 30.6 (L) 36 - 45 % [facility] MCV 96.4 80 - 100 FL [facility] MCH 32.8 26 - 34 PG [facility] MCHC 34.0 32.0 - 36.0 G/DL [facility] RDW 13.3 11 - 15 % [facility] Platelet Count 311 150 - 400 K/UL [facility] MPV 8.6 7 - 11 FL [facility] Specimen Blood Performing Organization Address City/State/Zipcode Phone Number [facility] [address] [place] [address] * BASIC METABOLIC PANEL (12/12/2018 4:15 AM CDT) Only the most recent of 6 results within the time period is included. Sodium 137 137 - 147 MMOL/L [facility] Potassium 3.5 3.5 - 5.1 MMOL/L [facility] Chloride 105 98 - 110 MMOL/L [facility] CO2 23 21 - 30 MMOL/L [facility] Anion Gap 9 3 - 12 [facility] Glucose 87 70 - 100 MG/DL [facility] Blood Urea 18 7 - 25 MG/DL [facility] Nitrogen Creatinine 0.73 0.4 - 1.00 MG/DL [facility] Calcium 9.6 8.5 - 10.6 MG/DL [facility] eGFR Non >60 >60 mL/min [facility] Comment: [place] The eGFR is not validated for use in drug dosing adjustments.Continue to use estimated creatinine clearance per dosing reference text.Please contact the Clinical Pharmacist for questions. eGFR >60 >60 mL/min [facility] [place] Comment: The eGFR is not validated for use in drug dosing adjustments.Continue to use estimated creatinine clearance per dosing reference text.Please contact the Clinical Pharmacist for questions. Specimen Blood Performing Organization Address City/State/Zipcode Phone Number [facility] [address] [place] [address] * ABDOMEN AP ONLY (12/07/2018 10:29 AM CDT) Impressions Performed At Recent abdominal surgery with no retained radiopaque surgical instrument in the [facility] [id number]. Salomón Maria MD and Khoa Ibrahim MD discussed these findings with OR Nurse Mana Reyes by telephone 12/07/2018 10:38 AM. Approved by Salomón Maria MD on 12/07/2018 10:59 AM By my electronic signature, I attest that I have personally reviewed the images for this examination and formulated the interpretations and opinions expressed in this report Finalized by KHOA IBRAHIM M.D. on 12/07/2018 11:05 AM. Dictated by Salomón Maria MD on 12/07/2018 10:53 AM. Narrative Performed At Technique: ABDOMEN AP ONLY [facility] Clinical Indication: Female, 78 years old. Post surgery, evaluate for retained object, miscount Comparison: No previous exam. Findings: Nonobstructive bowel gas pattern. Suture material centered over the pelvis and left mid abdomen. Partial visualization of median sternotomy wires and surgical clips overlying the lower thorax. Cutaneous shanika overlie the midline pelvis. No retained radiopaque surgical instrument in the [id number]. Cleary catheter temperature probe overlies the lower pelvis. Small hiatal hernia. Scattered calcified atherosclerosis throughout the aorta. Procedure Note Interface, Radiant Results - 12/07/2018 11:08 AM CDT Technique: ABDOMEN AP ONLY Clinical Indication: Female, 78 years old. Post surgery, evaluate for retained object, miscount Comparison: No previous exam. Findings: Nonobstructive bowel gas pattern. Suture material centered over the pelvis and left mid abdomen. Partial visualization of median sternotomy wires and surgical clips overlying the lower thorax. Cutaneous shanika overlie the midline pelvis. No retained radiopaque surgical instrument in the orwfo-yp-lihi. Cleary catheter temperature probe overlies the lower pelvis. Small hiatal hernia. Scattered calcified atherosclerosis throughout the aorta. IMPRESSION Recent abdominal surgery with no retained radiopaque surgical instrument in the [id number]. Salomón Maria MD and Khoa Ibrahim MD discussed these findings with OR Nurse Mana Reyes by telephone 12/07/2018 10:38 AM. Approved by Salomón Maria MD on 12/07/2018 10:59 AM By my electronic signature, I attest that I have personally reviewed the images for this examination and formulated the interpretations and opinions expressed in this report Finalized by KHOA IBRAHIM M.D. on 12/07/2018 11:05 AM. Dictated by Salomón Maria MD on 12/07/2018 10:53 AM. Performing Organization Address City/State/Zipcode Phone Number [facility] * SURGICAL PATHOLOGY (12/07/2018 9:16 AM CDT) PATHOLOGY [facility] [employer] [facility] [email or web address] Department of Pathology and Laboratory Medicine [address] [place] [address] Surgical Pathology Office:[phone] :[phone] SURGICAL PATHOLOGY REPORT NAME: MELLISSA AVILA SURG PATH #: [id number] MR #: [id number] SPECIMEN CLASS: [facility] BILLING #: [id number] ALT ID #:LOCATION: [facility] DATE OF PROCEDURE: 12/07/2018 AGE:78 SEX: F DATE RECEIVED: 12/07/2018 : 1940TIME RECEIVED:: PHYSICIAN: RYAN MONTANO MD DATE OF REPORT: 12/08/2018 COPY TO:DATE OF PRINTIN12/08/2018 ############################## ############################## ############ Final Diagnosis: A. Colon, "rectum and sigmoid colon", resection: No histopathologic abnormalities, clinical history of rectal prolapse Attestation: By this signature, I attest that I have personally formulated the final interpretation expressed in this report and that the above diagnosis is based upon my examination of the slides and/or other material indicated in this report. +++ +++ ksw/12/07/2018 ############################## ############################## ############ Material Received: A: rectum and sigmoid colon History: 78-year-old female with a clinical history of rectal prolapse Gross Description: A. Fixative: Fresh Labeled: "Rectum and sigmoid colon" Measurements: 24.5 cm in length by 3.3 cm in diameter Serosa: Ferreira-pink, smooth and glistening Mucosa: Ferreira-white and smooth with grossly unremarkable mucosal folds. Tissue submitted to [facility] Core Facility: No Critical Care Nurse Practitioner sections are submitted as follows: A1 Proximal resection margin. A2 Distal resection margin. A3-A4 Sigmoid colon mucosa. A5-A6 Rectal mucosa. (tianna) jrt/12/07/2018 Performing Organization Address City/State/Zipcode Phone Number [facility] [address] [place] [address] * TYPE & CROSSMATCH (12/07/2018 6:16 AM CDT) Units Ordered 2 MAIN LAB Crossmatch 12/10/2018 MAIN LAB Expires Record Check FOUND MAIN LAB ABO/RH(D) O POS [facility] Antibody Screen NEG [facility] Electronic YES MAIN LAB Crossmatch Unit Number [id number] MAIN LAB Blood Component RBC,ADSOL,LEUKO REDUCED MAIN LAB Type Unit Division 0 MAIN LAB Status OF Unit REL FROM ALLOC [facility] Transfusion OK TO TRANSFUSE MAIN LAB Status Crossmatch COMPATIBLE,ELECTRONIC [facility] Result Unit Number [id number] MAIN LAB Blood Component RBC,ADSOL,LEUKO REDUCED MAIN LAB Type Unit Division 0 MAIN LAB Status OF Unit REL FROM ALLOC [facility] Transfusion OK TO TRANSFUSE MAIN LAB Status Crossmatch COMPATIBLE,ELECTRONIC MAIN LAB Result Specimen Blood Performing Organization Address City/State/Zipcode Phone Number [facility] [address] [place] [address] * TELEMETRY STRIPS-SCAN (12/07/2018 12:00 AM CDT) Narrative Performed At Ordered by an unspecified provider. * TYPE & SCREEN (NOT CROSSMATCH ELIGIBLE) (11/21/2018 11:47 AM CDT) ABO/RH(D) O POS MAIN LAB Antibody Screen NEG MAIN LAB Blood Component [employer] [facility] Type Specimen Blood, venous - Blood Performing Organization Address City/[facility]/Zipcode Phone Number [facility] [address] [place] [address] * ECG-SCAN (11/21/2018 12:00 AM CDT) Narrative Performed At Ordered by an unspecified provider. from Last 3 Months Insurance Type Payer Benefit Subscriber ID Effective Phone Address Plan / Dates Group Medicare COVENTRY MEDICARE COVENTRY xxxxxxxxxxx [id number] ADVANTRA resent MEDICARE PPO Advance Directives Patient has advance care planning documents, and code status on file. For more information, please contact: [facility] [address] [place] [address] Date Inactivated Comments Code Status Date Activated 12/12/2018 2:54 PM Full Code 12/07/2018 11:02 AM Provider has discussed Code Status Yes w/Patient or Family? 02/22/2016 4:58 PM Full Code 02/20/2016 8:12 PM Provider has discussed Code Status Yes w/Patient or Family? 08/14/2014 2:01 PM Full Code 08/07/2014 2:40 PM Provider has discussed Code Status Yes w/Patient or Family? 07/02/2013 2:37 PM Full Code 06/19/2013 5:59 PM Provider has discussed Code Status Yes w/Patient or Family?
--- OUTSIDE RECORDS SUMMARY | 2018-12-23 17:24 | XMS REPORT | Encounter Summary ---
Author Author [facility] Organization [facility] Address Unknown Phone Unavailable Care Team Providers Care Machine Marker Name Role Phone Brady Huber MD [phone] Yaya Vallecillo MD [id number] Marcio Ndiaye [phone] Reyna Cisneros MD PCP Reason for Visit * Reason Comments Post Operative Visit * Consult, Test & Treat (Discharge Pending) Referred By Contact Referred To Contact Status Reason Specialty Diagnoses / Procedures Ryan Christy MD [address] [place] [address] Cc - Ww Cl Exm/Proc [address] No Auth Needed Oncology Procedures F/U APPT REQUEST: [facility] Encounter Details Care Team Description Date Type Department Vickie Cordoba, [employer] [address] [place] [address] Rectal prolapse (Primary Dx); Post-operative state 12/21/2018 Office Visit The [address] [phone] Social History Date Tobacco Use Types Packs/Day Years Used Never Smoker Smokeless Tobacco: Never Used Alcohol Use Drinks/Week oz/Week Comments No Sex Assigned at Date Recorded Not on file Industry Job Start Date Occupation Not on file Not on file Not on file Travel End Travel History Travel Start No recent travel history available. documented as of this encounter Last Filed Vital Signs Time Taken Vital Sign Reading 12/21/2018 11:52 AM CDT Blood Pressure 119/76 12/21/2018 11:52 AM CDT Pulse 78 12/21/2018 11:52 AM CDT Temperature 37 C (98.6 F) 12/21/2018 11:52 AM CDT Respiratory Rate 14 12/21/2018 11:52 AM CDT Oxygen Saturation 99% - Inhaled Oxygen - Concentration 12/21/2018 11:52 AM CDT Weight 53.1 kg (117 lb) - Height - 12/07/2018 6:15 AM CDT Body Mass Index 21.4 documented in this encounter Functional Status Date of Assessment Functional Status Response 12/07/2018 Does the patient have a hearing impairment: No 11/03/2018 Does the patient have a visual impairment: Yes 11/03/2018 Does the patient have impaired ambulation: No 11/03/2018 Does the patient have an activity of daily living No (ADL) impairment: 11/03/2018 Does the patient have an instrumental activity of No daily living (IADL) impairment: Date of Assessment Cognitive Status Response 11/03/2018 Does the patient have a cognitive impairment: No documented as of this encounter Patient Instructions * Patient Instructions* Vickie Cordoba APRN - 12/21/2018 10:30 AM CDT .What is Fiber? Fiber is the structural part of plant foods-- such as fruits, vegetables, and grains--- that our bodies cannot digest or breakdown. There are two kinds of fiber: soluble and insoluble. Soluble fiber: dissolves in water to form a gummy gel. It can slow down the passage of food from the stomach to the intestine. Examples: dried beans, oats, barley, banana, potatoes, and soft parts of apples & pears. Insoluble fiber: often referred to as "roughage" because it does not dissolve in water. It holds onto water, which helps produce softer, and bulkier stools to help regulate bowel movements. Examples: whole bran, whole grain products, nuts, corn, carrots, grapes Berries and peels of apples and pears. What other things does fiber do? Research has shown that a diet rich in fiber is associated with many health benefits, including the followin. Lowers cholesterol - Soluble fiber has been shown to lower cholesterol by binding to bile (composed of cholesterol) and taking it out of the body. This may help reudce the risk of heart disease. 2. Better regulates blood sugar levels - A high fiber meal slows down the digestion of food into the intestines, which may help to keep blood sugars from rising rapidly. 3. Weight Control - A high fiber diet may help keep you kaminski longer, which prevents overeating and hunger between meals. 4. May prevent intestinal cancer - Insoluble fibber increases the bulk and speed of food moving thorugh the intestinal tract, which reduces time for harmful substances to build up. 5. Constipation- constipation can often be relieved by increasing the fiber or roughage in your diet. Fiber works to help regulate bowel movements by pulling water into the colon to produce softer, bulkier stools. This action helps to promote better regularity. How much fiber should I eat? Women should eat 25-30 grams of dietary fiber per day. Men should eat 30-35 grams of dietary fiber per day. 10-15 grams of soluble fiber. This can be accomplished by choosing 6 ounces of grains (e or more ounces from whole grains), 2.5 cups of vegetables, and 2 cups of fruit per day (based on a 2,000 calorie/day pattern). How to read a food label Food labels are standardized by the U.S. Government's National Labeling and Education Act (NLEA). Nutrition labels and an ingredient list are required on most foods, so that you can make the best selection for a healthy lifestyle. Review the food label below. Determine the total amount of fiber in this product or ask your dietitian or health care provider to show you how to read food lables and apply the information to your personal needs. In order for a product to be labeled "High Fiber", it must contain 5 grams or more of dietary fiber per serving. Tips for Increasing dietary Fiber in your diet: Add Fiber to your diet slowly. Too much fiber all at once may cause cramping , bloating, and constipation. When adding fiber to your diet, be sure to increase fluids (at least 64 ounces per day) to prevent constipation. Buy bread with 2-4 grams of dietary fiber per slice. Buy cereals with at least 5 grams of dietary fiber per serving. Choose cereals with a whole grain such as whole wheat or whole grain rolled oats. Choose raw fruits and vegtables in place of juice. Choose products that have whole grain listed as the first ingredient, not enriched flower. Whole wheat flower is a whole grain--wheat flour is not. Try alternative fiber choices such as whole buckwheat, whole wheat couscous, quinoa, and bulgur. Popcorn is a whole grain. Serve it low-fat with butter for a healthier snack choice. Try whole wheat bread and whole wheat pastas. Sprinkle Bran in soups, cereals, baked products, spaghetti sauce, ground meat , and casseroles. Bran also mixes well with orange juice. Use dried peas, beans, and legumes in main dishes, salad, or side dishes such as rice or pasta. Eat the skin of raw fruits and vegetables. Add dried fruit to yogurt, cereal, rice, and muffins. Try brown rice and whole grain pastas. Choose crackers with a whole grain listed as the first ingredient. Look for whole grain rye and wheat crackers. Fiber Supplements: Start with one fiber supplement a day. If still ineffective after 1-2 weeks, try increasing to two supplements a day. If you experience increased gas, bloating or diarrhea, decrease fiber supplement to last effective dose. Fiber Supplements can be used to normalize both constipation and diarrhea. Drink at least 8 ounces of liquids with your supplement. Taking some fiber supplements without adequate liquids may cause the fiber to swell and may cause choking. Fiber supplements to consider are: Benefiber (hydrolyzed guar gum-soluble fiber) Metamucil (psyllium, Konsyl (psyllium) Citrucel (methylcellulose) Fibercon (calcium polycarbophil) Fiberall (multiple sources of fiber) Psyllium husk and guar gum are soluble fibers Consider keeping a food journal or using a nutrition tracking amee on your smart phone or computer to track how much fiber you eat in a typical day. This can help you determine how much of a fiber supplement you may require based on your dietary fiber intake for the day. REMEMBER, women should consume 25-30grams of fiber a day and men should consume 30-35 grams a day. Use this handout as a guide to meeting your high fiber goal or check with USDA NAL for additional information on the dietary fiber content of food. Additional Information: Drink at least 64 ounces of water each day. Your goal should be to spend no more than 5 minutes on the commode/toliet when having a bowel movement. Avoid any pushing or straining with bowel movements. Instead do a relaxing breathing or rocking. For occasional constipation take a stool softener (Colace [Docusate]) or a laxative like MiraLAX. Clean the perianal area with warm bath water, a Elisa bottle, or generously moisten tissue paper. Pat dry and avoid wiping. Use a cool blow dryer to dry the bottom area after showering and wiping. Avoid using soap (unscented DOVE soap, if needed.) Use Desitin (diaper rash cream) or calmoseptine cream (similar to a diaper rash cream) on the area. These can be purchased over the counter. Apply it to the perianal area while skin is clean and dry. Sitz Bath - Take a sitz bath as needed, especially before and after bowel movements. Fiber Content in Common Foods: Try getting on Miew and searching the fiber content for natural foods. There is a lot of information out there about common foods, serving size and fiber content that can assist in regulating a high fiber diet! documented in this encounter Progress Notes * Vickie Cordoba APRN - 12/21/2018 10:30 AM CDT Name: Eboni Avila : 1940 AGE : 78 y.o. DATE OF SERVICE: 12/21/2018 Subjective: Reason for Visit: Post Operative Visit Eboni Avila is a 78 y.o. female. Cancer Staging No matching staging information was found for the patient. History of Present IllnessMsHarvinder Avila is a 78yo with recurrent rectal prolapse who underwent a resection rectopexy on 12/07/2018. Pathology revealed no abnormalities. She returns today for her post operative visit. She is late to her appointment today because she had an episode of liquid stool. She was incontinent of this. She was having fecal incontinence before surgery. She had one bowel movement prior to this which was formed. She is not using any imodium or fiber to augment her stools. She continues with her mullen catheter. This is a little bloody this morning but her daughter reports this is because she had to clean excessively down there due to the stool this morning. She will do a voiding trial today. She denies any recurrent rectal prolapse symptoms. 12/07/2018 - 1. Exploratory laparotomy 2. Resection rectopexy 3. Flexible sigmoidoscopy Findings: The rectum was mobilized to the level of the anorectal junction. The redundant portion of the sigmoid colon was resected followed by creation of an end to end, colorectal anastomosis. The rectum was secured to the presacral fascia with 0-Ethibond suture. Pathology: A. Colon, "rectum and sigmoid colon", resection: No histopathologic abnormalities, clinical history of rectal prolapse 11/30/2017 - Surg: Pt had surgery 08/15/17. Kya Avila, pt daughter called because pt is beginning to have troubles again and believes she may have another rectal prolapse. Kya wanted to see about getting pt in to see Dr. Quiles. 08/15/2017 - 1. Exploratory laparotomy. 2. Open abdominal suture rectopexy. 3. Rigid proctoscopy. FINDINGS: Redundancy of the sigmoid and laxity of the pelvic peritoneum with a deep cul-de-sac consistent with rectal prolapse. Rectal mucosal congestion consistent with intermittent rectal prolapse. Pathology: Rectal Biopsy: Ulceration/surface erosion, superficial acute inflammation, and lamina propria fibrosis consistent with rectal prolapse / solitary rectal ulcer syndrome. 08/10/2017 - Colonoscopy: The Colonoscope was introduced through the anus and advanced to the cecum, identified by appendiceal orifice and ileocecal valve. The colonoscopy was performed without difficulty. Findings: The digital rectal exam findings include decreased sphincter tone. Localized mild inflammation characterized by congestion (edema), erythema and friability was found in the rectum and in the distal rectum. Biopsies were taken with a cold forceps for histology. The entire examined colon appeared normal. A few medium-mouthed diverticula were found in the sigmoid colon. Impression: - Decreased sphincter tone found on digital rectal exam. - Localized mild inflammation was found in the rectum and in the distal rectum secondary to proctitis. Biopsied. - The entire examined colon is normal. Recommendation: - Discharge patient to home. - Refer to a surgeon in 2 weeks for further evaluation of rectal prolapse. Pathology: Unavailable in care everywhere. Will be requested. . Past Medical History: Diagnosis Date Accidental perforation of esophagus during procedure 2012 Arthritis CAD (coronary artery disease) Chest pain Depression Dysphagia Hiatal hernia History of Robert fundoplication HTN (hypertension) Hx of CABG Hyperlipidemia Myocardial infarction (HCC) Nausea & vomiting Osteoporosis Past Surgical History: Procedure Laterality Date HX CORONARY ARTERY BYPASS GRAFT 2012 20 years ago GASTRIC FUNDOPLICATION 2013 UPPER GASTROINTESTINAL ENDOSCOPY N/A 04/20/2017 ESOPHAGOGASTRODUODENOSCOPY performed by Elliott Daigle MD at ENDO/GI UPPER GASTROINTESTINAL ENDOSCOPY 04/20/2017 ESOPHAGOGASTRODUODENOSCOPY BIOPSY performed by Elliott Daigle MD at ENDO/ GI ESOPHAGEAL MOTILITY STUDY N/A 05/13/2017 MANOMETRY ESOPHAGEAL performed by Olivia Dumas MD at ENDO/GI ABDOMINAL EXPLORATION SURGERY N/A 12/07/2018 EXPLORATORY LAPAROTOMY performed by Ryan Christy MD at [facility] OR/Periop PROCTOPEXY N/A 12/07/2018 ABDOMINAL PROCTOPEXY WITH SIGMOID RESECTION performed by Ryan Christy MD at [facility] OR/Periop ESOPHAGUS SURGERY repair of perforation HX HEART CATHETERIZATION HX TUBAL LIGATION SPLENECTOMY Family History Problem Relation Age of Onset Diabetes Type II Brother Diabetes Type II Sister Cancer-Ovarian Maternal Aunt Colon Polyps Neg Hx Ulcerative Colitis Neg Hx Inflammatory Bowel Disease Neg Hx Social History Socioeconomic History Marital status: Single Spouse name: Not on file Number of children: Not on file Years of education: Not on file Highest education level: Not on file Occupational History Not on file Tobacco Use Smoking status: Never Smoker Smokeless tobacco: Never Used Substance and Sexual Activity Alcohol use: No Drug use: No Sexual activity: Not on file Other Topics Concern Not on file Social History Narrative Not on file Review of Systems All other systems reviewed and are negative. Objective: acetaminophen SR(+) (TYLENOL) 650 mg tablet Take 650 mg by mouth twice daily. acetaminophen/lidocaine/antacid DS(#) (GI COCKTAIL) 1:1:3 Take 5 to 10 mL by mouth every 8 hours as needed. amitriptyline (ELAVIL) 10 mg tablet Take 10 mg by mouth at bedtime daily. aspirin EC 81 mg tablet Take 81 mg by mouth daily. BILBERRY PO Take 1 capsule by mouth at bedtime daily. calcium carbonate/vitamin D-3 (OSCAL-500+D) 1250 mg/200 unit tablet Take 1 tablet by mouth daily. Calcium Carb 1250mg delivers 500mg elemental Ca clopiDOGrel (PLAVIX) 75 mg tablet Take 75 mg by mouth every morning. cyanocobalamin 1,000 mcg tablet Take 1,000 mcg by mouth daily. ferrous sulfate 325 mg (65 mg [...] 5 minutes as needed for Chest Pain. ondansetron (ZOFRAN ODT) 8 mg rapid dissolve tablet Dissolve one tablet by mouth every 6 hours as needed for Nausea or Vomiting. Place on tongue to disolve. oxybutynin XL (DITROPAN XL) 5 mg tablet Take 10 mg by mouth daily. oxyCODONE (ROXICODONE, OXY-IR) 5 mg tablet Take one tablet to two tablets by mouth every 4 hours as needed Earliest Fill Date: 12/12/[address] (PROTONIX) 40 mg tablet Take 40 mg by mouth every morning. pravastatin (PRAVACHOL) 10 mg tablet Take 10 mg by mouth every morning. tolterodine LA(+) (DETROL LA) 4 mg capsule Take 4 mg by mouth twice daily. Vit C-Vit [id number] [id number] xg-dnsx-ig-mg cap Take 1 Cap by mouth daily. zinc sulfate 220 mg (50 mg elemental zinc) capsule Take 220 mg by mouth daily. Vitals: 12/21/18 1152 Weight: 53.1 kg (117 lb) Body mass index is 21.4 kg/m. Pain Score: Zero Pain Addressed: N/A Patient Evaluated for a Clinical Trial: No treatment clinical trial available for this patient. Eastern Cooperative Oncology Group performance status is 1, Restricted in physically strenuous activity but ambulatory and able to carry out work of a light or sedentary nature, e.g., light house work, office work. Physical Exam Constitutional: She is oriented to person, place, and time. She appears well- developed and well-nourished. No distress. HENT: Head: Normocephalic and atraumatic. Right Ear: External ear normal. Left Ear: External ear normal. Nose: Nose normal. Mouth/Throat: Oropharynx is clear and moist. Eyes: Conjunctivae, EOM and lids are normal. Neck: Normal range of motion. Cardiovascular: Normal rate, regular rhythm, normal heart sounds and normal pulses. Pulmonary/Chest: Effort normal and breath sounds normal. No respiratory distress. Abdominal: Soft. Normal appearance and bowel sounds are normal. She exhibits no distension. There is no tenderness. There is no rebound and no guarding. No hernia. Genitourinary: Genitourinary Comments: No recurrent rectal prolapse with valsalva. Redness of perianal skin likely from liquid stool this morning. Musculoskeletal: Normal range of motion. Neurological: She is alert and oriented to person, place, and time. Skin: Skin is warm and dry. Psychiatric: She has a normal mood and affect. Her speech is normal and behavior is normal. Judgment and thought content normal. Cognition and memory are normal. Vitals reviewed. Assessment and Plan: 1. Recurrent rectal prolapse s/p resection rectopexy on 12/07/2018. 2. CAD 3. HLD 4. Diarrhea 78yo s/p resection rectopexy on 12/07/2018. She had one bowel movement since her discharge, however today she has an episode of fecal incontinence which was liquid. Otherwise she is doing quite well without recurrent prolapse symptoms. -Discussed the addition of fiber to avoid constipation and assist with liquid stools. Discussed that more formed stools are easier to control the liquid. Fiber handout provided and reviewed. -Will perform a voiding trial today in hopes to discontinue the mullen catheter. -Discussed avoiding constipation to prevent recurrent rectal prolapse. -[place] removed today. -Will fill out paperwork and fax. Advised there is a one week turn around time for this to be completed. -RTC as scheduled in 6wks My collaborating provider for this patient is Dr. Ryan Christy MD. .Vickie Cordoba MSN, [employer], [facility], [facility] Advanced Practice Provider Colon and Rectal Surgery Surgical Oncology Pager: [phone] * Vickie Cordoba APRN - 12/21/2018 10:30 AM CDT .Pre Clinic Pre Chart: 12/07/2018 - 1. Exploratory laparotomy 2. Resection rectopexy 3. Flexible sigmoidoscopy Findings: The rectum was mobilized to the level of the anorectal junction. The redundant portion of the sigmoid colon was resected followed by creation of an end to end, colorectal anastomosis. The rectum was secured to the presacral fascia with 0-Ethibond suture. Pathology: A. Colon, "rectum and sigmoid colon", resection: No histopathologic abnormalities, clinical history of rectal prolapse 11/30/2017 - Surg: Pt had surgery 08/15/17. Kya Avila, pt daughter called because pt is beginning to have troubles again and believes she may have another rectal prolapse. Kya wanted to see about getting pt in to see Dr. Quiles. 08/15/2017 - 1. Exploratory laparotomy. 2. Open abdominal suture rectopexy. 3. Rigid proctoscopy. FINDINGS: Redundancy of the sigmoid and laxity of the pelvic peritoneum with a deep cul-de-sac consistent with rectal prolapse. Rectal mucosal congestion consistent with intermittent rectal prolapse. Pathology: Rectal Biopsy: Ulceration/surface erosion, superficial acute inflammation, and lamina propria fibrosis consistent with rectal prolapse / solitary rectal ulcer syndrome. 08/10/2017 - Colonoscopy: The Colonoscope was introduced through the anus and advanced to the cecum, identified by appendiceal orifice and ileocecal valve. The colonoscopy was performed without difficulty. Findings: The digital rectal exam findings include decreased sphincter tone. Localized mild inflammation characterized by congestion (edema), erythema and friability was found in the rectum and in the distal rectum. Biopsies were taken with a cold forceps for histology. The entire examined colon appeared normal. A few medium-mouthed diverticula were found in the sigmoid colon. Impression: - Decreased sphincter tone found on digital rectal exam. - Localized mild inflammation was found in the rectum and in the distal rectum secondary to proctitis. Biopsied. - The entire examined colon is normal. Recommendation: - Discharge patient to home. - Refer to a surgeon in 2 weeks for further evaluation of rectal prolapse. Pathology: Unavailable in care everywhere. Will be requested. Problem List: 1. Recurrent rectal prolapse s/p resection rectopexy on 12/07/2018. 2. CAD 3. HLD documented in this encounter Plan of Treatment Not on filedocumented as of this encounter Visit Diagnoses Diagnosis Rectal prolapse - Primary Post-operative state Other postprocedural status documented in this encounter
--- OUTSIDE RECORDS SUMMARY | 2018-12-23 17:24 | XMS REPORT | Encounter Summary ---
Author Author [facility] Organization [facility] Address Unknown Phone Unavailable Care Team Providers Care Film Editor Name Role Phone Armin Ulrich MD PCP Brady Huber MD [id number] Yaya Vallecillo MD [id number] Marcio Ndiaye [phone] Reason for Visit * Reason Comments Appointment Request Encounter Details Care Team Description Date Type Department Vickie Cordoba, DECORATOR [employer] [address] [place] [address] [phone] Appointment Request 12/12/2018 Telephone [address] [address] Social History Date Tobacco Use Types Packs/Day Years Used Never Smoker Smokeless Tobacco: Never Used Alcohol Use Drinks/Week oz/Week Comments No Sex Assigned at Date Recorded Not on file Industry Job Start Date Occupation Not on file Not on file Not on file Travel End Travel History Travel Start No recent travel history available. documented as of this encounter Functional Status Date of Assessment [...] impairment: No documented as of this encounter Miscellaneous Notes * Telephone Encounter - Grzegorz Abraham - 12/12/2018 8:49 AM CDT Patients appointment has been scheduled for 12/21/18 @ 10:30am with Vickie Cordoba. Patients Daughter has been notified, and verbalized understanding of appointment time and location. F/U APPT REQUEST: [facility]) [[id number]] 1248 Status: Active Ordering user: Lisa Alvarez MD 12/11/18 1248 Ordering provider: Lisa Alvarez MD Authorized by: Ryan Christy MD Frequency: Once 12/11/18 1300 - 1 occurrence Questionnaire Question Answer Diagnosis: rectal proapse Reason for outpatient amee't request: post op follow up and voiding trial after mullen placement Was patient seen in hospital by requested consult service? No Provider requesting to see: Vickie Cordoba APRN Time frame requested for the outpatient amee't (provide range): 1 week from 12/11 Appropriate for patient to see mid-level if no opening with physician in requested time frame? Yes Expected discharge date: 12/12/2018 Order Transmittal Tracking F/U APPT REQUEST: [facility]) (Order #[id number]) on 12/11/18 documented in this encounter Plan of Treatment Not on filedocumented as of this encounter Visit Diagnoses Not on filedocumented in this encounter
--- OUTSIDE RECORDS SUMMARY | 2018-12-23 17:24 | XMS REPORT | Encounter Summary ---
Author Author [facility] Organization [facility] Address Unknown Phone Unavailable Care Team Providers Care Host/Hostess Ground Name Role Phone Brady Huber MD [id number] Yaya Vallecillo MD [id number] Marcio Ndiaye [id number] Reyna Cisneros MD [facility] Encounter Details Care Team Description Date Type Department Adalid Vickie, [facility] [address] [place] [address] [phone] 12/21/2018 Documentation The [address] [address] Social History Date Tobacco Use Types Packs/Day [...] impairment: No documented as of this encounter Progress Notes * Vickie Cordoba APRN - 12/21/2018 4:12 PM CDT Per procedure room nurse patient voided at least 2/3 of what was administered. .Vickie Cordoba MSN, [employer], AGCNS-BC, AGPCNP-BC Advanced Practice Provider Colon and Rectal Surgery Surgical Oncology Pager: [phone] documented in this encounter Plan of Treatment Not on filedocumented as of this encounter Visit Diagnoses Not on filedocumented in this encounter
--- OUTSIDE RECORDS SUMMARY | 2018-12-23 17:25 | XMS REPORT | Encounter Summary ---
Author Author [facility] Organization [facility] Address Unknown Phone Unavailable Care Team Providers Care Acoustic Intelligence Specialist Name Role Phone Armin Ulrich MD PCP Brady Huber [place] [id number] Yaya Vallecillo MD [id number] Marcio Ndiaye [phone] Reason for Referral * Consult, Test & Treat (Discharge Pending) Referred By Contact Referred To Contact Status Reason Specialty Diagnoses / Procedures Ryan Montano MD [address] [place], [place] Cc - Ww Cl Exm/Proc [address] No Auth Needed Oncology Procedures F/U APPT REQUEST: [facility] * Consult, Test & Treat (Discharge Pending) Referred By Contact Referred To Contact Status Reason Specialty Diagnoses / Procedures Ryan Montano MD [address] [place], [place] Cc - Ww Cl Exm/Proc [address] No Auth Needed Oncology Procedures F/U [facility] Reason for Visit * Auth/Cert Referred By Contact Referred To Contact Status Reason Specialty Diagnoses / Procedures Diagnoses Rectal prolapse Rectal prolapse [K62.3] P rocedures [place] EXPLORATORY LAPAROTOMY CELIOTOMY W/WO BIOPSY SPX [place] PROCTOPEXY W/SIGMOID RESCJ ABDL APPR EXPLORATORY LAPAROTOMY WITH/ WITHOUT BIOPSY ABDOMINAL PROCTOPEXY WITH SIGMOID RESECTION WITH MESH Encounter Details Care Team Description Date Type Department Ryan Montano MD [address] [place] [address] [phone] Joaquin Phillip DO [address] [place] [address] [phone] Rectal prolapse 12/07/2018 [facility] 12/12/[address] [place] [id number] Social History Date Tobacco Use Types Packs/Day [...] Vital Signs Time Taken Vital Sign Reading 12/12/2018 8:02 AM CDT Blood Pressure 147/76 12/12/2018 8:02 AM CDT Pulse 73 12/12/2018 8:02 AM CDT Temperature 37.1 C (98.7 F) - Respiratory Rate - 12/12/2018 8:02 AM CDT Oxygen Saturation 98% - Inhaled Oxygen - Concentration 12/07/2018 6:15 AM CDT Weight 55.9 kg (123 lb 3.2 oz) 12/07/2018 6:15 AM CDT Height 157.5 cm (5' 2") 12/07/2018 6:15 AM CDT Body Mass Index 22.53 documented in this encounter Functional Status Date [...] impairment: No documented as of this encounter Medications at Time of Discharge Start Date End Date Medication Sig Dispensed Refills acetaminophen SR(+) Take 650 mg 0 (TYLENOL) 650 mg tablet by mouth twice daily. 06/13/2017 acetaminophen/lidocaine/a Take 5 to 10 60 mL 0 ntacid DS(#) (GI mL by mouth COCKTAIL) 1:1:3 every 8 hours as needed. amitriptyline (ELAVIL) 10 Take 10 mg by 0 mg tablet mouth at bedtime daily. aspirin EC 81 mg tablet Take 81 mg by 0 mouth daily. BILBERRY PO Take 1 0 capsule by mouth at bedtime daily. calcium carbonate/vitamin Take 1 tablet 0 D-3 (OSCAL-500+D) 1250 by mouth mg/200 unit tablet daily. Calcium Carb 1250mg delivers 500mg elemental Ca clopiDOGrel (PLAVIX) 75 Take 75 mg by 0 mg tablet mouth every morning. cyanocobalamin 1,000 mcg Take 1,000 0 tablet mcg by mouth daily. ferrous sulfate 325 mg Take 325 mg 0 (65 mg iron) tablet by mouth daily. fish oil /omega-3 fatty Take 2 Caps 0 acids (SEA-OMEGA) by mouth 340/1000 mg capsule twice daily. hydroxychloroquine Take 200 mg 0 (PLAQUENIL) 200 mg tablet by mouth twice daily. isosorbide mononitrate SR Take 30 mg by 0 (IMDUR) 30 mg tablet mouth every morning. lisinopril (PRINIVIL; Take 5 mg by 0 ZESTRIL) 5 mg tablet mouth at bedtime daily. magnesium chloride (MAG Take 535 mg 0 DELAY) 64 mg tablet by mouth twice daily. naproxen sodium(+) Take 220 mg 0 (ALEVE) 220 mg tablet by mouth twice daily. nitroglycerin (NITROSTAT) Place 0.4 mg 0 0.4 mg tablet under tongue every 5 minutes as needed for Chest Pain. 11/03/2018 ondansetron (ZOFRAN ODT) Dissolve one 3 tablet 0 8 mg rapid dissolve tablet by tabletIndications: mouth every 6 Drug-induced nausea and hours as vomiting needed for Nausea or Vomiting. Place on tongue to disolve. oxybutynin XL (DITROPAN Take 10 mg by 0 XL) 5 mg tablet mouth daily. 12/12/2018 oxyCODONE (ROXICODONE, Take one 50 tablet 0 OXY-IR) 5 mg tablet tablet to two tablets by mouth every 4 hours as needed Earliest Fill Date: 12/12/[address] Take 40 mg by 0 (PROTONIX) 40 mg tablet mouth every morning. pravastatin (PRAVACHOL) Take 10 mg by 0 10 mg tablet mouth every morning. tolterodine LA(+) (DETROL Take 4 mg by 0 LA) 4 mg capsule mouth twice daily. Vit C-Vit Take 1 Cap by 0 [id number] mouth daily. [id number] zr-[id number]-mg cap zinc sulfate 220 mg (50 Take 220 mg 0 mg elemental zinc) by mouth capsule daily. documented as of this encounter Progress Notes * Vickie Lyn RN - 12/12/2018 12:09 PM CDT Discharge material reviewed, questions and concerns addressed. Pt and family members/caretakers verbalize understanding of information provided. Pt does not report pain, shows no signs of respiratory distress and is regularly passing stools/urine. Pt leaving unit by wheelchair with belongings accompanied by staff members and family members to home. Catheter care and teaching completed with family present. * Joaquin Baca RN - 12/12/2018 5:34 AM CDT At 0530 this RN responded to pt bed alarm. Pt attempting to get up and stating she needed to go home. When trying to reorient and redirect pt she stated "I have to go home, they're coming after me". Pt was AOx4 at first assessment but is now only able to state name and . Report from day RN states pt does have dementia with history of sundowning. * Summer Tyson - 12/11/2018 3:25 PM CDT OCCUPATIONAL THERAPY PROGRESS NOTE Patient Name: Mellissa Avila Room/Bed: KC5242/01 Admitting Diagnosis: Rectal prolapse [K62.3] Mobility Progressive Mobility Level: Walk in hallway Level of Assistance: Assist X1 Assistive Device: Walker Time Tolerated: 11-30 minutes Activity Limited By: Fatigue;Weakness Subjective Pertinent Dx per Physician: 78 y.o. female s/p ex-lap, sigmoid colectomy with primary anastomosis, and suture rectopexy on 12/07. Precautions: Standard;Falls Pain / Complaints: Patient has no c/o pain Comments: Needs in reach and precautions in place upon therapist arrival and departure. Objective Psychosocial Status: Willing and Cooperative to Participate Persons Present: Nursing Staff Home Living Type of Home: House Home Layout: One Level;Stairs to Enter w/o Rails Bathroom Shower / Tub: Walk-in Shower Bathroom Toilet: Standard Home Equipment: Shower/Tub Bench Comment: Patient reports her daughter owns DME. Prior Function Level Of Teller: Independent with ADLs and functional transfers Lives With: Daughter Receives Help From: Family Other Function Comments: Patient independent with ADLs, IADLs, and mobility prior to admission. Denies hx of falls. Does not use DME. ADLs Where Assessed: Chair Eating Assist: Modified Independent Eating Deficits: No Assist Needed Grooming Assist: Stand By Assist Grooming Deficits: Setup;Supervision/Safety;Increased Time To Complete;Wash/Dry Hands LE Dressing Assist: Stand By Assist LE Dressing Deficits: Thread RLE Into Pants Toileting Assist: Minimal Assist Toileting Deficits: Setup;Steadying;Verbal Cueing;Supervision/Safety;Increased Time To Complete;Grab Bar Use(cues to pull brief up/down; thoroughness for sunday care) Functional Transfer Assist: Minimal Assist (without walker); Stand By Assist ( with walker) Functional Transfer Deficits: Steadying;Increased Time to Complete Comment: Contact guard for sit <> stands. ADLs per above. Pt demonstrated slightly improved stability with use of walker. Activity Tolerance Sitting Balance: 4/5 Moves/Returns Trunkal Midpoint 1-2 Inches in Multiple Planes Cognition Comments: Patient with some short-term memory concerns, requiring reminders to pull brief up/down and required some repetition of instructions. Assessment Assessment: Decreased ADL Status;Decreased Endurance;Decreased Self-Care Trans; Decreased High-Level ADLs Prognosis: Good;w/Cont OT s/p Acute Discharge Goal Formulation: Patient Plan OT Frequency: 5x/week OT Plan for Next Visit: Sink level grooming, LE dressing ADL Goals Patient Will Perform LE Dressing: w/ Stand By Assist Patient Will Perform Toileting: w/ Stand By Assist Functional Transfer Goals Pt Will Perform All Functional Transfers: w/ Stand By Assist OT Discharge Recommendations OT Discharge Recommendations: Inpatient Setting, Vs, Home with consistent supervision, Home with Home Health Equipment Recommendations: Too early to be determined Recommend ongoing assistance for: In and out of house, Ambulation, Bed mobility , Transfers, Stairs, Safety concerns Therapist: TRE Hickman/[facility] [id number] Date: 12/11/2018 * Hailey Honeycutt - 12/11/2018 1:08 PM CDT PHYSICAL THERAPY PROGRESS NOTE MOBILITY: Mobility Progressive Mobility Level: Walk in hallway Distance Walked (feet): 140 ft Level of Assistance: Assist X1 Assistive Device: Walker Time Tolerated: 11-30 minutes Activity Limited By: Fatigue;Weakness SUBJECTIVE: Subjective Significant hospital events: 78 y.o. female s/p ex-lap, sigmoid colectomy with primary anastomosis, and suture rectopexy on 12/07. Mental / Cognitive Status: Alert;Oriented;Cooperative Pain: Patient has no complaint of pain Ambulation Assist: Independent Mobility in Community without Device Patient Owned Equipment: None Home Situation: Lives with Family(dtr at work during the day- unable to physically help) Type of Home: House Entry Stairs: 3-5 Stairs;No Rail(3 steps to enter no rail) In-Home Stairs: No Stairs BED MOBILITY/TRANSFERS: Bed Mobility/Transfers Bed Mobility: Supine to Sit: Minimal Assist;Head of Bed Elevated;Use of Rail; Verbal Cues Transfer Type: Sit to Stand Transfer: Assistance Level: From;Bed;Minimal Assist;Moderate Assist Transfer: Assistive Device: Roller Walker Transfers: Type Of Assistance: Requires Extra Time;For Strength Deficit;For Balance;Verbal Cues End Of Activity Status: Up in Chair;Nursing Notified;Instructed Patient to Request Assist with Mobility;Instructed Patient to Use Call Light BALANCE: Balance Standing Balance: Static Standing Balance;Dynamic Standing Balance;2 UE support; Minimal Assist GAIT: Gait Gait Distance: 140 feet Gait: Assistance Level: Minimal Assist Gait: Assistive Device: Roller Walker Gait: Descriptors: Forward trunk flexion;Pace: Slow;Decreased step length Comments: No incidents of buckling with gait. Activity Limited By: Complaint of Fatigue;Weakness EDUCATION: Education Persons Educated: Patient Patient Barriers To Learning: None Noted Interventions: Repetition of Instructions Teaching Methods: Verbal Instruction Patient Response: Verbalized Understanding;More Instruction Required Topics: Plan/Goals of PT Interventions;Use of Assistive Device/Orthosis; Mobility Progression;Up with Assist Only;Importance of Increasing Activity; Ambulate With Nursing;Recommend Continued Therapy ASSESSMENT/PROGRESS: Assessment/Progress Impaired Mobility Due To: Decreased Strength;Impaired Balance;Safety Concerns; Decreased Activity Tolerance; Cognitive Deficits (mild however may be baseline) Impaired Strength Due To: Decreased Activity Tolerance Patient demonstrates improvement with progression of gait and decreased level of assistance with mobility. Patient would benefit from continued skilled physical therapy intervention to address deficits and improve overall safety with mobility to reduce fall risk at home. Assessment/Progress: Should Improve w/ Continued PT AM-PAC 6 Clicks Basic Mobility Inpatient Turning from your back to your side while in a flat bed without using bed rails : A Little Moving from lying on your back to sitting on the side of a flatbed without using bedrails : A Little Moving to and from a bed to a chair (including a wheelchair): A Little Standing up from a chair using your arms (e.g. wheelchair, or bedside chair): A Lot To walk in hospital room: A Little Climbing 3-5 steps with a railing: A Lot Raw Score: 16 Standardized (T-scale) Score: 38.32 Basic Mobility [facility] 0-100%: 47.12 [facility] G Code Modifier for Basic Mobility: CK GOALS: Goals Goal Formulation: With Patient Time For Goal Achievement: 3 days Patient Will Go Supine To/From Sit: Independently Patient Will Transfer Bed/Chair: w/ Stand By Assist Patient Will Ambulate: Greater than 200 Feet, w/ Walker, w/ Stand By Assist Patient Will Go Up / Down Stairs: 3-5 Stairs, w/ Stand By Assist PLAN: Plan Treatment Interventions: Mobility Training;Strengthening;Balance Activities Plan Frequency: 5 Days per Week PT Plan for Next Visit: Progress gait distance. Trial stairs. RECOMMENDATIONS: PT Discharge Recommendations PT Discharge Recommendations: Home with Assistance;versus;Inpatient Setting Equipment Recommendations: Too early to be determined(Likely Roller walker) Comments: Recommend inpatient due to Daugther being gone during the day and patient currently requiring physical assistance with all functional mobility. Recommend ongoing assistance for: In and out of house;Ambulation;Bed mobility; Transfers;Stairs;Safety concerns Therapist: Hailey Honeycutt Date: 12/11/2018 * Nazanin Montague, SANDHYA - 12/11/2018 6:30 AM CDT Kya Avila (daughter) called this am and stated they would prefer pt to be at home cared for by Lilian (daughter) who is equipped to care for her at home. Kya states they have walker and 04/04 care. [phone] Kya number * Lisa Alvarez MD - 12/11/2018 5:46 AM CDT Colorectal Surgery Progress Note 12/11/2018 Patient: Mellissa Avila Admission date 12/07/2018, LOS: 4 days ASSESSMENT & PLAN: Mellissa Avila is a 78 y.o. female s/p ex-lap, sigmoid colectomy with primary anastomosis, and suture rectopexy on 12/07. -DIET REGULAR -Mullen d/c'ed yesterday. Straight catheretization x 2 overnight. Will continue to monitor. -PO pain regimen -Encourage ambulation -PT/OT -Possible d/c today vs tomorrow Patient seen and discussed with attending Dr. Phillip. Subjective: No acute events last 24 hours. Denies flatus but reports BM. Denies nausea with PO intake. Ambulating. Objective: BP 155/75 (BP Source: Arm, Right Upper) | Pulse 72 | Temp 37 C (98.6 F) | Ht 157.5 cm (62") | Wt 55.9 kg (123 lb 3.2 oz) | SpO2 95% | BMI 22.53 kg/m Physical Exam: Gen: NAD HEENT: Normocephalic, atraumatic, EOMI, no thyromegaly, trachea midline, no cervical lymphadenopathy CV: Normal rate, regular rhythm Pulm: CTAB, no wheezes or rhonchi Abd: Soft, no distention, no tenderness, incision c/d/i, closed with shanika Ext: No clubbing, cyanosis, or edema Neuro: GCS 15, moves all extremities, no sensory deficits Psych: Normal affect LABS: Recent Labs 12/09/18 0428 12/10/18 0507 12/11/18 0433 HGB 9.4* 9.3* 10.3* HCT 27.6* 27.5* 30.7* WBC 13.8* 13.1* 10.8 PLTCT 200 210 267 NA 138 137 139 K 4.2 4.0 3.7 CL 107 108 105 CO2 28 26 28 BUN 20 15 13 CR 1.03* 0.82 0.76 GLU 98 90 99 CA 9.1 9.3 9.8 Intake/Output Summary (Last 24 hours) at 12/11/2018 0546 Last data filed at 12/11/2018 0015 Gross per 24 hour Intake 1382 ml Output 1425 ml Net -43 ml Stool Occurrence: 0 Lisa Alvarez MD [id number] * Nazanin Montague RN - 12/10/2018 11:58 PM CDT 3032 Text page ([id number]) sent to team about pt unable to void more than 50ml and had bladder scan of 443ml. Dr Machado returned call, order received to straight cath x1 and continue bladder scanning. * Nba Mcclain, PT - 12/10/2018 3:11 PM CDT PHYSICAL THERAPY NOTE Upon arrival, pt ambulating back to bed from chair with minimal assist of nursing staff. Pt requires minimal assist for stand>sit, with decreased eccentric control. Pt declines further activity at this time. At current level, pt would likely require continued skilled therapy in an inpatient setting as pt is alone at home for most of the day, and has goals to be modified independent. Will continue to follow and update recommendations as indicated. Therapist: Nba Mcclain PT, DPT Date: 12/10/2018 * Diann Cruz RN - 12/10/2018 12:53 PM CDT MD conche operator text paged and notified that pt is requesting that at home eye drops be added onto pt's MAR due to recent eye surgery. Pt's daughter also stated that pt is to wear eye shield at night. This will be passed along to night RN. * Rosemarie Ordaz MD - 12/10/2018 12:12 PM CDT Anesthesiology Acute Pain Service Date of Service: 12/10/2018 Name: Mellissa Avila is a 78 y.o. female : 1940 PROCEDURE: Procedure(s) with comments: EXPLORATORY LAPAROTOMY - CASE LENGTH 4 HOURS, CLIPPING AND HIBICLENS PREP TO BE DONE IN SDS/PRE-POST, DR PHILLIP ASSISTING ABDOMINAL PROCTOPEXY WITH SIGMOID RESECTION POD #: 3 ANALGESIA TECHNIQUE Epidural catheter: bupi 0.125% Bolus: 4 mL Delay: 20 minutes Basal Infusion: 6 mL/hr ADJUNCT ANALGESIA MEDICATIONS fentanyl oxycodone acetaminophen PO TREATMENT PLAN Discontinued therapy, convert to oral pain medication, analgesia to be provided by primary team . Tolerating PO, pain well controlled. Can restart prophylactic lovenox dose 4 hours after epidural removal. Epidural removed around 11:30 am 12/10/18. Anesthesia Pain pager: [phone] Allergies Allergen Reactions Metoclopramide AGITATION causes involuntary body movements rigidity Inpatient Medications Scheduled Meds: acetaminophen (TYLENOL) tablet 650 mg 650 mg Oral Q6H* amitriptyline (ELAVIL) tablet 10 mg 10 mg Oral QHS enoxaparin (LOVENOX) syringe 30 mg 30 mg Subcutaneous QDAY(21) isosorbide mononitrate SR (IMDUR) tablet 30 mg 30 mg Oral QAM8 lisinopril (PRINIVIL; ZESTRIL) tablet 5 mg 5 mg Oral QHS milk of magnesia (CONC) oral suspension 10 mL 10 mL Oral QDAY(21) oxybutynin XL (DITROPAN XL) tablet 10 mg 10 mg Oral QDAY pantoprazole DR (PROTONIX) tablet 40 mg 40 mg Oral QAM8 polyethylene glycol 3350 (MIRALAX) packet 17 g 1 packet Oral BID pravastatin (PRAVACHOL) tablet 10 mg 10 mg Oral QAM8 Continuous Infusions: bupivacaine ON AIR ANNOUNCER 0.125% in NS 50mL epidural infusion syr Stopped (12/10/18 0729) PRN and Respiratory Meds:diphenhydrAMINE Q4H PRN, fentaNYL citrate PF Q1H PRN, naloxone PRN, ondansetron (ZOFRAN) IV Q6H PRN, oxyCODONE Q4H PRN Anticoagulants enoxaparin (LOVENOX) syringe 30 mg QDAY(21) HPI Visual Analog Scale (VAS) (0-10 Scale) At rest: 2 Patient satisfied with pain control: Yes Side Effects: none EXAM Recent Vitals Vital Signs: 24 Hour Range BP: 146/58 (12/10 1122) Temp: 36.3 C (97.4 F) (12/10 1122) Pulse: 65 (12/10 1200) Respirations: 16 PER MINUTE (12/10 112) SpO2: 94 % (12/10 1122) O2 Delivery: None (Room Air) (12/10 1121) BP: (119-158)/(51-65) Temp: [36.3 C (97.4 F)-37.2 C (99 F)] Pulse: [60-116] Respirations: [16 PER MINUTE] SpO2: [91 %-94 %] O2 Delivery: None (Room Air) Lab Results Component Value Date PLTCT 210 12/10/2018 WBC 13.1 12/10/2018 HGB 9.3 12/10/2018 HCT 27.5 12/10/2018 CR 0.82 12/10/2018 PTT 42.8 08/07/2014 INR 1.6 08/07/2014 Level of Consciousness: Awake/alert Neurologic Function Sensory block: Yes Motor: No Insertion Site: Site clean and nontender Epidural tip intact upon removal. Associated attestation - Salomón Waller MD - 12/10/2018 4:30 PM CDT ATTESTATION I personally performed the cruz portions of the E/M visit, discussed case with the resident and concur with documentation of history, physical exam, assessment , and treatment plan unless otherwise noted. Staff name: Salomón Waller MD Date: 12/10/2018 * Marianne Miner RT - 12/10/2018 10:01 AM CDT RT Adult Assessment Note NAME:Mellissa Avila :1940 AGE: 78 y.o. ADMISSION DATE: 12/07/2018 DAYS ADMITTED: LOS: 3 days RT Treatment Plan: Protocol Plan: Procedures PAP: Place a nursing order for "IS Q1h While Awake" for any of Lung Expansion indicators Oxygen/Humidity: Discontinued Monitoring: Discontinued Additional Comments: Impressions of the patient: Pt Alert Intervention(s)/outcome(s):n/a Vital Signs: Pulse: 60 RR: 16 PER MINUTE SpO2: 93 % O2 Device: Liter Flow: O2%: 21 % Breath Sounds: Clear (implies normal) Respiratory Effort: Non-Labored * Jonnie Nettles MD - 12/10/2018 6:00 AM CDT Colorectal Surgery Progress Note 12/10/2018 Patient: Mellissa Avila Admission date 12/07/2018, LOS: 3 days ASSESSMENT & PLAN: Mellissa Avila is a 78 y.o. female s/p ex-lap, sigmoid colectomy with primary anastomosis, and suture rectopexy on 12/07. -Diet Clear Liquid -d/c PCEA today -d/c mullen, okay to straight cath once if needed, but will then replace mullen -Pain control per Anesthesia pain service -Encourage ambulation -PT/OT Patient seen and discussed with attending Dr. Phillip. Subjective: No acute events last 24 hours. +f/+bm. Denies nausea or emesis. Pain well controlled. Tolerating diet. Objective: BP 128/55 (BP Source: Arm, Right Upper) | Pulse 68 | Temp 37.2 C (99 F) | Ht 157.5 cm (62") | Wt 55.9 kg (123 lb 3.2 oz) | SpO2 92% | BMI 22.53 kg/m Physical Exam: Gen: NAD HEENT: Normocephalic, atraumatic, EOMI, no thyromegaly, trachea midline, no cervical lymphadenopathy CV: Normal rate, regular rhythm Pulm: CTAB, no wheezes or rhonchi Abd: Soft, no distention, no tenderness, incision c/d/i, closed with shanika Ext: No clubbing, cyanosis, or edema Neuro: GCS 15, moves all extremities, no sensory deficits Psych: Normal affect LABS: Recent Labs 12/08/18 0424 12/09/18 0428 12/10/18 0507 HGB 10.8* 9.4* 9.3* HCT 31.6* 27.6* 27.5* WBC 14.7* 13.8* 13.1* PLTCT 236 200 210 NA 142 138 -- K 4.1 4.2 -- CL 107 107 -- CO2 30 28 -- BUN 18 20 -- CR 1.01* 1.03* -- GLU 128* 98 -- CA 9.5 9.1 -- Intake/Output Summary (Last 24 hours) at 12/10/2018 0600 Last data filed at 12/10/2018 0507 Gross per 24 hour Intake 1760 ml Output 1250 ml Net 510 ml Stool Occurrence: 1 Jonnie Nettles MD Associated attestation - Joaquin Phillip DO - 12/11/2018 8:47 AM CDT ATTESTATION I personally performed the cruz portions of the E/M visit, discussed case with resident and concur with resident documentation of history, physical exam, assessment, and treatment plan unless otherwise noted. Staff name: Joaquin Heriberto DO Kenji Date: 12/11/2018 * Alena Dumont OTA - 12/09/2018 2:15 PM CDT OCCUPATIONAL THERAPY PROGRESS NOTE Mobility Progressive Mobility Level: Walk in hallway Distance Walked (feet): 60 ft Level of Assistance: Assist X1(chair follow) Assistive Device: Walker Time Tolerated: 11-30 minutes Activity Limited By: Fatigue Subjective Pertinent Dx per Physician: 78 y.o. female s/p ex-lap, sigmoid colectomy with primary anastomosis, and suture rectopexy on 12/07 Precautions: Standard;Falls(Epidural) Pain / Complaints: Patient has no c/o pain(epidural, does not push button when offered) Objective Psychosocial Status: Willing and Cooperative to Participate Persons Present: Nursing Staff Home Living Type of Home: House Home Layout: One Level;Stairs to Enter w/o Rails(Three steps to enter) Bathroom Shower / Tub: Walk-in Shower Bathroom Toilet: Standard Bathroom Equipment: (Seat in shower) Home Equipment: Shower/Tub Bench Comment: Patient reports her daughter owns DME. Prior Function Level Of Teller: Independent with ADLs and functional transfers Lives With: Daughter(works during the day; Other daughter has mobility limitation) Receives Help From: Family(Transportation; IADLs) Leisure: (Cares for six dogs) Other Function Comments: Patient independent with ADLs, IADLs, and mobility prior to admission. Denies hx of falls. Does not use DME. Vision Current Vision: Wears Glasses All of the Time ADL's Where Assessed: Chair Eating Assist: Modified Independent(liquids) Grooming Assist: Stand By Assist Grooming Deficits: Setup;Brushing Hair Toileting Assist: Total Assist(mullen, brief) Functional Transfer Assist: Moderate Assist(sit to stand from chair to RW) Functional Transfer Deficits: Steadying;Increased Time to Complete Comment: Pt up in chair prior to session by nursing staff. Pt agreed to amb further. Pt performed sit to stand with mod assist from chair to RW. Pt amb with min assist with RW and chair follow for safety. Pt amb approx 60 feet before needing seated rest break. Pt pushed back to room in chair and performed grooming at chair level. Activity Tolerance Sitting Balance: 4/5 Moves/Returns Trunkal Midpoint 1-2 Inches in Multiple Planes Cognition Overall Cognitive Status: WFL to Adequately Complete Self Care Tasks Safely Social Interaction: Interacts in a Spontaneous,Cooperative Manner Attention: Awake/Alert Cognition Comment: Some delay in processing but wfls UE AROM Overall BUE AROM WNL: Yes Coordination: Adequate to Complete ADLs Grasp: Bilateral Grasp Functional for Activity Comment: Functional assessment only Sensory Overall Sensory: Bilateral Intact UE Strength / Tone Overall Strength / Tone: WFL Able to Perform ADL Tasks Assessment Assessment: Decreased ADL Status;Decreased Endurance;Decreased Self-Care Trans; Decreased High-Level ADLs Prognosis: Good;w/Cont OT s/p Acute Discharge Goal Formulation: Patient Plan OT Frequency: 5x/week OT Plan for Next Visit: Sink level grooming, LE dressing ADL Goals Patient Will Perform LE Dressing: w/ Stand By Assist Patient Will Perform Toileting: w/ Stand By Assist Functional Transfer Goals Pt Will Perform All Functional Transfers: w/ Stand By Assist OT Discharge Recommendations OT Discharge Recommendations: Inpatient Setting Equipment Recommendations: Too early to be determined Therapist: RA White Date: 12/09/2018 * Jadiel Aguillon MD - 12/09/2018 11:07 AM CDT Anesthesiology Acute Pain Service Date of Service: 12/09/2018 Name: Mellissa Avila is a 78 y.o. female : 1940 PROCEDURE: Procedure(s) with comments: EXPLORATORY LAPAROTOMY - CASE LENGTH 4 HOURS, CLIPPING AND HIBICLENS PREP TO BE DONE IN SDS/PRE-POST, DR PHILLIP ASSISTING ABDOMINAL PROCTOPEXY WITH SIGMOID RESECTION POD #: 2 ANALGESIA TECHNIQUE Epidural catheter: bupi 0.125% Bolus: 4 mL Delay: 20 minutes Basal Infusion: 6 mL/hr ADJUNCT ANALGESIA MEDICATIONS fentanyl oxycodone acetaminophen PO TREATMENT PLAN Continue use of epidural for pain management, Urinary catheter removal is acceptable from an anesthesia standpoint and likely discontinue epidural tomorrow. Anesthesia Pain pager: [phone] Allergies Allergen Reactions Metoclopramide AGITATION causes involuntary body movements rigidity Inpatient Medications Scheduled Meds: acetaminophen (TYLENOL) tablet 650 mg 650 mg Oral Q6H* amitriptyline (ELAVIL) tablet 10 mg 10 mg Oral QHS enoxaparin (LOVENOX) syringe 30 mg 30 mg Subcutaneous QDAY(21) isosorbide mononitrate SR (IMDUR) tablet 30 mg 30 mg Oral QAM8 lisinopril (PRINIVIL; ZESTRIL) tablet 5 mg 5 mg Oral QHS milk of magnesia (CONC) oral suspension 10 mL 10 mL Oral QDAY(21) pantoprazole DR (PROTONIX) tablet 40 mg 40 mg Oral QAM8 polyethylene glycol 3350 (MIRALAX) packet 17 g 1 packet Oral BID pravastatin (PRAVACHOL) tablet 10 mg 10 mg Oral QAM8 Continuous Infusions: bupivacaine ON AIR ANNOUNCER 0.125% in NS 50mL epidural infusion syr dextrose 5 % & 0.45% NaCl with KCl 20 mEq/L infusion 50 mL/hr at 12/09/18 0357 PRN and Respiratory Meds:diphenhydrAMINE Q4H PRN, fentaNYL citrate PF Q1H PRN, naloxone PRN, ondansetron (ZOFRAN) IV Q6H PRN, ondansetron (ZOFRAN) IV Q6H PRN, oxyCODONE Q4H PRN Anticoagulants enoxaparin (LOVENOX) syringe 30 mg QDAY(21) HPI Visual Analog Scale (VAS) (0-10 Scale) At rest: 2 Patient satisfied with pain control: Yes Side Effects: none EXAM Recent Vitals Vital Signs: 24 Hour Range BP: 123/58 (12/09 1046) Temp: 37.5 C (99.5 F) (12/09 104) Pulse: 56 (12/09 104) Respirations: 16 PER MINUTE (12/09 1045) SpO2: 96 % (12/09 1046) O2 Delivery: None (Room Air) (12/09 1045) BP: (98-151)/(46-67) Temp: [36.4 C (97.6 F)-37.5 C (99.5 F)] Pulse: [56-70] Respirations: [16 PER MINUTE] SpO2: [92 %-96 %] O2 Delivery: None (Room Air) Lab Results Component Value Date PLTCT 200 12/09/2018 WBC 13.8 12/09/2018 HGB 9.4 12/09/2018 HCT 27.6 12/09/2018 CR 1.03 12/09/2018 PTT 42.8 08/07/2014 INR 1.6 08/07/2014 Level of Consciousness: Awake/alert Neurologic Function Sensory block: Yes Motor: No Insertion Site: Site clean and nontender Associated attestation - Salomón Waller MD - 12/09/2018 11:33 AM CDT ATTESTATION I personally performed the cruz portions of the E/M visit, discussed case with the resident and concur with documentation of history, physical exam, assessment , and treatment plan unless otherwise noted. Doing well, no changes. Staff name: Salomón Waller MD Date: 12/09/2018 * Chapin De La Cruz MD - 12/09/2018 7:51 AM CDT Colorectal Surgery Progress Note 12/09/2018 Patient: Mellissa Avila Admission date 12/07/2018, LOS: 2 days ASSESSMENT & PLAN: Mellissa Avila is a 78 y.o. female s/p ex-lap, sigmoid colectomy with primary anastomosis, and suture rectopexy on 12/07. -Continue clear liquids, awaiting return of bowel function -Continue Mullen catheter given pelvic dissection and epidural -Pain control per Anesthesia pain service -Encourage ambulation -PT/OT Patient seen and discussed with attending Dr. Phillip. Subjective: No acute events last 24 hours. Denies flatus or BM. Denies nausea or emesis. Pain well controlled. Objective: BP 151/67 (BP Source: Arm, Right Upper) | Pulse 66 | Temp 36.7 C (98.1 F) | Ht 157.5 cm (62") | Wt 55.9 kg (123 lb 3.2 oz) | SpO2 95% | BMI 22.53 kg/ m Physical Exam: Gen: NAD HEENT: Normocephalic, atraumatic, EOMI, no thyromegaly, trachea midline, no cervical lymphadenopathy CV: Normal rate, regular rhythm Pulm: CTAB, no wheezes or rhonchi Abd: Soft, no distention, no tenderness, incision c/d/i Ext: No clubbing, cyanosis, or edema Neuro: GCS 15, moves all extremities, no sensory deficits Psych: Normal affect LABS: Recent Labs 12/08/18 0424 12/09/18 0428 HGB 10.8* 9.4* HCT 31.6* 27.6* WBC 14.7* 13.8* PLTCT 236 200 NA 142 138 K 4.1 4.2 CL 107 107 CO2 30 28 BUN 18 20 CR 1.01* 1.03* GLU 128* 98 CA 9.5 9.1 Intake/Output Summary (Last 24 hours) at 12/09/2018 0751 Last data filed at 12/09/2018 0407 Gross per 24 hour Intake 1002 ml Output 1460 ml Net -458 ml Stool Occurrence: 0 Chapin De La Cruz MD Associated attestation - Joaquin Phillip DO - 12/09/2018 4:07 PM CDT ATTESTATION I personally performed the cruz portions of the E/M visit, discussed case with resident and concur with resident documentation of history, physical exam, assessment, and treatment plan unless otherwise noted. Staff name: Joaquin Phillip, Date: 12/09/2018 Cont CLD Cont mullen for deep dissection and epidural Pain controlled * Dillon Hailey, DO - 12/08/2018 10:25 AM CDT Anesthesiology Acute Pain Service Date of Service: 12/08/2018 Name: Mellissa Avila is a 78 y.o. female : 1940 PROCEDURE: Procedure(s) with comments: EXPLORATORY LAPAROTOMY - CASE LENGTH 4 HOURS, CLIPPING AND HIBICLENS PREP TO BE DONE IN SDS/PRE-POST, DR PHILLIP ASSISTING ABDOMINAL PROCTOPEXY WITH SIGMOID RESECTION POD #: 1 ANALGESIA TECHNIQUE Epidural catheter: bupi 0.125% Bolus: 4 mL Delay: 20 minutes Basal Infusion: 6 mL/hr ADJUNCT ANALGESIA MEDICATIONS fentanyl oxycodone acetaminophen PO TREATMENT PLAN Continue use of epidural for pain management, Urinary catheter removal is acceptable from an anesthesia standpoint and Encouraged use f oxycodone now that on clear liquid diet. Consider removing epidural 12/09 Anesthesia Pain pager: [phone] Allergies Allergen Reactions Metoclopramide AGITATION causes involuntary body movements rigidity Inpatient Medications Scheduled Meds: acetaminophen (TYLENOL) tablet 650 mg 650 mg Oral Q6H* amitriptyline (ELAVIL) tablet 10 mg 10 mg Oral QHS enoxaparin (LOVENOX) syringe 30 mg 30 mg Subcutaneous QDAY(21) isosorbide mononitrate SR (IMDUR) tablet 30 mg 30 mg Oral QAM8 lisinopril (PRINIVIL; ZESTRIL) tablet 5 mg 5 mg Oral QHS milk of magnesia (CONC) oral suspension 10 mL 10 mL Oral QDAY(21) pantoprazole DR (PROTONIX) tablet 40 mg 40 mg Oral QAM8 polyethylene glycol 3350 (MIRALAX) packet 17 g 1 packet Oral BID pravastatin (PRAVACHOL) tablet 10 mg 10 mg Oral QAM8 Continuous Infusions: bupivacaine ON AIR ANNOUNCER 0.125% in NS 50mL epidural infusion syr dextrose 5 % & 0.45% NaCl with KCl 20 mEq/L infusion 50 mL/hr at 12/08/18 0614 lactated ringers infusion 75 mL/hr at 12/07/18 1633 PRN and Respiratory Meds:diphenhydrAMINE Q4H PRN, fentaNYL citrate PF Q1H PRN, naloxone PRN, ondansetron (ZOFRAN) IV Q6H PRN, ondansetron (ZOFRAN) IV Q6H PRN, oxyCODONE Q4H PRN Anticoagulants enoxaparin (LOVENOX) syringe 30 mg QDAY(21) HPI Visual Analog Scale (VAS) (0-10 Scale) At rest: 3 Patient satisfied with pain control: Yes Side Effects: none EXAM Recent Vitals Vital Signs: 24 Hour Range BP: 114/46 (12/08 0752) Temp: 37.4 C (99.4 F) (12/08 075) Pulse: 61 (12/08 0831) Respirations: 16 PER MINUTE (12/08 075) SpO2: 97 % (12/08 0752) O2 Delivery: Nasal Cannula (12/08 075) SpO2 Pulse: 59 (12/07 1304) BP: (100-169)/(46-65) ABP: (112-123)/(43-51) Temp: [35.7 C (96.3 F)-37.8 C (100.1 F)] Pulse: [54-80] Respirations: [10 PER MINUTE-20 PER MINUTE] SpO2: [91 %-100 %] O2 Delivery: Nasal Cannula Lab Results Component Value Date PLTCT 236 12/08/2018 WBC 14.7 12/08/2018 HGB 10.8 12/08/2018 HCT 31.6 12/08/2018 CR 1.01 12/08/2018 PTT 42.8 08/07/2014 INR 1.6 08/07/2014 Level of Consciousness: Awake/alert Neurologic Function Sensory block: Yes Motor: No Insertion Site: Site clean and nontender Associated attestation - Salomón Waller MD - 12/08/2018 1:18 PM CDT ATTESTATION I personally performed the cruz portions of the E/M visit, discussed case with the fellow and concur with documentation of history, physical exam, assessment, and treatment plan unless otherwise noted. Pain well controlled, start transition to orals, likely d/c epidural 12/09 if advancing diet. Staff name: Salomón Waller MD Date: 12/08/2018 * Mary Brown, PT - 12/08/2018 10:06 AM CDT PHYSICAL THERAPY ASSESSMENT MOBILITY: Mobility Progressive Mobility Level: Active transfer to chair Level of Assistance: Assist X2 Assistive Device: Hand Held Time Tolerated: 11-30 minutes Activity Limited By: Weakness SUBJECTIVE: Subjective Significant hospital events: 78 y.o. female s/p ex-lap, sigmoid colectomy with primary anastomosis, and suture rectopexy on 12/07. Mental / Cognitive Status: Alert;Oriented;Cooperative Persons Present: Occupational Therapist Pain: Patient has no complaint of pain Ambulation Assist: Independent Mobility in Community without Device Patient Owned Equipment: None Home Situation: Lives with Family(dtr at work during the day- unable to physically help) Type of Home: House Entry Stairs: 3-5 Stairs;No Rail(3 steps to enter no rail) In-Home Stairs: No Stairs ROM: ROM UE ROM WFL: Yes LE ROM WFL: Yes STRENGTH: Strength Overall Strength: Generalized Weakness R LE WNL: (4/5 quad when in sitting, LE buckling in standing) L LE WNL: (4/5 quad when in sitting, LE buckling in standing) POSTURE/NEURO: Posture / Neurological LUE Sensation/Proprioception: Intact Light Touch RUE Sensation/Proprioception: Intact Light Touch LLE Sensation/Proprioception: Intact Light Touch RLE Sensation/Proprioception: Intact Light Touch BED MOBILITY/TRANSFERS: Bed Mobility/Transfers Bed Mobility: Rolling: Standby Assist Bed Mobility: Supine to Sit: Minimal Assist Transfer Type: Sit to/from Stand Transfer: Assistance Level: From;Bed;Maximal Assist;of 1st person;Minimal Assist ;of 2nd person Transfer: Assistive Device: Hand Hold Assist Transfers: Type Of Assistance: Verbal Cues;For Balance;For Strength Deficit Other Transfer Type: Stand to Sit Other Transfer: Assistance Level: To;Bed Side Chair;Maximal Assist;of 1st person ;Minimal Assist;of 2nd person End Of Activity Status: Up in Chair;Nursing Notified;Instructed Patient to Request Assist with Mobility;Instructed Patient to Use Call Light BALANCE: Balance Sitting Balance: Static Sitting Balance;Dynamic Sitting Balance;2 UE Support; Standby Assist Standing Balance: Static Standing Balance;Dynamic Standing Balance;No UE support ;Maximal Assist;x2 People GAIT: Gait Gait Distance: 6 feet Gait: Assistance Level: Moderate Assist;x2 People Gait: Assistive Device: Hand Hold Assist Gait: Descriptors: Pace: Slow;Forward trunk flexion;Pathway deviations;Loss of balance;Decreased step length Comments: bilateral knees bucklling and patient unable to recover without moderate assist x2 people, pt denies numbness or tingling or pain throughout session Activity Limited By: Weakness EDUCATION: Education Persons Educated: Patient Patient Barriers To Learning: (BLE weakness) Teaching Methods: Verbal Instruction Patient Response: Verbalized Understanding Topics: Plan/Goals of PT Interventions;Use of Assistive Device/Orthosis; Mobility Progression;Up with Assist Only;Importance of Increasing Activity; Recommend Continued Therapy ASSESSMENT/PROGRESS: Assessment/Progress Impaired Mobility Due To: Decreased Strength;Impaired Balance;Safety Concerns Impaired Strength Due To: Cognitive Deficits;Decreased Activity Tolerance;Post Surgical Changes Assessment/Progress: Should Improve w/ Continued PT AM-PAC 6 Clicks Basic Mobility Inpatient Turning from your back to your side while in a flat bed without using bed rails : A Little Moving from lying on your back to sitting on the side of a flatbed without using bedrails : A Little Moving to and from a bed to a chair (including a wheelchair): A Lot Standing up from a chair using your arms (e.g. wheelchair, or bedside chair): A Lot To walk in hospital room: Total Climbing 3-5 steps with a railing: Total Raw Score: 12 Standardized (T-scale) Score: 32.23 Basic Mobility CMS 0-100%: 61.94 [facility] G Code Modifier for Basic Mobility: CL GOALS: Goals Goal Formulation: With Patient Time For Goal Achievement: 3 days Patient Will Go Supine To/From Sit: Independently Patient Will Transfer Bed/Chair: w/ Stand By Assist Patient Will Ambulate: Greater than 200 Feet, w/ Walker, w/ Stand By Assist Patient Will Go Up / Down Stairs: 3-5 Stairs, w/ Stand By Assist PLAN: Plan Treatment Interventions: Mobility Training;Strengthening;Balance Activities Plan Frequency: 5 Days per Week PT Plan for Next Visit: increase gait distance- trial walker, trial stairs when able RECOMMENDATIONS: PT Discharge Recommendations Recommend ongoing assistance for: In and out of house;Ambulation;Bathing(IADLs) Therapist: Mary Brown PT, DPT, [facility] Date: 12/08/2018 * Summer Tyson - 12/08/2018 9:17 AM CDT OCCUPATIONAL THERAPY ASSESSMENT NOTE Patient Name: Mellissa Avila Room/Bed: [id number] Admitting Diagnosis: Rectal prolapse [K62.3] Mobility Progressive Mobility Level: Active transfer to chair Level of Assistance: Assist X2 Assistive Device: Hand Held Time Tolerated: 11-30 minutes Activity Limited By: Weakness Subjective Pertinent Dx per Physician: 78 y.o. female s/p ex-lap, sigmoid colectomy with primary anastomosis, and suture rectopexy on 12/07 Precautions: Standard;Falls(Epidural) Pain / Complaints: Patient has no c/o pain;Patient agrees to participate in therapy Comments: Pt in bed upon therapist arrival and departure, positioned for comfort , with needs in reach and precautions in place. Objective Psychosocial Status: Willing and Cooperative to Participate Persons Present: Physical Therapist Home Living Type of Home: House Home Layout: One Level;Stairs to Enter w/o Rails(Three steps to enter) Bathroom Shower / Tub: Walk-in Shower Bathroom Toilet: Standard Bathroom Equipment: (Seat in shower) Home Equipment: Shower/Tub Bench Comment: Patient reports her daughter owns DME. Prior Function Level Of Teller: Independent with ADLs and functional transfers Lives With: Daughter(works during the day; Other daughter has mobility limitation) Receives Help From: Family(Transportation; IADLs) Leisure: (Cares for six dogs) Other Function Comments: Patient independent with ADLs, IADLs, and mobility prior to admission. Denies hx of falls. Does not use DME. Vision Current Vision: Wears Glasses All of the Time ADL's Where Assessed: Edge of Bed Eating Assist: Not Performed Eating Deficits: No Assist Needed LE Dressing Assist: Stand By Assist(Adjusted socks only at EOB with increased time) LE Dressing Deficits: Don/Doff L Sock;Don/Doff R Sock Toileting Assist: Total Assist Functional Transfer Assist: Moderate Assist(X2) Functional Transfer Deficits: Setup;Steadying;Increased Time to Complete Comment: Minimal assist for supine to sit at EOB (assist to shift hips). ADLs per above. Maximum assist X1, minimal assist X1 for sit to stand d/t LE weakness. Assist X2 for static standing with UEs supported. Moderate assist X2 to take steps to recliner chair with increased time and LE buckling. Activity Tolerance Endurance: 3/5 Tolerates 25-30 Minutes Exercise w/Multiple Rests Sitting Balance: 4/5 Moves/Returns Trunkal Midpoint 1-2 Inches in Multiple Planes Cognition Social Interaction: Interacts in a Spontaneous,Cooperative Manner Attention: Awake/Alert Cognition Comment: Functional assessment only. Appears slightly confused at times as evidenced by disconnect between questions asked by therapist and answers given by patient. UE AROM Overall BUE AROM WNL: Yes Coordination: Adequate to Complete ADLs Grasp: Bilateral Grasp Functional for Activity Comment: Functional assessment only Sensory Overall Sensory: Bilateral Intact UE Strength / Tone Overall Strength / Tone: WFL Able to Perform ADL Tasks Education Persons Educated: Patient Topics: Role of OT, Goals for Therapy Goal Formulation: With Patient Assessment Assessment: Decreased ADL Status;Decreased Endurance;Decreased Self-Care Trans; Decreased High-Level ADLs Prognosis: Good;w/Cont OT s/p Acute Discharge Goal Formulation: Patient Comments: At current functional level, patient unable to complete sit <> stand or take steps without assist X2 therapists d/t LE weakness, which is new postoperatively per her report. Of note: epidural in place, but LE sensation intact per PT assessment. Patient will need to be functioning safely at modified independent level to return home with prior level of assistance at discharge. Will continue to follow to provide intervention as indicated and ongoing d/c recommendations as appropriate. Plan OT Frequency: 5x/week OT Plan for Next Visit: Progress OOB mobility & ADLs with use of DME as appropriate ADL Goals Patient Will Perform LE Dressing: w/ Stand By Assist Patient Will Perform Toileting: w/ Stand By Assist Functional Transfer Goals Pt Will Perform All Functional Transfers: w/ Stand By Assist OT Discharge Recommendations OT Discharge Recommendations: Inpatient Setting Equipment Recommendations: Too early to be determined Recommend ongoing assistance for: In and out of house, Ambulation, Bathing(IADLs ) Therapist: Summer Tyson OTR/[facility] [id number] Date: 12/08/2018 * Chapin De La Cruz MD - 12/08/2018 7:20 AM CDT Colorectal Surgery Progress Note 12/08/2018 Patient: Mellissa Avila Admission date 12/07/2018, LOS: 1 day ASSESSMENT & PLAN: Mellissa Avila is a 78 y.o. female s/p ex-lap, sigmoid colectomy with primary anastomosis, and suture rectopexy on 12/07. -Continue clear liquids, awaiting return of bowel function -Continue Mullen catheter given pelvic dissection and epidural -Pain control per Anesthesia pain service -Encourage ambulation -PT/OT Patient seen and discussed with attending Dr. Phillip. Subjective: To OR yesterday. States pain is well controlled today. Denies N/V/F/C. Denies flatus or BM. Objective: BP 153/55 (BP Source: Arm, Right Upper) | Pulse 59 | Temp 37.2 C (98.9 F) | Ht 157.5 cm (62") | Wt 55.9 kg (123 lb 3.2 oz) | SpO2 94% | BMI 22.53 kg/ m Physical Exam: Gen: NAD HEENT: Normocephalic, atraumatic, EOMI, no thyromegaly, trachea midline, no cervical lymphadenopathy CV: Normal rate, regular rhythm Pulm: CTAB, no wheezes or rhonchi Abd: Soft, no distention, no tenderness, dressing with some sanguineous staining Ext: No clubbing, cyanosis, or edema Neuro: GCS 15, moves all extremities, no sensory deficits Psych: Normal affect LABS: Recent Labs 12/08/18 0424 HGB 10.8* HCT 31.6* WBC 14.7* PLTCT 236 NA 142 K 4.1 CL 107 CO2 30 BUN 18 CR 1.01* GLU 128* CA 9.5 Intake/Output Summary (Last 24 hours) at 12/08/2018719 Last data filed at 12/08/2018 0454 Gross per 24 hour Intake 2545 ml Output 1220 ml Net 1325 ml Chapin De La Cruz MD Associated attestation - Joaquin Phillip DO - 12/08/2018 8:26 AM CDT ATTESTATION I personally performed the cruz portions of the E/M visit, discussed case with resident and concur with resident documentation of history, physical exam, assessment, and treatment plan unless otherwise noted. Staff name: Joaquin Phillip DO Date: 12/08/2018 * Daniel Valdovinos RT - 12/07/2018 4:47 PM CDT RT Adult Assessment Note NAME:Mellissa Avila :1940 AGE: 78 y.o. ADMISSION DATE: 12/07/2018 DAYS ADMITTED: LOS: 0 days RT Treatment Plan: Protocol Plan: Procedures IPPB: Place a nursing order for "IS Q1h While Awake" for any of Lung Expansion indicators Oxygen/Humidity: O2 to keep SpO2 > 92% Monitoring: Pulse oximetry BID & PRN Additional Comments: Impressions of the patient: clear breath sounds. Titrating oxygen. IS w/ nursing. Vital Signs: Pulse: 54 RR: 17 PER MINUTE SpO2: 97 % O2 Device: Cannula Liter Flow: 1 Lpm O2%: Breath Sounds: Respiratory Effort: Non-Labored * Rivka Laura RN - 12/07/2018 4:03 PM CDT Pt arriving to unit via bed. Pt made aware of surroundings and call light in reach. Goal of care reviewed with pt. RN reviewed progression of care, pt verbalizing understanding. VS taken and stable. Orders released. IS given to pt. Rn educated pt to use 10 times an hour while awake. RN will continue to monitor pt. * Lesley Potts RN - 12/07/2018 2:02 PM CDT Pt s daughter Lilian was updated on pts status and location prior to transfer to [facility]. Pt transported with tele monitor and BREAKER MECHANIC. All belongings went up to room with pt and placed in room closet. Phone at bedside. RN was informed about pts eye drops and night time eye patch. documented in this encounter H&P Notes * Chapin De La Cruz MD - 12/07/2018 6:04 AM CDT Admission History and Physical Examination Name: Mellissa Avila Admission Date: 12/07/2018 Assessment/Plan: Mellissa Avila is a 78 yo female with recurrent rectal prolapse who presents today for planned exploratory laparotomy, possible resection rectopexy vs mesh repair. Informed consent obtained and will proceed as planned. __ History of Present Illness: Mellissa Avila is a 78 yo female with recurrent rectal prolapse who presents today for planned exploratory laparotomy, possible resection rectopexy vs mesh repair. No changes in her health since last being seen in clinic. She continues to have prolapse. She continues to be incontinent to feces and urine. She denies any recent chest pain. She last took her aspirin and Plavix one week ago. Past Medical History: Diagnosis Date Accidental perforation of esophagus during procedure 2012 Arthritis CAD (coronary artery disease) Chest pain Depression Dysphagia Hiatal hernia History of Robert fundoplication HTN (hypertension) Hx of CABG Hyperlipidemia Myocardial infarction (HCC) Nausea & vomiting Osteoporosis Past Surgical History: Procedure Laterality Date HX CORONARY ARTERY BYPASS GRAFT 2012 20 years ago GASTRIC FUNDOPLICATION 2014 [place] ROBOTIC SURGICAL SYSTEM N/A 02/20/2016 ROBOT-ASSISTED INCISIONAL HERNIA REPAIR, LYSIS OF ADHESIONS 35 MINUTES, IMPLANTATION OF MESH performed by Lance Mahmood MD at Main OR/Periop UPPER GASTROINTESTINAL ENDOSCOPY N/A 04/20/2017 ESOPHAGOGASTRODUODENOSCOPY performed by Elliott Dailge MD at ENDO/GI UPPER GASTROINTESTINAL ENDOSCOPY 04/20/2017 ESOPHAGOGASTRODUODENOSCOPY BIOPSY performed by Elliott Daigle MD at ENDO/GI ESOPHAGEAL MOTILITY STUDY N/A 05/13/2017 MANOMETRY ESOPHAGEAL performed by Olivia Dumas MD at ENDO/GI ESOPHAGUS SURGERY repair of perforation HX HEART [...] on file Occupational History Not on file Social Needs Financial resource strain: Not on file Food insecurity: Worry: Not on file Inability: Not on file Transportation needs: Medical: Not on file Non-medical: Not on file Tobacco Use Smoking status: Never Smoker Smokeless tobacco: Never Used Substance and Sexual Activity Alcohol use: No Drug use: No Sexual activity: Not on file Lifestyle Physical activity: Days per week: Not on file Minutes per session: Not on file Stress: Not on file Relationships Social connections: Talks on phone: Not on file Gets together: Not on file Attends restorationism service: Not on file Active member of club or organization: Not on file Attends meetings of clubs or organizations: Not on file Relationship status: Not on file Intimate partner violence: Fear of current or ex partner: Not on file Emotionally abused: Not on file Physically abused: Not on file Forced sexual activity: Not on file Other Topics Concern Not on file Social History Narrative Not on file Immunizations (includes history and patient reported): Immunization History Administered Date(s) Administered Acthib Vaccine 08/14/2014 Flu Vaccine Trivalent=>3 Yo (Preservative Free) 06/27/2013 Meningococcal Conjug Vaccine 08/14/2014 Pneumococcal Vaccine (23-Jasmina Adult) 08/14/2014 Allergies: Metoclopramide Medications: Medications Prior to Admission Medication Sig acetaminophen SR(+) (TYLENOL) 650 mg tablet Take [...] Take 535 mg by mouth twice daily. metroNIDAZOLE (FLAGYL) 500 mg tablet 2 tablets PO at 1 pm, 3 pm and 11 pm the day prior to surgery naproxen sodium(+) (ALEVE) 220 mg tablet Take 220 mg by mouth twice daily. neomycin 500 mg tablet 2 tablets PO at 1 pm, 3 pm and 11 pm the day prior to surgery nitroglycerin (NITROSTAT) 0.[address] 0.4 mg under tongue every 5 minutes as needed for Chest Pain. ondansetron (ZOFRAN ODT) 8 mg rapid dissolve tablet Dissolve one tablet by mouth every 6 hours as needed for Nausea or Vomiting. Place on tongue to disolve. oxybutynin XL (DITROPAN XL) 5 mg tablet Take 10 mg by mouth daily. pantoprazole DR (PROTONIX) 40 mg tablet Take 40 mg by mouth every morning. pravastatin (PRAVACHOL) 10 mg tablet Take 10 mg by mouth every morning. tolterodine LA(+) (DETROL LA) 4 mg capsule Take 4 mg by mouth twice daily. Vit C-Vit P-Waldwq-Ayq-OM-3 [id number] nb-zjlo-lt-mg cap Take 1 Cap by mouth daily. zinc sulfate 220 mg (50 mg elemental zinc) capsule Take 220 mg by mouth daily. Review of Systems: Constitutional: Negative for night sweats, fevers, weight loss, decreased appetite Eyes: Negative for vision changes HEENT: Negative for rhinorrhea, epistaxis, sore throat CV: Negative for chest pain, dyspnea, palpitations Pulm: Negative for cough, wheezing, shortness of breath GI: Positive for fecal incontinence, Negative for abdominal pain, nausea, emesis , abdominal distention, dysphagia, hematochezia, melena : Positive for rectal prolapse MSK: Negative for joint pain, joint stiffness Skin: Negative for rash, wounds Neuro: Negative for weakness, numbness, headache Psych: Negative for depression, anxiety, sleep disturbance Heme: Negative for anemia, purpura, petechiae Endocrine: Negative for tremor, palpitations, diaphoresis Allergic/Immunologic: Negative for anaphylaxis, lymphadenopathy Physical Exam: Vital Signs: Last Filed In 24 Hours Vital Signs: 24 Hour Range Gen: NAD HEENT: Normocephalic, atraumatic, EOMI, no thyromegaly, trachea midline, no cervical lymphadenopathy CV: Normal rate, regular rhythm Pulm: CTAB, no wheezes or rhonchi Abd: Soft, no tenderness, no distention, upper midline and low transverse scars appreciated, no hernia defects appreciated Ext: No clubbing, cyanosis, or edema Neuro: GCS 15, moves all extremities, no sensory deficits Psych: Normal affect Lab/Radiology/Other Diagnostic Tests: 24-hour labs: No results found for this visit on 12/07/18 (from the past 24 hour(s)). Pertinent radiology reviewed. Chapin De La Cruz MD Associated attestation - Ryan Montano MD - 12/14/2018 7:38 AM CDT ATTESTATION I personally performed the cruz portions of the E/M visit, discussed case with resident and concur with resident documentation of history, physical exam, assessment, and treatment plan unless otherwise noted. Ryan Montano MD documented in this encounter Miscellaneous Notes * Care Plan - Vickie Lyn RN - 12/12/2018 12:09 PM CDT Problem: Discharge Planning Goal: Participation in plan of care Outcome: Goal Achieved Date Met: 12/12/18 Discharge teaching provided. Patient and family members verbalize understanding. Has no further questions or concerns. Goal: Knowledge regarding plan of care Outcome: Goal Achieved Date Met: 12/12/18 See note Goal: Prepared for discharge Outcome: Goal Achieved Date Met: 12/12/18 See note Problem: Infection, Risk of, Urinary Catheter-Associated Urinary Tract Infection Goal: Absence of urinary catheter-associated infection Outcome: Goal Achieved Date Met: 12/12/[address] No signs or symptoms of infection. Urine clear, yellow and > 30 ml/hr. Pt does not complain of pain or discomfort near bladder. Mullen catheter care completed and reviewed with family members/caretakers. Problem: Respiratory Impairment (Non-Ventilated Patient) Goal: Effective gas exchange Outcome: Goal Achieved Date Met: 12/12/18 O2 levels acceptable on room air. Lung sounds are clear, chest rise symmetrical , no sign of difficulty breathing or respiratory distress. Problem: Falls, High Risk of Goal: Absence of falls-Adult Patient Outcome: Goal Achieved Date Met: 12/12/[address] Pt to follow up with outpatient therapy. No falls to this date. Problem: Pain Goal: Management of pain Outcome: Goal Achieved Date Met: 12/12/18 Pain well-controlled under current pain regimen. Patient educated on type and frequency of prescription pain medication. Has no further questions or concerns. Goal: Knowledge of pain management Outcome: Goal Achieved Date Met: 12/12/18 See note Problem: Self-Care Deficit Goal: Maximize ADL functioning Outcome: Goal Achieved Date Met: 12/12/18 Pt has 24/7 care at home to assist with additional self care needs. Problem: Mobility/Activity Intolerance Goal: Maximize functional ADL's and mobility outcomes Outcome: Goal Achieved Date Met: 12/12/18 Pt has outpatient therapy scheduled and 24/7 care at home. * Case Mgmt DC Plan - Terry Sung RN - 12/11/2018 4:48 PM CDT Case Management Progress NoteNAME:Mellissa Avila :1940 AGE: 78 y.o. ADMISSION DATE: 12/07/2018 DAYS ADMITTED: LOS: 4 days Todays Date: 12/11/2018 Expected Discharge Date: 12/12/18 Expected Discharge Time: 1200 Plan Discharge planning ongoing at this time; anticipate pt will discharge home with family assistance and outpatient therapy. Interventions ? Support ? Info or Referral ? Discharge Planning Discharge Planning: No Needs Identified - NCM contacted patient's daughter, Lilian Acuna, to inquire about home needs; Lilian reports that typically Lilian and sister Kya do "shared custody" of their mom, with Lilian keeping pt M-Th and Kya caring for patient on the weekends, however Lilian reports that she will be caring for her mother immediately following discharge so that she may have 24/7 supervision, as Kya works methods time analyst during the week. Lilian states that she is a retired TEXTILE PIN WORKER, and is comfortable caring for her mom's mullen and wounds post-discharge, but would like this NCM to check with patient's other daughter Kya to confirm that HH services are not needed on discharge. Lilian also confirmed that patient has intermittently gone to [facility]'s outpatient rehab for therapy assistance; Lilian states she will be able to take patient to OP therapy if needed on discharge. - NCM contacted Kya to discuss discharge POC; Kya reports that patient has never had HH services in the past, and she does not anticipate pt will need services on discharge as she and her sister have patient's care "under control. " NCM verified that daughters would be able to manage patient's home needs including mullen and incisional wound; Kya verbalized understanding. - NC provided Kya with contact information for this NCM, and encouraged dgt to r/o with any discharge needs. Kya verbalized understanding and appreciation of same. - Patient will need outpatient therapy prescription on discharge so she may continue going to [facility] OP Therapy program if needed on discharge; NCM notified primary team of same. - NCM to continue to follow patient for discharge planning assistance. ? Medication Needs ? Financial ? Legal ? Other Disposition ? Transportation Does the patient need discharge transport arranged?: No Transportation Name, Phone and Availability #1: Daughter Kya [phone] Transportation Name, Phone and Availability #2: Daughter Lilian [phone] Does the patient use Medicaid Transportation?: No ? Discharge Disposition Durable Medical Equipment No service has been selected for the patient. [facility] No service has been selected for the patient. [facility] No service has been selected for the patient. [facility] D[facility]/Infusion No service has been selected for the patient. Terry FLORES, RN Inpatient Nurse Replenishment Merchandising AssociateSemiconductor Processing Group Leader Oncology Office: Pager: [phone] M-F [phone] * Case Mgmt DC Plan - Stefania Gates - 12/11/2018 3:05 PM CDT Case Management Progress NoteNAME:Mellissa Avila :1940 AGE: 78 y.o. ADMISSION DATE: 12/07/2018 DAYS ADMITTED: LOS: 4 days Todays Date: 12/11/2018 Plan: Pt expected to d/c home when medically stable. Interventions ? Support ? Info or Referral ? Discharge Planning SW spoke to Lilian Avila ([phone]), daughter, at 1400 and discussed d /c plans and options. Lilian Acuna wanted the pt to d/c home to her house and stated she would receive 24/7 care and they had a lift chair, walker, and other DME available upon arrival. SW told Lilian Acuna PT recommended home w/ assistance vs inpt setting. Lilian Acuna wanted to speak to her sister Kya and then call SW back for where they were wanting pt to d/c. Kya ([phone])called SW and stated they wanted pt to d/c home. Kya affirmed that pt would have 24/7 care. SW spoke to pt and she desired to d/c home to Lilian Acuna's house also. She affirmed that she would have 24/7 care and felt safe to d/c there. All parties involved would like pt to d/c home to Lilian Acuna's and expressed they felt safe in their decision. Also, all parties stated they would reach out to inpt facilities if they felt pt was unsafe or needed additional help for any reason. Update: MILAD alerted nurse RNCM for referral for HH. ? Medication Needs ? Financial ? Legal ? Other Disposition ? Expected Discharge Date Expected Discharge Date: 12/12/18 Expected Discharge Time: 1200 ? Transportation Does the patient need discharge transport arranged?: No Transportation Name, Phone and Availability #1: Daughter Kya [phone] Transportation Name, Phone and Availability #2: Daughter Lilian [phone] Does the patient use Medicaid Transportation?: No ? Next Level of Care (Acute Psych discharges only) ? Discharge Disposition Durable Medical Equipment No service has been selected for the patient. [facility] No service has been selected for the patient. [facility] No service has been selected for the patient. [facility]In[facility] No service has been selected for the patient. Stefania Gates LMSW P. [phone] * Case Mgmt DC Plan - Kayla Wilkins - 12/11/2018 1:53 PM CDT PATTERNMAKER BENCH Note: Printed a list of SNF and IPR per the request of [facility] Cathy Cormier. Kayla Wilkins Phosphoric Acid Operator For additional assistance, please contact [facility] Cathy Cormier [phone]. * Case Mgmt DC Plan - Gail Maher - 12/10/2018 11:31 AM CDT Case Management Progress NoteNAME:Mellissa Avila :1940 AGE: 78 y.o. ADMISSION DATE: 12/07/2018 DAYS ADMITTED: LOS: 3 days Todays Date: 12/10/2018 Plan Pt to discharge to IPR vs SNF Interventions ? Support ? Info or Referral ? Discharge Planning [facility] consult pending MILAD met with pt to discuss discharge. Pt would be interested in both [facility] vs being in a SNF closer to home. SW provided in-network SNF list for review. Pt then stated that she may not need a facility as she has good family support and a daughter who will "make sure I'm getting up to walk around" Pt agreeable to primary SW following up tomorrow ? Medication Needs ? Financial ? Legal ? Other Disposition ? Expected Discharge Date Expected Discharge Date: 12/11/18 Expected Discharge Time: 1600 ? Transportation Does the patient need discharge transport arranged?: No Transportation Name, Phone and Availability #1: Daughter Kya [phone] Transportation Name, Phone and Availability #2: Daughter Lilian [phone] Does the patient use Medicaid Transportation?: No ? Next Level of Care (Acute Psych discharges only) ? Discharge Disposition Durable Medical Equipment No service has been selected for the patient. Destination No service has been selected for the patient. Home Care No service has been selected for the patient. Dialysis/Infusion No service has been selected for the patient. Gail Maher LMSW *[phone] * Anesthesia Post Op Day 1 - Geovanni De Paz SRNA - 12/08/2018 3:50 PM CDT Anesthesia Follow-Up Evaluation: Post-Procedure Day One Name: Mellissa Avila : 1940 Age: 78 y.o. Sex: female Procedure Date: 12/07/2018 Procedure: Procedure(s) with comments: EXPLORATORY LAPAROTOMY - CASE LENGTH 4 HOURS, CLIPPING AND HIBICLENS PREP TO BE DONE IN SDS/PRE-POST, DR PHILLIP ASSISTING ABDOMINAL PROCTOPEXY WITH SIGMOID RESECTION Physical Assessment Height: 157.5 cm (62") Weight: 55.9 kg (123 lb 3.2 oz) Vital Signs (Last Filed in 24 hours) BP: 108/51 (12/08 1518) Temp: 36.4 C (97.6 F) (12/08 1518) Pulse: 66 (12/08 1518) Respirations: 16 PER MINUTE (12/08 1518) SpO2: 93 % (12/08 1518) O2 Delivery: Nasal Cannula (12/08 1518) Patient History Allergies Allergies Allergen Reactions Metoclopramide AGITATION causes involuntary body movements rigidity Medications Scheduled Meds: acetaminophen (TYLENOL) tablet 650 mg 650 mg Oral Q6H* amitriptyline (ELAVIL) tablet 10 mg 10 mg Oral QHS enoxaparin (LOVENOX) syringe 30 mg 30 mg Subcutaneous QDAY(21) isosorbide mononitrate SR (IMDUR) tablet 30 mg 30 mg Oral QAM8 lisinopril (PRINIVIL; ZESTRIL) tablet 5 mg 5 mg Oral QHS milk of magnesia (CONC) oral suspension 10 mL 10 mL Oral QDAY(21) pantoprazole DR (PROTONIX) tablet 40 mg 40 mg Oral QAM8 polyethylene glycol 3350 (MIRALAX) packet 17 g 1 packet Oral BID pravastatin (PRAVACHOL) tablet 10 mg 10 mg Oral QAM8 Continuous Infusions: bupivacaine ON AIR ANNOUNCER 0.125% in NS 50mL epidural infusion syr dextrose 5 % & 0.45% NaCl with KCl 20 mEq/L infusion 50 mL/hr at 12/08/18 0614 PRN and Respiratory Meds:diphenhydrAMINE Q4H PRN, fentaNYL citrate PF Q1H PRN, naloxone PRN, ondansetron (ZOFRAN) IV Q6H PRN, ondansetron (ZOFRAN) IV Q6H PRN, oxyCODONE Q4H PRN Diagnostic Tests Hematology: Lab Results Component Value Date HGB 10.8 12/08/2018 HCT 31.6 12/08/2018 PLTCT 236 12/08/2018 WBC 14.7 12/08/2018 NEUT 78 01/17/2016 ANC 10.70 01/17/2016 LYMPH 10 08/08/2014 ALC 1.80 01/17/2016 [place] 8 01/17/2016 AMC 1.10 01/17/2016 EOSA 1 01/17/2016 ABC 0.00 01/17/2016 MCV 95.9 12/08/2018 MCH 32.9 12/08/2018 MCHC 34.3 12/08/2018 MPV 9.0 12/08/2018 RDW 13.1 12/08/2018 General Chemistry: Lab Results Component Value Date NA 142 12/08/2018 K 4.1 12/08/2018 CL 107 12/08/2018 CO2 30 12/08/2018 GAP 5 12/08/2018 BUN 18 12/08/2018 CR 1.01 12/08/2018 GLU 128 12/08/2018 CA 9.5 12/08/2018 ALBUMIN 4.5 01/17/2016 LACTIC 1.1 06/27/2013 OBSCA 1.13 08/13/2014 MG 1.8 02/21/2016 TOTBILI 0.7 01/17/2016 PO4 2.7 02/21/2016 Coagulation: Lab Results Component Value Date PTT 42.8 08/07/2014 INR 1.6 08/07/2014 Follow-Up Assessment Patient location during evaluation: floor Anesthetic Complications: Anesthetic complications: The patient did not experience any anesthestic complications. Pain: Management:adequate Level of Consciousness: awake and alert Hydration:acceptable Airway Patency: patent Respiratory Status: acceptable, spontaneous ventilation and room air Cardiovascular Status:acceptable and hemodynamically stable Regional/Neuroaxial: Epidural in place * Case Mgmt DC Plan - Terry Sung RN - 12/08/2018 2:57 PM CDT Case Management Admission AssessmentNAME:Mellissa Avila :1940 AGE: 78 y.o. ADMISSION DATE: 12/07/2018 DAYS ADMITTED: LOS: 1 day Todays Date: 12/08/2018 Source of Information: Patient and EMR Plan Plan: Case Management Assessment, Assist PRN with SW/NCM Services, Discharge Planning for Facility Anticipated Patient is #1 Day Post-Op ex-lap, sigmoid colectomy with primary anastomosis, and suture rectopexy. Patient recovering well from surgery, and states "I feel so much better" in comparison to surgeries she has had in the past. This CM met with pt for assessment on this date. Provided contact information and explanation of SW/NCM roles. Reviewed [facility], Preparing for Discharge, and Preferred Provider Network hand-outs. Provided opportunity for questions and discussion. Pt/family encouraged to contact Case Management team with questions and concerns during hospitalization and until patient is able to transition back to the patient's primary care physician. Patient Address/Phone [address] [facility] [phone] (home) Emergency Contact Extended Emergency Contact Information Primary Emergency Contact: Lilian Rey Address: [address] [place] [address] [facility] Relation: Daughter Secondary Emergency Contact: Kya Avila Address: [address] [place] [address] [facility] Relation: Daughter Healthcare Directive Healthcare Directive: Yes, patient has a healthcare directive Location of Healthcare Directive: Patient does not have it with him/her Would patient like to fill out a (a new) Healthcare Directive?: N/A Transportation Does the patient need discharge transport arranged?: No Transportation Name, Phone and Availability #1: Daughter Kya [phone] Transportation Name, Phone and Availability #2: Jaylan Quintana [phone] Does the patient use Medicaid Transportation?: No Expected Discharge Date Expected Discharge Date: 12/11/18 Expected Discharge Time: 1600 Expected discharge date pending patient's medical stability; awaiting pain control, ROBF. Living Situation Prior to Admission ? Living Arrangements Type of Residence: Home, dependent on others Living Arrangements: Children(Lives with daughter Kya) Bathroom Shower / Tub: Walk-in Shower How many levels in the residence?: 1 Can patient live on one level if needed?: Yes Does residence have entry and/or side stairs?: No Assistance needed prior to admit or anticipated on discharge: Yes Who provides assistance or could if needed?: Pt's dgt Kya that she lives with works methods time analyst, so pt will need to be able to care for herself independently on d/c. Patient reports being completely independent prior to admission, however admits that her daughter Kya whom she lives with does the majority of the housekeeping and cooking-- pt states "I can, she just won't let me." Pt reports that her dgt works methods time analyst during the day, and is unable to provide 24/7 supervision. Pt is without family or friends that are able to provide consistent supervision post-op. NCM spoke with pt re: current PT/OT recommendations for inpatient setting on discharge; pt states she had a SNF stay several years ago following a "torn esophagus" surgery, but denies IPR, LTACH, or NH experience. NCM provided pt with handout with overview of post-discharge levels of care; pt states she would like to [facility] to [facility] in [place] if able. NCM notified primary team of patient's request; team placing rehab consult. NCM also requested therapy work with pt over the weekend. Covering SW notified of same; Primary SW to f/u with patient and family on Tuesday. ? Level of Function Prior level of function: Independent(Pt reports prior level of function was independent; states she does not do cooking or housekeeping only because "my dgt won't let me. She likes to do it." Pt reports driving prior to surgery, however she states she will not be able to drive for a while d/t recent cataract surgery.) Current Therapy recommendations: PT: Inpatient setting OT: Inpatient setting ? Cognitive Abilities Cognitive Abilities: Alert and Oriented, Participates in decision making, Continue to Assess Financial Resources ? Coverage Primary Insurance: Medicare Replacement([employer] Medicare) Secondary Insurance: No insurance Additional Coverage: RX(Denies affordability concerns. ) [id number] [address] Payor: [employer] MEDICARE / Plan: [employer] MEDICARE PPO / Product Type: Medicare / ? Source of Income Source Of Income: Other prison income, SSI ? Financial Assistance Needed? Denies need for financial assistance including Rx coverage Psychosocial Needs ? Mental Health Mental Health History: No ? Substance Use History Substance Use History Screen: No Current/Previous Services ? PCP Armin Ulrich III, , ? Pharmacy [id number] [address] [facility] [address] [facility] MAIL DELIVERY - [facility] [address] [facility] [address] [facility] [address] [facility] [address] [facility] [place] [address] [facility] [address] [facility] [address] [place] [address] [address] [facility] [address] ? Durable Medical Equipment Durable Medical Equipment at home: (Pt does not report any DME. Prev hx in EMR reports a RW in 2016.) ? Home Health Receiving home health: In the past Agency name: [facility] Would patient use this agency again?: Yes ? Hemodialysis or Peritoneal Dialysis Undergoing hemodialysis or peritoneal dialysis: No ? Tube/Enteral Feeds Receive tube/enteral feeds: No ? Infusion Receive infusions: No ? Private Duty Private duty help used: No ? Home and Community Based Services Home and community based services: No ? Ramo Ralph White: N/A ? Hospice Hospice: No ? Outpatient Therapy PT: In the past When did patient receive care?: [facility] OP Therapy Would patient return for future services?: Yes OT: No FREELANCE TRANSLATOR: No ? [facility]ci Facility/Group Home SNF: In the past When did patient receive care?: "Several years ago, maybe ten." Name of Facility: [facility] Would patient return for future services?: Yes NH: No ? Inpatient Rehab IPR: No ? [facility] LTACH: No ? Acute Hospital Stay Acute Hospital Stay: In the past Was patient's stay within the last 30 days?: No Anticipated CM Needs: Inpatient setting Terry FLORES, RN Inpatient Nurse Replenishment Merchandising AssociateSemiconductor Processing Group Leader Oncology Office: Pager: *[phone] M-B [phone] * Operative Report (Direct Entry) - Ryan Montano MD - 12/07/2018 8:20 AM CDT OPERATIVE REPORT Name: Mellissa Avila is a 78 y.o. female : 1940 DATE OF OPERATION: 12/07/2018 Surgeon(s) and Role: * Ryan Montano MD - Primary * Joaquin Phillip DO - Co-surgeon * Lisa Alvarez MD - Resident - Assisting * Chapin De La Cruz MD - Resident - Assisting Preoperative Diagnosis: 1. Rectal prolapse Postoperative Diagnosis: 1. Rectal prolapse Operative Procedure: 1. Exploratory laparotomy 2. Resection rectopexy 3. Flexible sigmoidoscopy Anesthesia: General Indications for Operative Procedure: This is a 78 year old female with a history of rectal prolapse status post suture rectopexy at an outside facility. She presented with recurrent rectal prolapse. After discussing the risks, benefits, and alternatives, the patient elected to proceed with an exploratory laparotomy with possible resection rectopexy versus mesh based repair. Findings: The rectum was mobilized to the level of the anorectal junction. The redundant portion of the sigmoid colon was resected followed by creation of an end to end, colorectal anastomosis. The rectum was secured to the presacral fascia with 0-Ethibond suture. Description of Operative Procedure: After obtaining informed consent, the patient was taken to the operating room where she underwent induction of general anesthesia. She was prepped and draped in a sterile fashion in lithotomy position. A standard timeout was performed to verify patient and procedure. A midline incision was made and the abdomen was entered. Adhesions were present between the abdominal wall and omentum. These adhesions were released. Additional adhesions were released to mesh located at and above the umbilicus. Visualization of the abdomen revealed a redundant sigmoid colon, mobile rectum, and deep cul de sac. The right and left ureters were identified. The peritoneum was incised along the right and left aspects of the mesorectum. The presacral space was entered. Scarring was present in this plane behind the proximal and mid rectum. Normal planes were again encountered in the distal rectum. The lateral dissection was performed, taking care to preserve the sacral nerves. The right lateral stalk was divided and the left preserved. The anterior dissection was performed posterior to Denonvilliers' fascia. Dissection was continued to the level of the anorectal junction. The rectum was identified as confirmed by splaying of the teniae. The proximal rectum was divided with a contour stapler. The mesentery of the redundant sigmoid colon was divided with a LigaSure, staying close to the bowel wall in order to leave deeper circulation intact. This was continued until a point that the majority of the redundancy was removed while still allowing for a tension free anastomosis. The bowel was divided between clamps and the specimen removed. Brisk bleeding was noted from the cut edge. A 0-Prolene pursestring was placed around the divided end of the colon and an anvil was secured. The presacral fascia was exposed. Two 0-Ethibond sutures were secured to the presacral fascia along the right and one on the left. These were passed through the lateral stalks and temporarily tagged. After confirming appropriate orientation, a tension free, end to end, colorectal anastomosis was created with a size 29 EEA stapler. The anastomotic rings were intact. A leak test was performed, which was negative for a leak. The anastomosis was visualized during flexible sigmoidoscopy and noted to be intact , hemostatic, and well perfused. The Ethibond sutures were tied down in order to complete the rectopexy, ensuring reduction of the rectal prolapse without undue tension. The rectum was again examined endoscopically. The rectum remained widely patent. A leak test was again performed and remained negative. The colon and rectum were decompressed and the scope withdrawn. Hemostasis was confirmed. The midline fascia was closed with running #1 looped PDS suture. The wound was irrigated. The skin was closed with shanika. A clean operative dressing was applied. The patient was awakened in the operating room and transferred back to recovery in stable condition. All sponge, instrument, and needle counts were correct at the end of the case. I was present and scrubbed for the entire procedure. Dr. Phillip participated as a co-surgeon due to the reoperative nature of the abdomen and pelvis, requiring advanced exposure. Estimated Blood Loss: 30 ml Specimen(s) Removed/Disposition: ID Type Source Tests Collected by Time Destination 1 : rectum and sigmoid colon, routine Tissue Rectum SURGICAL PATHOLOGY Ryan Montano MD 12/07/2018 0903 Attestation: I was present and scrubbed for the entire procedure. Dr. Phillip participated as a co-surgeon due to the reoperative nature of the abdomen and pelvis, requiring advanced exposure. Ryan Montano MD Pager documented in this encounter Plan of Treatment Order Schedule Name Priority Associated Diagnoses ONCE for 1 Occurrences starting 12/07/2018 SURGICAL PATHOLOGY Routine Rectal prolapse documented as of this encounter Procedures Comments Procedure Name Priority Date/Time Associated Diagnosis CBC Routine 12/12/2018 4:15 AM CDT BASIC METABOLIC PANEL Routine 12/12/2018 4:15 AM CDT CBC Routine 12/11/2018 4:33 AM CDT BASIC METABOLIC PANEL Routine 12/11/2018 4:33 AM CDT CBC Routine 12/10/2018 5:07 AM CDT BASIC METABOLIC PANEL Routine 12/10/2018 5:07 AM CDT CBC Routine 12/09/2018 4:28 AM CDT BASIC METABOLIC PANEL Routine 12/09/2018 4:28 AM CDT CBC Routine 12/08/2018 4:24 AM CDT BASIC METABOLIC PANEL Routine 12/08/2018 4:24 AM CDT ABDOMEN AP ONLY Routine 12/07/2018 10:29 AM CDT SURGICAL PATHOLOGY 12/07/2018 9:16 AM CDT ABDOMINAL PROCTOPEXY WITH 12/07/2018 Rectal prolapse SIGMOID RESECTION 7:30 AM CDT EXPLORATORY LAPAROTOMY 12/07/2018 Rectal prolapse WITH/ WITHOUT BIOPSY 7:30 AM CDT TYPE & CROSSMATCH STAT 12/07/2018 Preop testing 6:16 AM CDT TELEMETRY STRIPS-SCAN 12/07/2018 12:00 AM CDT ECG-SCAN 11/21/2018 12:00 AM CDT documented in this encounter Results * CBC (12/12/2018 4:15 AM CDT) White Blood 8.6 4.5 - 11.0 K/UL [...] MAIN LAB Specimen Blood Performing Organization Address [facility] Phone Number MA[facility] LAB [address] [place] [address] * BASIC METABOLIC PANEL (12/12/2018 4:15 AM CDT) Sodium 137 137 - 147 MMOL/L K[facility] [...] >60 >60 mL/min [facility] Comment: [place] The eGFR is not validated for use in drug dosing adjustments.Continue to use estimated creatinine clearance per dosing reference text.Please contact the Clinical Pharmacist for questions. eGFR >60 >60 mL/min [facility] [place] Comment: The eGFR is not validated for use in drug dosing adjustments.Continue to use estimated creatinine clearance per dosing reference text.Please contact the Clinical Pharmacist for questions. Specimen Blood Performing Organization Address City/[facility] Phone Number [facility] [address] [place] [address] * CBC (12/11/2018 4:33 AM CDT) White Blood 10.8 4.5 - 11.0 K/UL [facility] MAIN [facility] Cells RBC 3.16 (L) 4.0 - 5.0 M/UL [facility] Hemoglobin 10.3 (L) 12.0 - 15.0 GM/DL [facility] Hematocrit 30.7 (L) 36 - 45 % [facility] MCV 97.2 80 - 100 FL [facility]IN [facility] MCH 32.8 26 - 34 PG [facility] MCHC 33.7 32.0 - 36.0 G/DL MAIN LAB RDW 13.3 11 - 15 % [facility] Platelet Count 267 150 - 400 K/UL [facility] MPV 8.8 7 - 11 FL [facility]IN [facility] Specimen Blood Performing Organization Address City/State/Zipcode Phone Number MAIN LAB [address] [place] [address] * BASIC METABOLIC PANEL (12/11/2018 4:33 AM CDT) Sodium 139 137 - 147 MMOL/L [facility] Potassium 3.7 3.5 - 5.1 MMOL/L [facility] Chloride 105 98 - 110 MMOL/L [facility] CO2 28 21 - 30 MMOL/L [facility] Anion Gap 6 3 - 12 [facility] Glucose 99 70 - 100 MG/DL [facility] Blood Urea 13 7 - 25 MG/DL [facility] Nitrogen Creatinine 0.76 0.4 - 1.00 MG/DL [facility] Calcium 9.8 8.5 - 10.6 MG/DL [facility] eGFR Non >60 >60 mL/min [facility] Comment: [place] The eGFR is not validated for use in drug dosing adjustments.Continue to use estimated creatinine clearance per dosing reference text.Please contact the Clinical Pharmacist for questions. eGFR >60 >60 mL/min [facility] [place] Comment: The eGFR is not validated for use in drug dosing adjustments.Continue to use estimated creatinine clearance per dosing reference text.Please contact the Clinical Pharmacist for questions. Specimen Blood Performing Organization Address City/[facility]/Zipcode Phone Number MAIN LAB [address] [place] [address] * BASIC METABOLIC PANEL (12/10/2018 5:07 AM CDT) Sodium 137 137 - 147 MMOL/L [facility] Potassium 4.0 3.5 - 5.1 MMOL/L [facility] Chloride 108 98 - 110 MMOL/L [facility] CO2 26 21 - 30 MMOL/L [facility] Anion Gap 3 3 - 12 [facility] Glucose 90 70 - 100 MG/DL [facility] Blood Urea 15 7 - 25 MG/DL [facility] Nitrogen Creatinine 0.82 0.4 - 1.00 MG/DL [facility] Calcium 9.3 8.5 - 10.6 MG/DL [facility] eGFR Non >60 >60 mL/min [facility] Comment: [place] The eGFR is not validated for use in drug dosing adjustments.Continue to use estimated creatinine clearance per dosing reference text.Please contact the Clinical Pharmacist for questions. eGFR >60 >60 mL/min [facility] [place] Comment: The eGFR is not validated for use in drug dosing adjustments.Continue to use estimated creatinine clearance per dosing reference text.Please contact the Clinical Pharmacist for questions. Specimen Blood Performing Organization Address City/[facility]/Zipcode Phone Number [facility] [address] [place] [address] * CBC (12/10/2018 5:07 AM CDT) White Blood 13.1 (H) 4.5 - 11.0 K/UL [facility] MAIN [facility] Cells RBC 2.82 (L) 4.0 - 5.0 M/UL [facility] Hemoglobin 9.3 (L) 12.0 - 15.0 GM/DL [facility] Hematocrit 27.5 (L) 36 - 45 % [facility] MCV 97.4 80 - 100 FL [facility] MCH 33.0 26 - 34 PG [facility] MCHC 33.9 32.0 - 36.0 G/DL [facility] RDW 13.4 11 - 15 % [facility] Platelet Count 210 150 - 400 K/UL [facility] MPV 9.3 7 - 11 FL [facility] MAIN [facility] Specimen Blood Performing Organization Address City/[facility]/Zipcode Phone Number MAIN LAB [address] [place] [phone] * BASIC METABOLIC PANEL (12/09/2018 4:28 AM CDT) Sodium 138 137 - 147 MMOL/L [facility] Potassium 4.2 3.5 - 5.1 MMOL/L [facility] Chloride 107 98 - 110 MMOL/L [facility] CO2 28 21 - 30 MMOL/L [facility] Anion Gap 3 3 - 12 [facility] Glucose 98 70 - 100 MG/DL [facility] Blood Urea 20 7 - 25 MG/DL [facility] Nitrogen Creatinine 1.03 (H) 0.4 - 1.00 MG/DL [facility] Calcium 9.1 8.5 - 10.6 MG/DL [facility] eGFR Non 52 (L) >60 mL/min [facility] Comment: [place] The eGFR is not validated for use in drug dosing adjustments.Continue to use estimated creatinine clearance per dosing reference text.Please contact the Clinical Pharmacist for questions. eGFR >60 >60 mL/min [facility] [place] Comment: The eGFR is not validated for use in drug dosing adjustments.Continue to use estimated creatinine clearance per dosing reference text.Please contact the Clinical Pharmacist for questions. Specimen Blood Performing Organization Address City/[facility]/Zipcode Phone Number [facility] [address] [place] [address] * CBC (12/09/2018 4:28 AM CDT) White Blood 13.8 (H) 4.5 - 11.0 K/UL [facility]IN [facility] Cells RBC 2.84 (L) 4.0 - 5.0 M/UL [facility] Hemoglobin 9.4 (L) 12.0 - 15.0 GM/DL [facility] Hematocrit 27.6 (L) 36 - 45 % [facility] MCV 97.4 80 - 100 FL [facility] MCH 33.0 26 - 34 PG [facility] MCHC 33.9 32.0 - 36.0 G/DL [facility] RDW 13.7 11 - 15 % [facility] Platelet Count 200 150 - 400 K/UL [facility] MPV 9.0 7 - 11 FL MAIN LAB Specimen Blood Performing Organization Address City/[facility]/Zipcode Phone Number MAIN LAB [address] [place] [address] * BASIC METABOLIC PANEL (12/08/2018 4:24 AM CDT) Sodium 142 137 - 147 MMOL/L [facility] Potassium 4.1 3.5 - 5.1 MMOL/L [facility] Chloride 107 98 - 110 MMOL/L [facility] CO2 30 21 - 30 MMOL/L [facility] Anion Gap 5 3 - 12 [facility] Glucose 128 (H) 70 - 100 MG/DL [facility] Blood Urea 18 7 - 25 MG/DL [facility] Nitrogen Creatinine 1.01 (H) 0.4 - 1.00 MG/DL [facility] Calcium 9.5 8.5 - 10.6 MG/DL [facility]IN [facility] eGFR Non 53 (L) >60 mL/min [facility]IN [facility] Comment: [place] The eGFR is not validated for use in drug dosing adjustments.Continue to use estimated creatinine clearance per dosing reference text.Please contact the Clinical Pharmacist for questions. eGFR >60 >60 mL/min [facility] [place] Comment: The eGFR is not validated for use in drug dosing adjustments.Continue to use estimated creatinine clearance per dosing reference text.Please contact the Clinical Pharmacist for questions. Specimen Blood Performing Organization Address City/[facility]/Zipcode Phone Number MAIN LAB [address] [place] [address] * CBC (12/08/2018 4:24 AM CDT) White Blood 14.7 (H) 4.5 - 11.0 K/UL [facility]IN [facility] Cells RBC 3.30 (L) 4.0 - 5.0 M/UL [facility] Hemoglobin 10.8 (L) 12.0 - 15.0 GM/DL [facility] Hematocrit 31.6 (L) 36 - 45 % [facility] MCV 95.9 80 - 100 FL [facility] MCH 32.9 26 - 34 PG [facility] MCHC 34.3 32.0 - 36.0 G/DL [facility] RDW 13.1 11 - 15 % [facility] Platelet Count 236 150 - 400 K/UL [facility] MPV 9.0 7 - 11 FL [facility] MAIN [facility] Specimen Blood Performing Organization Address City/[facility]/Zipcode Phone Number [facility] [address] [place] [phone] * ABDOMEN AP ONLY (12/07/2018 10:29 AM CDT) Impressions Performed At Recent abdominal surgery with no retained radiopaque surgical instrument in the [facility] RAD RESULTS [id number]. Salomón Maria MD and Khoa Ibrahim MD [...] No retained radiopaque surgical instrument in the [id number]-sm-[id number]. Mullen catheter temperature probe overlies the lower pelvis. [...] No retained radiopaque surgical instrument in the [id number]-[id number]-[id number]. Mullen catheter temperature probe overlies the lower pelvis. Small hiatal hernia. Scattered calcified atherosclerosis throughout the aorta. IMPRESSION Recent abdominal surgery with no retained radiopaque surgical instrument in the [id number]. Salomón Maria MD and Khoa Ibrahim MD [...] PATHOLOGY (12/07/2018 9:16 AM CDT) PATHOLOGY [facility] [email or web address] Department of Pathology and Laboratory Medicine [address] [place] [address] Surgical Pathology Office:[phone] :[phone] SURGICAL PATHOLOGY REPORT NAME: MELLISSA AVILA SURG PATH #: [id number] MR #: [id number] SPECIMEN CLASS: [facility] BILLING #: [id number] ALT ID #:LOCATION: [id number] DATE OF PROCEDURE: 12/07/2018 AGE:78 SEX: F DATE RECEIVED: 12/07/2018 : 1941TIME RECEIVED:09:16 PHYSICIAN: RYAN MONTANO MD DATE OF REPORT: [...] submitted to [facility] Core Facility: No Machine Cementer And Folder sections are submitted as follows: A1 Proximal resection margin. A2 Distal resection margin. A3-A4 Sigmoid colon mucosa. A5-A6 Rectal mucosa. (tianna) jrt/12/07/2018 Performing Organization Address City/State/Zipcode Phone Number [facility] [address] [place] [address] * TYPE & CROSSMATCH (12/07/2018 6:16 AM CDT) Units Ordered 2 [facility] Crossmatch 12/10/2018 [facility] Expires Record Check FOUND [facility] ABO/RH(D) O POS [facility] Antibody Screen NEG [facility] Electronic YES [facility] Crossmatch Unit Number [id number] [facility] Blood Component RBC,ADSOL,LEUKO REDUCED [facility] Type Unit Division 0 [facility] Status OF Unit REL FROM ALLOC [facility] Transfusion OK TO TRANSFUSE [facility] Status Crossmatch COMPATIBLE,ELECTRONIC [facility] Result Unit Number [id number] MAIN LAB Blood Component RBC,ADSOL,LEUKO REDUCED [facility] Type Unit Division 0 [facility] Status OF Unit REL FROM ALLOC [facility] Transfusion OK TO TRANSFUSE MAIN LAB Status Crossmatch COMPATIBLE,ELECTRONIC MAIN LAB Result Specimen Blood Performing Organization Address City/State/Zipcode Phone Number MAIN LAB [address] [place] [address] * TELEMETRY STRIPS-SCAN (12/07/2018 12:00 AM CDT) Narrative Performed At Ordered by an unspecified provider. * ECG-SCAN (11/21/2018 12:00 AM CDT) Narrative Performed At Ordered by an unspecified provider. documented in this encounter Visit Diagnoses Diagnosis Preop testing Preoperative examination, unspecified Rectal prolapse documented in this encounter Admitting Diagnoses Diagnosis Rectal prolapse documented in this encounter Administered Medications Action Date Dose Rate Site Medication Order MAR Action 12/07/2018 7:10 AM CDT 1,000 mg acetaminophen (TYLENOL) tablet 1,000 mg Given 1,000 mg, Oral, ONCE, 1 dose, [facility] 12/07/18 at 0700, TOTAL ACETAMINOPHEN DOSE NOT TO EXCEED 4GM DAILY, 12/12/2018 8:31 AM CDT 650 mg acetaminophen (TYLENOL) tablet 650 mg Given 650 mg, Oral, EVERY 6 HOURS, First dose on [facility] 12/07/18 at 1000, Until Discontinued, - When taking oral medications. - Pain management adjuvant therapy for Epidural PCEA., 650 mg Given 12/11/2018 9:06 PM CDT 650 mg Given 12/11/2018 5:01 PM CDT 12/11/2018 9:06 PM CDT 10 mg amitriptyline (ELAVIL) tablet 10 mg Given 10 mg, Oral, AT BEDTIME DAILY, First dose on [facility] 12/07/18 at 2100, Until Discontinued 10 mg Given 12/10/2018 9:46 PM CDT 10 mg Given 12/09/2018 10:04 PM CDT 12/10/2018 12:34 AM CDT bupivacaine ON AIR ANNOUNCER 0.125% in NS 50mL Given - New epidural infusion syr Bag Epidural, ON AIR ANNOUNCER, Starting [facility] 12/07/18 at 1100, Until Tue12/10/18 at 1214, --FOR EPIDURAL ADMINISTRATION ONLY -- Administer only with ON AIR ANNOUNCER Pump -- Only Patient may push ON AIR ANNOUNCER button Prescription change can only be made by Anesthesiology Pain Service. NOTE: This is a HIGH ALERT Medication., Dose/Rate Verify 12/09/2018 7:13 PM CDT Given - New Bag 12/09/2018 3:51 PM CDT 12/10/2018 12:34 AM CDT 50 mL/hr dextrose 5 % & 0.45% NaCl with KCl 20 Given - New mEq/L infusion Bag 1,000 mL, Intravenous, at 50 mL/hr, CONTINUOUS, Starting Tue12/08/18 at 0700, Until Tue12/10/18 at 0659 50 mL/hr Given - New Bag 12/09/2018 3:57 AM CDT 50 mL/hr Given - New Bag 12/08/2018 6:14 AM CDT 12/11/2018 9:06 PM CDT 30 mg Abdominal Tissue enoxaparin (LOVENOX) syringe 30 mg Given 30 mg, Subcutaneous, DAILY, First dose on Tue12/08/18 at 2100, Until Discontinued, For patients undergoing surgery: Consult physician in advance -- enoxaparin is an anticoagulant and may need to be held for 12hr prior to surgery or invasive procedures. NOTE: This is a HIGH ALERT Medication., 30 mg Arm, Left Given 12/10/2018 9:46 PM CDT 30 mg Arm, Right Given 12/09/2018 10:04 PM CDT 12/07/2018 9:49 PM CDT 100 mg gabapentin (NEURONTIN) capsule 100 mg Given 100 mg, Oral, EVERY 8 HOURS, First dose on [facility] 12/07/18 at 2200, Until Discontinued, - When taking oral medications. - Pain management adjuvant therapy for Epidural PCEA., 12/07/2018 7:11 AM CDT 300 mg gabapentin (NEURONTIN) capsule 300 mg Given 300 mg, Oral, ONCE, 1 dose, [facility] 12/07/18 at 0700 12/12/2018 8:29 AM CDT 30 mg isosorbide mononitrate SR (IMDUR) tablet Given 30 mg 30 mg, Oral, EVERY MORNING, First dose on Tue12/08/18 at 0900, Until Discontinued, DO NOT Crush tablets (May be cut in half), 30 mg Given 12/11/2018 9:22 AM CDT 30 mg Given 12/10/2018 8:18 AM CDT 12/07/2018 6:22 AM CDT 1,000 mL 20 mL/hr lactated ringers infusion Given - New 1,000 mL, 1,000 mL, Intravenous, at 20 Bag mL/hr, CONTINUOUS, Starting [facility] 12/07/18 at 0630, Until Tue12/07/18 at 1400, Pre-Op 12/07/2018 4:33 PM CDT 75 mL/hr lactated ringers infusion Given - New 1,000 mL, Intravenous, at 75 mL/hr, Bag CONTINUOUS, Starting Tue12/07/18 at 1115, Until Tue12/08/18 at 1114 75 mL/hr Dose/Rate Change 12/07/2018 11:19 AM CDT LACTATED RINGERS IV SOLP (Cabinet Override) NOW, 1 dose, [facility] 12/07/18 at 0600, Created by cabinet override, Created by cabinet override, LIDOCAINE (PF) 10 MG/ML (1 %) IJ SOLN (Cabinet Override) NOW, 1 dose, [facility] 12/07/18 at 0615, Created by cabinet override, Created by cabinet override, 12/07/2018 6:18 AM CDT 2 mL lidocaine PF 1% (10 mg/mL) injection Given 0.1-2 mL 0.1-2 mL, Injection, NEEDED, Starting [facility] 12/07/18 at 0645, Until Tue12/07/18 at 1358, Other..., for IV insertion, Pre-Op 12/11/2018 9:06 PM CDT 5 mg lisinopril (PRINIVIL; ZESTRIL) tablet 5 Given mg 5 mg, Oral, AT BEDTIME DAILY, First dose on Tue12/08/18 at 2100, Until Discontinued 5 mg Given 12/09/2018 10:05 PM CDT 12/10/2018 9:45 PM CDT 10 mL milk of magnesia (CONC) oral suspension Given 10 mL 10 mL, Oral, DAILY, First dose on Tue12/07/18 at 2100, Until Discontinued, Hold for loose stools. 10 mL CONC=30 mL MOM, 10 mL Given 12/08/2018 9:42 PM CDT 10 mL Given 12/07/2018 9:50 PM CDT 12/12/2018 8:29 AM CDT 10 mg oxybutynin XL (DITROPAN XL) tablet 10 mg Given 10 mg, Oral, DAILY, First dose on Tue12/10/18 at 0900, Until Discontinued, Do not crush or chew, 10 mg Given 12/11/2018 9:22 AM CDT 10 mg Given 12/10/2018 8:18 AM CDT 12/11/2018 2:48 AM CDT 5 mg oxyCODONE (ROXICODONE, OXY-IR) tablet Given 5-10 mg 5-10 mg, Oral, EVERY 4 HOURS PRN, Starting Tue12/07/18 at 0951, Until Tue12/12/18 at 1459, Pain PO, - When taking oral medications. - Pain management adjuvant therapy for Epidural PCEA., 12/12/2018 8:29 AM CDT [address] (PROTONIX) tablet 40 mg Given 40 mg, Oral, EVERY MORNING, First dose on Tue12/08/18 at 0800, Until Discontinued, Do not crush or chew tablet., 40 mg Given 12/11/2018 9:22 AM CDT 40 mg Given 12/10/2018 8:18 AM CDT 12/12/2018 8:30 AM CDT 17 g polyethylene glycol 3350 (MIRALAX) Given packet 17 g 17 g (1 packet), Oral, TWICE DAILY, First dose on Tue12/07/18 at 1415, Until Discontinued, 8.5 GRAMS=0.5 PACKET 17 GRAMS=1 PACKET 34 GRAMS=2 PACKETS, 17 g Given 12/11/2018 9:22 AM CDT 17 g Given 12/10/2018 9:45 PM CDT 12/12/2018 6:11 AM CDT 2 tablets potassium phosphate (K-PHOS ORIGINAL) Given dispersable tablet 2 tablet 2 tablet, Oral, ONCE, 1 dose, 12/12/18 at 0600, DO NOT SWALLOW TABLET DISSOLVE IN WATER PRIOR TO ADMINISTRATION - The tablets are administered by dissolving two tablets in 6-8 ounces of water. - For best results, soak tablets in water for two to five minutes, or more if necessary, and stir. - If any tablet particles remain undissolved, they may be crushed and stirred vigorously to speed dissolution. Each tablet delivers 114 mg Phosphorus (3.6 mMol) and 3.7 mEq Potassium., 12/12/2018 8:30 AM CDT 10 mg pravastatin (PRAVACHOL) tablet 10 mg Given 10 mg, Oral, EVERY MORNING, First dose on Tue12/08/18 at 0800, Until Discontinued 10 mg Given 12/11/2018 9:22 AM CDT 10 mg Given 12/10/2018 8:18 AM CDT documented in this encounter
--- OUTSIDE RECORDS SUMMARY | 2018-12-23 17:26 | XMS REPORT | Encounter Summary ---
Author [facility] Address Unknown Phone Unavailable Care Team Providers Care Cloth Shader Name Role Phone Armin Ulrich MD PCP Brady Huber MD [id number] Yaya Vallecillo MD [id number] Marcio Ndiaye [phone] Reason for Visit * Auth/Cert Referred By Contact Referred To Contact Status Reason Specialty Diagnoses / Procedures Diagnoses Rectal prolapse Rectal prolapse [K62.3] P rocedures ME EXPLORATORY LAPAROTOMY CELIOTOMY W/WO BIOPSY SPX ME PROCTOPEXY W/SIGMOID RESCJ ABDL APPR EXPLORATORY LAPAROTOMY WITH/ WITHOUT BIOPSY ABDOMINAL PROCTOPEXY WITH SIGMOID RESECTION WITH MESH Encounter Details Care Team Description Date Type Department Ryan Montano MD [address] [facility] [place] [address] EXPLORATORY LAPAROTOMY 12/07/2018 Surgery [facility] [place] [address] [place] [address] [id number] Social History Date Tobacco Use Types Packs/Day [...] Vit C-Vit Take 1 Cap by 0 X-Fshlse-Cwi-OM-3 mouth daily. 754-67-9-150 dh-sbfi-dd-mg cap zinc sulfate 220 mg (50 Take [...] PROGRESS NOTE Patient Name: Mellissa Avila Room/Bed: EK7246/01 Admitting Diagnosis: Rectal prolapse [K62.3] Mobility Progressive [...] daughter owns DME. Prior Function Level Of [place]: Independent with ADLs and functional transfers Lives [...] Transfers, Stairs, Safety concerns Therapist: TRE Hickman/Ibis [id number] Date: 12/11/2018 * Hailey Honeycutt - 12/11/2018 [...] 16 Standardized (T-scale) Score: 38.32 Basic Mobility CMS 0-100%: 47.12 CMS G Code Modifier for Basic Mobility: CK [...] Therapist: Hailey Honeycutt Date: 12/11/2018 * Nazanin Montague RN - 12/11/2018 6:30 AM CDT Kya Avila (daughter) called this am and stated they would prefer pt to be at home cared for by Lilian (daughter) who is equipped to care for her at home. Kya states they have walker and / care. [phone] Kya number * Lisa Alvarez MD - [...] Occurrence: 0 Lisa Alvarez MD [id number] * EddiNazanin loredo RN - 12/10/2018 11:58 PM CDT 1130 Text page ([phone]) sent to team about pt unable to [...] RN - 12/10/2018 12:53 PM CDT MD track repair person text paged and notified that pt is [...] around 11:30 am 12/10/18. Anesthesia Pain pager: [phone] Allergies Allergen Reactions Metoclopramide AGITATION causes involuntary [...] 10 mg Oral QAM8 Continuous Infusions: bupivacaine IMMIGRATION COORDINATOR 0.125% in NS 50mL epidural infusion syr [...] 1122) Temp: 36.3 C (97.4 F) (12/10 112) Pulse: 65 (12/10 1200) Respirations: 16 PER MINUTE (12/10 1121) SpO2: 94 % (12/10 112) O2 Delivery: None (Room Air) (12/10 1121) [...] Salomón Waller MD Date: 12/10/2018 * Marianne Miner, RT - 12/10/2018 10:01 AM CDT RT [...] noted. Staff name: Joaquin Phillip DO Date: 12/11/2018 * Alena Dumont OTA - [...] daughter owns DME. Prior Function Level Of [place]: Independent with ADLs and functional transfers Lives [...] likely discontinue epidural tomorrow. Anesthesia Pain pager: [phone] Allergies Allergen Reactions Metoclopramide AGITATION causes involuntary [...] 10 mg Oral QAM8 Continuous Infusions: bupivacaine IMMIGRATION COORDINATOR 0.125% in NS 50mL epidural infusion syr [...] Signs: 24 Hour Range BP: 123/58 (12/09 1045) Temp: 37.5 C (99.5 F) (12/09 1045) Pulse: 56 (12/09 1045) Respirations: 16 PER MINUTE (12/09 1045) SpO2: 96 % (12/09 1045) O2 Delivery: None (Room Air) (12/09 1045) [...] name: Salomón Waller MD Date: 12/09/2018 * hCapin De La Cruz MD - 12/09/2018 7:51 [...] noted. Staff name: Joaquin Phillip DO Date: 12/09/2018 Cont CLD Cont mullen for deep dissection and epidural Pain controlled * Hailey Carranza DO - 12/08/2018 10:25 AM CDT Anesthesiology [...] Consider removing epidural 12/09 Anesthesia Pain pager: [phone] Allergies Allergen Reactions Metoclopramide AGITATION causes involuntary [...] 10 mg Oral QAM8 Continuous Infusions: bupivacaine IMMIGRATION COORDINATOR 0.125% in NS 50mL epidural infusion syr [...] Vital Signs: 24 Hour Range BP: 114/46 (12/09 751) Temp: 37.4 C (99.4 F) (12/08 075) Pulse: 61 (12/08 0831) Respirations: 16 PER MINUTE (12/09 751) SpO2: 97 % (12/09 751) O2 Delivery: Nasal Cannula (12/09 751) SpO2 Pulse: 59 (12/07 1304) BP: (100-169)/(46-65) [...] Score: 32.23 Basic Mobility CMS 0-100%: 61.94 CMS G Code Modifier for Basic Mobility: CL [...] of house;Ambulation;Bathing(IADLs) Therapist: Mary Brown PT, DPT, [facility] Date: 12/08/2018 * Summer Tysno - 12/08/2018 9:17 AM CDT OCCUPATIONAL THERAPY ASSESSMENT NOTE Patient Name: Mellissa Avila [id number] Admitting Diagnosis: Rectal prolapse [K62.3] Mobility Progressive [...] daughter owns DME. Prior Function Level Of [place]: Independent with ADLs and functional transfers Lives [...] out of house, Ambulation, Bathing(IADLs ) Therapist: TRE Hickman/Ibis [id number] Date: 12/08/2018 * Chapin De La Cruz [...] 9.5 Intake/Output Summary (Last 24 hours) at 12/08/2018 0720 Last data filed at 12/08/2018 0454 Gross [...] status and location prior to transfer to [facility]. 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 All belongings went up to room with [...] 2012 20 years ago GASTRIC FUNDOPLICATION 2013 ME ROBOTIC SURGICAL SYSTEM N/A 02/20/2016 ROBOT-ASSISTED INCISIONAL [...] file Gets together: Not on file Attends latter-day service: Not on file Active member of [...] mg by mouth twice daily. Vit C-Vit F-Gvwcgh-Dcl-OM-3 664-32-1-150 st-bkkb-ob-mg cap Take 1 Cap by mouth daily. [...] Planning Discharge Planning: No Needs Identified - [facility] contacted patient's daughter, Lilian Acuna, to inquire about home needs; Lilian reports that typically Lilian and sister Kya do "shared custody" of their mom, with Lilian keeping pt M-Th and Kya caring for patient on the weekends, however Lilian reports that she will be caring for her mother immediately following discharge so that she may have 24/7 supervision, as Kya works time motion analyst during the week. Lilian states that she is a retired REGISTERED NURSE CARDI[employer], and is comfortable caring for her mom's mullen and wounds post-discharge, but would like this [facility] to check with patient's other daughter Kya to confirm that HH services are not needed on discharge. Lilian also confirmed that patient has intermittently gone to [facility]'s outpatient rehab for therapy assistance; Lilian states she will be able to take patient to OP therapy if needed on discharge. - [facility] contacted Kya to discuss discharge POC; Kya reports that patient has never had HH services in the past, and she does not anticipate pt will need services on discharge as she and her sister have patient's care "under control. " NCM verified that daughters would be able to manage patient's home needs including mullen and incisional wound; Kya verbalized understanding. - NCM provided Kya with contact information for this NCM, and encouraged dgt to r/o with any discharge needs. Kya verbalized understanding and appreciation of same. - Patient will need outpatient therapy prescription on discharge so she may continue going to [facility] OP Therapy program if needed on discharge; NCM notified primary team of same. - NCM to continue to follow patient for discharge planning assistance. ? Medication Needs ? Financial ? Legal ? Other Disposition ? Transportation Does the patient need discharge transport arranged?: No Transportation Name, Phone and Availability #1: Daughter Kya [phone] Transportation Name, Phone and Availability #2: Daughter Lilian [phone] Does the patient use Medicaid Transportation?: No ? Discharge Disposition Durable Medical Equipment No service has been selected for the patient. Destination No service has been selected for the patient. Home Care No service has been selected for the patient. Dialysis/Infusion No service has been selected for the patient. Terry FLORES, RN Inpatient Nurse Tempering Machine OperatorAgricultural Sciences Professor Oncology Office: Pager: *[phone] M-F [phone] * Case Mgmt DC Plan - Stefania Gates - 12/11/2018 3:05 PM CDT Case Management Progress NoteNAME:Mellissa Avila :1940 AGE: 78 y.o. ADMISSION DATE: 12/07/2018 DAYS ADMITTED: LOS: 4 days Todays Date: 12/11/2018 Plan: Pt expected to d/c home when medically stable. Interventions ? Support ? Info or Referral ? Discharge Planning SW spoke to Lilian Avila ([phone]), daughter, at 1400 and discussed d /c plans and options. Lilian Acuna wanted the pt to d/c home to her house and stated she would receive 24/7 care and they had a lift chair, walker, and other DME available upon arrival. MILAD told Lilian Acuna PT recommended home w/ assistance vs inpt setting. Lilian Acuna wanted to speak to her sister Kya and then call SW back for where they were wanting pt to d/c. Kya ([phone])called SW and stated they wanted pt to d/c home. Kya affirmed that pt would have 24/7 care. SW spoke to pt and she desired to d/c home to Lilian Acuna's house also. She affirmed that she would have 24/7 care and felt safe to d/c there. All parties involved would like pt to d/c home to Lilian [place] and expressed they felt safe in their decision. Also, all parties stated they would reach out to inpt facilities if they felt pt was unsafe or needed additional help for any reason. Update: SW alerted nurse RNCM for referral for HH. ? Medication Needs ? Financial ? Legal ? Other Disposition ? Expected Discharge Date Expected Discharge Date: 12/12/18 Expected Discharge Time: 1200 ? Transportation Does the patient need discharge transport arranged?: No Transportation Name, Phone and Availability #1: Daughter Kya [phone] Transportation Name, Phone and Availability #2: Daughter Lilian [phone] Does the patient use Medicaid Transportation?: No ? Next Level of Care (Acute Psych discharges only) ? Discharge Disposition Durable Medical Equipment No service has been selected for the patient. [facility] Destination No service has been selected for the patient. [facility] Home Care No service has been selected for the patient. [facility] Dialysis/Infusion No service has been selected for the patient. Stefania Gates MANAGER SYSTEMS P. [phone] * Case Mgmt DC Plan - Kayla Wilkins - 12/11/2018 1:53 PM CDT BASEBALL SEWER HAND Note: Printed a list of SNF and IPR per the request of [facility] Cathy Cormeir. Kayla Wilkins Rotary Soil Stabilizer For additional assistance, please contact [facility] Cathy Cormier [phone]. * Case Mgmt DC Plan - Gail Maher - 12/10/2018 11:31 AM CDT Case Management Progress NoteNAME:Mellissa Avila :1940 AGE: 78 y.o. ADMISSION DATE: 12/07/2018 DAYS ADMITTED: LOS: 3 days Todays Date: 12/10/2018 Plan Pt to discharge to IPR vs SNF Interventions ? Support ? Info or Referral ? Discharge Planning [facility] IPR consult pending SW met with pt to discuss discharge. Pt [...] Name, Phone and Availability #1: Daughter Kya [phone] Transportation Name, Phone and Availability #2: Daughter Lilian [phone] Does the patient use Medicaid Transportation?: No [...] 10 mg Oral QAM8 Continuous Infusions: bupivacaine IMMIGRATION COORDINATOR 0.125% in NS 50mL epidural infusion syr [...] primary care physician. Patient Address/Phone [address] [address] (home) Emergency Contact Extended Emergency Contact Information Primary Emergency Contact: Lilian Rey Address: [address] [place] [address] [facility] Mobile Relation: Daughter Secondary Emergency Contact: Kya Avila Address: [address] [id number] [facility] Mobile Relation: Daughter Healthcare Directive Healthcare Directive: Yes, patient has a healthcare directive Location of Healthcare Directive: Patient does not have it with him/her Would patient like to fill out a (a new) Healthcare Directive?: N/A Transportation Does the patient need discharge transport arranged?: No Transportation Name, Phone and Availability #1: Jaylan Boland [phone] Transportation Name, Phone and Availability #2: Jaylan Quintana [phone] Does the patient use Medicaid Transportation?: No [...] dgt Kya that she lives with works time motion analyst, so pt will need to be able to care for herself independently on d/c. Patient reports being completely independent prior to admission, however admits that her daughter Kya whom she lives with does the majority of the housekeeping and cooking-- pt states "I can, she just won't let me." Pt reports that her dgt works time motion analyst during the day, and is unable to provide 24/7 supervision. Pt is without family or friends that are able to provide consistent supervision post-op. NCM spoke with pt re: current PT/OT recommendations for inpatient setting on discharge; pt states she had a SNF stay several years ago following a "torn esophagus" surgery, but denies IPR, LTACH, or NH experience. [facility] provided pt with handout with overview of post-discharge levels of care; pt states she would like to discharge to [facility] in [place] if able. [facility] notified primary team of patient's request; team placing rehab consult. [facility] also requested therapy work with pt over [...] insurance Additional Coverage: RX(Denies affordability concerns. ) [facility] - [place], [place] - [address] Payor: [employer] MEDICARE / Plan: [employer] [facility] [facility] MEDICARE PPO / Product Type: Medicare / ? Source of Income Source Of Income: Other [place] [facility] income, SSI ? Financial Assistance Needed? Denies need for financial assistance including Rx coverage Psychosocial Needs ? Mental Health Mental Health History: No ? Substance Use History Substance Use History Screen: No Current/Previous Services ? PCP Armin Ulrich III, , ? Pharmacy [facility] - [place], [place] - [address] [facility] [address] [facility] [place], [place] - [address] [facility] [address] [facility] [address] [place] [address] [facility] [address] [facility] - [place], [place] - [address] [address] [address] [facility] [address] ? Durable Medical Equipment Durable Medical Equipment at home: (Pt does not report any DME. Prev hx in EMR reports a RW in 2016.) ? Home Health Receiving home health: In the past Agency name: [facility] Would patient use this agency again?: Yes ? Hemodialysis or Peritoneal Dialysis Undergoing hemodialysis or peritoneal dialysis: No ? Tube/Enteral Feeds Receive tube/enteral feeds: No ? Infusion Receive infusions: No ? Private Duty Private duty help used: No ? Home and Community Based Services Home and community based services: No ? Ramo White Ramo White: N/A ? Hospice Hospice: No ? Outpatient Therapy PT: In the past When did patient receive care?: [facility] OP Therapy Would patient return for future services?: Yes OT: No CERTIFIED VETERINARY TECHNICIAN: No ? Penitentiary Facility/Care Home SNF: In the past When did patient receive care?: "Several years ago, maybe ten." Name of Facility: [facility] Would patient return for future services?: Yes NH: No ? Inpatient Rehab IPR: No ? [facility] Hospital LTACH: No ? Acute Hospital Stay Acute Hospital Stay: In the past Was patient's stay within the last 30 days?: No Anticipated CM Needs: Inpatient setting Terry FLORES, RN Inpatient Nurse Tempering Machine OperatorAgricultural Sciences Professor Oncology Office: Pager: [phone] T-D [phone] * Operative Report (Direct Entry) - Ryan [...] MAIN LAB Specimen Blood Performing Organization Address City/[facility] Phone Number MAIN LAB [address] [place] [address] * BASIC METABOLIC PANEL (12/12/2018 4:15 AM [...] >60 >60 mL/min [facility] MAIN LAB Comment: [place] The eGFR is not validated for use in drug dosing adjustments.Continue to use estimated creatinine clearance per dosing reference text.Please contact the Clinical Pharmacist for questions. eGFR >60 >60 mL/min [facility] MAIN LAB [place] Comment: The eGFR is not validated for use in drug dosing adjustments.Continue to use estimated creatinine clearance per dosing reference text.Please contact the Clinical Pharmacist for questions. Specimen Blood Performing Organization Address City/[facility] Phone Number MAIN LAB [address] [place] [address] * CBC (12/11/2018 4:33 AM CDT) White Blood 10.8 4.5 - 11.0 K/UL MAIN LAB Cells RBC 3.16 (L) 4.0 [...] LAB MPV 8.8 7 - 11 FL MAIN LAB Specimen Blood Performing Organization Address [facility] Phone Number MAIN LAB [address] [place] [address] * BASIC METABOLIC PANEL (12/11/2018 4:33 AM CDT) Pathologist [facility] Sodium 139 137 - 147 MMOL/L K[facility] [...] LAB Calcium 9.8 8.5 - 10.6 MG/DL MAIN LAB eGFR Non >60 >60 mL/min [facility] MAIN LAB Comment: [place] The eGFR is not validated for use in drug dosing adjustments.Continue to use estimated creatinine clearance per dosing reference text.Please contact the Clinical Pharmacist for questions. eGFR >60 >60 mL/min [facility] MAIN LAB [place] Comment: The eGFR is not validated for use in drug dosing adjustments.Continue to use estimated creatinine clearance per dosing reference text.Please contact the Clinical Pharmacist for questions. Specimen Blood Performing Organization Address [facility]/Zipcode Phone Number MAIN LAB [address] [phone] * BASIC METABOLIC PANEL (12/10/2018 5:07 AM [...] >60 >60 mL/min [facility] MAIN LAB Comment: [place] The eGFR is not validated for use in drug dosing adjustments.Continue to use estimated creatinine clearance per dosing reference text.Please contact the Clinical Pharmacist for questions. eGFR >60 >60 mL/min [facility] MAIN LAB [place] Comment: The eGFR is not validated for use in drug dosing adjustments.Continue to use estimated creatinine clearance per dosing reference text.Please contact the Clinical Pharmacist for questions. Specimen Blood Performing Organization Address City/[facility]/Zipcode Phone Number [facility] [address] [place] [address] * CBC (12/10/2018 5:07 AM CDT) White Blood 13.1 (H) 4.5 - 11.0 K/UL MAIN LAB Cells RBC 2.82 (L) 4.0 - 5.0 M/UL MAIN LAB Hemoglobin 9.3 (L) 12.0 - 15.0 GM/DL MAIN LAB Hematocrit 27.5 (L) 36 - 45 % MAIN LAB MCV 97.4 80 - 100 FL MAIN LAB MCH 33.0 26 - 34 PG MAIN LAB MCHC 33.9 32.0 - 36.0 G/DL MAIN LAB RDW 13.4 11 - 15 % MAIN LAB Platelet Count 210 150 - 400 K/UL MAIN LAB MPV 9.3 7 - 11 FL MAIN LAB Specimen Blood Performing Organization Address City/[facility]/Zipcode Phone Number [facility] [address] [place] [address] * BASIC METABOLIC PANEL (12/09/2018 4:28 AM CDT) Sodium 138 137 - 147 MMOL/L MAIN LAB Potassium 4.2 3.5 - 5.1 MMOL/L [facility] MAIN LAB Chloride 107 98 - 110 MMOL/L [facility] MAIN LAB CO2 28 21 - 30 MMOL/L [facility] MAIN LAB Anion Gap 3 3 - 12 MAIN LAB Glucose 98 70 - 100 MG/DL [facility] MAIN LAB Blood Urea 20 7 - 25 MG/DL MAIN LAB Nitrogen Creatinine 1.03 (H) 0.4 - 1.00 MG/DL MAIN LAB Calcium 9.1 8.5 - 10.6 MG/DL MAIN LAB eGFR Non 52 (L) >60 mL/min MAIN LAB Comment: [place] The eGFR is not validated for use in drug dosing adjustments.Continue to use estimated creatinine clearance per dosing reference text.Please contact the Clinical Pharmacist for questions. eGFR >60 >60 mL/min MAIN LAB [place] Comment: The eGFR is not validated for use in drug dosing adjustments.Continue to use estimated creatinine clearance per dosing reference text.Please contact the Clinical Pharmacist for questions. Specimen Blood Performing Organization Address City/[facility]/Zipcode Phone Number [facility] [address] [place] [address] * CBC (12/09/2018 4:28 AM CDT) White Blood 13.8 (H) 4.5 - 11.0 K/UL [facility] Cells RBC 2.84 (L) 4.0 - 5.0 M/UL [facility] Hemoglobin 9.4 (L) 12.0 - 15.0 GM/DL MAIN LAB Hematocrit 27.6 (L) 36 - 45 % MAIN LAB MCV 97.4 80 - 100 FL MAIN LAB MCH 33.0 26 - 34 PG [facility] MCHC 33.9 32.0 - 36.0 G/DL [facility] RDW 13.7 11 - 15 % MAIN LAB Platelet Count 200 150 - 400 K/UL [facility] MPV 9.0 7 - 11 FL MAIN LAB Specimen Blood Performing Organization Address City/State/Zipcode Phone Number [facility] [address] [phone] * BASIC METABOLIC PANEL (12/08/2018 4:24 AM CDT) Sodium 142 137 - 147 MMOL/L MAIN LAB Potassium 4.1 3.5 - 5.1 [...] (L) >60 mL/min [facility] MAIN LAB Comment: [place] The eGFR is not validated for use in drug dosing adjustments.Continue to use estimated creatinine clearance per dosing reference text.Please contact the Clinical Pharmacist for questions. eGFR >60 >60 mL/min [facility] MAIN LAB [place] Comment: The eGFR is not validated for use in drug dosing adjustments.Continue to use estimated creatinine clearance per dosing reference text.Please contact the Clinical Pharmacist for questions. Specimen Blood Performing Organization Address City/[facility]/Zipcode Phone Number [facility] [address] [place] [address] * CBC (12/08/2018 4:24 AM CDT) White Blood 14.7 (H) 4.5 - 11.0 K/UL [facility] MAIN LAB Cells RBC 3.30 (L) 4.0 - 5.0 M/UL [facility] MAIN LAB Hemoglobin 10.8 (L) 12.0 - 15.0 GM/DL [facility] MAIN LAB Hematocrit 31.6 (L) 36 - 45 % [facility] MAIN LAB MCV 95.9 80 - 100 FL [facility] MAIN LAB MCH 32.9 26 - 34 PG MAIN LAB MCHC 34.3 32.0 - 36.0 G/DL MAIN LAB RDW 13.1 11 - 15 % [facility] MAIN LAB Platelet Count 236 150 - 400 K/UL MAIN LAB MPV 9.0 7 - 11 FL MAIN LAB Specimen Blood Performing Organization Address City/[facility]/Zipcode Phone Number [facility] [address] [place] [address] * ABDOMEN AP ONLY (12/07/2018 10:29 AM CDT) Impressions Performed At Recent abdominal surgery with no retained radiopaque surgical instrument in the [facility] RAD RESULTS nwicb-hy-sdnc. Salomón Maria MD and Khoa Ibrahim MD [...] No retained radiopaque surgical instrument in the uauvr-wc-wahr. Mullen catheter temperature probe overlies the lower [...] No retained radiopaque surgical instrument in the gjdaf-lt-fyxh. Mullen catheter temperature probe overlies the lower pelvis. Small hiatal hernia. Scattered calcified atherosclerosis throughout the aorta. IMPRESSION Recent abdominal surgery with no retained radiopaque surgical instrument in the tepaz-ae-zvjj. Salomón Maria MD and Khoa Ibrahim MD [...] M.D. on 12/07/2018 11:05 AM. Dictated by Salomnó Maria MD on 12/07/2018 10:53 AM. Performing Organization Address City/State/Zipcode Phone Number [facility] RESULTS * SURGICAL PATHOLOGY (12/07/2018 9:16 AM CDT) PATHOLOGY [facility] [email or web address] Department of Pathology and Laboratory Medicine [address] [place] [address] Surgical Pathology Office:[phone] :[phone] SURGICAL PATHOLOGY REPORT NAME: MELLISSA AVILA SURG PATH #: [id number] MR #: [id number] SPECIMEN CLASS: [facility] BILLING #: [id number] ALT ID #:LOCATION: [id number] DATE OF PROCEDURE: 12/07/2018 AGE:78 SEX: F DATE RECEIVED: 12/07/2018 : 1940TIME RECEIVED::16 PHYSICIAN: RYAN MONTANO MD DATE OF REPORT: [...] submitted to [facility] Repository Core Facility: No Silver Spray Worker sections are submitted as follows: A1 Proximal resection margin. A2 Distal resection margin. A3-A4 Sigmoid colon mucosa. A5-A6 Rectal mucosa. (jrt) jrt/12/07/2018 Performing Organization Address [facility] Phone Number MAIN LAB [address] [place] [address] * TYPE & CROSSMATCH (12/07/2018 6:16 AM CDT) Units Ordered 2 MAIN LAB Crossmatch 12/10/2018 [facility] MAIN LAB Expires Record Check FOUND [facility] MAIN LAB ABO/RH(D) O POS [facility] MAIN LAB Antibody Screen NEG [facility] MAIN LAB Electronic YES [facility] MAIN LAB Crossmatch Unit Number [id number] MAIN LAB Blood Component RBC,ADSOL,LEUKO REDUCED [facility] MAIN LAB Type Unit Division 0 [facility] MAIN LAB Status OF Unit REL FROM [facility] Transfusion OK TO TRANSFUSE [facility] Status Crossmatch COMPATIBLE,ELECTRONIC [facility] Result Unit Number [id number] MAIN LAB Blood Component RBC,ADSOL,LEUKO REDUCED [facility] Type Unit Division 0 [facility] Status OF Unit REL FROM [facility] Transfusion OK TO TRANSFUSE [facility] Status Crossmatch COMPATIBLE,ELECTRONIC [facility] Result Specimen Blood Performing Organization Address [facility] Phone Number MA[facility] LAB [address] [place] [address] * TELEMETRY STRIPS-SCAN (12/07/2018 12:00 AM CDT) Narrative Performed At Ordered by an unspecified provider. * ECG-SCAN (11/21/2018 12:00 AM CDT) Narrative Performed At Ordered by an unspecified provider. documented in this encounter Visit Diagnoses Diagnosis Rectal prolapse documented in this encounter Admitting Diagnoses Diagnosis Rectal prolapse documented in this encounter Administered Medications Action Date Dose Rate Site Medication Order MAR Action 12/12/2018 8:31 AM CDT 650 mg acetaminophen [...] Oral, AT BEDTIME DAILY, First dose on Tue12/07/18 at 2100, Until Discontinued 10 mg Given 12/10/2018 9:46 PM CDT 10 mg Given 12/09/2018 10:04 PM CDT 12/11/2018 9:06 PM CDT 30 mg [...] Arm, Right Given 12/09/2018 10:04 PM CDT 12/12/2018 8:29 AM CDT 30 mg isosorbide mononitrate SR (IMDUR) tablet Given 30 mg 30 mg, Oral, EVERY MORNING, First dose on Tue12/08/18 at 0900, Until Discontinued, DO NOT Crush tablets (May be cut in half), 30 mg Given 12/11/2018 9:22 AM CDT 30 mg Given 12/10/2018 8:18 AM CDT 12/11/2018 9:06 PM CDT 5 mg lisinopril [...] g Given 12/10/2018 9:45 PM CDT 12/12/2018 8:30 AM CDT 10 mg pravastatin (PRAVACHOL) tablet 10 mg Given 10 mg, Oral, EVERY MORNING, First dose on Tue12/08/18 at 0800, Until Discontinued 10 mg Given 12/11/2018 9:22 AM CDT 10 mg Given 12/10/2018 8:18 AM CDT documented in this encounter
--- OUTSIDE RECORDS SUMMARY | 2018-12-23 17:26 | XMS REPORT | Encounter Summary ---
Author Author [facility] Organization [facility] Address Unknown Phone Unavailable Care Team Providers Care Vice President For Instruction Name Role Phone Armin Ulrich MD PCP Brady Huber MD [phone] Yaya Vallecillo MD [phone] Marcio Ndiaye [phone] Reyna Cisneros MD PCP Encounter Details Care Team Description Date Type Department Ryan Christy MD [address] [place] [address] [phone] Rectal prolapse (Primary Dx) 11/06/2018 Prep for Case The [address] [phone] Social History Date Tobacco Use Types Packs/Day [...] Status Date of Assessment Functional Status Response 11/03/2018 Does the patient have a hearing impairment: [...] impairment: No documented as of this encounter Plan of Treatment Not on filedocumented as of this encounter Visit Diagnoses Diagnosis Rectal prolapse - Primary documented in this encounter
--- OUTSIDE RECORDS SUMMARY | 2018-12-23 17:26 | XMS REPORT | Encounter Summary ---
Author Author [facility] Organization [facility] Address Unknown Phone Unavailable Care Team Providers Care Cloth Finishing Range Operator Name Role Phone Armin Ulrich MD PCP Brady Huber MD [id number] Yaya Vallecillo MD [id number] Marcio Ndiaye [phone] Reason for Visit * Reason Comments New Patient Encounter Details Care Team Description Date Type Department Tahmina Sanchez New Patient 10/06/2018 Telephone The [address] [phone] Social History Date Tobacco Use Types Packs/Day [...] Status Date of Assessment Functional Status Response 03/07/2017 Does the patient have a hearing impairment: No 03/07/2017 Does the patient have a visual impairment: Yes 03/07/2017 Does the patient have impaired ambulation: No 03/07/2017 Does the patient have an activity of daily living No (ADL) impairment: 03/07/2017 Does the patient have an instrumental activity of No daily living (IADL) impairment: Date of Assessment Cognitive Status Response 03/07/2017 Does the patient have a cognitive impairment: No documented as of this encounter Miscellaneous Notes * Telephone Encounter - Tahmina Sanchez - 10/06/2018 2:40 PM ENVIRONMENTAL PROFESSIONAL New Pt: Fri. (10/27/18) at 9AM with Dr. Ryan Christy. Location: [facility], [address] [place] [address] Verbal directions to appt given over the phone per pt and daughter's request. Referring: Dr. Armin Ulrich (PCP) Care Team: Updated on 10.06.18 Dx: rectal prolapse. s/p abd suture rectopexy on 08.15.17 Verbal records hx from pt and daughter (Not with a strong memory. Routinely stated that they do not remember. She is 78.): GI Testing: EGD at [facility] in 2017. Pt and daughter do not remember when, where or how many colonoscopies pt has had. Daughter remembers she prepped for one. Surgery: Aug 2017 surgery for rectal prolapse at [place], [place]. Hiatal hernia and spleen removal by Dr. Lance Mahmood at [facility]. Radiology: CT c/a/p at [facility] in 2016. No MRI a/p hx in last 5 years. No GI radiology hx. Images possibly at [place], [place] - pt and daughter do not remember. No physical therapy history. Emailed records from physician consult to SANDHYA Morrison, on 10.06.18. RONMENTAL PROFESSIONAL documented in this encounter Plan of Treatment Not on filedocumented as of this encounter Visit Diagnoses Not on filedocumented in this encounter
--- OUTSIDE RECORDS SUMMARY | 2018-12-23 17:26 | XMS REPORT | Encounter Summary ---
Author Author [facility] Organization [facility] Address Unknown Phone Unavailable Care Team Providers Care Calculating Machine Operator Name Role Phone Armin Ulrich MD PCP Brady Huber MD [phone] Yaya Vallecillo MD [phone] Marcio Ndiaye [phone] Reason for Visit * Reason Comments New Patient * Consult, Test & Treat (Routine) Referred By Contact Referred To Contact Status Reason Specialty Diagnoses / Procedures Armin Ulrich III, MD [address] [place] [address] [facility] [address] [place] [phone] New Request General Surgery Diagnoses Rectal prolapse P rocedures Consult Encounter Details Care Team Description Date Type Department Ryan Christy MD [address] [place] [address] Drug-induced nausea and vomiting (Primary Dx); Rectal prolapse 11/03/2018 Office Visit [facility] [address] [place], [place] [address] Social History Date Tobacco Use Types Packs/Day [...] Vital Signs Time Taken Vital Sign Reading 11/03/2018 8:31 AM FORKLIFT MECHANIC Blood Pressure 134/83 11/03/2018 8:31 AM FORKLIFT MECHANIC Pulse 63 11/03/2018 8:31 AM FORKLIFT MECHANIC Temperature 36.5 C (97.7 F) - Respiratory Rate - 11/03/2018 8:31 AM FORKLIFT MECHANIC Oxygen Saturation 100% - Inhaled Oxygen - Concentration 11/03/2018 8:31 AM FORKLIFT MECHANIC Weight 56.7 kg (125 lb) 11/03/2018 8:31 AM FORKLIFT MECHANIC Height 162.6 cm (5' 4") 11/03/2018 8:31 AM FORKLIFT MECHANIC Body Mass Index 21.46 documented in this encounter Functional Status Date [...] as of this encounter Progress Notes * Ryan Christy MD - 11/03/2018 9:00 AM FORKLIFT MECHANIC Name: Eboni Avila : 1940 AGE : 78 y.o. DATE OF SERVICE: 11/03/2018 Subjective: Reason for Visit: New Patient Eboni Avila is a 78 y.o. female. Cancer Staging No matching staging information was found for the patient. History of Present IllnessThis is a 78 y/o female with multiple comorbid conditions and an extensive surgical history including CAD s/p CABG, hiatal hernia repair, and esophageal perforation s/p repair presenting due to recurrent rectal prolapse. She had previously undergone a repair in August 2017. She states that her issues were resolved for approximately 1 year. She has not been noticing recurrent prolapse. This occurs during bowel movements and when standing. She is able to reduce this, but it quickly recurs. She has not noticed any vaginal prolapse. She denies constipation. She does experience fecal incontinence 1-2 times per week. She also reports intermittent urinary incontinence. She states this developed after her prolapse recurred. She reports a small amount of bleeding per rectum related to her prolapse. She otherwise denies abdominal pain, unintentional weight loss , large volume bleeding, or a change in bowel habits. She previously used nitro fairly frequently for her CAD but states she is now only using this every 6 months. 11/30/2017 - Surg: Pt had surgery 08/15/17. [...] for further evaluation of rectal prolapse. Pathology: Report not immediately available. Review of Systems Gastrointestinal: Positive for rectal pain. All other systems reviewed and are negative. Past Medical History: Diagnosis Date Accidental perforation of esophagus during procedure 2012 Arthritis CAD (coronary artery disease) Chest pain Hiatal hernia HTN (hypertension) Hx of CABG Nausea & vomiting Osteoporosis Past Surgical History: Procedure Laterality Date GASTRIC FUNDOPLICATION 2013 [place] ROBOTIC SURGICAL SYSTEM N/A 02/20/2016 ROBOT-ASSISTED INCISIONAL [...] HX HEART CATHETERIZATION HX TUBAL LIGATION SPLENECTOMY family history includes Cancer-Ovarian in her maternal aunt; Diabetes Type II in her brother and sister. Social History Socioeconomic History Marital status: Single Spouse name: Not on file Number of children: Not on file Years of education: Not on file Highest education level: Not on file Social Needs Financial resource strain: Not on file Food insecurity - worry: Not on file Food insecurity - inability: Not on file Transportation needs - medical: Not on file Transportation needs - non-medical: Not on file Occupational History Not on file Tobacco Use Smoking status: Never Smoker Smokeless tobacco: Never Used Substance and Sexual Activity Alcohol use: No Drug use: No Sexual activity: Not on file Other Topics Concern Not on file Social History Narrative Not on file Objective: acetaminophen SR(+) (TYLENOL) 650 mg tablet [...] mg by mouth twice daily. Vit C-Vit [id number] ou-[id number]-[id number]-mg cap Take 1 Cap by mouth daily. zinc sulfate 220 mg (50 mg elemental zinc) capsule Take 220 mg by mouth daily. Vitals: 11/03/18 0831 BP: 134/83 Pulse: 63 Temp: 36.5 C (97.7 F) SpO2: 100% Weight: 56.7 kg (125 lb) Height: 162.6 cm (64") Body mass index is 21.46 kg/m. Pain Score: Zero Physical Exam Constitutional: She is oriented to person, place, and time. She appears well- developed and well-nourished. HENT: Head: Normocephalic and atraumatic. Cardiovascular: Normal rate. Pulmonary/Chest: Effort normal. Abdominal: Soft. She exhibits no distension. There is no tenderness. Midline incision without definite palpable hernia defect. Genitourinary: Genitourinary Comments: External: Normal perianal skin. Full thickness rectal prolapse with Valsalva extending 3-4 cm beyond the anal verge. DELANEY: No palpable masses or lesions. Moderate to severely decreased resting tone and squeeze. Anoscopy: Redundant mucosa. A small area of white discoloration is present overlying the mucosa in a left anterior position. This is benign in appearance and most consistent with changes from chronic prolapse. There are no additional ulcerations, masses, or lesions. Neurological: She is alert and oriented to person, place, and time. Skin: Skin is warm and dry. Psychiatric: She has a normal mood and affect. Her behavior is normal. Vitals reviewed. Assessment and Plan: 1. Recurrent rectal prolapse 2. Fecal incontinence 3. CAD s/p CABG 4. History of incisional hernia repair with mesh -History of CAD s/p CABG. Intermittent chest pain requiring nitroglycerin. Will need evaluation by cardiology. She is scheduled to see them next month. Will see if sooner evaluation is possible. -Discussed proceeding with repair of her recurrent rectal prolapse. Abdominal and perineal approaches as well as the associated risks, benefits, and recurrence rates were reviewed. Given the patient's surgical history and the presence of a recurrent prolapse, would plan to proceed with an abdominal approach. Discussed potential options including repeat suture rectopexy, resection rectopexy, and mesh based repairs. Feel that in the setting of recurrent disease would proceed with either resection rectopexy or mesh-based repair. Mesh repairs may include posterior placement of mesh or ventral mesh rectopexy. The patient is comfortable with the use of mesh if it is felt to be beneficial. The risks and benefits of the procedure were reviewed, including pain, bleeding, infection, anastomotic leak, mesh erosion, recurrence, exacerbation of comorbid conditions, and the need for additional procedures. The patient verbalized her understanding and desires to proceed. -Will schedule for an exploratory laparotomy with resection rectopexy versus mesh based repair. Advised that the surgical date may need to be adjusted depending upon her evaluation by cardiology. Ryan Christy MD LIFT MECHANIC * Vickie Cordoba, KILN PULLER - 11/03/2018 9:00 AM FORKLIFT MECHANIC .Pre Clinic Pre Chart: 11/30/2017 - Surg: Pt had surgery 08/15/17. Kya Gongens, pt daughter called because pt is beginning [...] requested. Problem List: 1. Recurrent rectal prolapse 2. CAD 3. HLD LIFT MECHANIC documented in this encounter Plan of Treatment Not on filedocumented as of this encounter Visit Diagnoses Diagnosis Drug-induced nausea and vomiting - Primary Nausea with vomiting Rectal prolapse documented in this encounter
--- OUTSIDE RECORDS SUMMARY | 2018-12-23 17:26 | XMS REPORT | Encounter Summary ---
Author Author [facility] Organization [facility] Address Unknown Phone Unavailable Care Team Providers Care Montessori Paraprofessional Name Role Phone Armin Ulrich MD PCP Brady [place]er MD [id number] Yaya Vallecillo MD [id number] Marcio Ndiaye [phone] Reason for Visit * Auth/Cert Referred By Contact Referred To Contact Status Reason Specialty Diagnoses / Procedures Diagnoses Rectal prolapse Rectal prolapse [K62.3] P rocedures SC EXPLORATORY LAPAROTOMY CELIOTOMY W/WO BIOPSY SPX SC PROCTOPEXY W/SIGMOID RESCJ ABDL APPR EXPLORATORY LAPAROTOMY WITH/ WITHOUT BIOPSY ABDOMINAL PROCTOPEXY WITH SIGMOID RESECTION WITH MESH Encounter Details Care Team Description Date Type Department Beth Gonzalez MD [id number] [place] [address] [phone] 12/07/2018 Anesthesia [facility] OR [address] [place] [address] Anesthesia Record Responsible Anesthesiologist Anesthesia Start Time Anesthesia Stop Time Procedure Name Go Mejia MD 12/07/18 0739 12/07/18 1052 EXPLORATORY LAPAROTOMY (N/A Abdomen) Date Time Event Comment 607 AN Equip Check 2018 0705 0738 Out of Pre Procedure 0739 Anes Start 0739 In Room 0743 An Start Data 0748 An Induction The patient was reevaluated immediately before moderate or deep sedation use and before anesthesia induction. 0749 An Intubation 0752 Anesthesia Ready 0812 Antibiotic Given 0820 Proc Start 0900 Quick Note BIS sensor changed and assessed, spoke with Dr. Mejia. 0934 Quick Note Need for OG or NG discussed with surgeon who does not want either placed. (Hx Fredi x2, EGD complicated by esophageal perforation.) 0956 Quick Note Called for xray. Needle count off. 1026 Quick Note Needle found 1038 Quick Note Transfuser on ground 1048 An Extubation Suction at extubation, dr. Mejia at bedside. Pt squeezed hand and opened eyes to command. 1049 an stop data 1052 Handoff to RN I completed my SBAR handoff to the receiving nurse. Transported with O2, pt arousable to chin lift and name, SALES AND SERVICE CONSULTANT setting for thoracic epidural reviewed, Fentanyl SALES AND SERVICE CONSULTANT not to be started per Dr. Mejia. 1052 An Stop Meds Name Total fentaNYL PF (SUBLIMAZE) injection 75 mcg lidocaine (2%) 200 mg/10mL Injection 55 mg syringe propofol (DIPRIVAN) 200 mg/ 20 mL 100 mg injection (VIAL) rocuronium (ZEMURON) injection 90 mg ondansetron (ZOFRAN) injection 4 mg dexamethasone (DECADRON) 4 mg/mL 4 mg injection phenylephrine (BIRD-SYNEPHRINE) 0.1 mg/mL 100 mcg injection (SYRINGE) sugammadex (BRIDION) 100 mg/mL iv soln 224 mg dextran 70/hypromellose (GENTEAL TEARS; 2 drop BION TEARS) ophthalmic solution ketamine (KETALAR) 10 mg/mL injection 30 mg cefOXitin (MEFOXIN) 2 g injection 4 g ePHEDrine 50 mg/mL 50 mg in sodium 50 mg chloride PF 0.9% 5 mL IV syringe bupivacaine PF (MARCAINE) 0.25 % 7 mL injection glycopyrrolate (ROBINUL) 0.2mg/mL 0.2 mg injection bupivacaine 0.125% in NS 50mL epidural 3.2 mL infusion syringe lactated ringers infusion 600 mL electrolyte-A (PLASMA-LYTE A PH 7.4) 1,000 mL infusion * Name O2 N2O Inspired Sevoflurane Inspired Sevoflurane * No blood administrations on file. Removal Type Details Placement Arterial 02/20/16; 1436 (created via procedure 02/20/16 1436 by Cristofer, Line documentation) MD Jhony Epidural 12/07/18; 0726 (created via procedure 12/07/18 0726 by Jackie, Catheter documentation) MD Go Incision 12/07/18; 1053; Abdomen 12/07/18 1053 by Mana Reyes BSN 12/07/18 1045 by Lesley Potts RN Wounds 08/07/14; 1501; Abdomen; Lap sites x 4; 08/07/14 1501 by Heidi, (NOT for 12/07/18; 1045 SANDHYA Eckert Pressure Injuries) 12/07/18 1046 by Lesley Potts RN Wounds 02/20/16; 1459; Abdomen; Surgical 02/20/16 1459 by Marco, (NOT for Incision; 12/07/18; 1046; 3 PORT SITES- SANDHYA Carroll Pressure CLOSED WITH SUTURES, DERMABOND Injuries) 12/12/18 0920 by Vickie Lyn RN Peripheral 12/07/18; 0615; RN; L; Hand; 20 G; 12/07/18 0615 by Harness, IV Lidocaine Prep; 2; 12/12/18; 0920 SANDHYA Pack (removed by pt. unclear what time.) 12/10/18 1150 by Diann Cruz RN Epidural 12/07/18; 0732; 20 G; M (Upper Mid); 12/07/18 0732 by Harness, 12/10/18; 1150 SANDHYA Pack 12/07/18 1048 by Hernandez Cole, TUAN ETT 12/07/18; 0749; Mask ventilation not 12/07/18 0749 by attempted (0); Direct laryngoscopy, Hernandez Cole, SRNA Stylet; Single-Lumen; 7mm; Mac; 3; Oral; 1-Full view of the glottis; 1 insertion attempt; Auscultation, ETCO2 Detector; 21 centimeters; atrauatmic intubation, dentation and mucosa intact; 12/07/18; 1048 12/12/18 1134 by Vickie Lyn RN Peripheral 12/07/18; 0800; Provider; L; Mid; 12/07/18 0800 by IV Forearm; 18 G; 12/12/18; 1134 Hernandez Cole, SRNA 12/10/18 0821 by Diann Cruz RN Indwelling 12/07/18; 0810; Unit (Comment) (OR); 16 12/07/18 0810 by Urinary FR; Regular (Two-way); 12/10/18; 0821 Anneliese Billy, SANDHYA Catheter 12/07/18 1302 by Lesley Potts RN Arterial 12/07/18; 0850; Radial, Left; 20 G; 5 12/07/18 0850 by Line (ultrasound assisted. placement by Hernandez Ortega, TUAN Mejia); 12/07/18; 1302; Correct Patient, Correct Procedure, Correct Patient Position, Correct Equipment / Implants Available, Correct Side / Site Marked "YES" documented in this encounter Social History Date Tobacco Use Types Packs/Day [...] impairment: No documented as of this encounter OR Notes * Anesthesia Postprocedure Evaluation - Go Mejia MD - 12/07/2018 12:27 PM CDT Post-Anesthesia Evaluation Name: Eboni Avila : 1940 Age: 78 y.o. Sex: female Procedure Date: 12/07/2018 Procedure: Procedure(s) with comments: EXPLORATORY LAPAROTOMY - CASE LENGTH 4 HOURS, CLIPPING AND HIBICLENS PREP TO BE DONE IN SDS/PRE-POST, DR VINCENT ASSISTING ABDOMINAL PROCTOPEXY WITH SIGMOID RESECTION Surgeon: Surgeon(s): Lisa Alvarez MD Ashcraft, DO Westley Harrington Joseph D, MD Vandervelde, Joel C., MD Post-Anesthesia Vitals BP: 107/55 (12/07 1200) Pulse: 60 (12/07 1200) Respirations: 14 PER MINUTE (12/08 1199) SpO2: 100 % (12/07 1200) O2 Delivery: Simple Mask (12/08 1199) SpO2 Pulse: 60 (12/07 1200) Post Anesthesia Evaluation Note Evaluation location: Pre/Post Patient participation: recovered; patient participated in evaluation Level of consciousness: sleepy but conscious Pain score: 0 Pain management: adequate Hydration: normovolemia Temperature: 36.0C - 38.4C Airway patency: adequate Regional/Neuraxial: Neurological status: sensory deficit Epidural in place Perioperative Events Perioperative events: no Post-op nausea and vomiting: no PONV Postoperative Status Cardiovascular status: hemodynamically stable Respiratory status: spontaneous ventilation Follow-up needed: none Perioperative Events Perioperative Event: No Emergency Case Activation: No Post-Anesthesia Evaluation Attestation: I reviewed and agree the indicated post- anethesia care was provided. Staff name: Go Mejia MD Date: 12/07/2018 * Anesthesia Procedure Notes - Go Mejia MD - 12/07/2018 11:00 AM CDT Associated Order(s): A-LINE INSERTION Anesthesia Procedure: Arterial Line Placement A-LINE INSERTION Date/Time: 12/07/2018 8:41 AM Patient location: OR Indications: hemodynamic monitoring Preprocedure checklist performed: 2 patient identifiers, risks & benefits discussed, patient evaluated, timeout performed, consent obtained, patient being monitored and sterile drape Sterile technique: - Proper hand washing - Cap, mask - Sterile gloves - Skin prep for antisepsis Arterial Line Procedure Patient sedated: yes (see MAR) Sedation type: general; Artery prepped with chlorhexidine; skin prep agent completely dried prior to procedure. Location: radial artery Laterality: left Technique: palpation and ultrasound Needle gauge: 20 G Number of attempts: 4 Procedure Outcome Catheter secured with adhesive dressing applied Events: no complications noted during insertion and skin intact, warm, and dry Observation: pt tolerated well Additional notes: ATTESTATION I personally performed the procedure myself. Staff name: Go Mejia MD Date: 12/07/2018 Performed by: Go Mejia MD Authorized by: Go Mejia MD * Anesthesia Procedure Notes - Go Mejia MD - 12/07/2018 10:56 AM CDT Associated Order(s): EPIDURAL BLOCK Anesthesia Procedure: Epidural Block EPIDURAL BLOCK Date/Time: 12/07/2018 7:26 AM Patient location: pre-op Reason for block: post-op pain management Preprocedure checklist performed: 2 patient identifiers, risks & benefits discussed, patient evaluated, timeout performed, consent obtained, patient being monitored, existing labs reviewed, no anticoagulant within risk period and sterile drape Sterile technique: - Proper hand washing - Cap, mask - Sterile gloves - Skin prep for antisepsis Epidural Procedure Patient position: sitting Prep: ChloraPrep Monitoring: BP, EKG and continuous pulse ox Approach: right paramedian Location: thoracic Level/Interspace: T8-9 Injection technique: KIMBERLY saline Procedures: landmark technique Local infiltration: 1% lidocaine injected locally Number of attempts: 1 Needle/epidural catheter: Needle type: Tuohy Needle gauge: 18 G Needle length: 3.5 in Needle insertion depth: 4 cm Catheter type: multi orifice Catheter size: 20 G Catheter at skin depth: 9 cm Procedure Outcome Events: negative test dose, no paresthesia and negative aspiration test Patient tolerance of procedure: patient tolerated the procedure well with no immediate complications Additional notes: ATTESTATION I personally performed the procedure myself. Staff name: Go Mejia MD Date: 12/07/2018 Refer to nursing documentation for vitals and monitoring data during procedure. Performed by: Go Mejia MD Authorized by: Go Mejia MD * Anesthesia Preprocedure Evaluation - Go Mejia MD - 11/21/2018 11:23 AM CDT Anesthesia Pre-Procedure Evaluation Name: Eboni Avila : 1940 Age: 78 y.o. Sex: female Procedure Date: 12/07/2018 Procedure: Procedure(s) with comments: EXPLORATORY LAPAROTOMY WITH/ WITHOUT BIOPSY - CASE LENGTH 4 HOURS, CLIPPING AND HIBICLENS PREP TO BE DONE IN SDS/PRE-POST, DR VINCENT ASSISTING ABDOMINAL PROCTOPEXY WITH SIGMOID RESECTION WITH MESH Physical Assessment Vital Signs (last filed in past 24 hours): BP: 117/53 (12/07 1215) ABP: 113/43 (12/07 1230) Temp: 36.5 C (97.7 F) (12/07 1230) Pulse: 61 (12/07 1230) Respirations: 15 PER MINUTE (12/07 1230) SpO2: 100 % (12/07 1230) O2 Delivery: Simple Mask (12/07 1230) Height: 157.5 cm (62") (12/07 0615) Weight: 55.9 kg (123 lb 3.2 oz) (12/07 0515) Patient History Allergies Allergen Reactions Metoclopramide AGITATION causes involuntary body movements rigidity Current Medications Medication Directions acetaminophen SR(+) (TYLENOL) 650 mg tablet Take [...] mg by mouth twice daily. Vit C-Vit N-Exikvr-Azm-OM-3 [id number] fn-nmdz-rn-mg cap Take 1 Cap by mouth daily. zinc sulfate 220 mg (50 mg elemental zinc) capsule Take 220 mg by mouth daily. Past Medical History: Diagnosis Date Accidental perforation of esophagus during procedure 2013 Arthritis CAD (coronary artery disease) Chest pain Depression Dysphagia Hiatal hernia History of Fredi fundoplication HTN (hypertension) Hx of CABG Hyperlipidemia Myocardial infarction (HCC) Nausea & vomiting Osteoporosis Past Surgical History: Procedure Laterality Date HX CORONARY ARTERY BYPASS GRAFT 2012 20 years ago GASTRIC FUNDOPLICATION 2013 SC ROBOTIC SURGICAL SYSTEM N/A 02/20/2016 ROBOT-ASSISTED INCISIONAL [...] CATHETERIZATION HX TUBAL LIGATION SPLENECTOMY Social History Tobacco Use Smoking status: Never Smoker Smokeless tobacco: Never Used Substance Use Topics Alcohol use: No Drug use: No Review of Systems/Medical History Patient summary reviewed Nursing notes reviewed Pertinent labs reviewed PONV Screening: Female gender and Non-smoker No history of anesthetic complications No family history of anesthetic complications Airway - negative Dysphagia Pulmonary - negative Cardiovascular Recent diagnostic studies: echocardiogram June 2013: 1. Normal LV size. Severely hypokinetic base to mid anterior wall and anteroseptum. Other LV pabon mildly hypokinetic. Estimated LV EF of 45%. 2. Normal LV diastolic function. 3. Normal RV size and function. 4. Valves appear structurally normal. Mild MR, trace TR, mild to moderate PI. 5. Estimated peak PA systolic pressure of 48 mmHg, consistent with moderate pulmonary hypertension. 6. No pericardial effusion. Stress 2016 (outside records) Exercise tolerance: >4 METS (walks 4-6 blocks daily, can vacuum for 10 min without CROFT/CP) Hypertension, well controlled Past PR (2012), > 6 months Coronary artery disease Coronary artery bypass graft ( 2012) Hyperlipidemia (taking statin) Syncope (2017) Daily DAPT (ASA, Plavix)- pt unsure of why taking Plavix GI/Hepatic/Renal Hiatal hernia (s/p repair with esophageal perforation ) GERD (taking PPI), Nausea Vomiting (most recent episode ~11/14/18; required ER intervention 08/2018) Dysphagia, s/p fredi fundoplication gastroparesis Neuro/Psych Dementia: "memory is bad", no dx of dementia or alzheimer's. Musculoskeletal Arthritis Osteoporosis Endocrine/Other Anemia (SYDNEE on oral supplement) Autoimmune disease: hx of splenectomy; follows with rheumatology-initially dx with lupus, but dx was retracted, still taking Plaquenil Physical Exam Airway Findings Mallampati: III TM distance: >3 FB Neck ROM: full Mouth opening: good Dental Findings: Upper dentures and lower dentures Cardiovascular Findings: Rhythm: regular Rate: normal Other findings: murmur (systolic 2/6) No carotid bruit, no peripheral edema Pulmonary Findings: Breath sounds clear to auscultation. Neurological Findings: Normal mental status Diagnostic Tests Hematology: Lab Results Component Value Date HGB 12.2 11/21/2018 HCT 35.9 11/21/2018 PLTCT 300 11/21/2018 WBC 7.5 11/21/2018 NEUT 78 01/17/2016 ANC 10.70 01/17/2016 LYMPH 10 08/08/2014 ALC 1.80 01/17/2016 [place] 8 01/17/2016 AMC 1.10 01/17/2016 EOSA 1 01/17/2016 ABC 0.00 01/17/2016 MCV 97.0 11/21/2018 MCH 32.8 11/21/2018 MCHC 33.9 11/21/2018 MPV 8.6 11/21/2018 RDW 13.3 11/21/2018 General Chemistry: Lab Results Component Value Date NA 140 11/21/2018 K 4.0 11/21/2018 CL 106 11/21/2018 CO2 26 11/21/2018 GAP 8 11/21/2018 BUN 25 11/21/2018 CR 1.14 11/21/2018 GLU 93 11/21/2018 CA 10.7 11/21/2018 ALBUMIN 4.5 01/17/2016 LACTIC 1.1 06/27/2013 OBSCA 1.13 08/13/2014 MG 1.8 02/21/2016 TOTBILI 0.7 01/17/2016 PO4 2.7 02/21/2016 Coagulation: Lab Results Component Value Date PTT 42.8 08/07/2014 INR 1.6 08/07/2014 Carotid duplex 11/2018 Right:Mild disease of 1-39% with mild velocities. Antegrade vertebral flow. Left: Mild disease of 1-39% with mild velocities. Antegrade vertebral flow. Essentially unchanged. Based on today's results, a one year follow up is recommended if patient remains asymptomatic. Anesthesia Plan ASA score: 3 Plan: general and invasive monitoring Special equipment/procedures: Art line Induction method: intravenous NPO status: acceptable Informed Consent Anesthetic plan and risks discussed with patient. Use of blood products discussed with patient Blood Consent: consented Plan discussed with: anesthesiologist and SOLAR SALES CONSULTANT. labs: cbc, bmp Follows with cardiology in [facility] has not been evaluated for 2 years ; appt scheduled 11/24/18, Addendum: Echo 11/2018 showed preserved LV function, no significant valvular disease. ( AV sclerosis) Estimated PASP 35-40 mmHg. Moderately dilated ascending aorta. Moderate to severe TR. " Mild to moderate risk for cardiac complications". documented in this encounter Miscellaneous Notes * Addendum Note - Go Mejia MD - 12/07/2018 12:40 PM CDT Addendum created 12/07/18 1240 by Go Mejia MD Sign clinical note documented in this encounter Plan of Treatment Date/Time Name Priority Associated Diagnoses 12/07/2018 10:56 AM CDT EPIDURAL BLOCK Routine 12/07/2018 11:00 AM CDT A-LINE INSERTION Routine documented as of this encounter Visit Diagnoses Not on filedocumented in this encounter Administered Medications Action Date Dose Rate Site Medication Order MAR Action 12/07/2018 10:20 AM CDT 6 mL/hr 6 mL/hr bupivacaine 0.125% in NS 50mL epidural Given - New infusion syringe Bag 50 mL, INTRA-PROCEDURE MED(CONT), Starting Carina 12/07/18 at 1020, Until Carina 12/07/18 at 1112, Anesthesia Intra-op 12/07/2018 10:05 AM CDT 2 mL bupivacaine PF (MARCAINE) 0.25 % Given injection INTRA-PROCEDURE MED, Starting Carina 12/07/18 at 0921, Until Carina 12/07/18 at 1112, Anesthesia Intra-op 3 mL Given 12/07/2018 9:38 AM CDT 1 mL Given 12/07/2018 9:32 AM CDT 12/07/2018 10:01 AM CDT 2 g cefOXitin (MEFOXIN) injection Given INTRA-PROCEDURE MED, Starting Carina 12/07/18 at 0812, Until Carina 12/07/18 at 1112, Anesthesia Intra-op 2 g Given 12/07/2018 8:12 AM CDT 12/07/2018 7:39 AM CDT 4 mg dexamethasone (DECADRON) injection Given Intravenous, INTRA-PROCEDURE MED, Starting Carina 12/07/18 at 0739, Until Carina 12/07/18 at 1112, Anesthesia Intra-op 12/07/2018 7:49 AM CDT 2 drops dextran 70/hypromellose (GENTEAL TEARS; Given BION TEARS) ophthalmic solution INTRA-PROCEDURE MED, Starting Carina 12/07/18 at 0749, Until Carina 12/07/18 at 1112, Anesthesia Intra-op 12/07/2018 7:55 AM CDT electrolyte-A (PLASMA-LYTE A PH 7.4) Given - New injection Bag INTRA-PROCEDURE MED(CONT), Starting Carina 12/07/18 at 0755, Until Carina 12/07/18 at 1112, Anesthesia Intra-op 12/07/2018 10:23 AM CDT 20 mg ePHEDrine 50 mg/mL 50 mg in sodium Bolus chloride PF 0.9% 5 mL IV syringe 5 mL, INTRA-PROCEDURE MED(CONT), Starting Carina 12/07/18 at 0856, Until Carina 12/07/18 at 1112, Anesthesia Intra-op 10 mg Bolus 12/07/2018 9:56 AM CDT 10 mg Bolus 12/07/2018 9:30 AM CDT 12/07/2018 7:48 AM CDT 25 mcg fentaNYL citrate PF (SUBLIMAZE) Given injection INTRA-PROCEDURE MED, Starting Carina 12/07/18 at 0735, Until Carina 12/07/18 at 1112, Anesthesia Intra-op 50 mcg Given 12/07/2018 7:35 AM CDT 12/07/2018 9:45 AM CDT 0.2 mg glycopyrrolate (ROBINUL) injection Given INTRA-PROCEDURE MED, Starting Carina 12/07/18 at 0945, Until Carina 12/07/18 at 1112, Anesthesia Intra-op 12/07/2018 8:21 AM CDT 30 mg ketamine (KETALAR) injection Given INTRA-PROCEDURE MED, Starting Carina 12/07/18 at 0821, Until Carina 12/07/18 at 1112, Anesthesia Intra-op 12/07/2018 7:39 AM CDT 55 mg lidocaine (PF) injection Given INTRA-PROCEDURE MED, Starting Carina 12/07/18 at 0739, Until Carina 12/07/18 at 1112, Anesthesia Intra-op 12/07/2018 9:54 AM CDT 4 mg ondansetron (ZOFRAN) injection Given Intravenous, INTRA-PROCEDURE MED, Starting Carina 12/07/18 at 0954, Until Carina 12/07/18 at 1112, Anesthesia Intra-op 12/07/2018 8:03 AM CDT 100 mcg phenylephrine in NS injection syringe Given Intravenous, INTRA-PROCEDURE MED, Starting Carina 12/07/18 at 0803, Until Carina 12/07/18 at 1112, Anesthesia Intra-op 12/07/2018 7:58 AM CDT 20 mg propofol (DIPRIVAN) injection Given INTRA-PROCEDURE MED, Starting Carina 12/07/18 at 0739, Until Carina 12/07/18 at 1112, Anesthesia Intra-op 80 mg Given 12/07/2018 7:39 AM CDT 12/07/2018 8:03 AM CDT 10 mg rocuronium (ZEMURON) injection Given Intravenous, INTRA-PROCEDURE MED, Starting Carina 12/07/18 at 0739, Until Carina 12/07/18 at 1112, Anesthesia Intra-op 80 mg Given 12/07/2018 7:39 AM CDT 12/07/2018 10:26 AM CDT 224 mg sugammadex (BRIDION) injection Given Intravenous, INTRA-PROCEDURE MED, Starting Carina 12/07/18 at 1026, Until Carina 12/07/18 at 1112, Anesthesia Intra-op documented in this encounter
--- OUTSIDE RECORDS SUMMARY | 2018-12-23 17:26 | XMS REPORT | Encounter Summary ---
Author Author [facility] Organization [facility] Address Unknown Phone Unavailable Care Team Providers Care Insulation Cutter Name Role Phone Armin Ulrich MD PCP Brady Huber MD [id number] Yaya Vallecillo MD [id number] Marcio Ndiaye [id number] Encounter Details Care Team Description Date Type Department Ryan Christy MD [address] [place], [place] [id number] History of coronary artery bypass graft (Primary Dx); Pre-operative cardiovascular examination; Preop testing 11/21/2018 PAC Office [facility] [address] [place], [place] [id number] Anesthesia Record Responsible Anesthesiologist Anesthesia Start Time Anesthesia Stop Time Procedure Name Go Mejia MD 12/07/18 0739 12/07/18 1052 EXPLORATORY LAPAROTOMY (N/A Abdomen) Date Time Event Comment 607 AN Equip Check 2018 07 0738 Out of Pre Procedure 0739 Anes [...] who does not want either placed. (Hx Robert x2, EGD complicated by esophageal perforation.) 0956 [...] pt arousable to chin lift and name, AUGER MILL OPERATOR setting for thoracic epidural reviewed, Fentanyl AUGER MILL OPERATOR not to be started per Dr. Mejia. 1052 An Stop Meds * No agents on file. * No blood administrations on file. Removal [...] 02/20/16; 1459; Abdomen; Surgical 02/20/16 1459 by Marco (NOT for Incision; 12/07/18; 1046; 3 PORT SITES- SANDHYA Carroll Pressure CLOSED WITH SUTURES, DERMABOND Injuries) 12/12/18 0920 by Vickie Lyn, SANDHYA Peripheral 12/07/18; 0615; RN; L; Hand; 20 [...] by attempted (0); Direct laryngoscopy, Hernandez Cole, TUAN Stylet; Single-Lumen; 7mm; Mac; 3; Oral; 1-Full [...] Line (ultrasound assisted. placement by Hernandez Ortega, SRNA Jackie); 12/07/18; 1302; Correct Patient, Correct Procedure, Correct [...] Vital Signs Time Taken Vital Sign Reading 11/21/2018 10:47 AM CDT Blood Pressure 142/63 11/21/2018 10:47 AM CDT Pulse 58 11/21/2018 10:47 AM CDT Temperature 37.1 C (98.8 F) - Respiratory Rate - 11/21/2018 10:47 AM CDT Oxygen Saturation 97% - Inhaled Oxygen - Concentration 11/21/2018 10:47 AM CDT Weight 56.2 kg (124 lb) 11/21/2018 10:47 AM CDT Height 162.6 cm (5' 4") 11/21/2018 10:47 AM CDT Body Mass Index 21.28 documented in this encounter Functional Status Date [...] as of this encounter Patient Instructions * Pre-Anesthesia Patient Instructions* Nela Soto RN - 11/21/2018 10:30 AM CDT GENERAL INFORMATION Before you come to the hospital Make arrangements for a responsible adult to drive you home and stay with you for 24 hours following surgery. Bath/Shower Instructions Take a bath or shower using the special soap given to you in PAC. Use half the bottle the night before, and the other half the morning of your procedure. Use clean towels with each bath or shower. Put on clean clothes after bath or shower. Avoid using lotion and oils. If you are having surgery above the waist, wear a shirt that fastens up the front. Sleep on clean sheets if bath or shower is done the night before procedure. Leave money, credit cards, jewelry, and any other valuables at home. [facility] is not responsible for the loss or breakage of personal items. Remove nail ukrainian, makeup and all jewelry (including piercings) before coming to the hospital. The morning of your procedure: brush your teeth and tongue do not smoke do not shave the area where you will have surgery What to bring to the hospital ID/ Insurance Card General Store Manager card Official documents for legal guardianship Copy of your Living Will, Advanced Directives, and/or Durable Power of [place] Small bag with a few personal belongings CPAP/BiPAP machine (including all supplies) Walker,cane, or motorized scooter Cases for glasses/hearing aids/contact lens (bring solutions for contacts) Dress in clean, loose, comfortable clothing Eating or drinking before surgery Do not eat or drink anything after 11:00 p.m. the day before your procedure ( including gum, mints, candy, or chewing tobacco) OR follow the specific instructions you were given by your Surgeon. You may have WATER ONLY up to 2 hours before arriving at the hospital. Other instructionsNotify your surgeon if: there is a possibility that you are you become ill with a cough, fever, sore throat, nausea, vomiting or flu- like symptoms you have any open wounds/sores that are red, painful, draining, or are new since you last saw the doctor you need to cancel your procedure You will receive a call with your surgery arrival time from between 2:30pm and 4:30pm the last business day before your procedure. If you do not receive a call, please call [phone] before 4:30pm or [phone] after 4:30pm. Notify us at General acute hospital: if you need to cancel your procedure if you are going to [place] [address] ? Park in the P5 parking garage located at [address] [place] [address]. ? [employer] parking is available in front of [facility] between the hours of 7:00 am and 4:00 pm Tuesday through Tuesday. ? If parking in the P5 garage, take the east elevators in the parking garage to the second level and walk to the entrance of the [facility]. ? Enter through the 1st floor main entrance and check in with Information Desk. * Pre-Anesthesia Medication Instructions* Tushar Malloy, PHARMD - 11/21/2018 10:30 AM CDT YOUR MEDICATIONS: acetaminophen SR(+) (TYLENOL) 650 mg tablet Take [...] mg by mouth twice daily. Vit C-Vit P-Yfzhra-[id number]-OM-3 [id number] cp-rooo-ox-mg cap Take 1 Cap by mouth daily. zinc sulfate 220 mg (50 mg elemental zinc) capsule Take 220 mg by mouth daily. YOUR MEDICATION INSTRUCTIONS FOR SURGERY: Before surgery Stop the following vitamins, herbals, and natural supplements 14 days before surgery: Bilberry Fish oil Eye vitamin Stop the following medications 7 days before surgery: Anti-inflammatory medications such as ibuprofen (Advil, Motrin) and naproxen (Aleve) You may use acetaminophen (Tylenol) Please follow these instructions regarding your blood thinner medications: Aspirin and Plavix - We will call you with instructions (Per cardiac clearance letter written by Kya Fontaine DNP, Plavix and Aspirin may be held for 7 days prior to the procedure.) - CC Morning of surgery On the morning of surgery, do NOT take these medications: Remaining vitamins/supplements (Calcium/Vitamin D, Vitamin B-12, Iron, Magnesium, Zinc) Ointments/creams/lotions Hydroxychloroquine GI cocktail On the morning of surgery, take ONLY these medications with a sip (1-2 ounces) of water: Acetaminophen Isosorbide Oxybutynin Pantoprazole Pravastatin Tolterodine (Detrol LA) If needed: Ondansetron Other information Before surgery, please contact the clinic pharmacist with any medicine updates or questions. E-mail: [email or web address] Before going home from the hospital, please ask your doctor when you should re- start your medicines that were stopped before surgery. documented in this encounter Progress Notes * Tushar Malloy, JUANJOSE - 11/21/2018 10:30 AM CDT PAC Pharmacist Medication Plan Note: Eboni Avila was seen in the PAC on 11/21/2018. As part of the visit, an accurate medication list was obtained and the patient was given pre-op medication instructions for upcoming surgery on 12/07/2018. Per cardiac clearance letter written by Kya Fontaine DNP, Plavix and Aspirin may be held for 7 days prior to the procedure. The plan above was communicated to the patient who verbalized understanding. Tushar Malloy PHARMD documented in this encounter Plan of Treatment Order Schedule Name Priority Associated Diagnoses ONE TIME for 1 Occurrences starting 11/21/2018 until 11/21/2018 ECG 12-LEAD Routine History of coronary artery bypass graft Pre-operative cardiovascular examination documented as of this encounter Procedures Comments Procedure Name Priority Date/Time Associated Diagnosis CBC Routine 11/21/2018 Preop testing 11:47 AM CDT TYPE & SCREEN (NOT Routine 11/21/2018 Preop testing CROSSMATCH ELIGIBLE) 11:47 AM CDT BASIC METABOLIC PANEL Routine 11/21/2018 Preop testing 11:47 AM CDT documented in this encounter Results * TYPE & SCREEN (NOT CROSSMATCH ELIGIBLE) (11/21/2018 11:47 AM CDT) ABO/RH(D) O POS [facility] Antibody Screen NEG [facility] Blood Component RED CELL GROUP [facility] Type Specimen Blood, venous - Blood Performing Organization Address City/State/Zipcode Phone Number MAIN LAB [address] [place] [address] * BASIC METABOLIC PANEL (11/21/2018 11:47 AM CDT) Sodium 140 137 - 147 MMOL/L [facility] Potassium 4.0 3.5 - 5.1 MMOL/L [facility] Chloride 106 98 - 110 MMOL/L [facility] CO2 26 21 - 30 MMOL/L [facility] Anion Gap 8 3 - 12 [facility] Glucose 93 70 - 100 MG/DL [facility] Blood Urea 25 7 - 25 MG/DL [facility] Nitrogen Creatinine 1.14 (H) 0.4 - 1.00 MG/DL [facility] Calcium 10.7 (H) 8.5 - 10.6 MG/DL [facility] eGFR Non 46 (L) >60 mL/min [facility] Comment: [place] The eGFR is not validated for use in drug dosing adjustments.Continue to use estimated creatinine clearance per dosing reference text.Please contact the Clinical Pharmacist for questions. eGFR 56 (L) >60 mL/min [facility] [place] Comment: The eGFR is not validated for use in drug dosing adjustments.Continue to use estimated creatinine clearance per dosing reference text.Please contact the Clinical Pharmacist for questions. Specimen Blood Performing Organization Address City/[facility]/Zipcode Phone Number MAIN LAB [address] [place] [address] * CBC (11/21/2018 11:47 AM CDT) White Blood 7.5 4.5 - 11.0 K/UL [facility] Cells RBC 3.71 (L) 4.0 - 5.0 M/UL [facility] Hemoglobin 12.2 12.0 - 15.0 GM/DL [facility] Hematocrit 35.9 (L) 36 - 45 % [facility] MCV 97.0 80 - 100 FL [facility] MCH 32.8 26 - 34 PG [facility] MCHC 33.9 32.0 - 36.0 G/DL [facility] RDW 13.3 11 - 15 % [facility] Platelet Count 300 150 - 400 K/UL [facility] MPV 8.6 7 - 11 FL [facility] Specimen Blood Performing Organization Address City/[facility]/Zipcode Phone Number [facility] [address] [place] [address] documented in this encounter Visit Diagnoses Diagnosis History of coronary artery bypass graft - Primary Postsurgical aortocoronary bypass status Pre-operative cardiovascular examination Preop testing Preoperative examination, unspecified documented in this encounter
--- OUTSIDE RECORDS SUMMARY | 2018-12-23 17:29 | XMS REPORT | Continuity of Care Document ---
Author Organization Unknown Address Unknown Allergies Active Description Code Type Severity Reaction Onset Reported/Identified Relationship to Patient Clinical Status Yes No Known Drug Allergies [id number] Drug Allergy Unknown N/A 05/12/2007 Yes metoclopramide [id number] Drug Allergy Severe TARDIVE DYKENIE 08/04/2018 Medications There is no data. Problems Date Dx Coded Attending Type Code Diagnosis Diagnosed By 05/18/2011 Ot 272.4 HYPERLIPIDEMIA NEC/NOS 05/18/2011 Ot 365.9 GLAUCOMA NOS 05/18/2011 Ot 401.9 HYPERTENSION NOS 05/18/2011 Ot 414.01 CORONARY ATHEROSCLEROSIS OF [place] CORON 05/18/2011 Ot 414.2 CHRONIC TOTAL OCCLUSION [...] SKY DO Ot 414.01 CORONARY ATHEROSCLEROSIS OF [place] CORON 01/19/2013 MENA SKY DO Ot 414.8 [...] MARS MD Ot 714.0 RHEUMATOID ARTHRITIS 06/19/2013 JERAD MERRITT, EMRE Ot 733.00 OSTEOPOROSIS NOS 06/19/2013 EMRE MARS MD Ot 787.20 DYSPHAGIA, UNSPECIFIED 06/19/2013 EMRE MARS MD Ot 998.2 ACCIDENTAL OP LACERATION 06/19/2013 EMRE MARS MD Ot V45.81 AORTOCORONARY BYPASS 06/27/2014 NARCISO KERNS Ot 553.3 DIAPHRAGMATIC HERNIA 06/27/2014 NARCISO KERNS Ot 787.02 NAUSEA ALONE 06/27/2014 NARCISO KERNS Ot 789.04 ABDOMINAL PAIN, LEFT LOWER QUADRANT 06/27/2014 NARCISO KERNS Ot V58.69 OTH MED,LT,CURRENT USE 11/22/2014 Ot 558.9 NONINF GASTROENTERIT [...] TRANSAMINASE/LDH 12/26/2015 Ot 414.01 CORONARY ATHEROSCLEROSIS OF [place] CORON 12/26/2015 Ot 729.5 PAIN IN LIMB 12/26/2015 Ot 786.50 CHEST PAIN NOS 12/26/2015 Ot V58.63 LONG-TERM( CURRENT)USE OF ANTIPLATELET/AN 12/26/2015 Ot V58.66 LONG-TERM ( 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 12/26/2015 Ot V58.69 OT MED,LT, CURRENT USE 12/26/2015 Ot 433.10 CAROTID ARTERY OCCLUSION W O CEREBRAL IN 12/26/2015 Ot 729.5 PAIN IN LIMB 12/26/2015 Ot 998.12 HEMATOMA COMPLIC A PROC 12/26/2015 Ot 440.20 ATHEROSCLEROSIS [place] ARTERIES EXTREMIT 12/26/2015 Ot 780.60 FEVER, UNSPECIFIED 12/26/2015 Ot 787.91 DIARRHEA 12/26/2015 DOMENICO MERRITT, UZMA Thompson Ot 553.3 DIAPHRAGMATIC HERNIA 12/26/2015 Ot 787.91 DIARRHEA 12/26/2015 EMRE MARS MD Ot 414.01 CORONARY ATHEROSCLEROSIS OF [place] CORON 12/26/2015 EMRE MARS MD Ot 553.3 DIAPHRAGMATIC HERNIA 12/26/2015 EMRE MARS MD Ot 791.9 ABN URINE FINDINGS NEC 12/26/2015 EMRE MARS MD Ot V72.63 PRE-PROCEDURAL LABORATORY EXAMINATION 12/26/2015 EMRE MARS MD Ot V74.8 SCREEN-BACTERIAL DIS NEC 12/26/2015 MENA SKY DO Ot V55.1 ATTEN TO GASTROSTOMY 12/26/2015 YANABRODIE KENYONURI Roberto APRN Ot V55.4 ATTEN TO ENTEROSTOMY NEC [...] MD Ot I25.10 ATHSCL HEART DISEASE OF [place] CORONARY 03/04/2017 VENKAT MANRIQUEZ MD Ot K21.9 GASTRO-ESOPHAGEAL REFLUX DISEASE WITHOUT 03/04/2017 VENKAT MANRIQUEZ MD Ot R07.9 CHEST PAIN, UNSPECIFIED 03/04/2017 VENKAT MANRIQUEZ MD Ot Z79.82 CONSULTANT (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 03/04/2017 VENKAT MANRIQUEZ MD Ot Z95.1 PRESENCE OF AORTOCORONARY BYPASS GRAFT 03/10/2017 VENKAT MANRIQUEZ MD Ot I25.10 ATHSCL HEART DISEASE OF [place] CORONARY 03/10/2017 VENKAT MANRIQUEZ MD, Ot K21.9 GASTRO-ESOPHAGEAL REFLUX DISEASE WITHOUT 03/10/2017 VENKAT MANRIQUEZ MD Ot R07.9 CHEST PAIN, UNSPECIFIED 03/10/2017 VENKAT MANRIQUEZ MD Ot Z79.82 FCI (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 03/10/2017 VENKAT MANRIQUEZ MD Ot Z95.1 PRESENCE OF AORTOCORONARY BYPASS GRAFT 09/03/2017 Ot 780.60 FEVER, UNSPECIFIED 09/03/2017 Ot 787.91 DIARRHEA 09/03/2017 DOMENICO MERRITT, UZMA Thompson Ot 553.3 DIAPHRAGMATIC HERNIA 09/03/2017 Ot 787.91 DIARRHEA 09/03/2017 EMRE MARS MD Ot 414.01 CORONARY ATHEROSCLEROSIS OF [place] CORON 09/03/2017 EMRE MARS MD Ot 553.3 DIAPHRAGMATIC HERNIA 09/03/2017 EMRE MARS MD Ot 791.9 ABN URINE FINDINGS NEC 09/03/2017 EMRE MARS MD Ot V72.63 PRE-PROCEDURAL LABORATORY EXAMINATION 09/03/2017 EMRE MARS MD Ot V74.8 SCREEN-BACTERIAL DIS NEC 09/03/2017 MENA SKY DO Ot V55.1 ATTEN TO GASTROSTOMY 09/03/2017 [place] APRN Ot V55.4 ATTEN TO ENTEROSTOMY NEC 09/03/2017 MENA SKY DO Ot 781.0 ABN INVOLUN MOVEMENT NEC 09/03/2017 MENA SKY DO Ot 793.0 NOSP (ABN) FINDINGS ON RADIOLOGICAL OT 09/03/2017 JOSE DANIEL DAHL MENA Tamela Ot 793.82 INCONCLUSIVE MAMMOGRAM 09/03/2017 JOSE DANIEL DAHL MENA Tamela Ot V76.12 OTH SCREEN MAMMO-MALIGN NEOPLASM OF [place] 09/03/2017 JOSE DANIEL DAHL MENA Tamela Ot Z12.31 ENCNTR SCREEN MAMMOGRAM FOR MALIGNANT NE 09/03/2017 JEY DAHL CHAPITO Adam Ot E78.00 PURE HYPERCHOLESTEROLEMIA, UNSPECIFIED 09/03/2017 CHAPITO KHANNA DO Ot I10 ESSENTIAL (PRIMARY) HYPERTENSION 09/03/2017 JEY CHAPITO Adam Ot I25.10 ATHSCL HEART DISEASE OF [place] CORONARY 09/03/2017 JEY DAHL CHAPITO K Ot K21.9 GASTRO-ESOPHAGEAL REFLUX DISEASE WITHOUT 09/03/2017 JEYMaria A DAHL CHAPITO Adam Ot K52.9 NONINFECTIVE GASTROENTERITIS AND COLITIS 09/03/2017 JEY DAHL CHAPITO Adam Ot M81.0 AGE-RELATED OSTEOPOROSIS W/O CURRENT PAT 09/03/2017 JEY DAHL CHAPITO Aadm Ot R11.2 NAUSEA WITH VOMITING, UNSPECIFIED 09/03/2017 JEY CHAPITO Adam Ot Z79.82 FCI (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 09/03/2017 JEY DAHL CHAPITO Adam Ot Z80.41 FAMILY HISTORY OF MALIGNANT NEOPLASM OF 09/03/2017 JEY DAHL CHAPITO Adam Ot Z82.49 FAMILY HX OF ISCHEM HEART DIS AND OTH DI 09/03/2017 JEY CHAPITO Adam Ot Z87.19 PERSONAL HISTORY OF OTHER DISEASES OF TH 09/03/2017 RUFINO KHANNA DOA Adam Ot Z90.81 ACQUIRED ABSENCE OF SPLEEN 09/03/2017 CHAPITO KHANNA DO Ot Z95.1 PRESENCE OF AORTOCORONARY BYPASS GRAFT 09/03/2017 CHAPITO KHANNA DO Ot Z98.51 TUBAL LIGATION STATUS 09/04/2017 Ot 780.60 FEVER, UNSPECIFIED 09/04/2017 Ot 787.91 DIARRHEA 09/04/2017 DOMENICO MERRITT, UZMA Thompson Ot 553.3 DIAPHRAGMATIC HERNIA 09/04/2017 Ot 787.91 DIARRHEA 09/04/2017 JERAD MERRTIT, EMRE Ot 414.01 CORONARY ATHEROSCLEROSIS OF [place] CORON 09/04/2017 EMRE MARS MD Ot 553.3 DIAPHRAGMATIC HERNIA 09/04/2017 EMRE MRAS MD Ot 791.9 ABN URINE FINDINGS NEC 09/04/2017 EMRE MARS MD Ot V72.63 PRE-PROCEDURAL LABORATORY EXAMINATION 09/04/2017 EMRE MARS MD Ot V74.8 SCREEN-BACTERIAL DIS NEC 09/04/2017 MENA SKY DO Ot V55.1 ATTEN TO GASTROSTOMY 09/04/2017 [place] APRN Ot V55.4 ATTEN TO ENTEROSTOMY NEC 09/04/2017 MENA SKY DO Ot 781.0 ABN INVOLUN MOVEMENT NEC 09/04/2017 SKYMENA BARTON DO Ot 793.0 NOSP (ABN) FINDINGS ON [...] MARS MD Ot 414.01 CORONARY ATHEROSCLEROSIS OF [place] CORON 08/04/2018 EMRE MARS MD Ot 553.3 DIAPHRAGMATIC HERNIA 08/04/2018 EMRE MARS MD Ot 791.9 ABN URINE FINDINGS NEC 08/04/2018 EMRE MARS MD Ot V72.63 PRE-PROCEDURAL LABORATORY EXAMINATION 08/04/2018 EMRE MARS MD Ot V74.8 SCREEN-BACTERIAL DIS NEC 08/04/2018 MENA SKY DO Ot V55.1 ATTEN TO GASTROSTOMY 08/04/2018 [place] APRN Ot V55.4 ATTEN TO ENTEROSTOMY NEC [...] APRN Ot I25.10 ATHSCL HEART DISEASE OF [place] CORONARY 08/04/2018 SUSHIL NI APRN Ot K21.9 GASTRO-ESOPHAGEAL REFLUX DISEASE WITHOUT 08/04/2018 SUSHIL NI APRN Ot M81.0 AGE-RELATED OSTEOPOROSIS W/O CURRENT PAT 08/04/2018 SUSHIL NI APRN Ot R11.2 NAUSEA WITH VOMITING, UNSPECIFIED 08/04/2018 SUSHIL NI APRN Ot Z79.82 FCI (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 08/04/2018 SUSHIL NI [...] APRN Ot I25.10 ATHSCL HEART DISEASE OF [place] CORONARY 08/07/2018 SUSHIL NI APRN Ot K21.9 GASTRO-ESOPHAGEAL REFLUX DISEASE WITHOUT 08/07/2018 SUSHIL NI APRN Ot M81.0 AGE-RELATED OSTEOPOROSIS W/O CURRENT PAT 08/07/2018 SUSHIL NI APRN Ot R11.2 NAUSEA WITH VOMITING, UNSPECIFIED 08/07/2018 SUSHIL NI APRN Ot Z79.82 FCI (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 08/07/2018 SUSHIL NI APRN Ot Z80.41 FAMILY HISTORY OF MALIGNANT NEOPLASM OF 08/07/2018 SUSHIL NI APRN Ot Z82.49 FAMILY HX OF ISCHEM HEART DIS AND OTH DI 08/07/2018 SUSHIL NI APRN Ot Z87.19 PERSONAL HISTORY OF OTHER DISEASES OF TH 08/07/2018 SUSHIL NI APRN Ot Z95.1 PRESENCE OF AORTOCORONARY BYPASS GRAFT 08/07/2018 SUSHIL NI APRN Ot Z98.51 TUBAL LIGATION STATUS 08/26/2018 SUSHIL NI APRN Ot E78.00 PURE HYPERCHOLESTEROLEMIA, UNSPECIFIED 08/26/2018 SUSHIL NI APRN Ot I10 ESSENTIAL (PRIMARY) HYPERTENSION 08/26/2018 SUSHIL NI APRN Ot I25.10 ATHSCL HEART DISEASE OF [place] CORONARY 08/26/2018 SUSHIL NI APRN Ot K21.9 GASTRO-ESOPHAGEAL REFLUX DISEASE WITHOUT 08/26/2018 SUSHIL NI APRN Ot M81.0 AGE-RELATED OSTEOPOROSIS W/O CURRENT PAT 08/26/2018 SUSHIL NI APRN Ot R11.0 NAUSEA 08/26/2018 SUSHIL NI APRN Ot R11.2 NAUSEA WITH VOMITING, UNSPECIFIED 08/26/2018 SUSHIL NI APRN Ot Z79.02 CONSULTANT (CURRENT) USE OF ANTITHROMBOTI 08/26/2018 SUSHIL NI APRN Ot Z79.82 FCI (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 08/26/2018 SUSHIL NI APRN Ot Z80.41 FAMILY HISTORY OF MALIGNANT NEOPLASM OF 08/26/2018 SUSHIL NI APRN Ot Z82.49 FAMILY HX OF ISCHEM HEART DIS AND OTH DI 08/26/2018 SUSHIL NI APRN Ot Z87.19 PERSONAL HISTORY OF OTHER DISEASES OF TH 08/26/2018 SUSHIL NI APRN Ot Z90.81 ACQUIRED ABSENCE OF SPLEEN 08/26/2018 SUSHIL NI APRN Ot Z95.1 PRESENCE OF AORTOCORONARY BYPASS GRAFT 08/26/2018 SUSHIL NI APRN Ot Z98.51 TUBAL LIGATION STATUS 08/26/2018 SUSHIL NI APRN Ot Z98.890 OTHER SPECIFIED POSTPROCEDURAL STATES 08/29/2018 SUSHIL NI APRN Ot E78.00 PURE HYPERCHOLESTEROLEMIA, UNSPECIFIED 08/29/2018 SUSHIL NI APRN Ot I10 ESSENTIAL (PRIMARY) HYPERTENSION 08/29/2018 SUSHIL NI APRN Ot I25.10 ATHSCL HEART DISEASE OF [place] CORONARY 08/29/2018 SUSHIL NI APRN Ot K21.9 GASTRO-ESOPHAGEAL REFLUX DISEASE WITHOUT 08/29/2018 SUSHIL NI APRN Ot M81.0 AGE-RELATED OSTEOPOROSIS W/O CURRENT PAT 08/29/2018 SUSHIL NI APRN Ot R11.0 NAUSEA 08/29/2018 SUSHIL NI APRN Ot R11.2 NAUSEA WITH VOMITING, UNSPECIFIED 08/29/2018 SUSHIL NI APRN Ot Z79.02 CONSULTANT (CURRENT) USE OF ANTITHROMBOTI 08/29/2018 SUSHIL NI APRN Ot Z79.82 CONSULTANT (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 08/29/2018 SUSHIL NI APRN Ot Z80.41 FAMILY HISTORY OF MALIGNANT NEOPLASM OF 08/29/2018 SUSHIL NI APRN Ot Z82.49 FAMILY HX OF ISCHEM HEART DIS AND OTH DI 08/29/2018 SUSHIL NI APRN Ot Z87.19 PERSONAL HISTORY OF OTHER DISEASES OF TH 08/29/2018 SUSHIL NI APRN Ot Z90.81 ACQUIRED ABSENCE OF SPLEEN 08/29/2018 SUSHIL NI APRN Ot Z95.1 PRESENCE OF AORTOCORONARY BYPASS GRAFT 08/29/2018 SUSHIL NI APRN Ot Z98.51 TUBAL LIGATION STATUS 08/29/2018 SUSHIL NI APRN Ot Z98.890 OTHER SPECIFIED POSTPROCEDURAL STATES 08/31/2018 MENA SKY DO Ot R10.13 EPIGASTRIC PAIN 08/31/2018 MENA SKY DO, Ot R11.2 NAUSEA WITH VOMITING, UNSPECIFIED 09/06/2018 MENA SKY DO, Ot R11.2 NAUSEA WITH VOMITING, UNSPECIFIED 09/06/2018 MENA SKY DO Ot R11.2 NAUSEA WITH VOMITING, UNSPECIFIED Procedures Code Description Performed By Performed On [...] - 08/04/18 10:42 Lipase 12 U/L 8-78 Complete blood count (CBC) with automated white blood cell (WBC) differential - 08/26/18 11:13 Blood leukocytes automated count (number/volume) 8.9 10*3/uL 4.3-11.0 Blood erythrocytes automated count (number/volume) 4.00 10*6/uL 4.35-5.85 Venous blood hemoglobin measurement (mass/volume) 13.0 g/dL 11.5-16.0 Blood hematocrit (volume fraction) 40 % 35-52 Automated erythrocyte mean corpuscular volume 100 [foz_us] 80-99 Automated erythrocyte mean corpuscular hemoglobin (mass per erythrocyte) 33 pg 25-34 Automated erythrocyte mean corpuscular hemoglobin concentration measurement ( mass/volume) 33 g/dL 32-36 Automated erythrocyte distribution width ratio 13.2 % 10.0-14.5 Automated blood platelet count (count/volume) 292 10*3/uL 130-400 Automated blood platelet mean volume measurement 10.4 [foz_us] 7.4-10.4 Automated blood neutrophils/100 leukocytes 67 % 42-75 Automated blood lymphocytes/100 leukocytes 19 % 12-44 Blood monocytes/100 leukocytes 9 % 0-12 Automated blood eosinophils/100 leukocytes 5 % 0-10 Automated blood basophils/100 leukocytes 0 % 0-10 Blood neutrophils automated count (number/volume) 6.0 10*3 1.8-7.8 Blood lymphocytes automated count (number/volume) 1.7 10*3 1.0-4.0 Blood monocytes automated count (number/volume) 0.8 10*3 0.0-1.0 Automated eosinophil count 0.4 10*3/uL 0.0-0.3 Automated blood basophil count (count/volume) 0.0 10*3/uL 0.0-0.1 Comprehensive metabolic panel - 08/26/18 11:13 Serum or plasma sodium measurement (moles/volume) 142 mmol/L 135-145 Serum or plasma potassium measurement (moles/volume) 4.5 mmol/L 3.6-5.0 Serum or plasma chloride measurement (moles/volume) 106 mmol/L 98-107 Carbon dioxide 25 mmol/L 21-32 Serum or plasma anion gap determination (moles/volume) 11 mmol/L 5-14 Serum or plasma urea nitrogen measurement (mass/volume) 21 mg/dL 7-18 Serum or plasma creatinine measurement (mass/volume) 1.10 mg/dL 0.60-1.30 Serum or plasma urea nitrogen/creatinine mass ratio 19 NRG Serum or plasma creatinine measurement with calculation of estimated glomerular filtration rate 48 NRG Serum or plasma glucose measurement (mass/volume) 84 mg/dL 70-105 Serum or plasma calcium measurement (mass/volume) 10.5 mg/dL 8.5-10.1 Serum or plasma total bilirubin measurement (mass/volume) 0.4 mg/dL 0.1-1.0 Serum or plasma alkaline phosphatase measurement (enzymatic activity/volume) 44 U/L 40-136 Serum or plasma aspartate aminotransferase measurement (enzymatic activity/ volume) 26 U/L 5-34 Serum or plasma alanine aminotransferase measurement (enzymatic activity/volume ) 17 U/L 0-55 Serum or plasma protein measurement (mass/volume) 8.0 g/dL 6.4-8.2 Serum or plasma albumin measurement (mass/volume) 4.4 g/dL 3.2-4.5 CALCIUM CORRECTED 10.2 mg/dL 8.5-10.1 Serum or plasma troponin i.cardiac measurement (mass/volume) - 08/26/18 11:13 Serum or plasma troponin i.cardiac measurement (mass/volume) < ng/ mL <0.30 Lipase - 08/26/18 11:13 Lipase 12 U/L 8-78 Complete urinalysis with reflex to culture - 08/26/18 11:21 Urine color determination YELLOW NRG Urine clarity determination VERY CLOUDY NRG Urine pH measurement by test strip 8 5-9 Specific gravity of urine by test strip 1.010 1.016- 1.022 Urine protein assay by test strip, semi-quantitative NEGATIVE NEGATIVE Urine glucose detection by automated test strip NEGATIVE NEGATIVE Erythrocytes detection in urine sediment by light microscopy NEGATIVE NEGATIVE Urine ketones detection by automated test strip NEGATIVE NEGATIVE Urine nitrite detection by test strip NEGATIVE NEGATIVE Urine total bilirubin detection by test strip NEGATIVE NEGATIVE Urine urobilinogen measurement by automated test strip (mass/volume) NORMAL NORMAL Urine leukocyte esterase detection by dipstick NEGATIVE NEGATIVE Automated urine sediment erythrocyte count by microscopy (number/high power field) NONE NRG Automated urine sediment leukocyte count by microscopy (number/high power field ) RARE NRG Bacteria detection in urine sediment by light microscopy NEGATIVE NRG Squamous epithelial cells detection in urine sediment by light microscopy 0-2 NRG Crystals detection in urine sediment by light microscopy NONE NRG Casts detection in urine sediment by light microscopy NONE NRG Mucus detection in urine sediment by light microscopy NEGATIVE NRG Complete urinalysis with reflex to culture NO NRG Amorphous sediment detection in urine sediment by light microscopy LARGE SANDRA PHOSPHATE NRG Encounters ACCT No. Visit Date/Time Discharge Status Pt. 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 [facility] ER NAUSEA/VOMITING [id number] 09/03/2017 18:54:00 09/03/2017 22:28:00 DIS Emergency JEYMaria A DAHL CHAPITO Adam [facility] ER VOMITING [id number] 03/04/2017 08:19:00 03/04/2017 12:14:00 DIS Emergency VENKAT MANRIQUEZ MD [facility] ER CHEST PAIN [id number] 12/26/2015 15:29:00 12/26/2015 23:59:59 CLS Outpatient MENA SKY DO [facility] RAD SCREENING [id number] 12/15/2014 16:40:00 12/17/2014 10:28:00 DIS Inpatient MENA SKY DO [facility] CSD UPPER BACK PAIN CAD NAUSEA/VOMITING/DIARRHEA [id number] 12/13/2014 09:32:00 12/13/2014 23:59:59 CLS Outpatient MENA SKY DO [facility] RAD SCREENING [id number] 06/27/2014 16:32:00 06/27/2014 20:58:00 DIS Emergency NARCISO KERNS [facility] ER ABD PAIN;NAUSEA;L SHOULDER PAIN [id number] 03/26/2014 09:28:00 03/26/2014 23:59:59 CLS Outpatient MENA SKY DO [facility] RAD NEW ONSET TREMOR [id number] 07/24/2013 14:12:00 07/24/2013 23:59:59 CLS Outpatient [place] HEADING MACHINE OPERATOR [facility] RAD PEG PATENCY W/ GASTROGRAPHEN [id number] 07/23/2013 17:24:00 07/23/2013 23:59:59 CLS Outpatient MENA SKY DO [facility] RAD FEEDING TUBE PLACEMENT [id number] 06/16/2013 12:56:00 06/19/2013 16:10:00 DIS Inpatient EMRE MARS MD [facility] ICU POST OP PAIN,INTRACTABLE VOMITING, NSTEMI [id number] 06/14/2013 08:58:00 06/15/2013 15:45:00 DIS Outpatient EMRE MARS MD [facility] SDC HIATAL HERNIA [id number] 06/12/2013 13:32:00 06/12/2013 23:59:59 CLS Outpatient EMRE MARS MD [facility] PREOP HIATAL HERNIA [id number] 01/02/2013 11:34:00 03/25/2013 00:01:00 DIS Outpatient MENA SKY DO [facility] LAB CHRONIC DIARRHEA [id number] 03/16/2013 09:07:00 03/16/2013 23:59:59 CLS Outpatient UZMA ACUÑA MD [facility] RAD PARAESOPHAGEAL HERNIA [id number] 01/18/2013 17:16:00 01/19/2013 10:54:00 DIS Inpatient MENA SKY DO [facility] CSD CHEST PAIN; RCMI [id number] 12/23/2018 17:18:00 ACT Emergency HENRRY MERRITT, NATHAN Lewis [facility] ER POST OP/VOMITING/DIARRHEA [id number] 12/12/2014 15:27:00 Document Registration [id number] 12/12/2014 15:27:00 Document Registration [id number] 11/22/2014 08:33:00 Document Registration [id number] 03/26/2013 00:00:00 Document Registration [id number] 11/01/2012 00:00:00 Document Registration [id number] 08/02/2012 13:58:00 Document Registration [id number] 11/04/2011 11:45:00 Document Registration [id number] 05/18/2011 11:09:00 Document Registration [id number] 12/21/2010 11:30:00 Document Registration [id number] 12/14/2010 11:55:00 Document Registration
[2018-12-23] MEDS ORDERED: SCOPOLAMINE 1.5 MG (TRANSDERM-SCOP) PATCH TD ONE (17:45)
[2018-12-23] MEDS ORDERED: ACETAMINOPHEN 325 MG TABLET PO ONE (17:45)
[2018-12-23] MEDS ORDERED: NS IV 1000 ML 1,000 ML IV SCH (17:45)
[2018-12-23] MEDS ORDERED: diphenhydrAMINE 50 MG/ML INJ (BENADRYL) IVP ONE (17:45)
[2018-12-23] MEDS ORDERED: PROMETHAZINE INJ 25 MG/ML (PHENERGAN) AMP IVP ONE (17:45)
--- NOTE | 2018-12-23 17:58 | ED GI ---
General Stated Complaint: POST OP/VOMITING/DIARRHEA Source of Information: Patient, Family Exam Limitations: No Limitations (NATHAN MENDES MD) History of Present Illness Date Seen by Provider: Dec 23, 2018 Time Seen by Provider: 17:53 Initial Comments This 78-year-old white female presents with vomiting. The patient's recent history is significant in that she has had a rectal prolapse repair to approximately 2 weeks ago for the second time. The patient has a long-standing history of paroxysmal vomiting. She has had an esophageal wrap surgically twice in the past with the vomiting occurring without warning and persistently since then. The patient has had no abdominal pain. She denies hematemesis or black or tarry stool. She denies obstipation. She has had largely diarrhea for the last several days. However shortly prior presentation to the emergency department the patient had a relatively normal stool. The patient's nausea apparently responds to Phenergan and or scopolamine. It was noted the patient had a fever on arrival in the emergency department. (NATHAN MENDES MD) Allergies and Home Medications Allergies Coded Allergies: metoclopramide (Unverified Allergy, Severe, TARDIVE DYKENIESIA, 08/04/18) Home Medications Amitriptyline HCl 10 Mg Tablet, 10 MG PO DAILY LATE, (Reported) Aspirin 81 Mg Tab.chew, 81 MG PO DAILY, (Reported) Beta-Carotene(A) W-C & E/Min 1 Each Tablet, 1 EACH PO DAILY, (Reported) Bilberry 100 Mg Capsule, 1,000 MG PO DAILY LATE, (Reported) Calcium Carbonate 600 Mg Tablet, 600 MG PO DAILY, (Reported) Cholecalciferol (Vitamin D3) 1,000 Unit Capsule, 1,000 UNIT PO DAILY, (Reported) Clonazepam 0.5 Mg Tablet, 0.5 MG PO BID, (Reported) Clopidogrel Bisulfate 75 Mg Tablet, 75 MG PO DAILY, (Reported) Hydroxychloroquine Sulfate 200 Mg Tablet, 200 MG PO BID, (Reported) Isosorbide Mononitrate 60 Mg Tab, 60 MG PO DAILY, (Reported) Lisinopril 5 Mg Tablet, 5 MG PO DAILY LATE, (Reported) Prosser 3 Polyunsat Fatty Acids 1,000 Mg Cap, 2,000 MG PO BID, (Reported) Ondansetron 8 Mg Tab.rapdis, 8 MG PO Q4H Prescribed by: CHAPITO KHANNA on 09/03/172110 Ondansetron HCl 4 Mg Tab, 4 MG PO Q4H PRN for NAUSEA/VOMITING Prescribed by: SUSHIL NI on 08/04/18 111 Oxybutynin Chloride 5 Mg Tablet, 5 MG PO BID, (Reported) Pantoprazole Sodium 40 Mg Tablet.dr, 40 MG PO DAILY Prescribed by: CHAPITO KHANNA on 09/03/172110 Promethazine HCl 25 Mg Supp.rect, 25 MG RC Q4H Prescribed by: CHAPITO KHANNA on 09/03/172110 Promethazine HCl 25 Mg Tablet, 12.5 MG PO Q6H PRN for NAUSEA/VOMITING Prescribed by: SUSHIL NI on 08/26/18 1237 Patient Home Medication List Home Medication List Reviewed: Yes (NATHAN MENDES MD) Review of Systems Review of Systems Constitutional: fever EENTM: No Symptoms Reported Respiratory: Denies Cough Cardiovascular: Denies Chest Pain Gastrointestinal: Denies Abdomen Distended, Denies Abdominal Pain; Diarrhea, Vomiting Genitourinary: No Symptoms Reported Musculoskeletal: No back pain Skin: No change in color, No rash Psychiatric/Neurological: No Symptoms Reported Endocrine: No Symptoms Reported Hematologic/Lymphatic: No Symptoms Reported (NATHAN MENDES MD) Past Iajrjru-Blkvfr-Ycrfgc Hx Past Med/Social Hx: Reviewed Nursing Past Med/Soc Hx (NATHAN MENDES MD) Patient Social History 2nd Hand Smoke Exposure: No Recent Foreign Travel: No Contact w/Someone Who Travel: No Recent Hopitalizations: No (NATHAN MENDES MD) Immunizations Up To Date Tetanus Booster (TDap): Unknown Date of Pneumonia Vaccine: May 13, 2015 Date of Influenza Vaccine: Jun 12, 2017 (NATHAN MENDES MD) Seasonal Allergies Seasonal Allergies: No (NATHAN MENDES MD) Past Medical History Surgeries: Yes (spleenectomy, HH sx) Abdominal, Cardiac, CABG, Tubal Ligation Respiratory: No Cardiac: Yes (DOUBLE BYPASS (CABG X2)) Coronary Artery Disease, High Cholesterol, Hypertension Neurological: No Reproductive Disorders: No Genitourinary: No Gastrointestinal: Yes (rectal prolapse, ) Abdominal Hernia, Gastroesophageal Reflux, Chronic Diarrhea, Hiatal Hernia Musculoskeletal: Yes (ARTHRITIS IN HANDS ) Osteoporosis, Arthritis, Chronic Back Pain Endocrine: No HEENT: Yes (NO TEETH) Hearing Impairment: Hard of Hearing Cancer: No Psychosocial: No Integumentary: Yes (ECZEMA A CHILD) Eczema Blood Disorders: No (NATHAN MENDES MD) Family Medical History Diabetes mellitus G8 BROTHER, , Age:62 G8 SISTER, , Age:60 years and older GREAT AUNT FH: ovarian cancer AUNT Myocardial infarction 19 FATHER, , Age:39 19 MOTHER, , Age:83 G8 BROTHER, , Age:62 G8 SISTER, , Age:60 years and older Heart Disease (NATHAN MENDES MD) Physical Exam Vital Signs Vital Signs - First Documented 12/23/18 17:28 Temp 99.7 Pulse 70 Resp 18 B/P (MAP) 154/82 (106) Pulse Ox 99 O2 Delivery Room Air (NEHA MANRIQUEZ) Vital Signs Capillary Refill : (NATHAN MENDES MD) Height/Weight/BMI Height: 5'4.00" Weight: 135lbs. 1.0oz. 61.196868bb; 20.01 BMI Method:Estimated General Appearance: no apparent distress, cachetic HEENT: normal ENT inspection Neck: full range of motion, supple Respiratory: lungs clear Cardiovascular: regular rate, rhythm Gastrointestinal: non tender, soft Extremities: normal range of motion, normal inspection Back: normal inspection Neurologic/Psychiatric: no motor/sensory deficits, alert, normal mood/affect, oriented x 3 Skin: normal color, warm/dry (NATHAN MENDES MD) Focused Exam Lactate Level 12/23/18 17:52: Lactic Acid Level 1.49 (NEHA MANRIQUEZ) Lactic Acid Level Laboratory Tests Test 12/23/18 17:52 Lactic Acid Level 1.49 MMOL/L (0.50-2.00) (NEHA MANRIQUEZ) Progress/Results/Core Measures Results/Orders Lab Results Laboratory Tests Test 12/23/18 17:52 12/23/18 19:09 Range/Units White Blood Count 9.8 4.3-11.0 10^3/uL Red Blood Count 3.58 L 4.35-5.85 10^6/uL Hemoglobin 11.2 L 11.5-16.0 G/DL Hematocrit 35 35-52 % Mean Corpuscular Volume 96 80-99 FL Mean Corpuscular Hemoglobin 31 25-34 PG Mean Corpuscular Hemoglobin Concent 33 32-36 G/DL Red Cell Distribution Width 14.3 10.0-14.5 % Platelet Count 744 H 130-400 10^3/uL Mean Platelet Volume 9.7 7.4-10.4 FL Neutrophils (%) (Auto) 66 42-75 % Lymphocytes (%) (Auto) 16 12-44 % Monocytes (%) (Auto) 13 H 0-12 % Eosinophils (%) (Auto) 4 0-10 % Basophils (%) (Auto) 1 0-10 % Neutrophils # (Auto) 6.5 1.8-7.8 X 10^3 Lymphocytes # (Auto) 1.6 1.0-4.0 X 10^3 Monocytes # (Auto) 1.3 H 0.0-1.0 X 10^3 Eosinophils # (Auto) 0.4 H 0.0-0.3 10^3/uL Basophils # (Auto) 0.1 0.0-0.1 10^3/uL Neutrophils % (Manual) 68 % Lymphocytes % (Manual) 17 % Monocytes % (Manual) 9 % Eosinophils % (Manual) 6 % Smudge Cells SLIGHT Platelet Estimate INCREASED Poikilocytosis SLIGHT [place] Cells SLIGHT Erythrocyte Sedimentation Rate 66 H 0-30 MM/HR Sodium Level 142 135-145 MMOL/L Potassium Level 3.7 3.6-5.0 MMOL/L Chloride Level 102 98-107 MMOL/L Carbon Dioxide Level 25 21-32 MMOL/L Anion Gap 15 H 5-14 MMOL/L Blood Urea Nitrogen 17 7-18 MG/DL Creatinine 1.08 0.60-1.30 MG/DL Estimat Glomerular Filtration Rate 49 BUN/Creatinine Ratio 16 Glucose Level 127 H 70-105 MG/DL Lactic Acid Level 1.49 0.50-2.00 MMOL/L Calcium Level 11.6 H 8.5-10.1 MG/DL Corrected Calcium 11.7 H 8.5-10.1 MG/DL Total Bilirubin 0.5 0.1-1.0 MG/DL Aspartate Amino Transf (AST/SGOT) 20 5-34 U/L Alanine Aminotransferase (ALT/SGPT) 14 0-55 U/L Alkaline Phosphatase 60 40-136 U/L Total Protein 7.9 6.4-8.2 GM/DL Albumin 3.9 3.2-4.5 GM/DL Lipase 9 8-78 U/L Urine Color YELLOW Urine Clarity VERY CLOUDY H Urine pH 8 5-9 Urine Specific [place] 1.010 L 1.016-1.022 Urine Protein 2+ H NEGATIVE Urine Glucose (UA) NEGATIVE NEGATIVE Urine Ketones NEGATIVE NEGATIVE Urine Nitrite NEGATIVE NEGATIVE Urine Bilirubin NEGATIVE NEGATIVE Urine Urobilinogen NORMAL NORMAL MG/DL Urine Leukocyte Esterase 3+ H NEGATIVE Urine RBC (Auto) 3+ H NEGATIVE Urine RBC NONE /HPF Urine WBC TNTC H /HPF Urine Crystals NONE /LPF Urine Bacteria LARGE H /HPF Urine Casts NONE /LPF Urine Mucus NEGATIVE /LPF Urine Culture Indicated YES (NEHA MANRIQUEZ) My Orders Orders - NEHA MANRIQUEZ Iohexol Injection (Omnipaque 350 Mg/Ml 1 (12/23/18 19:30) Received Contrast (Hold Metformin- Contr (12/23/18 19:30) Cefepime Injection (Maxipime Injection) (12/23/18 19:45) (NEHA MANRIQUEZ) Medications Given in ED Current Medications Medications Dose Ordered Sig/Dahlia Route Start Time Stop Time Status Last Admin Dose Admin Acetaminophen 650 mg ONCE ONCE PO 12/23/18 17:45 12/23/18 17:48 DC 12/23/18 18:00 650 MG Cefepime HCl 1000 mg/Sterile Water 10 ml @ 200 mls/hr ONCE ONCE IV 12/23/18 19:45 12/23/18 19:47 DC 12/23/18 19:54 200 MLS/HR Diphenhydramine HCl 25 mg ONCE ONCE IVP 12/23/18 17:45 12/23/18 17:48 DC 12/23/18 18:00 25 MG Iohexol 75 ml ONCE ONCE IV 12/23/18 19:30 12/23/18 19:31 DC 12/23/18 19:24 75 ML Promethazine HCl 25 mg ONCE ONCE IVP 12/23/18 17:45 12/23/18 17:48 DC 12/23/18 18:00 25 MG Scopolamine 1.5 mg ONCE ONCE TD 12/23/18 17:45 12/23/18 17:48 DC 12/23/18 18:00 1.5 MG (NEHA MANRIQUEZ) Vital Signs/I&O 12/23/18 17:28 Temp 99.7 Pulse 70 Resp 18 B/P (MAP) 154/82 (106) Pulse Ox 99 O2 Delivery Room Air (NEHA MANRIQUEZ) Progress Progress Note : Time: 18:35 Progress Note Assume care of the patient from Dr. Mendes at shift change and I agree with the above stated history and physical exam. Patient's wound looks very good with just a few areas of top about 1 cm where the subcuticular stitches, out prematurely but there is good granulation tissue underneath and no evidence of infection, erythema, induration, fluctuance. Would be concerned about a urinary tract infection versus bowel obstruction due to adhesions or other complications with her vomiting and fever. She does have a history of vomiting status post multiple surgeries for fundoplication of her esophagus. She was 99.7 here in the ER. She was given a dose of nausea medicines when she arrived in the ER and presently she says she has no nausea. She was not able to take her morning medicines and is also concerned her daughter so we'll make sure that we can control her nausea if we send her home with oral medicines preferably. (NEHA MANRIQUEZ) Diagnostic Imaging Diagonstic Imaging: CT (with contrast) Plain Films/CT/US/NM/MRI: abdomen, pelvis Comments [facility]. [place], [place] NAME: MELLISSA DOWNING [facility] REC#: [id number] PT STATUS: REG ER : 1940 PHYSICIAN: NATHAN MENDES MD ADMIT DATE: 12/23/18/ER Draft Date of Exam:12/23/18 CT ABDOMEN/PELVIS W PROCEDURE: CT abdomen and pelvis with contrast. TECHNIQUE: Multiple contiguous axial images were obtained through the abdomen and pelvis after administration of intravenous contrast. Auto Exposure Controls were utilized during the CT exam to meet ALARA standards for radiation dose reduction. INDICATION: Diarrhea and vomiting. History of recent colon resection approximately two weeks ago. COMPARISON: CT abdomen and pelvis performed on 09/03/2017. FINDINGS: Multiple images are degraded by patient motion which diminishes detail, and interpretation was made in light of this technical confine. Linear scarring/atelectasis is demonstrated in the left lower lobe and right middle lobe. No pleural effusion. Visualized heart is normal in size. No pericardial effusion. The liver, gallbladder and adrenal glands are normal. Spleen is not seen and presumably surgically absent. 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 No biliary or pancreatic ductal dilatation is demonstrated. The kidneys enhance symmetrically, without evidence of renal calculus or hydronephrosis on either side. The visualized ureters appear normal. There is a large paraesophageal hiatal hernia. No small bowel dilatation to suggest obstruction. The patient is status post partial colectomy, with surgical suture material in the low midline pelvis reflecting site of anastomosis. There is a large lentiform rim-enhancing collection posterior to the rectum extending superiorly into the presacral space which measures approximately 7.9 x 3.5 x 8.2 (transverse x AP x superior-inferior) cm in greatest dimensions. No definite bowel wall thickening is demonstrated. There is no pneumoperitoneum. No lymphadenopathy is demonstrated. There is severe atherosclerotic calcification of the abdominal aorta, without aneurysmal dilatation. There is no evidence of venous thrombosis. The bladder demonstrates no abnormal focal thickening or calculus. A single focus of gas anti-dependent anterior bladder is demonstrated. Midline ventral wall wound is demonstrated, without underlying focal fluid collection. Multilevel degenerative changes involve the spine. No acute osseous abnormality is identified. There is no evidence of osseous erosion in the region of the aforementioned presacral rim-enhancing collection. IMPRESSION: Status post partial colectomy. No discrete abnormality is demonstrated at the site of anastomosis in the low midline pelvis. There is a lentiform rim-enhancing collection posterior to the rectum that extends superiorly into the presacral space, measuring up to over 8 cm in craniocaudal dimension. Findings are concerning for abscess. There is no evidence of erosion of the adjacent osseous structures. It is uncertain whether this connects with the area of anastomosis to suggest anastomotic leak. No other fluid is seen elsewhere in the abdomen. Dictated on workstation # [id number] Dict: 12/23/182013 Trans: 12/23/182028 [id number] Interpreted by: SAW BLOCK DO Electronically signed by: Reviewed: Reviewed by Me (NEHA MANRIQUEZ) Consults : Consulting Physician: RONI GUTIERREZ DO Consults Notes He reviewed the labs vitals and CT imaging and he agrees that is probably leftover remnants of her recent surgery resulting possibly a hematoma or seroma. He sees why the radiologist called possibility of abscess. He would suggested the patient is doing well she can go home on antibiotics for her urinary tract infection and follow-up next week with her primary care doctor and it could be drained outpatient at . (NEHA MANRIQUEZ) Departure Impression Primary Impression: Urinary tract infection Qualified Codes: N30.00 - Acute cystitis without hematuria Additional Impressions: Seroma after procedure Nausea and vomiting Disposition: HOME, SELF-CARE Condition: Improved Departure-Patient Inst. Decision time for Depature: 21:03 (NEHA MANRIQUEZ) Referrals: MAIRA CINSEROS DO (PCP/Family) Primary Care Physician Patient Instructions: HEMATOMA, Urinary Tract Infection, Adult (DC) Add. 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 Early next week follow-up with Dr. Cisneros to discuss whether you need a drain placed at . If you have nausea take one tablet of Zofran every 6 hours as needed. If you still have nausea take a tablet of Phenergan every 6 hours as needed. If you still have nausea you may put a scopolamine patch on and take one half to one tablet of Benadryl. These medications can cause drowsiness. If you begin to have severe fevers, abdominal pain, intractable nausea vomiting or other worrisome symptoms you should return to the ER for further evaluation. Scripts Cefdinir (Cefdinir) 300 Mg Capsule 300 MG PO BID for 7 Days, #14 CAP 0 Refills Prov: NEHA MANRIQUEZ 12/23/18 Scopolamine (Scopolamine) 1 Each Patch.td.3 1 EACH TD ONCE, #10 EACH 0 Refills 1 patch as needed every 3 days. Prov: NEHA MANRIQUEZ 12/23/18 Promethazine HCl (Promethazine Tablet) 25 Mg Tablet 25 MG PO Q6H PRN for NAUSEA/VOMITING, #20 TAB 0 Refills Prov: NEHA MANRIQUEZ 12/23/18 Ondansetron (Ondansetron Odt) 4 Mg Tab.rapdis 4 MG PO Q6H PRN for NAUSEA/VOMITING, #20 TAB 0 Refills Prov: NEHA MANRIQUEZ 12/23/18 Copy Copies To 1: MAIRA CISNEROS MARK S MD Dec 23, 2018 17:58 NEHA MANRIQUEZ Dec 23, 2018 18:37
[2018-12-23 18:02] LABS: BASOPHILS # (AUTO) 0.1 10^3/uL (0.0-0.1); BASOPHILS % (AUTO) 1 % (0-10); EOSINOPHILS # (AUTO) 0.4 10^3/uL (0.0-0.3); EOSINOPHILS % (AUTO) 4 % (0-10); HEMATOCRIT 35 % (35-52); HEMOGLOBIN 11.2 G/DL (11.5-16.0); LYMPHOCYTES # (AUTO) 1.6 X 10^3 (1.0-4.0); LYMPHOCYTES % (AUTO) 16 % (12-44); MEAN CORPUSCULAR HEMOGLOBIN 31 PG (25-34); MEAN CORPUSCULAR HGB CONC 33 G/DL (32-36); MEAN CORPUSCULAR VOLUME 96 FL (80-99); MEAN PLATELET VOLUME 9.7 FL (7.4-10.4); MONOCYTES # (AUTO) 1.3 X 10^3 (0.0-1.0); MONOCYTES % (AUTO) 13 % (0-12); NEUTROPHILS # (AUTO) 6.5 X 10^3 (1.8-7.8); NEUTROPHILS % (AUTO) 66 % (42-75); PLATELET COUNT 744 10^3/uL (130-400); RED CELL DISTRIBUTION WIDTH 14.3 % (10.0-14.5); WHITE BLOOD COUNT 9.8 10^3/uL (4.3-11.0)
[2018-12-23 18:24] LABS: ALBUMIN 3.9 GM/DL (3.2-4.5); BILIRUBIN,TOTAL 0.5 MG/DL (0.1-1.0); CALCIUM 11.6 MG/DL (8.5-10.1); CREATININE SERUM 1.08 MG/DL (0.60-1.30); POTASSIUM 3.7 MMOL/L (3.6-5.0); TOTAL PROTEIN 7.9 GM/DL (6.4-8.2)
[2018-12-23 18:38] LABS: BURR CELLS SLIGHT; EOSINOPHILS % (MANUAL) 6 %; LYMPHOCYTES % (MANUAL) 17 %; MONOCYTES % (MANUAL) 9 %; NEUTROPHILS % (MANUAL) 68 %; PLATELET ESTIMATE INCREASED; POIKILOCYTOSIS SLIGHT; SMUDGE CELLS SLIGHT
[2018-12-23 18:39] LABS: ERYTHROCYTE SEDIMENTATION RATE 66 MM/HR (0-30)
[2018-12-23 19:15] LABS: BILIRUBIN,URINE NEGATIVE (NEGATIVE); CLARITY,URINE VERY CLOUDY; COLOR,URINE YELLOW; GLUCOSE, URINE (UA) NEGATIVE (NEGATIVE); KETONES,URINE NEGATIVE (NEGATIVE); LEUKOCYTE ESTERASE ,URINE 3+ (NEGATIVE); NITRITE,URINE NEGATIVE (NEGATIVE); PH,URINE 8 (5-9); PROTEIN,URINE 2+ (NEGATIVE); UROBILINOGEN,URINE NORMAL (NORMAL)
[2018-12-23 19:25] LABS: BACTERIA,URINE LARGE /HPF; WBC,URINE TNTC /HPF
[2018-12-23] MEDS ORDERED: IOHEXOL 350 MG/ML 100 ML (OMNIPAQUE 350) VIAL IV ONE (19:30)
[2018-12-23] MEDS ORDERED: HOLD METFORMIN - RECEIVED CONTRAST 20 ML VIAL IV SCH (19:30)
[2018-12-23] MEDS ORDERED: CEFEPIME INJECTION 1,000 MG in WATER (STERILE) FOR INJECTION 10 ML IV ONE (19:45)
--- NOTE | 2018-12-23 20:30 | Diagnostic Imaging Report ---
PROCEDURE: CT abdomen and pelvis with contrast. TECHNIQUE: Multiple contiguous axial images were obtained through the abdomen and pelvis after administration of intravenous contrast. Auto Exposure Controls were utilized during the CT exam to meet ALARA standards for radiation dose reduction. INDICATION: Diarrhea and vomiting. History of recent colon resection approximately two weeks ago. COMPARISON: CT abdomen and pelvis performed on 09/03/2017. FINDINGS: Multiple images are degraded by patient motion which diminishes detail, and interpretation was made in light of this technical confine. Linear scarring/atelectasis is demonstrated in the left lower lobe and right middle lobe. No pleural effusion. Visualized heart is normal in size. No pericardial effusion. The liver, gallbladder and adrenal glands are normal. Spleen is not seen and presumably surgically absent. 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 No biliary or pancreatic ductal dilatation is demonstrated. The kidneys enhance symmetrically, without evidence of renal calculus or hydronephrosis on either side. The visualized ureters appear normal. There is a large paraesophageal hiatal hernia. No small bowel dilatation to suggest obstruction. The patient is status post partial colectomy, with surgical suture material in the low midline pelvis reflecting site of anastomosis. There is a large lentiform rim-enhancing collection posterior to the rectum extending superiorly into the presacral space which measures approximately 7.9 x 3.5 x 8.2 (transverse x AP x superior-inferior) cm in greatest dimensions. No definite bowel wall thickening is demonstrated. There is no pneumoperitoneum. No lymphadenopathy is demonstrated. There is severe atherosclerotic calcification of the abdominal aorta, without aneurysmal dilatation. There is no evidence of venous thrombosis. The bladder demonstrates no abnormal focal thickening or calculus. A single focus of gas anti-dependent anterior bladder is demonstrated. Midline ventral wall wound is demonstrated, without underlying focal fluid collection. Multilevel degenerative changes involve the spine. No acute osseous abnormality is identified. There is no evidence of osseous erosion in the region of the aforementioned presacral rim-enhancing collection. IMPRESSION: Status post partial colectomy. No discrete abnormality is demonstrated at the site of anastomosis in the low midline pelvis. There is a lentiform rim-enhancing collection posterior to the rectum that extends superiorly into the presacral space, measuring up to over 8 cm in craniocaudal dimension. Findings are concerning for abscess. There is no evidence of erosion of the adjacent osseous structures. It is uncertain whether this connects with the area of anastomosis to suggest anastomotic leak. No other fluid is seen elsewhere in the abdomen. Dictated by: Dictated on workstation # [id number]
[2018-12-23] MEDS ORDERED: CEFD300C3 PO (21:10)
[2018-12-23] MEDS ORDERED: SCOP1PAT17 TD (21:10)
[2018-12-23] MEDS ORDERED: ONDA4TAB11 PO (21:10)
[2018-12-23] MEDS ORDERED: PROM25TA14 PO (21:10)
[2018-12-23 21:32] VITALS: BP 137/61
== END 2018-12-23 21:35 | disposition home or self-care (01) ==
LOC: EDUNIT# 17:17 → ER 17:18
DX: N39.0 Urinary tract infection, site not specified (principal); R11.2 Nausea with vomiting, unspecified; L76.34 Postprocedural seroma of skin and subcutaneous tissue following other procedure; I25.10 Atherosclerotic heart disease of native coronary artery without angina pectoris; E78.00 Pure hypercholesterolemia, unspecified; I10 Essential (primary) hypertension; K21.9 Gastro-esophageal reflux disease without esophagitis; M81.0 Age-related osteoporosis without current pathological fracture; Z80.41 Family history of malignant neoplasm of ovary; Z82.49 Family history of ischemic heart disease and other diseases of the circulatory system; Z87.19 Personal history of other diseases of the digestive system; Z98.890 Other specified postprocedural states; Z98.61 Coronary angioplasty status; Z88.8 Allergy status to other drugs, medicaments and biological substances; Z79.82 Long term (current) use of aspirin; Z79.02 Long term (current) use of antithrombotics/antiplatelets; Z95.1 Presence of aortocoronary bypass graft; Z90.81 Acquired absence of spleen; Z98.51 Tubal ligation status
CPT/HCPCS: 36415; 74177; 80053; 81000; 83605; 83690; 85007; 85027; 85652; 87040; 87077; 87088; 87186

== ENCOUNTER 2019-10-18 07:18 | Inpatient (IN) | payer MEDICARE ==
[2019-10-18] VITALS (9 sets, daily range): BP systolic 103–186; BP diastolic 50–75
[~2019-10-18] VITALS: Ht 162 cm; Wt 59.0 kg
[~2019-10-18 07:18] MED LIST changes: +CEFD300C3 PO; -CLON0.5T13 PO; +CLON0.5T4 PO; +ONDA4TAB11 PO; +OXYB5TAB13 PO; +SCOP1PAT17 TD
--- NOTE | 2019-10-18 07:34 | ED Chest Pain ---
General Chief Complaint: Chest Pain Stated Complaint: CP Nursing Triage Note: ARRIVED VIA EMS FROM HOME AFTER SUDDEN ONSET OF CHEST PAIN. PT TOOK X2 NITRO SPRAYS AT HOME THEN WAS GIVEN X1 NITRO AND 324MG ASA PER EMS. PT REPORTS LITTLE PAIN AT THIS TIME. Nursing Sepsis Screen: No Definite Risk Source: patient, EMS, old records Exam Limitations: no limitations History of Present Illness Date Seen by Provider: Oct 18, 2019 Time Seen by Provider: 07:19 Initial Comments This 79-year-old woman with history of coronary artery disease and CABG presents to the emergency room via EMS with sudden onset of chest pain this morning. The pain is in the left upper chest and radiates through her back. She rated the initial pain as 10. She took 2 sprays of her nitroglycerin at home which modestly improved her pain. EMS administered aspirin 324 mg and nitroglycerin times one. This nitroglycerin dropped her pain down to a 2. She denies any other associated symptoms such as shortness of breath, lightheadedness, or nausea. She denies any recent cough or fever. She sees a chief warden at [facility] and her primary care provider is Dr. Cisneros. Reviewing patient's medication filling record reveals she recently started Plaquenil. Patient and family are not 100 percent what diagnosis is being treated with Plaquenil. She has seen rheumatologists in the past. Family also notes that there was a recent dosage increase in isosorbide mononitrate from 30 mg to 60 mg. She has not taken that dose yet this morning. Allergies and Home Medications Allergies Coded Allergies: metoclopramide (Unverified Allergy, Severe, TARDIVE DYKENIESIA, 08/04/18) Home Medications Acetaminophen 650 Mg Tablet.er, 650 MG PO BID PRN for PAIN-MILD (1-4), (Reported) Beta-Carotene(A) W-C & E/Min 1 Each Tablet, 1 EACH PO DAILY, (Reported) Clopidogrel Bisulfate 75 Mg Tablet, 75 MG PO DAILY, (Reported) Hydroxychloroquine Sulfate 200 Mg Tablet, 200 MG PO BID, (Reported) Isosorbide Mononitrate 30 Mg Tab.er.24h, 60 MG PO DAILY, (Reported) Lisinopril 10 Mg Tablet, 10 MG PO HS, (Reported) Oxybutynin Chloride 5 Mg Tablet, 5 MG PO BID, (Reported) Pantoprazole Sodium 40 Mg Tablet.dr, 40 MG PO DAILY, (Reported) Pravastatin Sodium 10 Mg Tablet, 10 MG PO DAILY, (Reported) Patient Home Medication List Home Medication List Reviewed: Yes Review of Systems Review of Systems Constitutional: no symptoms reported EENTM: No Symptoms Reported Respiratory: No Symptoms Reported Cardiovascular: See HPI Gastrointestinal: No Symptoms Reported Genitourinary: No Symptoms Reported Musculoskeletal: no symptoms reported Skin: no symptoms reported Psychiatric/Neurological: No Symptoms Reported Endocrine: No Symptoms Reported Hematologic/Lymphatic: No Symptoms Reported Past Yjzfqbg-Mfcohq-Uayrgr Hx Past Med/Social Hx: Reviewed Nursing Past Med/Soc Hx Patient Social History Alcohol Use: Denies Use Recreational Drug Use: No Smoking Status: Never a Smoker 2nd Hand Smoke Exposure: No Recent Foreign Travel: No Contact w/Someone Who Travel: No Recent Infectious Disease Expo: No Recent Hopitalizations: No Immunizations Up To Date Tetanus Booster (TDap): Unknown Date of Pneumonia Vaccine: May 13, 2015 Date of Influenza Vaccine: Jun 12, 2017 Seasonal Allergies Seasonal Allergies: No Past Medical History Surgeries: Yes (spleenectomy, HH sx) Abdominal, Cardiac, CABG, Tubal Ligation Respiratory: No Cardiac: Yes (DOUBLE BYPASS (CABG X2)) Coronary Artery Disease, High Cholesterol, Hypertension Neurological: No Reproductive Disorders: No Genitourinary: No Gastrointestinal: Yes (rectal prolapse, gastroparesis) Abdominal Hernia, Gastroesophageal Reflux, Chronic Diarrhea, Hiatal Hernia Musculoskeletal: Yes (ARTHRITIS IN HANDS ) Osteoporosis, Arthritis, Chronic Back Pain Endocrine: No HEENT: Yes (NO TEETH) Hearing Impairment: Hard of Hearing Cancer: No Psychosocial: No Integumentary: Yes (ECZEMA A CHILD) Eczema Blood Disorders: No Family Medical History Reviewed Nursing Family Hx Diabetes mellitus G8 BROTHER, , Age:62 G8 SISTER, , Age:60 years and older GREAT AUNT FH: ovarian cancer AUNT Myocardial infarction 19 FATHER, , Age:39 19 MOTHER, , Age:83 G8 BROTHER, , Age:62 G8 SISTER, , Age:60 years and older Heart Disease Physical Exam Vital Signs Vital Signs - First Documented 10/18/19 07:21 Temp 36.9 Pulse 64 Resp 16 B/P (MAP) 175/101 (125) Pulse Ox 95 O2 Delivery Room Air Capillary Refill : Less Than 3 Seconds Height, Weight, BMI Height: 5'2.00" Weight: 120lbs. 1.0oz. [id number]; 22.00 BMI Method:Stated General Appearance: No Apparent Distress, WD/WN, Thin HEENT: PERRL/EOMI, Normal ENT Inspection Neck: Normal Inspection Respiratory: Chest Non Tender, Lungs Clear, Normal Breath Sounds, No Accessory Muscle Use, No Respiratory Distress Cardiovascular: Regular Rate, Rhythm, No Edema, Systolic Murmur Gastrointestinal: Non Tender, Soft Extremity: Normal Inspection, Non Tender, No Pedal Edema Neurologic/Psychiatric: Alert, Oriented x3, No Motor/Sensory Deficits, Normal Mood/Affect, trademark paralegal II-XII Norm as Tested Skin: Normal Color, Warm/Dry Progress/Results/Core Measures Results/Orders Lab Results Laboratory Tests Test 10/18/19 08:02 Range/Units White Blood Count 6.0 4.3-11.0 10^3/uL Red Blood Count 4.00 L 4.35-5.85 10^6/uL Hemoglobin 13.0 11.5-16.0 G/DL Hematocrit 40 35-52 % Mean Corpuscular Volume 100 H 80-99 FL Mean Corpuscular Hemoglobin 33 25-34 PG Mean Corpuscular Hemoglobin Concent 33 32-36 G/DL Red Cell Distribution Width 12.9 10.0-14.5 % Platelet Count 237 130-400 10^3/uL Mean Platelet Volume 10.3 7.4-10.4 FL Neutrophils (%) (Auto) 60 42-75 % Lymphocytes (%) (Auto) 23 12-44 % Monocytes (%) (Auto) 10 0-12 % Eosinophils (%) (Auto) 6 0-10 % Basophils (%) (Auto) 1 0-10 % Neutrophils # (Auto) 3.6 1.8-7.8 X 10^3 Lymphocytes # (Auto) 1.4 1.0-4.0 X 10^3 Monocytes # (Auto) 0.6 0.0-1.0 X 10^3 Eosinophils # (Auto) 0.4 H 0.0-0.3 10^3/uL Basophils # (Auto) 0.1 0.0-0.1 10^3/uL Prothrombin Time 13.9 12.2-14.7 SEC INR Comment 1.0 0.8-1.4 Activated Partial Thromboplast Time 47 H 24-35 SEC Sodium Level 142 135-145 MMOL/L Potassium Level 4.3 3.6-5.0 MMOL/L Chloride Level 109 H 98-107 MMOL/L Carbon Dioxide Level 25 21-32 MMOL/L Anion Gap 8 5-14 MMOL/L Blood Urea Nitrogen 21 H 7-18 MG/DL Creatinine 1.05 0.60-1.30 MG/DL Estimat Glomerular Filtration Rate 51 BUN/Creatinine Ratio 20 Glucose Level 88 70-105 MG/DL Calcium Level 10.6 H 8.5-10.1 MG/DL Corrected Calcium 10.4 H 8.5-10.1 MG/DL Magnesium Level 2.0 1.6-2.4 MG/DL Total Bilirubin 0.5 0.1-1.0 MG/DL Aspartate Amino Transf (AST/SGOT) 19 5-34 U/L Alanine Aminotransferase (ALT/SGPT) 16 0-55 U/L Alkaline Phosphatase 57 40-136 U/L Myoglobin 58.5 10.0-92.0 NG/ML Troponin I < 0.028 <0.028 NG/ML Total Protein 7.7 6.4-8.2 GM/DL Albumin 4.3 3.2-4.5 GM/DL My Orders Orders - SCHUYLER ARREGUIN MD Cbc With Automated Diff (10/18/19 07:26) Magnesium (10/18/19 07:26) Chest 1 View, Ap/Pa Only (10/18/19 07:26) Ekg Tracing (10/18/19 07:26) Comprehensive Metabolic Panel (10/18/19 07:26) Myoglobin Serum (10/18/19 07:26) Protime With Inr (10/18/19:26) Partial Thromboplastin Time (10/18/19 07:26) O2 (10/18/19 07:26) Monitor-Rhythm Ecg Trace Only (10/18/19 07:26) Ed Iv/Invasive Line Start (10/18/19 07:26) Nitroglycerin Ointment (Nitrobid Ointme (10/18/19 07:45) Troponin I (10/18/19 07:29) Morphine Injection (Morphine Injection (10/18/19 09:14) Clopidogrel Tablet (Plavix Tablet) (10/18/19 09:45) Enoxaparin Injection (Lovenox Injection) (10/18/19 09:45) Famotidine Injection (Pepcid Injection) (10/18/19 10:00) Medications Given in ED Vital Signs/I&O 10/18/19 07:21 Temp 36.9 Pulse 64 Resp 16 B/P (MAP) 175/101 (125) Pulse Ox 95 O2 Delivery Room Air Blood Pressure Mean: 125 Progress Progress Note #1: Time: 07:36 Progress Note Patient was seen and examined. She is still having some mild chest pain rated as a 2/10 after receiving 3 doses of nitroglycerin. Systolic blood pressures in the 160s. A dose of Nitropaste has therefore been ordered. Chest pain workup is in progress. Progress Note #2: Time: 09:56 Progress Note Initial workup was unremarkable. Patient has waxing and waning pain. She did receive morphine 2 mg which seems to have subdued her pain a bit. She has declining any further pain medication at this time. Case was discussed with Dr. Young who recommends ICU admission with likely angiography today. She will be Nothing by mouth. I had a very long discussion with the patient and her daughters. Patient's daughters are very anxious and worried about her condition. We discussed transferring to her primary cardiology team since she sees Dr. Rojas at [facility] in [place]. We discussed risks and benefits of transfer versus staying here. EMS transported is not readily available at this time. After reviewing risks and benefits and discussing the current situation, they've elected to stay here so as to not delay care. I also had a long conversation about CODE STATUS. Patient elects full CODE STATUS at this time. Progress Note #3: Time: 10:[address] Young has been to the patient's room and discussed care plan with patient and family. Initial ECG Impression Date: Oct 18, 2019 Initial ECG Impression Time: 07:29 Initial ECG Rate: 47 Initial ECG Rhythm: S.Sea Comment Sinus bradycardia with no diagnostic ST elevation or depression. Automated read notes minimal ST depression in anterior lateral leads but this does not appear diagnostic. No abnormal intervals or axis deviation. Diagnostic Imaging Diagonstic Imaging: Xray Plain Films/CT/US/NM/MRI: chest Comments NAME: NATALIYA DOWNINGT [facility] REC#: [id number] PT STATUS: REG ER : 1940 PHYSICIAN: SCHUYLER ARREGUIN MD ADMIT DATE: 10/18/19/ER Draft Date of Exam:10/18/19 CHEST 1 VIEW, AP/PA ONLY INDICATION: Sudden onset chest pain. Improvement after nitroglycerin. TECHNIQUE: Single view chest 8:08 AM. CORRELATION STUDY: 03/04/2017 FINDINGS: Post sternotomy changes. Extensive surgical clips through the left chest. Heart size and mediastinum are relatively stable as is the vasculature. Mildly prominent interstitial markings appear unchanged. Abnormal density retrocardiac region favors probable hiatal hernia. IMPRESSION: 1. Post sternotomy changes. Negative for acute cardiopulmonary abnormality. Dictated on workstation # [id number] Dict: 10/18/19813 Trans: 10/18/19819 TOM [id number] Interpreted by: KATHI HERNANDEZ DO Departure Communication (Admissions) Time/Spoke to Admitting Phy: 09:50 Dr. Cisneros Time/Spoke to Consulting Phy: 09:30 Dr. Young Impression Primary Impression: Chest pain Qualified Codes: R07.9 - Chest pain, unspecified Additional Impressions: Sinus bradycardia Coronary artery disease Qualified Codes: I25.10 - Atherosclerotic heart disease of [place] coronary artery without angina pectoris Disposition: ADMITTED INPATIENT Condition: Improved Admissions Decision to Admit Reason: Admit from ER (General) Decision to Admit/Date: Oct 18, 2019 Time/Decision to Admit Time: 07:30 Departure-Patient Inst. Referrals: MAIRA CISNEROS DO (PCP/Family) Primary Care Physician SCHUYLER ARREGUIN MD Oct 18, 2019 07:34
[2019-10-18] MEDS ORDERED: NITROGLYCERIN 2% OINT 1 GM UNIT DOSE PACKET TOP ONE (07:45)
[2019-10-18 08:10] LABS: BASOPHILS # (AUTO) 0.1 10^3/uL (0.0-0.1); BASOPHILS % (AUTO) 1 % (0-10); EOSINOPHILS # (AUTO) 0.4 10^3/uL (0.0-0.3); EOSINOPHILS % (AUTO) 6 % (0-10); HEMATOCRIT 40 % (35-52); LYMPHOCYTES # (AUTO) 1.4 X 10^3 (1.0-4.0); LYMPHOCYTES % (AUTO) 23 % (12-44); MEAN CORPUSCULAR HEMOGLOBIN 33 PG (25-34); MEAN CORPUSCULAR HGB CONC 33 G/DL (32-36); MEAN CORPUSCULAR VOLUME 100 FL (80-99); MEAN PLATELET VOLUME 10.3 FL (7.4-10.4); MONOCYTES # (AUTO) 0.6 X 10^3 (0.0-1.0); MONOCYTES % (AUTO) 10 % (0-12); NEUTROPHILS # (AUTO) 3.6 X 10^3 (1.8-7.8); NEUTROPHILS % (AUTO) 60 % (42-75); PLATELET COUNT 237 10^3/uL (130-400); RED CELL DISTRIBUTION WIDTH 12.9 % (10.0-14.5)
--- NOTE | 2019-10-18 08:21 | Diagnostic Imaging Report ---
INDICATION: Sudden onset chest pain. Improvement after nitroglycerin. TECHNIQUE: Single view chest 8:08 AM. CORRELATION STUDY: 03/04/2017 FINDINGS: Post sternotomy changes. Extensive surgical clips through the left chest. Heart size and mediastinum are relatively stable as is the vasculature. Mildly prominent interstitial markings appear unchanged. Abnormal density retrocardiac region favors probable hiatal hernia. IMPRESSION: 1. Post sternotomy changes. Negative for acute cardiopulmonary abnormality. Dictated by: Dictated on workstation # [id number]
[2019-10-18 08:31] LABS: ALANINE AMINOTRANSFERASE 16 U/L (0-55); ALBUMIN 4.3 GM/DL (3.2-4.5); ALKALINE PHOSPHATASE 57 U/L (40-136); BILIRUBIN,TOTAL 0.5 MG/DL (0.1-1.0); BUN/CREATININE RATIO 20; CALCIUM 10.6 MG/DL (8.5-10.1); CARBON DIOXIDE 25 MMOL/L (21-32); CHLORIDE 109 MMOL/L (98-107); CREATININE SERUM 1.05 MG/DL (0.60-1.30); GFR ESTIMATED 51; GLUCOSE 88 MG/DL (70-105); POTASSIUM 4.3 MMOL/L (3.6-5.0); SODIUM 142 MMOL/L (135-145); TOTAL PROTEIN 7.7 GM/DL (6.4-8.2)
[2019-10-18 08:40] LABS: PROTHROMBIN TIME PATIENT 13.9 SEC (12.2-14.7)
--- NOTE | 2019-10-18 08:53 | NUR ---
DR ARREGUIN NOTIFIED HR IS IN THE 40'S.
--- NOTE | 2019-10-18 09:03 | NUR ---
IN TALKING TO HER AT THIS TIME.
[2019-10-18] MEDS ORDERED: morphine INJ 10 MG/ML 1ML (SYR OR VIAL) IVP STA (09:14)
[2019-10-18] MEDS ORDERED: CLOPIDOGREL 75 MG (PLAVIX) TABLET PO ONE (09:45)
[2019-10-18] MEDS ORDERED: ENOXAPARIN 60 MG/0.6 ML (LOVENOX) SYR SC ONE (09:45)
--- NOTE | 2019-10-18 09:51 | NUR ---
DR TYSON IN TALKING TO PT AT THIS TIME.
[2019-10-18] MEDS ORDERED: FAMOTIDINE 20MG/2ML IV (PEPCID) IVP ONE (10:00)
--- NOTE | 2019-10-18 10:03 | NUR ---
REQUEST FOR CATH REPORT FROM CHELI TREJO SENT.
[2019-10-18] MEDS ORDERED: NS IV 1000 ML 1,000 ML ONE (11:14)
[2019-10-18] MEDS ORDERED: fentaNYL INJECTION 100 MCG/2 ML AMP IV PRN ×2 (11:15)
[2019-10-18] MEDS: NS IV 1000 ML 1,000 ML IV SCH ×2 (11:21→21:29)
--- NOTE | 2019-10-18 11:43 | Consultation-Cardiology ---
HPI-Cardiology Cardiology Consultation: Date of Consultation 10/18/19 Time Seen by a Provider: 09:40 Date of Admission Attending Physician Reyna Cisneros DO Admitting Physician Reyna Cisneros DO Consulting Physician NETTIE TYSON MD, MA, FACP, FACC, FSCAI, CCDS HPI: Chief Complaint: CC: Chest discomfort HPI 79 yo woman who presented to ER with chest discomfort that started in the L parasternum and localized in the upper, mid back: mod to severe, non-radiating, similar to what she had with her [place] several years ago, partially relieved with nitroglycerin, fully relieved with narcotic analgesics, experienced intermittently for several years, much worse today, not associated with other symptoms. Has chronic exertional shortness of breath. Denies palp or syncope. Denies ankle swelling. Has gen malaise. Denies fever or chills Review of Systems-Cardiology Review of Systems Constitutional: As described under HPI Eyes: No vision change Ears/Nose/Throat: No ear discharge, No nasal drainage, No recent hearing loss Respiratory: As described under HPI Cardiovascular: As described under HPI Gastrointestinal: No constipation, No diarrhea, No nausea, No vomiting Genitourinary: No dysuria, No hematuria, No urine frequency changes Musculoskeletal: back pain (see under HPI; also has chronic low back pain) Skin: No rash, No ulcerations Psychiatric/Neurological: No focal weakness, No syncope Hematologic: No bleeding abnormalities MJK-[id number]-Jowhxc Hx Patient Social History Alcohol Use: Denies Use Recreational Drug Use: No Smoking Status: Never a Smoker 2nd Hand Smoke Exposure: No Recent Foreign Travel: No Recent Infectious Disease Expo: No Immunizations Up To Date Tetanus Booster (TDap): Unknown Date of Pneumonia Vaccine: May 13, 2015 Date of Influenza Vaccine: Jul 17, 2019 Past Medical History PMH As described under Assessment. Family Medical History Family Medical History: No known premature CAD or SCD. Family History: Diabetes mellitus G8 BROTHER, , Age:62 G8 SISTER, , Age:60 years and older GREAT AUNT FH: ovarian cancer AUNT Myocardial infarction 19 FATHER, , Age:39 19 MOTHER, , Age:83 G8 BROTHER, , Age:62 G8 SISTER, , Age:60 years and older Allergies and Home Medications Allergies Coded Allergies: metoclopramide (Unverified Allergy, Severe, TARDIVE DYKENIESIA, 08/04/18) Home Medications Amitriptyline HCl 10 Mg Tablet, 10 MG PO DAILY LATE, (Reported) Aspirin 81 Mg Tab.chew, 81 MG PO DAILY, (Reported) Beta-Carotene(A) W-C & E/Min 1 Each Tablet, 1 EACH PO DAILY, (Reported) Bilberry 100 Mg Capsule, 1,000 MG PO DAILY LATE, (Reported) Calcium Carbonate 600 Mg Tablet, 600 MG PO DAILY, (Reported) Cefdinir 300 Mg Capsule, 300 MG PO BID Prescribed by: NEHA MANRIQUEZ on 12/23/182109 Cholecalciferol (Vitamin D3) 1,000 Unit Capsule, 1,000 UNIT PO DAILY, (Reported) Clonazepam 0.5 Mg Tablet, 0.5 MG PO BID, (Reported) Clopidogrel Bisulfate 75 Mg Tablet, 75 MG PO DAILY, (Reported) Hydroxychloroquine Sulfate 200 Mg Tablet, 200 MG PO BID, (Reported) Isosorbide Mononitrate 60 Mg Tab, 60 MG PO DAILY, (Reported) Lisinopril 5 Mg Tablet, 5 MG PO DAILY LATE, (Reported) Welcome 3 Polyunsat Fatty Acids 1,000 Mg Cap, 2,000 MG PO BID, (Reported) Ondansetron 8 Mg Tab.rapdis, 8 MG PO Q4H Prescribed by: CHAPITO KHANNA on 09/03/172110 Ondansetron 4 Mg Tab.rapdis, 4 MG PO Q6H PRN for NAUSEA/VOMITING Prescribed by: NEHA MANRIQUEZ on 12/23/182109 Ondansetron HCl 4 Mg Tab, 4 MG PO Q4H PRN for NAUSEA/VOMITING Prescribed by: SUSHIL NI on 08/04/18 1118 Oxybutynin Chloride 5 Mg Tablet, 5 MG PO BID, (Reported) Pantoprazole Sodium 40 Mg Tablet.dr, 40 MG PO DAILY Prescribed by: CHAPITO KHANNA on 09/03/172110 Promethazine HCl 25 Mg Supp.rect, 25 MG RC Q4H Prescribed by: CHAPITO KHANNA on 09/03/172110 Promethazine HCl 25 Mg Tablet, 12.5 MG PO Q6H PRN for NAUSEA/VOMITING Prescribed by: SUSHIL NI on 08/26/18 1237 Promethazine HCl 25 Mg Tablet, 25 MG PO Q6H PRN for NAUSEA/VOMITING Prescribed by: NEHA MANRIQUEZ on 12/23/182109 Scopolamine 1 Each Patch.td.3, 1 EACH TD ONCE 1 patch as needed every 3 days. Prescribed by: NEHA MANRIQUEZ on 12/23/182109 Patient Home Medication List Home Medication List Reviewed: Yes Physical Exam-Cardiology Physical Exam Vital Signs/I&O 10/18/19 10/18/19 10/18/19 10/18/19 07:21 10:46 11:21 11:30 Temp 36.9 36.9 Pulse 64 49 51 51 Resp 16 16 16 B/P (MAP) 175/101 (125) 158/72 158/72 Pulse Ox 95 98 98 O2 Delivery Room Air Room Air Room Air Capillary Refill : Less Than 3 Seconds Constitutional: AAO x 3, well-developed, other (thin-appearing) HEENT: PERRL, EOMI; No xanthelasmas are seen Neck: carotid pulses are 2 + bilaterally, with good upstrokes Respiratory: No accessory muscle use; other (good bilat air entry) Cardiovascular: regular rate-rhythm, S1 and S2, systolic murmur (faint XIMENA at card base) Gastrointestinal: No tender; soft; No guarding, No rebound; audible bowel sounds Extremities: No clubbing, No cyanosis, No significant edema Neurologic/Psychiatric: oriented x 3, other (moves all limbs equally) Skin: No rash on exposed areas, No ulcerations on exposed areas Data Review Labs Laboratory Tests 10/18/19 08:02: White Blood Count 6.0, Red Blood Count 4.00L, Hemoglobin 13.0, Hematocrit 40, Mean Corpuscular Volume 100H, Mean Corpuscular Hemoglobin 33, Mean Corpuscular Hemoglobin Concent 33, Red Cell Distribution Width 12.9, Platelet Count 237, Mean Platelet Volume 10.3, Neutrophils (%) (Auto) 60, Lymphocytes (%) (Auto) 23, Monocytes (%) (Auto) 10, Eosinophils (%) (Auto) 6, Basophils (%) (Auto) 1, Neutrophils # (Auto) 3.6, Lymphocytes # (Auto) 1.4, Monocytes # (Auto) 0.6, Eosinophils # (Auto) 0.4H, Basophils # (Auto) 0.1, Prothrombin Time 13.9, INR Comment 1.0, Activated Partial Thromboplast Time 47H, Sodium Level 142, Potassium Level 4.3, Chloride Level 109H, Carbon Dioxide Level 25, Anion Gap 8, Blood Urea Nitrogen 21H, Creatinine 1.05, Estimat Glomerular Filtration Rate 51, BUN/Creatinine Ratio 20, Glucose Level 88, Calcium Level 10.6H, Corrected Calcium 10.4H, Magnesium Level 2.0, Total Bilirubin 0.5, Aspartate Amino Transf (AST/SGOT) 19, Alanine Aminotransferase (ALT/SGPT) 16, Alkaline Phosphatase 57, Myoglobin 58.5, Troponin I < 0.028, Total Protein 7.7, Albumin 4.3 Laboratory Tests 10/18/19 08:02 A/P-Cardiology Assessment/Admission Diagnosis L-sided chest and upper, mid-back pain CAD - CABG x 2. Grafts patent on cardiac cath of 2010. Apparently, has had subsequent cath at [facility] in [place] in January 2013 - the patient has told us us that her associate broker, Dr Martínez, did not undertake any interventions and her cardiac status was determined to be stable at the time of her most f/u with Dr Dougherty in Oct 2014, according to the patient Sinus bradycardia Echocardiogram from June 2013 showed LVEF 60%. Moderate MR and TR. PASP 40mmHg H/o gastroparesis H/o hernia repair HTN HLP H/o connective tissue disease, details not known Discussion and Recomendations * Treat with ASA, clopidogrel, and enoxaparin * Admit to cardiac floor * Monitor labs and ECG and rhythm * I had a long and detailed discussion with her fam about differential diagnoses and diagnostic and treatment options. They are considering Clinical Quality Measures AMI/AHF: ASA po Prior to arrival: Yes NETTIE TYSON MD FACP [facility] CCDS Oct 18, 2019 11:43
[2019-10-18] MEDS ORDERED: FLU QUADRIvalent (5+ YOA) 2019-2020 (AFLURIA) 0.5 ML IM ONE (11:45)
[2019-10-18] MEDS ORDERED: ONDANSETRON 4 MG/2 ML (SDV) Z0FRAN ONE (11:46)
[2019-10-18] MEDS: ONDANSETRON 4 MG/2 ML (SDV) Z0FRAN IV PRN ×2 (11:52→18:25)
[2019-10-18] MEDS ORDERED: PRAV10TA PO (12:30)
[2019-10-18] MEDS ORDERED: PANT40TA3 PO (12:30)
[2019-10-18] MEDS ORDERED: ACET-2840 PO (12:35)
[2019-10-18] MEDS ORDERED: LISI10TA2 PO (12:42)
[2019-10-18] MEDS ORDERED: ISOS30TA3 PO (12:42)
[2019-10-18] MEDS ORDERED: ASPI-789 PO (12:43)
[2019-10-18] MEDS ORDERED: PANTOPRAZOLE 40 MG (PROTONIX) VIAL IV NR (13:51)
--- NOTE | 2019-10-18 13:51 | NUR ---
SPOKE WITH THE PT (HER DAUGHTER WAS THERE AND HELPS TAKE CARE OF HER MEDS AND HAD A LIST) WELL CALLING [facility] TO COMPLETE THE MED REC. THE FOLLOWING ARE FILL DATES NOT LISTED ON THE EXT MED HISTORY: 09-11-2019 PLAVIX 75MG #90/90DS 09-11-2019 ISOSORBIDE MONO 30MG #180/90DS 09-11-2019 LISINOPRIL 10MG #90/90DS 09-11-2019 PRAVASTATIN 10MG #90/90DS OTC MEDS: FISH OIL TYLENOL VISION VITAMINS I MADE A COPY OF THE LIST OF MEDS THE DAUGHTER BROUGHT IN, UNFORTUNATELY IT WAS NOT UP TO DATE BUT WE WENT THRU THEM THE DAUGHTER MADE NOTES ON THE LIST AND THAT IS WHAT I PUT IN THE CHART. THERE WAS ALSO AN NEEDED SECTION ON THE LIST HOWEVER WHEN I CALLED [facility] THEY HAVE NOT FILLED THESE MEDS RECENTLY SO THEY WERE LEFT OFF THE MED REC.
[2019-10-18] MEDS ORDERED: lisINopril 10 MG (PRINIVIL) TABLET PO NR (14:00)
[2019-10-18] MEDS ORDERED: amLODIPine 5 MG (NORVASC) TAB PO NR (14:00)
[2019-10-18] MEDS ORDERED: ISOSORBIDE MONONITRATE 30 MG (IMDUR) TAB PO NR (14:00)
--- NOTE | 2019-10-18 14:13 | NUR ---
Pastoral consult: pt is Eloisa. Her two daughters were present. Offered active listening for shared anxieties. The pt welcomed prayer and said this was a timely visit to comfort her and affirm her steph in God's presence and protection.
[2019-10-18] MEDS ORDERED: PROCHLORPERAZINE 10 MG/2ML INJ (COMPAZINE) IV PRN (16:45)
--- NOTE | 2019-10-18 18:41 | History & Physical ---
History of Present Illness History of Present Illness Reason for visit/HPI This is a 79 year old female with a history of CAD who was brought to the emergency room with substernal chest pain radiating through to her back. Her pain was not relieved by 3 nitro sublingually so nitropaste was placed and she was given IV morphine. This improved her pain some but she still had some mild discomfort. Her EKG showed no acute ST segment changes and her cardiac enzymes were negative but it was felt that admission was needed to rule out a cardiac cause. 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 Lewis is but due to concerns of transport risks and delay in transport, they decided to be admitted here. Date of Admission Oct 18, 2019 at 10:09 Date Seen by a Provider: Oct 18, 2019 Time Seen by a Provider: 12:20 I consulted on this patient on 10/18/19 18:31 Attending Physician Reyna Cisneros DO Admitting Physician Reyna Cisneros DO Consult Allergies and Home Medications Allergies Coded Allergies: metoclopramide (Unverified Allergy, Severe, TARDIVE DYKENIESIA, 08/04/18) Home Medications Acetaminophen 650 Mg Tablet.er, 650 MG PO BID PRN for PAIN-MILD (1-4), (Reported) Aspirin/Acetaminophen/Caffeine 1 Each Tablet, 2 EACH PO Q6-8HR PRN for Headache, (Reported) Beta-Carotene(A) W-C & E/Min 1 Each Tablet, 1 EACH PO DAILY, (Reported) Clopidogrel Bisulfate 75 Mg Tablet, 75 MG PO DAILY, (Reported) Hydroxychloroquine Sulfate 200 Mg Tablet, 200 MG PO BID, (Reported) Isosorbide Mononitrate 30 Mg Tab.er.24h, 60 MG PO DAILY, (Reported) Lisinopril 10 Mg Tablet, 10 MG PO HS, (Reported) Waves 3 Polyunsat Fatty Acids 1,000 Mg Cap, 2,000 MG PO BID, (Reported) Oxybutynin Chloride 5 Mg Tablet, 5 MG PO BID, (Reported) Pantoprazole Sodium 40 Mg Tablet.dr, 40 MG PO DAILY, (Reported) Pravastatin Sodium 10 Mg Tablet, 10 MG PO DAILY, (Reported) Patient Home Medication List Home Medication List Reviewed: Yes Past Deorqjq-[id number]-Wkgsxl Hx Past Med/Social Hx: Reviewed Nursing Past Med/Soc Hx Patient Social History Alcohol Use: Denies Use Recreational Drug Use: No Smoking Status: Never a Smoker 2nd Hand Smoke Exposure: No Recent Foreign Travel: No Contact w/other who traveled: No Recent Hopitalizations: No Recent Infectious Disease Expo: No Immunizations Up To Date Tetanus Booster (TDap): Unknown Date of Pneumonia Vaccine: May 13, 2015 Date of Influenza Vaccine: Jul 17, 2019 Seasonal Allergies Seasonal Allergies: No Past Medical History Surgeries: Abdominal, Cardiac, CABG, Tubal Ligation Cardiac: Coronary Artery Disease, High Cholesterol, Hypertension Reproductive: No Gastrointestinal: Abdominal Hernia, Gastroesophageal Reflux, Chronic Diarrhea, Hiatal Hernia Musculoskeletal: Osteoporosis, Arthritis, Chronic Back Pain Hearing Impairment: Hard of Hearing Skin/Integumentary: Eczema History of Blood Disorders: No Family History Reviewed Nursing Family Hx Diabetes mellitus G8 BROTHER, , Age:62 G8 SISTER, , Age:60 years and older GREAT AUNT FH: ovarian cancer AUNT Myocardial infarction 19 FATHER, , Age:39 19 MOTHER, , Age:83 G8 BROTHER, , Age:62 G8 SISTER, , Age:60 years and older Heart Disease Review of Systems Constitutional: weakness EENTM: No see HPI, No no symptoms reported, No ear discharge, No hearing loss, No ear pain, No blurred vision, No double vision, No eye pain, No tearing, No vision loss, No dental problems, No hoarseness, No mouth pain, No mouth swelling, No epistaxis, No nose congestion, No nose pain, No throat pain, No throat swelling, No other Respiratory: No no symptoms reported, No see HPI, No cough, No dyspnea on exertion, No hemoptysis, No orthopnea, No phlegm, No short of breath, No stridor, No wheezing, No other Cardiovascular: chest pain Gastrointestinal: dysphagia Genitourinary: No no symptoms reported, No see HPI, No decreased output, No discharge, No dysuria, No frequency, No hematuria, No hesitancy, No incontinence, No nocturia, No pain, No other Musculoskeletal: muscle weakness Skin: No no symptoms reported, No see HPI, No change in color, No change in h air/nails, No dryness, No hx of skin cancer, No lesions, No lumps, No pruritus, No rash, No other Psychiatric/Neurological: Weakness Physical Exam Vital Signs Vital Signs - First Documented 10/18/19 07:21 Temp 36.9 Pulse 64 Resp 16 B/P (MAP) 175/101 (125) Pulse Ox 95 O2 Delivery Room Air Capillary Refill : Less Than 3 Seconds Height, Weight, BMI Height: 5'2.00" Weight: 120lbs. 1.0oz. 54.214133wv; 22.48 BMI Method:Stated General Appearance: No Apparent Distress HEENT: Normal ENT Inspection Respiratory: Lungs Clear Cardiovascular: Regular Rate, Rhythm, Systolic Murmur, Gallop/S4 Gastrointestinal: Normal Bowel Sounds, Non Tender, Soft Back: No CVA Tenderness Extremity: Non Tender, No Calf Tenderness, No Pedal Edema Neurologic/Psychiatric: Alert, Oriented x3 Skin: Warm/Dry Comments Laboratory Tests 10/18/19 08:02: White Blood Count 6.0, Red Blood Count 4.00L, Hemoglobin 13.0, Hematocrit 40, Me an Corpuscular Volume 100H, Mean Corpuscular Hemoglobin 33, Mean Corpuscular Hemoglobin Concent 33, Red Cell Distribution Width 12.9, Platelet Count 237, Mean Platelet Volume 10.3, Neutrophils (%) (Auto) 60, Lymphocytes (%) (Auto) 23, Monocytes (%) (Auto) 10, Eosinophils (%) (Auto) 6, Basophils (%) (Auto) 1, Neutrophils # (Auto) 3.6, Lymphocytes # (Auto) 1.4, Monocytes # (Auto) 0.6, Eosinophils # (Auto) 0.4H, Basophils # (Auto) 0.1, Prothrombin Time 13.9, INR Comment 1.0, Activated Partial Thromboplast Time 47H, Sodium Level 142, Potassium Level 4.3, Chloride Level 109H, Carbon Dioxide Level 25, Anion Gap 8, Blood Urea Nitrogen 21H, Creatinine 1.05, Estimat Glomerular Filtration Rate 51, BUN/Creatinine Ratio 20, Glucose Level 88, Calcium Level 10.6H, Corrected Calcium 10.4H, Magnesium Level 2.0, Total Bilirubin 0.5, Aspartate Amino Transf (AST/SGOT) 19, Alanine Aminotransferase (ALT/SGPT) 16, Alkaline Phosphatase 57, Myoglobin 58.5, Troponin I < 0.028, Total Protein 7.7, Albumin 4.3 10/18/19 13:40: Troponin I < 0.028 Assessment/Plan Assessment and Plan 1. Chest Pain/Unstable Angina in patient with history of CAD--admit to cardiac stepdown on telemetry with repeat cardiac enzymes and cardiology consult 2. Gastroparesis--IV protonix and zofran/compazine prn Nausea 3. Hypertension--resume home meds Admission Diagnosis Admission Status: Observation Clinical Quality Measures AMI/AHF: ASA po Prior to arrival: Yes DVT/VTE Risk/Contraindication: Risk Factor Score Per Nursin RFS Level Per Nursing on Admit: 2=Moderate REYNA CISNEROS DO Oct 18, 2019 18:40
[2019-10-18] MEDS: OXYBUTYNIN (DITROPAN) 5 MG TAB PO SCH (20:17)
[2019-10-18] MEDS: HYDROXYCHLOROQUINE 200 MG (PLAQUENIL) TAB PO SCH (20:17)
[2019-10-19 03:20] VITALS: BP 123/61
[2019-10-19 04:23] LABS: BASOPHILS # (AUTO) 0.1 10^3/uL (0.0-0.1); BASOPHILS % (AUTO) 1 % (0-10); EOSINOPHILS # (AUTO) 0.2 10^3/uL (0.0-0.3); EOSINOPHILS % (AUTO) 3 % (0-10); HEMATOCRIT 37 % (35-52); HEMOGLOBIN 11.7 G/DL (11.5-16.0); LYMPHOCYTES # (AUTO) 1.9 X 10^3 (1.0-4.0); LYMPHOCYTES % (AUTO) 35 % (12-44); MEAN CORPUSCULAR HEMOGLOBIN 32 PG (25-34); MEAN CORPUSCULAR HGB CONC 32 G/DL (32-36); MEAN CORPUSCULAR VOLUME 101 FL (80-99); MEAN PLATELET VOLUME 10.6 FL (7.4-10.4); MONOCYTES # (AUTO) 0.7 X 10^3 (0.0-1.0); MONOCYTES % (AUTO) 12 % (0-12); NEUTROPHILS # (AUTO) 2.8 X 10^3 (1.8-7.8); NEUTROPHILS % (AUTO) 50 % (42-75); PLATELET COUNT 219 10^3/uL (130-400); WHITE BLOOD COUNT 5.6 10^3/uL (4.3-11.0)
[2019-10-19 04:45] LABS: ALBUMIN 3.6 GM/DL (3.2-4.5); BILIRUBIN,TOTAL 0.4 MG/DL (0.1-1.0); CALCIUM 9.7 MG/DL (8.5-10.1); CREATININE SERUM 0.98 MG/DL (0.60-1.30); MAGNESIUM 1.9 MG/DL (1.6-2.4); POTASSIUM 4.1 MMOL/L (3.6-5.0); TOTAL PROTEIN 6.5 GM/DL (6.4-8.2)
--- NOTE | 2019-10-19 07:50 | NUR ---
pt going down for stress test at this time.
[2019-10-19] MEDS ORDERED: CATHETER FLUSH 10 ML SYR IV PRN (08:00)
[2019-10-19] MEDS ORDERED: REGADENOSON 0.4 MG/5 ML SYR (LEXISCAN) IV ONE ×2 (08:39→09:45)
[2019-10-19] MEDS ORDERED: ASPIRIN 81 MG CHEW (CHILDREN'S ASA) PO SCH (09:00)
[2019-10-19] MEDS ORDERED: PANTOPRAZOLE 40 MG (PROTONIX) VIAL IV SCH (09:00)
[2019-10-19] MEDS ORDERED: lisINopril 10 MG (PRINIVIL) TABLET PO SCH (09:00)
[2019-10-19] MEDS ORDERED: CLOPIDOGREL 75 MG (PLAVIX) TABLET PO SCH (09:00)
[2019-10-19] MEDS ORDERED: FAMOTIDINE 20MG/2ML IV (PEPCID) IV SCH (09:00)
[2019-10-19] MEDS ORDERED: amLODIPine 5 MG (NORVASC) TAB PO SCH (09:00)
[2019-10-19] MEDS ORDERED: ISOSORBIDE MONONITRATE 30 MG (IMDUR) TAB PO SCH (09:00)
[2019-10-19] MEDS ORDERED: ASPIRIN E.C. 81 MG (ECOTRIN) TAB PO SCH (09:00)
[2019-10-19 09:33] VITALS: BP 155/72
--- NOTE | 2019-10-19 10:08 | Progress Note - Cardiology ---
Cardiology SOAP Progress Note Subjective: No c/o CP, palpitations, dyspnea, syncope or near syncope. Objective: I&O/Vital Signs 10/18/19 10/18/19 10/19/19 10/19/19 23:19 23:20 01:00 03:20 Temp 37.1 Pulse 55 52 Resp 16 B/P (MAP) 103/50 (67) Pulse Ox 92 93 92 O2 Delivery Room Air Room Air Room Air 10/19/19 10/19/19 10/19/19 03:20 06:45 09:33 Temp 36.9 Pulse 47 47 68 Resp 16 B/P (MAP) 123/61 (81) 155/72 (99) Pulse Ox 96 98 O2 Delivery Room Air 10/19/19 00:00 Intake Total 1100 ml Output Total 200 ml Balance 900 ml Weight (Pounds): 120 Weight (Ounces): 1.0 Weight (Calculated Kilograms): 54.783513 Constitutional: AAO x 3, well-developed, other (thin-appearing) Respiratory: No accessory muscle use; other (good bilat air entry) Cardiovascular: regular rate-rhythm, S1 and S2, systolic murmur (faint XIMENA at card base) Gastrointestional: No tender; soft; No guarding, No rebound; audible bowel sounds Extremities: No clubbing, No cyanosis, No significant edema Neurologic/Psychiatric: oriented x 3, other (moves all limbs equally) Skin: No rash on exposed areas, No ulcerations on exposed areas Results/Procedures: Labs Laboratory Tests 10/18/19 13:40: Troponin I < 0.028 10/19/19 04:00: White Blood Count 5.6, Red Blood Count 3.62L, Hemoglobin 11.7, Hematocrit 37, Mean Corpuscular Volume 101H, Mean Corpuscular Hemoglobin 32, Mean Corpuscular Hemoglobin Concent 32, Red Cell Distribution Width 13.0, Platelet Count 219, Mean Platelet Volume 10.6H, Neutrophils (%) (Auto) 50, Lymphocytes (%) (Auto) 35, Monocytes (%) (Auto) 12, Eosinophils (%) (Auto) 3, Basophils (%) (Auto) 1, Neutrophils # (Auto) 2.8, Lymphocytes # (Auto) 1.9, Monocytes # (Auto) 0.7, Eosinophils # (Auto) 0.2, Basophils # (Auto) 0.1, Sodium Level 141, Potassium Level 4.1, Chloride Level 111H, Carbon Dioxide Level 23, Anion Gap 7, Blood Urea Nitrogen 22H, Creatinine 0.98, Estimat Glomerular Filtration Rate 55, BUN/C reatinine Ratio 22, Glucose Level 87, Calcium Level 9.7, Corrected Calcium 10.0, Magnesium Level 1.9, Total Bilirubin 0.4, Aspartate Amino Transf (AST/SGOT) 17, Alanine Aminotransferase (ALT/SGPT) 15, Alkaline Phosphatase 52, Total Protein 6.5, Albumin 3.6, Triglycerides Level 65, Cholesterol Level 116, LDL Cholesterol Direct 61, VLDL Cholesterol 13, HDL Cholesterol 37L, Thyroid Stimulating Hormone (TSH) 0.80 Laboratory Tests 10/18/19 08:02 10/19/19 04:00 A/P: Assessment: L-sided chest and upper, mid-back pain CAD - CABG x 2. Grafts patent on cardiac cath of 2010. Apparently, has had subsequent cath at [facility] in [place] in January 2013 - the patient has told us us that her professor of religion, Dr Martínez, did not undertake any interventions and her cardiac status was determined to be stable at the time of her most f/u with Dr Dougherty in Oct 2014, according to the patient Sinus bradycardia Echocardiogram from June 2013 showed LVEF 60%. Moderate MR and TR. PASP 40mmHg H/o gastroparesis H/o hernia repair HTN HLP H/o connective tissue disease, details not known Plan: * Continue ASA, clopidogrel, and enoxaparin * MPI this morning - results pending * Further recs will be based on her hospital course and aforementioned testing Clinical Quality Measures AMI/AHF: ASA po Prior to arrival: Yes ROSETTA CARPENTER Oct 19, 2019 10:08
[2019-10-19] MEDS: OXYBUTYNIN (DITROPAN) 5 MG TAB PO SCH (11:51)
[2019-10-19] MEDS: NS IV 1000 ML 1,000 ML IV SCH (11:51)
[2019-10-19] MEDS: HYDROXYCHLOROQUINE 200 MG (PLAQUENIL) TAB PO SCH (11:51)
[2019-10-19 12:00] VITALS: BP_SYST 134; BP_SYST 139; BP_DIAS 59
[2019-10-19] MEDS ORDERED: LIDOCAINE 4% (SALONPAS) PATCH TOP SCH (13:45)
--- NOTE | 2019-10-19 14:30 | NUR ---
[employer] follow up for prayer and continued active listening for pt and her two daughters. She stays with one daughter through the majority of the week and then stays with the other daughter on weekends. The pt says she enjoys time with both daughters.
--- NOTE | 2019-10-19 15:25 | Diagnostic Imaging Report ---
INDICATION: Back pain. COMPARISON: 12/07/2006. FINDINGS: Frontal and lateral views of the thoracic spine were obtained. Visualization of the upper thoracic spine is limited on the lateral projection. Alignment and vertebral heights are maintained. There is no fracture or destructive process. There are no large paraspinal masses. Mild degenerative disease is noted in the thoracic spine. Limited views of the lungs are clear. IMPRESSION: 1. No acute fracture or dislocation of the thoracic spine. 2. Mild multilevel degenerative changes. Dictated by: Dictated on workstation # [id number]
--- NOTE | 2019-10-19 15:52 | STRESS TEST ---
DATE OF SERVICE: 10/19/2019 RESTING AND POST REGADENOSON TECHNETIUM-99M TETROFOSMIN SPECT CT IMAGING ORDERING PHYSICIAN: Dr. Young. PRIMARY PHYSICIAN: Dr. Cisneros. CLINICAL DIAGNOSES: Chest pain, coronary artery disease. Baseline images were carried out after injection of 10.54 mCi of technetium-99m Tetrofosmin. This was followed by 0.4 mg Regadenoson and 30 mCi of technetium-99m Tetrofosmin for stress imaging. The electrocardiogram showed sinus rhythm at baseline. There was subtle nonspecific ST abnormality during the study. The electrocardiogram did not change significantly. The patient tolerated the procedure well. Review of images at rest and following stress does not indicate any significant perfusion defects consistent with myocardial ischemia or infarction. Gated images show normal global left ventricular systolic function with normal regional wall motion. Left ventricular ejection fraction is calculated to be 78%. Left ventricular end diastolic volume is 59 mL. TID is absent (1.16). CONCLUSIONS: 1. No evidence of any significant myocardial ischemia or infarction on this study. 2. Normal regional wall motion. 3. Normal global left ventricular systolic function with a calculated ejection fraction of 78%. Job ID: [id number] DocumentID: [id number] Dictated Date: 10/19/2019 15:33:54 College Dean Date: 10/19/2019 15:51:54 Dictated By: NETTIE YOUNG MD, MA, FACP, FACC,
--- NOTE | 2019-10-19 16:12 | Progress Note - Cardiology ---
Cardiology SOAP Progress Note Subjective: No cp or palp or syncope or shortness of breath No n/v/d No leg swelling Feels well Wishes to go home Objective: I&O/Vital Signs 10/19/19 10/19/19 10/19/19 10/19/19 06:45 08:00 09:33 12:00 Pulse 47 48 68 B/P (MAP) 155/72 (99) Pulse Ox 98 O2 Delivery Room Air 10/19/19 10/19/19 10/19/19 12:00 12:00 12:41 Temp 36.3 36.3 Pulse 63 63 65 Resp 19 19 B/P (MAP) 139/59 (85) 134/59 (84) Pulse Ox 94 94 O2 Delivery Room Air Room Air 10/19/19 00:00 Intake Total 1100 ml Output Total 200 ml Balance 900 ml Weight (Pounds): 120 Weight (Ounces): 1.0 Weight (Calculated Kilograms): 54.316846 Constitutional: AAO x 3, well-developed, other (thin-appearing) Respiratory: No accessory muscle use; other (good bilat air entry) Cardiovascular: regular rate-rhythm, S1 and S2, systolic murmur (faint XIMENA at card base) Gastrointestional: No tender; soft; No guarding, No rebound; audible bowel sounds Extremities: No clubbing, No cyanosis, No significant edema Neurologic/Psychiatric: oriented x 3, other (moves all limbs equally) Skin: No rash on exposed areas, No ulcerations on exposed areas Results/Procedures: Labs Laboratory Tests 10/19/19 04:00: White Blood Count 5.6, Red Blood Count 3.62L, Hemoglobin 11.7, Hematocrit 37, Mean Corpuscular Volume 101H, Mean Corpuscular Hemoglobin 32, Mean Corpuscular Hemoglobin Concent 32, Red Cell Distribution Width 13.0, Platelet Count 219, Mean Platelet Volume 10.6H, Neutrophils (%) (Auto) 50, Lymphocytes (%) (Auto) 35, Monocytes (%) (Auto) 12, Eosinophils (%) (Auto) 3, Basophils (%) (Auto) 1, Neutrophils # (Auto) 2.8, Lymphocytes # (Auto) 1.9, Monocytes # (Auto) 0.7, Eosinophils # (Auto) 0.2, Basophils # (Auto) 0.1, Sodium Level 141, Potassium Level 4.1, Chloride Level 111H, Carbon Dioxide Level 23, Anion Gap 7, Blood Urea Nitrogen 22H, Creatinine 0.98, Estimat Glomerular Filtration Rate 55, BUN/Creatinine Ratio 22, Glucose Level 87, Calcium Level 9.7, Corrected Calcium 10.0, Magnesium Level 1.9, Total Bilirubin 0.4, Aspartate Amino Transf (AST /SGOT) 17, Alanine Aminotransferase (ALT/SGPT) 15, Alkaline Phosphatase 52, Total Protein 6.5, Albumin 3.6, Triglycerides Level 65, Cholesterol Level 116, LDL Cholesterol Direct 61, VLDL Cholesterol 13, HDL Cholesterol 37L, Thyroid Stimulating Hormone (TSH) 0.80 Laboratory Tests 10/18/19 08:02 10/19/19 04:00 A/P: Assessment: L-sided chest and upper, mid-back pain. No evidence of ACS CAD - CABG x 2. Grafts patent on cardiac cath of 2010. 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 Moderate MR and TR. PASP 40mmHg H/o gastroparesis H/o hernia repair HTN HLP H/o connective tissue disease, details not known Plan: * I had a detailed discussion with her and her daughters, explaining to them her hosp course and various studies performed and their results * Based on our w/u, the discomfort that she presented with does not appear to be cardiac * We recommend continuation of current cardiac regime * W/u for non-cardiac chest and back discomfort, if needed, is to be with Dr Cisneros * Ms. Avila' regular puddler pile driving is Dr Martínez. We have recommended that she f/u with him [facility] post d/c * Advised to return to ER in case of recurrence of symptoms or new symptoms Clinical Quality Measures AMI/AHF: ASA po Prior to arrival: Yes NETTIE TYSON MD FACP FAC CCDS Oct 19, 2019 16:12
--- NOTE | 2019-10-19 17:20 | Discharge Summary ---
Diagnosis/Chief Complaint Date of Admission Oct 18, 2019 at 10:09 Date of Discharge Oct 19, 2019 at 16:30 Discharge Date: Oct 19, 2019 Discharge Diagnosis 1. Chest Pain--non cardiac in etiology, unknown etiology--resolved 2. Left Upper Thoracic Back Pain--appears musculoskeletal in nature with thoracic degenerative disc disease on x-ray--stable 3. Sinus Bradycardia--asymptomatic 4. History of CAD with CABG--no history of acute coronary syndrome at this time 5. Hypertension--stable 6. Gastroparesis--resume gastroparesis diet Reason Hospital Visit This is a 79 year old female with a history of CAD who was brought to the emergency room with substernal chest pain radiating through to her back. Her pain was not relieved by 3 nitro sublingually so nitropaste was placed and she was given IV morphine. This improved her pain some but she still had some mild discomfort. Her EKG showed no acute ST segment changes and her cardiac enzymes were negative but it was felt that admission was needed to rule out a cardiac cause. This was discussed with the patient and her family and they initially wanted to be transferred to [facility] where her geotechnician, Dr. Lewis is but due to concerns of transport risks and delay in transport, they decided to be admitted here. Discharge Summary Hospital Course Was the Problem List Reviewed?: Yes Hospital Course This is a 79 year old female with a history of CAD who was brought to the emergency room with substernal chest pain radiating through to her back. Her pain was not relieved by 3 nitro sublingually so nitropaste was placed and she was given IV morphine. This improved her pain some but she still had some mild discomfort. Her EKG showed no acute ST segment changes and her cardiac enzymes were negative but it was felt that admission was needed to rule out a cardiac cause. This was discussed with the patient and her family and they initially wanted to be transferred to [facility] where her geotechnician, Dr. Lewis is but due to concerns of transport risks and delay in transport, they decided to be admitted here. The patient was admitted to the Cardiac Step Down floor and monitored on telemetry. She did have some sinus bradycardia with her heart rate down to the high 40s at rest but she was asymptomatic. Her repeat cardiac enzymes were negative. She underwent a nuclear stress test by Dr. Young and this showed no evidence of ischemia so it was felt that her chest and upper back pain were likely noncardiac in etiology. On the day of discharge, her only complaint was of some mild left upper thoracic back pain. This pain was reproducible on physical exam. I did order a thoracic spine x-ray which showed some degenerative changes but no compression fracture or other abnormalities. A lidoderm patch was placed in the area of her back pain and she was instructed to use an otc topical patch like aspercreme with lidocaine if this patch helped. She will fwup with me in 1 week but she was instructed to return to the ER with any worsening symptoms. She has also been instructed to follow up with Dr. Lewis in the next 1-2 weeks. Labs Laboratory Tests 10/18/19 08:02: Red Blood Count 4.00L, Mean Corpuscular Volume 100H, Eosinophils # (Auto) 0.4H, Activated Partial Thromboplast Time 47H, Chloride Level 109H, Blood Urea Nitrogen 21H, Calcium Level 10.6H, Corrected Calcium 10.4H 10/18/19 13:40: 10/19/19 04:00: Red Blood Count 3.62L, Mean Corpuscular Volume 101H, Chloride Level 111H, Blood Urea Nitrogen 22H, Mean Platelet Volume 10.6H, HDL Cholesterol 37L Procedures None. Discharge Physical Examination Allergies: Coded Allergies: metoclopramide (Unverified Allergy, Severe, TARDIVE DYKENIESIA, 08/04/18) Vitals & I&Os Vital Signs Date Time Temp Pulse Resp B/P (MAP) Pulse Ox O2 Delivery O2 Flow Rate FiO2 10/19/19 16:29 10/19/19 16:00 Room Air 10/19/19 12:41 65 10/19/19 12:00 36.3 19 94 General Appearance: Alert, Oriented X3, Cooperative, No Acute Distress Respiratory: Clear to Auscultation Cardiovascular: Regular Rate Abdominal: Normal Bowel Sounds, Soft, No Tenderness Extremities: No Clubbing, No Cyanosis, No Edema Psych/Mental Status: Mental Status NL, Mood NL Discharge Home Medications Reviewed and agree with Discharge Medication list on patient's Discharge Instruction sheet Instructions to Patient/Family Please see electronic discharge instructions given to patient. Clinical Quality Measures AMI/AHF: ASA po Prior to arrival: Yes DVT/VTE Risk/Contraindication: Risk Factor Score Per Nursin RFS Level Per Nursing on Admit: 2=Moderate MAIRA CORONADO DO Oct 19, 2019 17:20
== END 2019-10-19 16:30 | disposition home or self-care (01) | DRG 313 ==
LOC: EDUNIT# 07:18 → ER 07:19 → ICU 10:09 → CSD 10:40
PROVIDERS: ADMIT Family Medicine; ATTEND Family Medicine
DX: R07.89 Other chest pain (principal); M51.84 Other intervertebral disc disorders, thoracic region; R00.1 Bradycardia, unspecified; I25.10 Atherosclerotic heart disease of native coronary artery without angina pectoris; Z95.1 Presence of aortocoronary bypass graft; I10 Essential (primary) hypertension; K31.84 Gastroparesis; E78.5 Hyperlipidemia, unspecified; K21.9 Gastro-esophageal reflux disease without esophagitis; K44.9 Diaphragmatic hernia without obstruction or gangrene; M19.041 Primary osteoarthritis, right hand; M19.042 Primary osteoarthritis, left hand; L30.9 Dermatitis, unspecified; I08.1 Rheumatic disorders of both mitral and tricuspid valves; M81.0 Age-related osteoporosis without current pathological fracture; R13.10 Dysphagia, unspecified; Z90.81 Acquired absence of spleen
CPT/HCPCS: 36415; 71045; 72070; 78452; 80053; 80061; 83735; 83874; 84443; 84484; 85025; 85610; 85730; 93005; 93017; 93041; 93306

== ENCOUNTER 2021-09-07 16:43 | Emergency (ER) | payer MEDICARE ==
[~2021-09-07] VITALS: Ht 162.5 cm; Wt 59.0 kg
[~2021-09-07 16:43] MED LIST changes: +ACET-2840 PO; -AMIT10TA6 PO; +AMT10T PO; +ASPI-789 PO; -CALC600T12 PO; +CALC600T91 PO; +ISOS30TA82 PO; +ISOS60TA63 PO; -LISI-556 PO; +LISI10TA25 PO; +LISI5TAB20 PO; +PANT40TA52 PO; +PRAV10TA PO
[2021-09-07] MEDS ORDERED: FLEET ENEMA ADULT 1 EA BTL ONE (17:06)
--- NOTE | 2021-09-07 17:19 | ED General ---
General Chief Complaint: Dizziness/Syncope Stated Complaint: SYNCOPE Source of Information: EMS, Family Exam Limitations: No Limitations History of Present Illness Date Seen by Provider: Sep 07, 2021 Time Seen by Provider: 17:15 Initial Comments To ER by EMS from [place] where she lives alone. Reportedly she felt the urge to have a bowel movement and was nauseated so she went to the bathroom. She was unable to produce a bowel movement despite straining on the toilet. She then got up and collapsed. Upon EMS arrival she had vomited and had liquid stool all around her. This continued in ambulance on the way here, the cost was filled with liquid stool. EMS reports that she had a heart rate in the 40s initially. She has a cardiac history including CABG, hypertension hyperlipidemia dementia. Timing/Duration: 1-3 Hours Severity: Moderate Associated Systoms: Nausea/Vomiting Allergies and Home Medications Allergies Coded Allergies: metoclopramide (Unverified Allergy, Severe, TARDIVE DYKENIESIA, 08/04/18) Patient Home Medication List Home Medication List Reviewed: Yes Acetaminophen (Tylenol 8 Hour) 650 Mg Tablet.er, 650 MG PO BID PRN for PAIN-MILD (1-4), (Reported) Entered as Reported by: TIFFANIE DOHERTY on 10/18/19 1235 Beta-Carotene(A) W-C & E/Min (Vision Vitamins) 1 Each Tablet, 1 EACH PO DAILY, (Reported) Entered as Reported by: YULIET CABRERA on 03/04/17 0848 Clopidogrel Bisulfate (Clopidogrel) 75 Mg Tablet, 75 MG PO DAILY, (Reported) Entered as Reported by: YULIET CABRERA on 03/04/17 0848 Hydroxychloroquine Sulfate (Hydroxychloroquine Sulfate) 200 Mg Tablet, 200 MG PO BID, (Reported) Entered as Reported by: YULIET CABRREA on 03/04/17 0848 Isosorbide Mononitrate (Isosorbide Mononitrate ER) 30 Mg Tab.er.24h, 60 MG PO DAILY, (Reported) Entered as Reported by: TIFFANIE DOHERTY on 10/18/19 1242 Lisinopril (Lisinopril) 10 Mg Tablet, 10 MG PO HS, (Reported) Entered as Reported by: TIFFANIE DOHERTY on 10/18/19 1242 Oxybutynin Chloride (Oxybutynin Chloride) 5 Mg Tablet, 5 MG PO BID, (Reported) Entered as Reported by: YULIET CABRERA on 03/04/17 0848 Pantoprazole Sodium (Pantoprazole Sodium) 40 Mg Tablet.dr, 40 MG PO DAILY, (Reported) Entered as Reported by: TIFFANIE DOHERTY on 10/18/19 1230 Pravastatin Sodium (Pravastatin Sodium) 10 Mg Tablet, 10 MG PO DAILY, (Reported) Entered as Reported by: TIFFANIE DOHERTY on 10/18/19 1230 Review of Systems Review of Systems Constitutional: see HPI EENTM: see HPI Respiratory: no symptoms reported Cardiovascular: no symptoms reported Genitourinary: no symptoms reported Musculoskeletal: no symptoms reported Skin: no symptoms reported Psychiatric/Neurological: No Symptoms Reported Hematologic/Lymphatic: No Symptoms Reported Past Xqcaomv-[id number]-Zticyj Hx Immunizations Up To Date Tetanus Booster (TDap): Unknown Seasonal Allergies Seasonal Allergies: No Past Medical History Surgeries: Yes (spleenectomy, HH sx) Abdominal, Cardiac, CABG, Tubal Ligation Respiratory: No Cardiac: Yes (DOUBLE BYPASS (CABG X2)) Coronary Artery Disease, High Cholesterol, Hypertension Neurological: No Reproductive Disorders: No Genitourinary: No Gastrointestinal: Yes (rectal prolapse, gastroparesis) Abdominal Hernia, Gastroesophageal Reflux, Chronic Diarrhea, Hiatal Hernia Musculoskeletal: Yes (ARTHRITIS IN HANDS ) Osteoporosis, Arthritis, Chronic Back Pain Endocrine: No HEENT: Yes (NO TEETH) Hearing Impairment: Hard of Hearing Cancer: No Psychosocial: No Integumentary: Yes (ECZEMA A CHILD) Eczema Blood Disorders: No Family Medical History Diabetes mellitus G8 BROTHER, , Age:62 G8 SISTER, , Age:60 years and older GREAT AUNT FH: ovarian cancer AUNT Myocardial infarction 19 FATHER, , Age:39 19 MOTHER, , Age:83 G8 BROTHER, , Age:62 G8 SISTER, , Age:60 years and older Heart Disease Physical Exam Vital Signs Vital Signs - First Documented 09/07/21 16:43 Temp 37.0 Pulse 60 Resp 18 B/P (MAP) 126/70 (88) Pulse Ox 94 O2 Delivery Room Air Capillary Refill : Height, Weight, BMI Height: 5'2.00" Weight: 120lbs. 1.0oz. 54.397272de; 22.48 BMI Method:Stated General Appearance: No Apparent Distress, WD/WN, Thin, Other (Frail. On arriva l here heart rate is in the 50s. Oxygen 97%. She had liquid bowel movement and upon insertion of Cleary catheter was noted to have a very large fecal impaction. This was removed digitally and with the use of a fleets enema. She reported improvement in her pain and symptoms.) Eyes: Bilateral Eye Normal Inspection, Bilateral Eye PERRL, Bilateral Eye EOMI Neck: Full Range of Motion, Normal Inspection Respiratory: No Accessory Muscle Use, No Respiratory Distress Cardiovascular: Regular Rate, Rhythm, Normal Peripheral Pulses Gastrointestinal: Normal Bowel Sounds, Non Tender, Soft Extremity: Normal Capillary Refill, Normal Inspection Neurologic/Psychiatric: Alert Skin: Normal Color, Warm/Dry Progress/Results/Core Measures Suspected Sepsis SIRS Temperature: Pulse: Respiratory Rate: Laboratory Tests 09/07/21 17:05: White Blood Count 5.5 Blood Pressure / Mean: Laboratory Tests 09/07/21 17:05: Creatinine 1.33H, Platelet Count 249, Total Bilirubin 0.6 Results/Orders Lab Results Laboratory Tests Test 09/07/21 17:05 09/07/21 18:41 09/07/21 19:20 Range/Units White Blood Count 5.5 4.3-11.0 10^3/uL Red Blood Count 4.16 3.80-5.11 10^6/uL Hemoglobin 13.6 11.5-16.0 g/dL Hematocrit 42 35-52 % Mean Corpuscular Volume 101 H 80-99 fL Mean Corpuscular Hemoglobin 33 25-34 pg Mean Corpuscular Hemoglobin Concent 32 32-36 g/dL Red Cell Distribution Width 13.8 10.0-14.5 % Platelet Count 249 130-400 10^3/uL Mean Platelet Volume 11.0 9.0-12.2 fL Immature Granulocyte % (Auto) 0 % Neutrophils (%) (Auto) 27 L 42-75 % Lymphocytes (%) (Auto) 65 H 12-44 % Monocytes (%) (Auto) 4 0-12 % Eosinophils (%) (Auto) 3 0-10 % Basophils (%) (Auto) 1 0-10 % Neutrophils # (Auto) 1.5 L 1.8-7.8 10^3/uL Lymphocytes # (Auto) 3.5 1.0-4.0 10^3/uL Monocytes # (Auto) 0.2 0.0-1.0 10^3/uL Eosinophils # (Auto) 0.2 0.0-0.3 10^3/uL Basophils # (Auto) 0.0 0.0-0.1 10^3/uL Immature Granulocyte # (Auto) 0.0 0.0-0.1 10^3/uL Sodium Level 139 135-145 MMOL/L Potassium Level 3.6 3.6-5.0 MMOL/L Chloride Level 108 H 98-107 MMOL/L Carbon Dioxide Level 16 L 21-32 MMOL/L Anion Gap 15 H 5-14 MMOL/L Blood Urea Nitrogen 21 H 7-18 MG/DL Creatinine 1.33 H 0.60-1.30 MG/DL Estimat Glomerular Filtration Rate 38 BUN/Creatinine Ratio 16 Glucose Level 112 H 70-105 MG/DL Calcium Level 10.3 H 8.5-10.1 MG/DL Corrected Calcium 10.1 8.5-10.1 MG/DL Magnesium Level 2.7 H 1.6-2.4 MG/DL Total Bilirubin 0.6 0.1-1.0 MG/DL Aspartate Amino Transf (AST/SGOT) 28 5-34 U/L Alanine Aminotransferase (ALT/SGPT) 15 0-55 U/L Alkaline Phosphatase 57 40-136 U/L Myoglobin 65.5 10.0-92.0 NG/ML Troponin I 0.034 H <0.028 NG/ML B-Type Natriuretic Peptide 216.3 H <100.0 PG/ML Total Protein 7.9 6.4-8.2 GM/DL Albumin 4.2 3.2-4.5 GM/DL Lipase 33 8-78 U/L Urine Color YELLOW Urine Clarity SL CLOUDY Urine pH 5.5 5-9 Urine Specific [place] 1.025 H 1.016-1.022 Urine Protein TRACE H NEGATIVE Urine Glucose (UA) NEGATIVE NEGATIVE Urine Ketones TRACE H NEGATIVE Urine Nitrite POSITIVE H NEGATIVE Urine Bilirubin NEGATIVE NEGATIVE Urine Urobilinogen 1.0 < = 1.0 MG/DL Urine Leukocyte Esterase TRACE H NEGATIVE Urine RBC (Auto) NEGATIVE NEGATIVE Urine RBC NONE /HPF Urine WBC 10-25 H /HPF Urine Squamous Epithelial Cells 5-10 /HPF Urine Crystals NONE /LPF Urine Bacteria MODERATE H /HPF Urine Casts PRESENT /LPF Urine Hyaline Casts 5-10 H /LPF Urine Mucus NEGATIVE /LPF Urine Culture Indicated YES My Orders Orders - SUSHIL NI CREW CHIEF Cbc With Automated Diff (09/07/21 16:54) Magnesium (09/07/21 16:54) Chest 1 View, Ap/Pa Only (09/07/21 16:54) Ekg Tracing (09/07/21 16:54) Comprehensive Metabolic Panel (09/07/21 16:54) Myoglobin Serum (09/07/21 16:54) O2 (09/07/21 16:54) Monitor-Rhythm Ecg Trace Only (09/07/21 16:54) Lipid Panel (09/08/21 06:00) Ed Iv/Invasive Line Start (09/07/21 16:54) Bnp Vanessa (09/07/21 16:54) Troponin I Vanessa (09/07/21 16:54) Lipase (09/07/21 16:54) Na Phos/Na Biphos Enema (Fleet Enema Young (09/07/21 17:06) Ct Abdomen/Pelvis Wo (09/07/21 17:12) Ua Culture If Indicated (09/07/21 17:13) Lactated Ringers (Lr 1000 Ml Iv Solution (09/07/21 17:30) Ondansetron Injection (Zofran Injectio (09/07/21 17:30) Cleary Cath (09/07/21 17:56) Mineral Oil Enema (Fleet Oil Enema) (09/07/21 18:30) Urine Culture (09/07/21 18:41) Ceftriaxone 1 Gm Pre-Mix (Rocephin 1 Gm (09/07/21 19:00) Troponin I Vanessa (09/07/21 19:31) Medications Given in ED Current Medications Medications Dose Ordered Sig/Dahlia Route Start Time Stop Time Status Last Admin Dose Admin Ceftriaxone Sodium/Dextrose 50 ml @ 100 mls/hr ONCE ONCE IV 09/07/21 19:00 09/07/21 19:29 DC 09/07/21 19:07 100 MLS/HR Mineral Oil 1 ea ONCE ONCE VA 09/07/21 18:30 09/07/21 18:31 DC 09/07/21 18:40 1 EA Ondansetron HCl 4 mg ONCE ONCE IVP 09/07/21 17:30 09/07/21 17:31 DC 09/07/21 17:57 4 MG Sodium Biphosphate/ Sodium Phosphate 1 ea STK-MED ONCE .ROUTE 09/07/21 17:06 09/07/21 17:09 DC 09/07/21 17:07 1 EA Vital Signs/I&O 09/07/21 09/07/21 16:43 18:24 Temp 37.0 Pulse 60 55 Resp 18 18 B/P (MAP) 126/70 (88) 120/70 Pulse Ox 94 98 O2 Delivery Room Air Room Air Capillary Refill : Departure Communication (Admissions) Family Conversation 1950-daughter would like to keep the patient out of the hospital if possible. She is had several large bowel movements here and 1 fleets enema and one mineral oil enema. She does have a urinary tract infection and received Rocephin. Plan to send her home with oral antibiotics as long as the daughter can stay nearby and keep a close eye on her. She denies chest pain. Repeat troponin pending NAME: [facility] REC#: [id number] PT STATUS: REG ER : 1940 PHYSICIAN: SUSHIL NI APRN ADMIT DATE: 09/07/21/ER Draft Date of Exam:09/07/21 CT ABDOMEN/PELVIS WO PROCEDURE: CT abdomen and pelvis without contrast. TECHNIQUE: Multiple contiguous axial images were obtained through the abdomen and pelvis without the use of intravenous contrast. Auto Exposure Controls were utilized during the CT exam to meet ALARA standards for radiation dose reduction. INDICATION: Pallor. Syncope. Diarrhea. COMPARISON: 12/23/2018 FINDINGS: Included portions of the lung bases are clear. Moderate hiatal hernia is noted. CT ABDOMEN: Moderate sized rectal stool ball is identified. Stool ball measures 6.6 x 6.1 cm in axial dimension. Patient is status post previous distal partial colonic resection. Proximal colon shows mild wall thickening. Normal appendix is identified. Small bowel loops are nondistended. Nonobstructive bilateral renal calculi are identified. Otherwise, the kidneys, adrenal glands, pancreas, and liver have an unremarkable noncontrast CT appearance. Spleen is absent. There is no loculated fluid collection, free fluid, nor free air within the abdomen. No abnormal mesenteric or retroperitoneal adenopathy is seen. There is moderate diffuse calcified aortic and arterial atherosclerosis. Osseous structures show no acute abnormalities. CT PELVIS: Cleary catheter is present within the urinary bladder. Urinary bladder is essentially decompressed. There is no loculated fluid collection, free fluid or free air within the pelvis. No abnormal lymph nodes are seen. Osseous structures show no acute abnormalities. IMPRESSION: 1. Moderate rectal stool ball. Please correlate for impaction. 2. Thickened appearance to the wall of the more proximal colon. This is nonspecific, but may be seen with underlying infectious or inflammatory colitis. 3. Bilateral nonobstructive renal calculi. 4. Moderate hiatal hernia. Dictated on workstation # [id number] Dict: 09/07/21 1755 Trans: 09/07/21 1806 [facility] [id number] Interpreted by: KIMBERLY CROWELL MD Electronically signed by: Impression Primary Impression: Vasovagal syncope Additional Impressions: Fecal impaction in rectum UTI (urinary tract infection) Disposition: 01 HOME, SELF-CARE Condition: Stable Departure-Patient Inst. Decision time for Depature: 19:52 Referrals: MAIRA CORONADO DO (PCP/Family) Primary Care Physician Patient Instructions: Fecal Impaction (DC), Urinary Tract Infection, Adult (DC), Vasovagal Response Add. Discharge Instructions: 1. Return to ER for any concerns 2. Follow-up with your doctor next week 3. All discharge instructions reviewed with patient and/or family. Voiced understanding. Scripts Cefuroxime Axetil (Cefuroxime) 250 Mg Tablet 250 MG PO BID, #10 TAB Prov: SUSHIL NI APRN 09/07/21 SUSHIL NI APRN Sep 07, 2021 17:19
[2021-09-07 17:20] LABS: BASOPHILS % (AUTO) 1 % (0-10); EOSINOPHILS # (AUTO) 0.2 10^3/uL (0.0-0.3); EOSINOPHILS % (AUTO) 3 % (0-10); HEMATOCRIT 42 % (35-52); HEMOGLOBIN 13.6 g/dL (11.5-16.0); LYMPHOCYTES # (AUTO) 3.5 10^3/uL (1.0-4.0); LYMPHOCYTES % (AUTO) 65 % (12-44); MEAN CORPUSCULAR HEMOGLOBIN 33 pg (25-34); MEAN CORPUSCULAR HGB CONC 32 g/dL (32-36); MEAN CORPUSCULAR VOLUME 101 fL (80-99); MONOCYTES # (AUTO) 0.2 10^3/uL (0.0-1.0); MONOCYTES % (AUTO) 4 % (0-12); NEUTROPHILS # (AUTO) 1.5 10^3/uL (1.8-7.8); NEUTROPHILS % (AUTO) 27 % (42-75); PLATELET COUNT 249 10^3/uL (130-400); WHITE BLOOD COUNT 5.5 10^3/uL (4.3-11.0)
[2021-09-07 17:30] LABS: ALBUMIN 4.2 GM/DL (3.2-4.5)
[2021-09-07] MEDS ORDERED: LACTATED RINGERS 1,000 ML IV SCH (17:30)
[2021-09-07] MEDS ORDERED: ONDANSETRON 4 MG/2 ML (SDV) Z0FRAN IVP ONE ×2 (17:30→20:00)
[2021-09-07 17:31] LABS: POTASSIUM 3.6 MMOL/L (3.6-5.0)
[2021-09-07 17:32] LABS: CALCIUM 10.3 MG/DL (8.5-10.1)
[2021-09-07 17:33] LABS: TOTAL PROTEIN 7.9 GM/DL (6.4-8.2)
[2021-09-07 17:35] LABS: BILIRUBIN,TOTAL 0.6 MG/DL (0.1-1.0)
--- NOTE | 2021-09-07 17:36 | Diagnostic Imaging Report ---
HISTORY: Chest pain COMPARISON: 10/18/2019 TECHNIQUE: Frontal view of the chest FINDINGS: The patient is rotated to the left. Sternotomy wires and post-CABG changes are noted with multiple skin shanika seen. No consolidation is seen. No pleural effusion or pneumothorax is seen. IMPRESSION: 1. No acute pulmonary abnormality is identified. Dictated by: Dictated on workstation # [id number]
[2021-09-07 17:37] LABS: CREATININE SERUM 1.33 MG/DL (0.60-1.30)
[2021-09-07 17:39] LABS: MAGNESIUM 2.7 MG/DL (1.6-2.4)
--- NOTE | 2021-09-07 18:06 | Diagnostic Imaging Report ---
PROCEDURE: CT abdomen and pelvis without contrast. TECHNIQUE: Multiple contiguous axial images were obtained through the abdomen and pelvis without the use of intravenous contrast. Auto Exposure Controls were utilized during the CT exam to meet ALARA standards for radiation dose reduction. INDICATION: Pallor. Syncope. Diarrhea. COMPARISON: 12/23/2018 FINDINGS: Included portions of the lung bases are clear. Moderate hiatal hernia is noted. CT ABDOMEN: Moderate sized rectal stool ball is identified. Stool ball measures 6.6 x 6.1 cm in axial dimension. Patient is status post previous distal partial colonic resection. Proximal colon shows mild wall thickening. Normal appendix is identified. Small bowel loops are nondistended. Nonobstructive bilateral renal calculi are identified. Otherwise, the kidneys, adrenal glands, pancreas, and liver have an unremarkable noncontrast CT appearance. Spleen is absent. There is no loculated fluid collection, free fluid, nor free air within the abdomen. No abnormal mesenteric or retroperitoneal adenopathy is seen. There is moderate diffuse calcified aortic and arterial atherosclerosis. Osseous structures show no acute abnormalities. CT PELVIS: Cleary catheter is present within the urinary bladder. Urinary bladder is essentially decompressed. There is no loculated fluid collection, free fluid or free air within the pelvis. No abnormal lymph nodes are seen. Osseous structures show no acute abnormalities. IMPRESSION: 1. Moderate rectal stool ball. Please correlate for impaction. 2. Thickened appearance to the wall of the more proximal colon. This is nonspecific, but may be seen with underlying infectious or inflammatory colitis. 3. Bilateral nonobstructive renal calculi. 4. Moderate hiatal hernia. Dictated by: Dictated on workstation # [id number]
[2021-09-07] MEDS ORDERED: MINERAL OIL ENEMA 133 ML BTL PR ONE (18:30)
[2021-09-07 18:49] LABS: BILIRUBIN,URINE NEGATIVE (NEGATIVE); CLARITY,URINE SL CLOUDY; COLOR,URINE YELLOW; GLUCOSE, URINE (UA) NEGATIVE (NEGATIVE); KETONES,URINE TRACE (NEGATIVE); LEUKOCYTE ESTERASE ,URINE TRACE (NEGATIVE); NITRITE,URINE POSITIVE (NEGATIVE); PH,URINE 5.5 (5-9); PROTEIN,URINE TRACE (NEGATIVE)
[2021-09-07 18:57] LABS: BACTERIA,URINE MODERATE /HPF
[2021-09-07] MEDS ORDERED: cefTRIAXone 1 GM PRE-MIX 50 ML IV ONE (19:00)
[2021-09-07] MEDS ORDERED: CEFU250T80 PO (19:53)
[2021-09-07 20:17] VITALS: BP 149/62
== END 2021-09-07 20:17 | disposition home or self-care (01) ==
LOC: EDUNIT# 16:43 → ER 16:44
DX: R55 Syncope and collapse (principal); K56.41 Fecal impaction; N39.0 Urinary tract infection, site not specified; I10 Essential (primary) hypertension; I25.10 Atherosclerotic heart disease of native coronary artery without angina pectoris; E78.00 Pure hypercholesterolemia, unspecified; F03.90 Unspecified dementia, unspecified severity, without behavioral disturbance, psychotic disturbance, mood disturbance, and anxiety; K21.9 Gastro-esophageal reflux disease without esophagitis; Z95.1 Presence of aortocoronary bypass graft; Z79.02 Long term (current) use of antithrombotics/antiplatelets; Z79.899 Other long term (current) drug therapy
CPT/HCPCS: 36415; 51702; 71045; 74176; 80053; 81000; 82947; 83690; 83735; 83874; 83880; 84484; 85025; 87077; 87088; 93005; 93041

== ENCOUNTER 2022-05-22 11:29 | Inpatient (IN) | payer MEDICARE ==
[~2022-05-22] VITALS: Ht 160 cm; Wt 51.4 kg
[~2022-05-22 11:29] MED LIST changes: -ASPI-789 PO; +ASPI1TAB23 PO; +CEFU250T80 PO
[2022-05-22 12:29] LABS: BASOPHILS # (AUTO) 0.1 10^3/uL (0.0-0.1); BASOPHILS % (AUTO) 1 % (0-10); EOSINOPHILS # (AUTO) 0.2 10^3/uL (0.0-0.3); EOSINOPHILS % (AUTO) 2 % (0-10); HEMATOCRIT 37 % (35-52); HEMOGLOBIN 12.3 g/dL (11.5-16.0); LYMPHOCYTES # (AUTO) 1.4 10^3/uL (1.0-4.0); LYMPHOCYTES % (AUTO) 15 % (12-44); MEAN CORPUSCULAR HEMOGLOBIN 30 pg (25-34); MEAN CORPUSCULAR HGB CONC 33 g/dL (32-36); MEAN CORPUSCULAR VOLUME 91 fL (80-99); MEAN PLATELET VOLUME 9.5 fL (9.0-12.2); MONOCYTES % (AUTO) 10 % (0-12); NEUTROPHILS # (AUTO) 6.5 10^3/uL (1.8-7.8); NEUTROPHILS % (AUTO) 71 % (42-75); PLATELET COUNT 454 10^3/uL (130-400); WHITE BLOOD COUNT 9.1 10^3/uL (4.3-11.0)
[2022-05-22] MEDS ORDERED: fentaNYL INJ 100 MCG/2 ML AMP IVP ONE (12:30)
[2022-05-22 12:33] LABS: POTASSIUM 4.8 MMOL/L (3.6-5.0)
[2022-05-22 12:34] LABS: CALCIUM 10.4 MG/DL (8.5-10.1)
[2022-05-22 12:39] LABS: CREATININE SERUM 1.13 MG/DL (0.60-1.30)
--- NOTE | 2022-05-22 13:04 | Diagnostic Imaging Report ---
PROCEDURE: CT head and CT cervical spine without contrast. TECHNIQUE: Multiple contiguous axial images were obtained through the brain and cervical spine without the use of intravenous contrast. Sagittal and coronal reformations through the cervical spine were then performed. Auto Exposure Controls were utilized during the CT exam to meet ALARA standards for radiation dose reduction. INDICATION: Head and neck pain after trauma. FINDINGS: There is some prominence of ventricles and sulci. There is some chronic microvascular ischemic disease. No hydrocephalus. No midline shift. No mass, hemorrhage or extra-axial fluid collection. The calvarium is intact. Sinuses and mastoid air cells are clear. The alignment of cervical spine is grossly normal. There is multilevel degenerative disc disease and posterior facet arthropathy. The vertebral body heights are well-maintained. No fracture or traumatic subluxation. Odontoid is intact and lateral masses are well aligned. The prevertebral soft tissues are within normal limits. Lung apices are clear. IMPRESSION: Atrophy and some chronic microvascular ischemic disease however no acute intracranial abnormality. Moderate cervical spondylosis and multilevel degenerative disc disease without acute fracture or traumatic subluxation. Dictated by: Dictated on workstation # [id number]
[2022-05-22 13:14] LABS: BILIRUBIN,URINE NEGATIVE (NEGATIVE); CLARITY,URINE CLEAR; COLOR,URINE YELLOW; GLUCOSE, URINE (UA) NEGATIVE (NEGATIVE); KETONES,URINE NEGATIVE (NEGATIVE); LEUKOCYTE ESTERASE ,URINE 3+ (NEGATIVE); NITRITE,URINE POSITIVE (NEGATIVE); PH,URINE 8.5 (5-9); PROTEIN,URINE NEGATIVE (NEGATIVE)
--- NOTE | 2022-05-22 13:19 | Diagnostic Imaging Report ---
Indication: Pain. FINDINGS: There are mildly comminuted subcapital fracture of the left femoral neck. The distal fracture component is subluxed superiorly. The bony pelvis is intact. Soft tissues are unremarkable. IMPRESSION: Comminuted subcapital fracture of the left femur. Dictated by: Dictated on workstation # [id number]
[2022-05-22 13:25] LABS: AMORPHOUS SEDIMENT,UR MOD AMOR PHOSPHATE /LPF; BACTERIA,URINE LARGE /HPF; WBC,URINE 50-100 /HPF
[2022-05-22] MEDS ORDERED: morphine INJ 10 MG/ML 1ML (SYR OR VIAL) IVP STA ×2 (13:49→15:02)
--- NOTE | 2022-05-22 14:08 | ED Fall/Injury ---
General Chief Complaint: Hip/Pelvic Problems Stated Complaint: FALL Nursing Triage Note: PT BROUGHT FROM [facility] VIA [facility]. PT HAS 22G IN LEFT WRIST. PT HAD UNWITNESSED FALL IN ROOM. C-COLLAR PLACED BY EMS ON ARRIVAL. PT HAS HX OF DEMENTIA. PT UNABLE TO COMMUNITCATE BUT GROANS. TRACTS WITH EYES. Source: patient Exam Limitations: no limitations History of Present Illness Date Seen by Provider: May 22, 2022 Time Seen by Provider: 12:21 Initial Comments This 81-year-old woman presents to the emergency room via EMS after [facility]. She has external rotation and shortening of the left leg. No other obvious injuries were identified. She arrives in a c- collar. She has advanced dementia. She does talk some but her speech is largely nonsensical according to her daughters. She was ambulatory several weeks ago when she went into [facility]. She was recently discharged to the [facility] and has not been ambulatory there. She does not bear weight well to transition either. She was recently a patient of Dr. CORONADO but is now assigned to Dr. Solis and Katy CHARLES. Allergies and Home Medications Allergies Coded Allergies: metoclopramide (Unverified Allergy, Severe, TARDIVE DYKENIESIA, 08/04/18) Patient Home Medication List Home Medication List Reviewed: Yes Acetaminophen (Acetaminophen ER) 650 Mg Tablet.er, 650 MG PO Q6H PRN for PAIN- MILD (1-4), (Reported) Entered as Reported by: Moni Browne on 05/22/221714 Last Action: Reviewed Alendronate Sodium (Alendronate Sodium) 70 Mg Tablet, 70 MG PO HARIKA, (Reported) Entered as Reported by: Moni Browne on 05/22/221716 Last Action: Held Amlodipine Besylate (Amlodipine Besylate) 5 Mg Tablet, 5 MG PO DAILY, (Reported) Entered as Reported by: Moni Browne on 05/22/221717 Last Action: Continued Clopidogrel Bisulfate (Clopidogrel) 75 Mg Tablet, 75 MG PO DAILY, (Reported) Entered as Reported by: YULIET CABRERA on 03/04/17 0848 Last Action: Held Cranberry Extract (Cranberry) 250 Mg Capsule, 250 MG PO DAILY, (Reported) Entered as Reported by: Moni Browne on 05/22/221719 Last Action: Held Hydroxychloroquine Sulfate (Hydroxychloroquine Sulfate) 200 Mg Tablet, 200 MG PO BID, (Reported) Entered as Reported by: YULIET CABRERA on 03/04/17 0848 Last Action: Continued Isosorbide Mononitrate (Isosorbide Mononitrate ER) 60 Mg Tab, 60 MG PO DAILY, ( Reported) Entered as Reported by: TIFFANIE DOHERTY on 05/24/221315 Last Action: Continued Lisinopril (Lisinopril) 5 Mg Tablet, 5 MG PO HS, (Reported) Entered as Reported by: Moni Browne on 05/22/221721 Last Action: Continued Megestrol Acetate (Megestrol Acetate) 20 Mg Tablet, 20 MG PO BID, (Reported) Entered as Reported by: Moni Browne on 05/22/221723 Last Action: Converted Mirtazapine (Mirtazapine) 15 Mg Tablet, 15 MG PO HS, (Reported) Entered as Reported by: Moni Browne on 05/22/221724 Last Action: Reviewed Nitrofurantoin Monohyd/M-Cryst (Nitrofurantoin Freeborn-Mcr 100 mg) 100 Mg Capsule, 100 MG PO BID, (Reported) Entered as Reported by: TIFFANIE DOHERTY on 05/24/221315 Last Action: Held Nitroglycerin (Nitroglycerin) 0.4 Mg Tab.subl, 0.4 MG SL UD PRN for CHEST PAIN, (Reported) Entered as Reported by: TIFFANIE DOHERTY on 05/24/221315 Last Action: Held Ondansetron (Ondansetron Odt) 4 Mg Tab.rapdis, 4 MG PO Q6H PRN for NAUSEA/VO MITING-1ST LINE, (Reported) Entered as Reported by: TIFFANIE DOHERTY on 05/24/221315 Last Action: Held Pantoprazole Sodium (Pantoprazole Sodium) 40 Mg Tablet.dr, 40 MG PO DAILY, (Reported) Entered as Reported by: TIFFANIE DOHERTY on 10/18/19 1230 Last Action: Continued Polyethylene Glycol 3350 (Miralax) 17 Gram/Dose Powder, 17 GM PO HS, (Reported) Entered as Reported by: Moni Browne on 05/22/221723 Last Action: Held Pravastatin Sodium (Pravastatin Sodium) 10 Mg Tablet, 10 MG PO HS, (Reported) Entered as Reported by: TIFFANIE DOHERTY on 10/18/19 1230 Last Action: Held Venlafaxine HCl (Venlafaxine HCl ER) 75 Mg Tab.er.24, 75 MG PO DAILY, (Reported) Entered as Reported by: Moni Browne on 05/22/221731 Last Action: Converted Discontinued Medications Acetaminophen (Tylenol 8 Hour) 650 Mg Tablet.er, 650 MG PO BID PRN for PAIN-MILD (1-4), (Reported) Discontinued Reason: Provider Change Entered as Reported by: TIFFANIE DOHERTY on 10/18/19 1235 Last Action: Discontinued Beta-Carotene(A) W-C & E/Min (Vision Vitamins) 1 Each Tablet, 1 EACH PO DAILY, (Reported) Discontinued Reason: Provider Change Entered as Reported by: YULIET CABRERA on 03/04/17 0848 Last Action: Discontinued Cefuroxime Axetil (Cefuroxime) 250 Mg Tablet, 250 MG PO BID Discontinued Reason: Provider Change Prescribed by: SUSHIL NI on 09/07/211952 Last Action: Discontinued Isosorbide Mononitrate (Isosorbide Mononitrate ER) 30 Mg Tab.er.24h, 60 MG PO DAILY, (Reported) Discontinued Reason: Duplicate Order Entered as Reported by: TIFFANIE DOHERTY on 10/18/19 124 Last Action: Discontinued Lisinopril (Lisinopril) 10 Mg Tablet, 10 MG PO HS, (Reported) Discontinued Reason: Provider Change Entered as Reported by: TIFFANIE DOHERTY on 10/18/19 1242 Last Action: Discontinued Nitrofurantoin Monohyd/M-Cryst (Macrobid 100 mg Capsule) 100 Mg Capsule, 1 TAB PO BID, (Reported) Discontinued Reason: Duplicate Order Entered as Reported by: Moni Browne on 05/22/22 172 Last Action: Discontinued Nitroglycerin (Nitroglycerin) 0.4 Mg Tab.subl, 0.4 MG SL UD, (Reported) Discontinued Reason: Duplicate Order Entered as Reported by: Moni Browne on 05/22/22 172 Last Action: Discontinued Ondansetron HCl (Ondansetron HCl) 4 Mg Tablet, 4 MG PO Q6H PRN for NAUSEA-1ST LINE, (Reported) Discontinued Reason: Duplicate Order Entered as Reported by: Moni Browne on 05/22/22 1729 Last Action: Discontinued Oxybutynin Chloride (Oxybutynin Chloride) 5 Mg Tablet, 5 MG PO BID, (Reported) Discontinued Reason: Provider Change Entered as Reported by: YULIET CABRERA on 03/04/17 0848 Last Action: Discontinued Review of Systems Review of Systems Constitutional: weakness Eyes: No Symptoms Reported Ears, Nose, Mouth, Throat: no symptoms reported Respiratory: no symptoms reported Cardiovascular: no symptoms reported Gastrointestinal: no symptoms reported Genitourinary: no symptoms reported : No Musculoskeletal: see HPI Skin: no symptoms reported Psychiatric/Neurological: See HPI Past Nljbqlk-Kgbdwu-Sxbnnf Hx Patient Social History Tobacco Use?: No Substance use?: No Alcohol Use?: No Pt feels they are or have been: Unable to obtain Immunizations Up To Date Tetanus Booster (TDap): Unknown First/Initial COVID19 Vaccinat: 10/15/2020 Second COVID19 Vaccination [place]: 11/12/2020 Third COVID19 Vaccination Date: 07/03/2022 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 SURGERY;OPEN HEART SUREGERY, ESOPH. "WRAP", SPLEENECTOMY, RECTAL PROLAPSE SURGERY, Surgeries: Yes (spleenectomy, HH sx) Abdominal, Cardiac, CABG, Tubal Ligation Respiratory: No Cardiac: Yes (DOUBLE BYPASS (CABG X2)) Coronary Artery Disease, High Cholesterol, Hypertension Neurological: Yes Dementia Reproductive Disorders: No Genitourinary: No Gastrointestinal: Yes (rectal prolapse, gastroparesis) Abdominal Hernia, Gastroesophageal Reflux, Chronic Diarrhea, Hiatal Hernia Musculoskeletal: Yes (ARTHRITIS IN HANDS ) Osteoporosis, Arthritis, Chronic Back Pain Endocrine: No HEENT: Yes (NO TEETH) Hearing Impairment: Hard of Hearing Cancer: No Psychosocial: No Integumentary: Yes (ECZEMA A CHILD) Eczema Blood Disorders: No Family Medical History Diabetes mellitus G8 BROTHER, , Age:62 G8 SISTER, , Age:60 years and older GREAT AUNT FH: ovarian cancer AUNT Myocardial infarction 19 FATHER, , Age:39 19 MOTHER, , Age:83 G8 BROTHER, , Age:62 G8 SISTER, , Age:60 years and older Heart Disease Physical Exam Vital Signs Vital Signs - First Documented 05/22/22 05/22/22 11:37 14:03 Temp 35.5 Pulse 70 Resp 16 B/P (MAP) 155/78 (103) Pulse Ox 97 O2 Delivery Room Air O2 Flow Rate 1.00 FiO2 96 Capillary Refill : Less Than 3 Seconds Height, Weight, BMI Height: 5'2.00" Weight: 120lbs. 1.0oz. 54.703900bo; 19.00 BMI Method:Stated General Appearance: WD/WN, mild distress, thin HEENT: PERRL/EOMI, normal ENT inspection, pharynx normal Neck: normal inspection Cardiovascular: regular rate, rhythm, no edema, no murmur Respiratory: lungs clear, normal breath sounds, no respiratory distress Gastrointestinal: normal bowel sounds, non tender, soft Extremities: other (Left hip tenderness with external rotation and shortening. Distal sensation, capillary refill, and pedal pulse intact.) Neurologic/Psychiatric: alert, disoriented x 3, other (Confused with severe dementia at baseline) Skin: normal color, warm/dry Cos Cob Coma Score Best Eye Response: (4) Open Spontaneously Best Verbal Response: (3) Inappropriate Words Best Motor Response: (5) Localizes to Pain Cos Cob Total: 12 Progress/Results/Core Measures Results/Orders Lab Results Laboratory Tests Test 05/22/22 11:56 05/22/22 12:21 Range/Units White Blood Count 9.1 4.3-11.0 10^3/uL Red Blood Count 4.08 3.80-5.11 10^6/uL Hemoglobin 12.3 11.5-16.0 g/dL Hematocrit 37 35-52 % Mean Corpuscular Volume 91 80-99 fL Mean Corpuscular Hemoglobin 30 25-34 pg Mean Corpuscular Hemoglobin Concent 33 32-36 g/dL Red Cell Distribution Width 13.4 10.0-14.5 % Platelet Count 454 H 130-400 10^3/uL Mean Platelet Volume 9.5 9.0-12.2 fL Immature Granulocyte % (Auto) 1 % Neutrophils (%) (Auto) 71 42-75 % Lymphocytes (%) (Auto) 15 12-44 % Monocytes (%) (Auto) 10 0-12 % Eosinophils (%) (Auto) 2 0-10 % Basophils (%) (Auto) 1 0-10 % Neutrophils # (Auto) 6.5 1.8-7.8 10^3/uL Lymphocytes # (Auto) 1.4 1.0-4.0 10^3/uL Monocytes # (Auto) 1.0 0.0-1.0 10^3/uL Eosinophils # (Auto) 0.2 0.0-0.3 10^3/uL Basophils # (Auto) 0.1 0.0-0.1 10^3/uL Immature Granulocyte # (Auto) 0.1 0.0-0.1 10^3/uL Sodium Level 139 135-145 MMOL/L Potassium Level 4.8 3.6-5.0 MMOL/L Chloride Level 106 98-107 MMOL/L Carbon Dioxide Level 22 21-32 MMOL/L Anion Gap 11 5-14 MMOL/L Blood Urea Nitrogen 18 7-18 MG/DL Creatinine 1.13 0.60-1.30 MG/DL Estimat Glomerular Filtration Rate 49 BUN/Creatinine Ratio 16 Glucose Level 91 70-105 MG/DL Calcium Level 10.4 H 8.5-10.1 MG/DL Urine Color YELLOW Urine Clarity CLEAR Urine pH 8.5 5-9 Urine Specific Warren 1.010 L 1.016-1.022 Urine Protein NEGATIVE NEGATIVE Urine Glucose (UA) NEGATIVE NEGATIVE Urine Ketones NEGATIVE NEGATIVE Urine Nitrite POSITIVE H NEGATIVE Urine Bilirubin NEGATIVE NEGATIVE Urine Urobilinogen 0.2 < = 1.0 MG/DL Urine Leukocyte Esterase 3+ H NEGATIVE Urine RBC (Auto) TRACE-I H NEGATIVE Urine RBC NONE /HPF Urine WBC 50-100 H /HPF Urine Squamous Epithelial Cells 5-10 /HPF Urine Crystals PRESENT H /LPF Urine Amorphous Sediment MOD SANDRA PHOSPHATE H /LPF Urine Bacteria LARGE H /HPF Urine Casts NONE /LPF Urine Mucus NEGATIVE /LPF Urine Culture Indicated YES Micro Results Microbiology 05/22/22 Blood Culture - Preliminary, Resulted No growth 05/22/22 Blood Culture - Preliminary, Resulted No growth 05/22/22 Urine Culture - Final, Complete Proteus mirabilis My Orders Orders - SCHUYLER ARREGUIN MD Ct Head/Cervical Spine Wo (05/22/22 12:21) Pelvis With Left Hip 2-3 Views (05/22/22 12:21) Ed Iv/Invasive Line Start (05/22/22 12:21) Basic Metabolic Panel (05/22/22 12:21) Cbc With Automated Diff (05/22/22 12:21) Ua Culture If Indicated (05/22/22 12:21) Fentanyl Inj (Sublimaze Injection) (05/22/22 12:30) Urine Culture (05/22/22 12:21) Morphine Injection (Morphine Injection (05/22/22 13:49) Blood Culture (05/22/22 14:09) Ceftriaxone 1 Gm Pre-Mix (Rocephin 1 Gm (05/22/22 14:09) Code/Resuscitation (05/22/22 14:45) Ed Admission (Communication) (05/22/22 14:46) Medications Given in ED Vital Signs/I&O 05/22/22 05/22/22 11:37 14:03 Temp 35.5 Pulse 70 Resp 16 B/P (MAP) 155/78 (103) Pulse Ox 97 96 O2 Delivery Room Air Nasal Cannula O2 Flow Rate 1.00 FiO2 96 Blood Pressure Mean: 103 Progress Progress Note : Time: 14:21 Progress Note Patient was found to have a left hip fracture. I discussed the options with her daughters, Kya and Lilian, and they wish to proceed with surgery. Dr. Allred was consulted and would like to do the surgery in the morning. Lilian will be the primary contact for DPOA decisions and her number is [phone]. Her Sister Kya is the secondary contact at [phone]. She has a DNR order which will remain in effect. Urinary tract infection is being treated with Rocephin. There is reportedly a culture on file at [facility]. Diagnostic Imaging Diagonstic Imaging: Xray Plain Films/CT/US/NM/MRI: pelvis, hip Comments Pelvis and hip x-ray viewed by me and report reviewed. See below: NAME: MELLISSA DOWNING [facility] REC#: [id number] PT STATUS: REG ER : 1940 PHYSICIAN: SCHUYLER ARREGUIN MD ADMIT DATE: 05/22/22/ER Signed Date of Exam:05/22/22 PELVIS WITH LEFT HIP 2-3 VIEWS Indication: Pain. FINDINGS: There are mildly comminuted subcapital fracture of the left femoral neck. The distal fracture component is subluxed superiorly. The bony pelvis is intact. Soft tissues are unremarkable. IMPRESSION: Comminuted subcapital fracture of the left femur. Dictated by: Dictated on workstation # [id number] Dict: 05/22/22 1304 Trans: 05/22/221330 OWEN [id number] Interpreted by: PRABHJOT CHAMPAGNE MD Electronically signed by: PRABHJOT CHAMPAGNE MD 05/22/22 1339 Diagonstic Imaging: CT Plain Films/CT/US/NM/MRI: c-spine, head Comments NAME: MELLISSA DOWNING [facility] REC#: [id number] PT STATUS: REG ER : 1940 PHYSICIAN: SCHUYLER ARREGUIN MD ADMIT DATE: 05/22/22/ER Signed Date of Exam:05/22/22 CT HEAD/CERVICAL SPINE WO PROCEDURE: CT head and CT cervical spine without contrast. TECHNIQUE: Multiple contiguous axial images were obtained through the brain and cervical spine without the use of intravenous contrast. Sagittal and coronal reformations through the cervical spine were then performed. Auto Exposure Controls were utilized during the CT exam to meet ALARA standards for radiation dose reduction. INDICATION: Head and neck pain after trauma. FINDINGS: There is some prominence of ventricles and sulci. There is some chronic microvascular ischemic disease. No hydrocephalus. No midline shift. No mass, hemorrhage or extra-axial fluid collection. The calvarium is intact. Sinuses and mastoid air cells are clear. The alignment of cervical spine is grossly normal. There is multilevel degenerative disc disease and posterior facet arthropathy. The vertebral body heights are well-maintained. No fracture or traumatic subluxation. Odontoid is intact and lateral masses are well aligned. The prevertebral soft tissues are within normal limits. Lung apices are clear. IMPRESSION: Atrophy and some chronic microvascular ischemic disease however no acute intracranial abnormality. Moderate cervical spondylosis and multilevel degenerative disc disease without acute fracture or traumatic subluxation. Dictated by: Dictated on workstation # [id number] Dict: 05/22/22 1254 Trans: 05/22/221330 OWEN [id number] Interpreted by: PRABHJOT CHAMPAGNE MD Electronically signed by: PRABHJOT CHAMPAGNE MD 05/22/22 1331 Reviewed: Reviewed by Me Departure Communication (Admissions) Time/Spoke to Admitting Phy: 14:05 Dr. Peres Time/Spoke to Consulting Phy: 13:45 Dr. Allred Impression Primary Impression: Closed left hip fracture Qualified Codes: S72.002A - Fracture of unspecified part of neck of left femur, initial encounter for closed fracture Additional Impressions: Fall on same level Qualified Codes: W18.30XA - Fall on same level, unspecified, initial enc ounter Advanced dementia Urinary tract infection Qualified Codes: N39.0 - Urinary tract infection, site not specified Disposition: ADMITTED INPATIENT Condition: Stable Admissions Decision to Admit Reason: Admit from ER (Trauma) Decision to Admit/Date: May 22, 2022 Time/Decision to Admit Time: 13:45 Departure-Patient Inst. Referrals: MAIRA CORONADO DO (PCP/Family) Primary Care Physician Copy Copies To 1: ORQUIDEA SOLIS MD, JOSHUA T MD May 22, 2022 14:07
[2022-05-22] MEDS ORDERED: cefTRIAXone 1 GM PRE-MIX 50 ML IV STA (14:09)
[2022-05-22] MEDS ORDERED: ONDANSETRON 4 MG/2 ML (SDV) Z0FRAN IV PRN (15:15)
[2022-05-22] MEDS ORDERED: CALCIUM CARBONATE 500 MG (TUMS) TAB.CHEW PO PRN (15:15)
[2022-05-22] MEDS ORDERED: polyethylene glycoL POWDER 17 GM (MIRALAX) PACK PO PRN (15:15)
[2022-05-22] MEDS ORDERED: MELATONIN 3 MG TABLET PO PRN (15:15)
[2022-05-22 15:30] VITALS: BP 163/79
--- NOTE | 2022-05-22 15:49 | History & Physical-Hospitalist ---
History of Present Illness HPI/Chief Complaint Pt is an 81yoCM with a PMH of dementia who presented to the ER after a fall at her Nursing facility. She is quite demented and the only thing she can tell me is that she has pain. She was found to have an extrenal rotated shortened leg by the ER. She underwent CT Head and Neck due to unwitnessed fall and imaging of her hip and pelvis which revealed a left femur fracture. Treatment options were discussed with family and they have elected to pursue surgical repair. They report she was ambulatory until somewhat recently and recently discharged from [facility] where her dementia medications were optimized. She discharged to [facility] from there. Source: family Exam Limitations: clinical condition Date Seen 05/22/22 Time Seen by a Provider: 15:43 Attending Physician Reyna Cisneros DO PCP Admitting Physician: Geovani Peres MD Attending Physician: Geovani Peres MD Referring Physician Date of Admission May 22, 2022 at 14:58 Home Medications & Allergies Home Medications Reviewed patient Home Medication Reconciliation performed by pharmacy medication reconciliations water filtration technician and/or nursing. Patients Allergies have been reviewed. Allergies Allergies Coded Allergies metoclopramide (Unverified Allergy, Severe, TARDIVE DYKENIESIA, 08/04/18) Past Jostydm-Lqrcmr-Pzxdcn Hx Patient Social History Employed/Student: retired Tobacco Use?: No Substance use?: No Alcohol Use?: No Pt feels they are or have been: Unable to obtain Immunizations Up To Date Date of Influenza Vaccine: Jul 17, 2019 First/Initial COVID19 Vaccinat: 10/15/2020 Second COVID19 Vaccination [place]: 11/12/2020 Tetanus Booster (TDap): Unknown Date of Pneumonia Vaccine: May 13, 2015 Seasonal Allergies Seasonal Allergies: No Current Status Advance Directives: Yes Advance Directive Location: Copy from prev record Primary Language: Thai Preferred Spoken Language: Thai Sensory deficits: Vision impairment Implanted or Applied Medical D: None Past Medical History Surgeries: Abdominal, Cardiac, CABG, Tubal Ligation Coronary Artery Disease, High Cholesterol, Hypertension Abdominal Hernia, Gastroesophageal Reflux, Chronic Diarrhea, Hiatal Hernia Osteoporosis, Arthritis, Chronic Back Pain Hearing Impairment: Hard of Hearing Eczema Blood Disorders: No Family Medical History Diabetes mellitus G8 BROTHER, , Age:62 G8 SISTER, , Age:60 years and older GREAT AUNT FH: ovarian cancer AUNT Myocardial infarction 19 FATHER, , Age:39 19 MOTHER, , Age:83 G8 BROTHER, , Age:62 G8 SISTER, , Age:60 years and older Heart Disease Review of Systems ROS-Unable to Obtain: advanced dementia Constitutional: see HPI Physical Exam Physical Exam Vital Signs Vital Signs - First Documented 05/25/22 05/25/22 04:01 11:08 Temp 37.2 Pulse 77 Resp 20 B/P (MAP) 182/84 (116) Pulse Ox 95 O2 Delivery Room Air O2 Flow Rate 2.00 FiO2 96 Capillary Refill : Less Than 3 Seconds Height, Weight, BMI Height: 5'2.00" Weight: 120lbs. 1.0oz. 54.050220fm; 19.00 BMI Method:Stated General Appearance: Chronically ill, Mild Distress, Thin HEENT: PERRL/EOMI, Moist Mucous Membranes; No Scleral Icterus (L), No Scleral Icterus (R) Respiratory: Lungs Clear, No Respiratory Distress Cardiovascular: Regular Rate, Rhythm, No Murmur Gastrointestinal: Normal Bowel Sounds, Non Tender, Soft Genital/Rectal: Other (mullen) Extremity: No Calf Tenderness, No Pedal Edema Neurologic/Psychiatric: Alert, Disoriented Skin: Normal Color, Warm/Dry Results Results/Procedures Labs Patient resulted labs reviewed. Imaging: Reviewed Imaging Report Imaging [facility] [place] [place] NAME: MELLISSA DOWNING [facility] REC#: [id number] PT STATUS: REG ER : 1940 PHYSICIAN: SCHUYLER ARREGUIN MD ADMIT DATE: 05/22/22/ER Signed Date of Exam:05/22/22 CT HEAD/CERVICAL SPINE WO PROCEDURE: CT head and CT cervical spine without contrast. TECHNIQUE: Multiple contiguous axial images were obtained through the brain and cervical spine without the use of intravenous contrast. Sagittal and coronal reformations through the cervical spine were then performed. Auto Exposure Controls were utilized during the CT exam to meet ALARA standards for radiation dose reduction. INDICATION: Head and neck pain after trauma. FINDINGS: There is some prominence of ventricles and sulci. There is some chronic microvascular ischemic disease. No hydrocephalus. No midline shift. No mass, hemorrhage or extra-axial fluid collection. The calvarium is intact. Sinuses and mastoid air cells are clear. The alignment of cervical spine is grossly normal. There is multilevel degenerative disc disease and posterior facet arthropathy. The vertebral body heights are well-maintained. No fracture or traumatic subluxation. Odontoid is intact and lateral masses are well aligned. The prevertebral soft tissues are within normal limits. Lung apices are clear. IMPRESSION: Atrophy and some chronic microvascular ischemic disease however no acute intracranial abnormality. Moderate cervical spondylosis and multilevel degenerative disc disease without acute fracture or traumatic subluxation. Dictated by: Dictated on workstation # [id number] Dict: 05/22/22 1254 Trans: 05/22/221330 OWEN [id number] Interpreted by: PRABHJOT CHAMPAGNE MD Electronically signed by: PRABHJOT CHAMPAGNE MD 05/22/221330 [facility] [place], [place] NAME: MELLISSA DOWNING [facility] REC#: [id number] PT STATUS: REG ER : 1940 PHYSICIAN: SCHUYLER ARREGUIN MD ADMIT DATE: 05/22/22/ER Signed Date of Exam:05/22/22 PELVIS WITH LEFT HIP 2-3 VIEWS Indication: Pain. FINDINGS: There are mildly comminuted subcapital fracture of the left femoral neck. The distal fracture component is subluxed superiorly. The bony pelvis is intact. Soft tissues are unremarkable. IMPRESSION: Comminuted subcapital fracture of the left femur. Dictated by: Dictated on workstation # [id number] Dict: 05/22/22 1304 Trans: 05/22/221330 OWEN [id number] Interpreted by: PRABHJOT CHAMPAGNE MD Electronically signed by: PRABHJOT CHAMPAGNE MD 05/22/221330 Assessment/Plan Admission Diagnosis Left femur fracture Admission Status: Inpatient Order (span 2 midnights) Reason for Inpatient Admission: see below Assessment and Plan Left femur fracture Ortho surgery consulted, appreciate recs Plan for OR tomorrow Morphine for pain PT/OT postop UTI Dementia HLD HTN Continue home meds as able Hydralazine prn DVT ppx: SCDs only for surgery Diagnosis/Problems Diagnosis/Problems (1) Closed left hip fracture Status: Acute Qualifiers: Encounter type: initial encounter Qualified Codes: S72.002A - Fracture of unspecified part of neck of left femur, initial encounter for closed fracture (2) Fall on same level Status: Acute Qualifiers: Encounter type: initial encounter Qualified Codes: W18.30XA - Fall on same level, unspecified, initial encounter (3) Advanced dementia Status: Acute (4) Urinary tract infection Status: Acute Qualifiers: Urinary tract infection type: site unspecified Hematuria presence: without hematuria Qualified Codes: N39.0 - Urinary tract infection, site not specified GEOVANI PERES MD May 22, 2022 15:49
--- NOTE | 2022-05-22 15:50 | Consultation - Ortho ---
Consult - Ortho Subjective Date of Exam 05/22/22 Chief Complaint Left hip injury HPI/Events since last exam found down at [facility], previously ambulatory, significant dementia, I was asked to evaluate and treat hip fracture Medical, Surgical History see admit Social History see admit Family History see admit Review of Systems - Allergies: Coded Allergies: metoclopramide (Unverified Allergy, Severe, TARDIVE DYKENIESIA, 08/04/18) Home Meds Active Scripts Cefuroxime Axetil (Cefuroxime) 250 Mg Tablet, 250 MG PO BID, #10 TAB Prov:LASTSUSHIL LATHE OPERATOR 09/07/21 Reported Medications Isosorbide Mononitrate (Isosorbide Mononitrate ER) 30 Mg Tab.er.24h, 60 MG PO DAILY, TAB 10/18/19 Lisinopril (Lisinopril) 10 Mg Tablet, 10 MG PO HS, TAB 10/18/19 Acetaminophen (Tylenol 8 Hour) 650 Mg Tablet.er, 650 MG PO BID PRN for PAIN-MILD (1-4), TAB 10/18/19 Pravastatin Sodium (Pravastatin Sodium) 10 Mg Tablet, 10 MG PO DAILY 10/18/19 Pantoprazole Sodium (Pantoprazole Sodium) 40 Mg Tablet.dr, 40 MG PO DAILY 10/18/19 Beta-Carotene(A) W-C & E/Min (Vision Vitamins) 1 Each Tablet, 1 EACH PO DAILY, TAB 03/04/17 Oxybutynin Chloride (Oxybutynin Chloride) 5 Mg Tablet, 5 MG PO BID, TAB 03/04/17 Hydroxychloroquine Sulfate (Hydroxychloroquine Sulfate) 200 Mg Tablet, 200 MG PO BID, TAB 03/04/17 Clopidogrel Bisulfate (Clopidogrel) 75 Mg Tablet, 75 MG PO DAILY, TAB 03/04/17 Objective Exam General: Eyes open, nonverbal L Leg: shortened, externally rotated Vital Signs Vital Signs Date Time Temp Pulse Resp B/P (MAP) Pulse Ox O2 Delivery O2 Flow Rate FiO2 05/22/22 15:37 35.5 86 16 141/76 96 Nasal Cannula 1.00 05/22/22 14:03 96 Nasal Cannula 1.00 96 05/22/22 11:37 35.5 70 16 155/78 (103) 97 Room Air Lab Results Laboratory Tests 05/22/22 11:56: White Blood Count 9.1, Red Blood Count 4.08, Hemoglobin 12.3, Hematocrit 37, Mean Corpuscular Volume 91, Mean Corpuscular Hemoglobin 30, Mean Corpuscular Hemoglobin Concent 33, Red Cell Distribution Width 13.4, Platelet Count 454H, Mean Platelet Volume 9.5, Immature Granulocyte % (Auto) 1, Neutrophils (%) (Auto) 71, Lymphocytes (%) (Auto) 15, Monocytes (%) (Auto) 10, Eosinophils (%) (Auto) 2, Basophils (%) (Auto) 1, Neutrophils # (Auto) 6.5, Lymphocytes # (Auto) 1.4, Monocytes # (Auto) 1.0, Eosinophils # (Auto) 0.2, Basophils # (Auto) 0.1, Immature Granulocyte # (Auto) 0.1, Sodium Level 139, Potassium Level 4.8, Chloride Level 106, Carbon Dioxide Level 22, Anion Gap 11, Blood Urea Nitrogen 18, Creatinine 1.13, Estimat Glomerular Filtration Rate 49, BUN/Creatinine Ratio 16, Glucose Level 91, Calcium Level 10.4H 05/22/22 12:21: Urine Color YELLOW, Urine Clarity CLEAR, Urine pH 8.5, Urine Specific Silver 1.010L, Urine Protein NEGATIVE, Urine Glucose (UA) NEGATIVE, Urine Ketones NEGATIVE, Urine Nitrite POSITIVEH, Urine Bilirubin NEGATIVE, Urine Urobilinogen 0.2, Urine Leukocyte Esterase 3+H, Urine RBC (Auto) TRACE-IH, Urine RBC NONE, Urine WBC 50-100H, Urine Squamous Epithelial Cells 5-10, Urine Crystals PRESENTH , Urine Amorphous Sediment MOD SANDRA PHOSPHATEH, Urine Bacteria LARGEH, Urine Casts NONE, Urine Mucus NEGATIVE, Urine Culture Indicated YES Imaging AP Pelvis dated 05/22/22 was reviewed and demonstrated a displaced femoral neck fracture of the left hip Assessment and Plan Assessment Displaced Left Femoral Neck Fracture Problem List Displaced Left Femoral Neck Fracture Plan Discussed options of surgical intervention versus end of life care with family that was present; they were adamant and in agreement that they would prefer to proceed with surgical intervention. I have recommend prosthetic replacement of the left femoral neck fracture. Nature of the procedure was discussed. Consent to be obtained. Tentatively plan to proceed at 7:00 AM pending medical evaluation. Final Diagonsis Displaced Left Femoral Neck Fracture Level of the visit: Level 3 (preop global) MARGARET BURNETT MD May 22, 2022 15:50
[2022-05-22] MEDS: NS IV 1000 ML 1,000 ML IV SCH (15:57)
[2022-05-22] MEDS: HYDROcodone/APAP 5 MG/325 MG (LORTAB) TAB PO PRN (16:00)
[2022-05-22 16:14] VITALS: BP 141/76
[2022-05-22] MEDS ORDERED: RT-ALBUTEROL SULF 2.5 MG/3 ML PRE-MIX VIAL INH PRN (16:30)
[2022-05-22] MEDS: morphine INJ 4 MG/ML 1 ML (VIAL/SYRINGE) IVP PRN (16:39)
[2022-05-22] MEDS ORDERED: ACET-2422 PO (17:15)
[2022-05-22] MEDS ORDERED: ALEN70TA80 PO (17:17)
[2022-05-22] MEDS ORDERED: AMLO-250 PO (17:18)
[2022-05-22] MEDS ORDERED: CRAN250C2 PO (17:20)
[2022-05-22] MEDS ORDERED: LISI5TAB20 PO (17:22)
[2022-05-22] MEDS ORDERED: NITR-65 PO (17:23)
[2022-05-22] MEDS ORDERED: POLY119P5 PO (17:24)
[2022-05-22] MEDS ORDERED: MEGE20TA3 PO (17:24)
[2022-05-22] MEDS ORDERED: MIRT-68 PO (17:25)
[2022-05-22] MEDS ORDERED: NITR0.4T42 SL (17:26)
[2022-05-22] MEDS ORDERED: ONDA-105 PO (17:29)
[2022-05-22] MEDS ORDERED: VENL75TA2 PO (17:32)
[2022-05-22 19:35] VITALS: BP 167/80
[2022-05-22] MEDS: MIRTAZAPINE 15 MG (REMERON) TAB PO SCH (20:46)
[2022-05-22] MEDS: OLANZapine 2.5 MG (ZyPREXA) TAB PO SCH (20:46)
[2022-05-23] VITALS (15 sets, daily range): BP systolic 138–185; BP diastolic 64–93
[2022-05-23] MEDS: morphine INJ 4 MG/ML 1 ML (VIAL/SYRINGE) IVP PRN ×6 (00:15→23:14)
[2022-05-23] MEDS: NS IV 1000 ML 1,000 ML IV SCH ×3 (00:18→17:07)
[2022-05-23] MEDS ORDERED: ceFAZolin INJECTION 1,000 MG VIAL IV NR (06:00)
[2022-05-23 06:22] LABS: HEMATOCRIT 35 % (35-52); HEMOGLOBIN 11.6 g/dL (11.5-16.0); MEAN CORPUSCULAR HEMOGLOBIN 30 pg (25-34); MEAN CORPUSCULAR HGB CONC 33 g/dL (32-36); MEAN CORPUSCULAR VOLUME 90 fL (80-99); MEAN PLATELET VOLUME 9.9 fL (9.0-12.2); PLATELET COUNT 425 10^3/uL (130-400)
[2022-05-23] MEDS ORDERED: fentaNYL INJ 100 MCG/2 ML AMP ONE ×2 (06:31→08:01)
[2022-05-23] MEDS ORDERED: ONDANSETRON 4 MG/2 ML (SDV) Z0FRAN ONE ×2 (06:32→08:01)
[2022-05-23] MEDS ORDERED: LIDOCAINE PF 2% 5 ML (XYLOCAINE) VIAL ONE (06:32)
[2022-05-23] MEDS ORDERED: proPOfol 200 MG/20 ML (DIPRIVAN) VIAL IV ONE (06:32)
[2022-05-23] MEDS ORDERED: SUCCINYLCHOLINE INJ 100 MG/5 ML SYR/VIAL ONE (06:32)
[2022-05-23 06:45] LABS: CALCIUM 9.6 MG/DL (8.5-10.1)
[2022-05-23] MEDS: LACTATED RINGERS 1,000 ML IV PRN ×2 (06:45→08:23)
[2022-05-23 06:49] LABS: CREATININE SERUM 0.75 MG/DL (0.60-1.30)
[2022-05-23] MEDS ORDERED: ROCURONIUM 50 MG/5 ML (ZEMURON) VIAL IV ONE (07:12)
[2022-05-23] MEDS ORDERED: TRANEXAMIC ACID 100 MG/ML 10 ML INJECTION ONE (07:12)
[2022-05-23] MEDS ORDERED: NEOSTIGMINE (BLOXIVERZ ) 1 MG/1ML 10 ML VIAL ONE (08:36)
[2022-05-23] MEDS ORDERED: GLYCOPYRROLATE 0.2 MG/ML (ROBINUL) 2 ML VIAL ONE (08:36)
[2022-05-23] MEDS ORDERED: SEVOFLURANE (ULTANE) 15 ML INHAL SOLN ONE (08:45)
--- NOTE | 2022-05-23 08:59 | Operative Report - Ortho ---
Operative Report Surgeon (s)/Seedling Puller (s) Surgeon MARGARET BURNETT MD Seedling Puller n/a Pre-Operative Diagnosis Left Femoral Neck Fracture Post-Operative Diagnosis same Operative Report Date of Procedure: May 23, 2022 Name of Procedure Performed: Prosthetic Replacement of Left Femoral Neck Fracture Description & Findings After obtaining informed consent and marking the patient, patient did receive IV antibiotics. Patient was taken to the operating room and anesthesia was induced. Patient was placed in the lateral decubitus position with the left side up. Left lower extremity was prepped and draped in the usual sterile fashion. Surgical timeout was taken. A posterolateral approach was utilized. External rotators and capsule were taken down in one layer. Fracture hematoma was evacuated. Femoral head was removed from the acetabulum and sized. The fracture site on the femoral neck was freshened with a saw. A 44 mm bipolar component was trialed and found to have good fit. Attention was turned to the femur, [employer] cutter osteotome was used to remove the remainder of the femoral neck near the greater trochanter. Canal finder was inserted followed by the lateralizing reamer. Sequential broaching was began with a 2 and broaching to a 3. The 3 had good metaphyseal fit and fill. A -4 mm head and a 44 mm bipolar component were put on a 127 neck trial. This was located. Found to have grossly equal leg lengths. Stable in position of sleep and stable with flexion and internal rotation. Hip was atraumatically dislocated and the trial components were removed. The femoral canal and acetabulum were irrigated with pulsatile lavage. Femoral canal was prepared for cement. Cement was placed into the femoral canal and a size 3 Accolade C stem with a 127 neck was placed with the collar resting on the calcar. Cement was allowed to set. A -4 mm head was placed and was impacted onto the Gross taper of the stem. A 44 mm bipolar component was placed. Hip was located and once again found to be stable. Further irrigation was performed. Capsular layer was repaired with #2 Fiberwire. The fascial layer was closed with #2 Stratafix. The subcutaneous layer was closed with 2-0 vicryl and the skin was closed with shanika. Incision site was dressed with xeroform, 4x4s, ABD, and tape. Patient was placed in abduction pillow postoperatively and was transferred to hospital bed without incident. Tolerated the procedure well and was stable to recovery room. Anesthesia Type General Estimated Blood Loss 200 mL Specimen(s) collected/removed None MARGARET BURNETT MD May 23, 2022 08:59
[2022-05-23] MEDS ORDERED: ONDANSETRON 4 MG/2 ML (SDV) Z0FRAN IVP PRN (09:00)
[2022-05-23] MEDS ORDERED: fentaNYL INJ 100 MCG/2 ML AMP IVP NR (09:00)
--- NOTE | 2022-05-23 09:44 | Diagnostic Imaging Report ---
INDICATION: Hip fracture. Comparison is made with prior exam of 05/22/2022 FINDINGS: There are post surgical changes of the left hip arthroplasty. Hardware is in satisfactory position. There is no other fracture or dislocation. Soft tissues are unremarkable. IMPRESSION: Post surgical changes of a left hip arthroplasty. Hardware is in satisfactory position. Dictated by: Dictated on workstation # [id number]
--- NOTE | 2022-05-23 10:37 | Progress Note - Hospitalist ---
Subjective HPI/CC On Admission Date Seen by Provider: May 23, 2022 Pt is an 81yoCM with a PMH of dementia who presented to the ER after a fall at her Nursing facility. She is quite demented and the only thing she can tell me is that she has pain. She was found to have an extrenal rotated shortened leg by the ER. She underwent CT Head and Neck due to unwitnessed fall and imaging of her hip and pelvis which revealed a left femur fracture. Treatment options were discussed with family and they have elected to pursue surgical repair. They report she was ambulatory until somewhat recently and recently discharged from [facility] where her dementia medications were optimized. She discharged to [facility] from there. Subjective/Events-last exam Saw pt postop in recovery. No family at bedside. PEANUT SHELLER present and states surgery went well. Objective Exam Vital Signs Vital Signs Date Time Temp Pulse Resp B/P (MAP) Pulse Ox O2 Delivery O2 Flow Rate FiO2 05/23/22 10:00 36.4 74 12 138/64 (88) 96 Nasal Cannula 3.00 05/22/22 16:14 24 Capillary Refill : Less Than 3 SecondsLess Than 3 Seconds General Appearance: No Apparent Distress, Thin Respiratory: Lungs Clear, No Respiratory Distress Cardiovascular: Regular Rate, Rhythm, No Murmur Gastrointestinal: Normal Bowel Sounds, Non Tender, Soft Results/Procedures Lab Laboratory Tests 05/22/22 11:56 05/23/22 05:23 Patient resulted labs reviewed. Imaging: Reviewed Imaging Report Assessment/Plan Assessment and Plan Assess & Plan/Chief Complaint Left femur fracture Ortho surgery consulted, appreciate recs Plan for OR tomorrow Morphine for pain PT/OT postop UTI Dementia HLD HTN Continue home meds as able Hydralazine prn DVT ppx: SCDs only for surgery Diagnosis/Problems Diagnosis/Problems (1) Closed left hip fracture Status: Acute Qualifiers: Encounter type: initial encounter Qualified Codes: S72.002A - Fracture of unspecified part of neck of left femur, initial encounter for closed fracture (2) Fall on same level Status: Acute Qualifiers: Encounter type: initial encounter Qualified Codes: W18.30XA - Fall on same level, unspecified, initial encounter (3) Advanced dementia Status: Acute (4) Urinary tract infection Status: Acute Qualifiers: Urinary tract infection type: site unspecified Hematuria presence: without hematuria Qualified Codes: N39.0 - Urinary tract infection, site not specified GEOVANI SMITH MD May 23, 2022 10:37
[2022-05-23] MEDS ORDERED: ceFAZolin INJECTION 1 MG in NS (IVPB) 50 ML IV SCH (15:00)
[2022-05-23] MEDS ORDERED: cefTRIAXone 1 GM PRE-MIX 50 ML IV SCH (15:00)
[2022-05-23] MEDS: ceFAZolin INJECTION 1,000 MG in NS (IVPB) 50 ML IV SCH ×2 (15:32→22:44)
[2022-05-23] MEDS: HYDROcodone/APAP 5 MG/325 MG (LORTAB) TAB PO PRN ×2 (18:28→18:32)
[2022-05-23] MEDS: OLANZapine 2.5 MG (ZyPREXA) TAB PO SCH (19:52)
[2022-05-23] MEDS: MIRTAZAPINE 15 MG (REMERON) TAB PO SCH (19:52)
[2022-05-23] MEDS ORDERED: ACETAMINOPHEN 650 MG SUPP (TYLENOL) PR PRN ×2 (21:00→21:15)
[2022-05-23] MEDS ORDERED: ACETAMINOPHEN 325 MG SUPP (TYLENOL) ONE (21:00)
[2022-05-23] MEDS ORDERED: ACETAMINOPHEN 650 MG SUPP (TYLENOL) ONE (21:03)
[2022-05-24] MEDS: NS IV 1000 ML 1,000 ML IV SCH ×4 (00:56→18:01)
[2022-05-24 03:38] VITALS: BP 179/81
[2022-05-24] MEDS: hydrALAZINE (APESOLINE) 20 MG/ML VIAL IV PRN (03:44)
[2022-05-24] MEDS: morphine INJ 4 MG/ML 1 ML (VIAL/SYRINGE) IVP PRN ×3 (03:56→12:53)
[2022-05-24 05:38] LABS: HEMATOCRIT 33 % (35-52); HEMOGLOBIN 10.9 g/dL (11.5-16.0); MEAN CORPUSCULAR HEMOGLOBIN 30 pg (25-34); MEAN CORPUSCULAR HGB CONC 33 g/dL (32-36); MEAN CORPUSCULAR VOLUME 90 fL (80-99); MEAN PLATELET VOLUME 9.9 fL (9.0-12.2); PLATELET COUNT 371 10^3/uL (130-400); WHITE BLOOD COUNT 12.1 10^3/uL (4.3-11.0)
[2022-05-24 05:56] LABS: POTASSIUM 3.9 MMOL/L (3.6-5.0)
[2022-05-24 05:57] LABS: CALCIUM 9.2 MG/DL (8.5-10.1)
[2022-05-24 06:02] LABS: CREATININE SERUM 0.69 MG/DL (0.60-1.30)
[2022-05-24 08:00] VITALS: BP 143/93
[2022-05-24] MEDS ORDERED: cefTRIAXone 1 GM PRE-MIX 50 ML IV SCH (09:00)
--- NOTE | 2022-05-24 09:26 | Progress Note - Ortho ---
Progress Note Subjective Date of Exam 05/24/22 Chief Complaint POD #1 Left Hip Bipolar HPI/Events since last exam resting, has been having difficulty with PO Review of Systems - Allergies: Coded Allergies: metoclopramide (Unverified Allergy, Severe, TARDIVE DYKENIESIA, 08/04/18) Home Meds Reported Medications Venlafaxine HCl (Venlafaxine HCl ER) 75 Mg Tab.er.24, 75 MG PO DAILY, TAB 05/22/22 Ondansetron HCl (Ondansetron HCl) 4 Mg Tablet, 4 MG PO Q6H PRN for NAUSEA-1ST LINE, TAB 05/22/22 Nitroglycerin (Nitroglycerin) 0.4 Mg Tab.subl, 0.4 MG SL UD, #24 TAB Give 1 tab sublingually as needed for chest pain x 3 doses q5 minutes 05/22/22 Mirtazapine (Mirtazapine) 15 Mg Tablet, 15 MG PO HS, TAB 05/22/22 Polyethylene Glycol 3350 (Miralax) 17 Gram/Dose Powder, 119 GM PO HS for Con stipation, EA 05/22/22 Megestrol Acetate (Megestrol Acetate) 20 Mg Tablet, 20 MG PO BID, TAB 05/22/22 Nitrofurantoin Monohyd/M-Cryst (Macrobid 100 mg Capsule) 100 Mg Capsule, 1 TAB PO BID, CAP 05/22/22 Lisinopril (Lisinopril) 5 Mg Tablet, 5 MG PO HS for Blood Pressure, TAB 05/22/22 Cranberry Extract (Cranberry) 250 Mg Capsule, 250 MG PO DAILY, CAP 05/22/22 Amlodipine Besylate (Amlodipine Besylate) 5 Mg Tablet, 5 MG PO DAILY for Blood Pressure, TAB 05/22/22 Alendronate Sodium (Alendronate Sodium) 70 Mg Tablet, 70 MG PO WEEK, TAB One tab PO one time a day every 05/22/22 Acetaminophen (Acetaminophen ER) 650 Mg Tablet.er, 650 MG PO Q6H for Mild to Moderate Pain, TAB 05/22/22 Isosorbide Mononitrate (Isosorbide Mononitrate ER) 30 Mg Tab.er.24h, 60 MG PO DAILY, TAB 10/18/19 Pravastatin Sodium (Pravastatin Sodium) 10 Mg Tablet, 10 MG PO DAILY 10/18/19 Pantoprazole Sodium (Pantoprazole Sodium) 40 Mg Tablet.dr, 40 MG PO DAILY 10/18/19 Hydroxychloroquine Sulfate (Hydroxychloroquine Sulfate) 200 Mg Tablet, 200 MG PO BID, TAB 03/04/17 Clopidogrel Bisulfate (Clopidogrel) 75 Mg Tablet, 75 MG PO DAILY, TAB 03/04/17 Discontinued Reported Medications Lisinopril (Lisinopril) 10 Mg Tablet, 10 MG PO HS, TAB 10/18/19 Acetaminophen (Tylenol 8 Hour) 650 Mg Tablet.er, 650 MG PO BID PRN for PAIN-MILD (1-4), TAB 10/18/19 Beta-Carotene(A) W-C & E/Min (Vision Vitamins) 1 Each Tablet, 1 EACH PO DAILY, TAB 03/04/17 Oxybutynin Chloride (Oxybutynin Chloride) 5 Mg Tablet, 5 MG PO BID, TAB 03/04/17 Discontinued Scripts Cefuroxime Axetil (Cefuroxime) 250 Mg Tablet, 250 MG PO BID, #10 TAB Prov:SUSHIL NI IN CLASSROOM TUTOR 09/07/21 Objective Exam Left Hip: Dressing C/D/I, sensation grossly intact to light touch, peripheral pulses palpable Vital Signs Vital Signs Date Time Temp Pulse Resp B/P (MAP) Pulse Ox O2 Delivery O2 Flow Rate FiO2 05/24/22 08:00 37.4 81 22 143/93 (110) 97 Nasal Cannula 2.00 05/24/22 07:27 78 05/24/22 07:07 99 Nasal Cannula 1.00 05/24/22 03:38 37.3 71 18 179/81 (113) 100 Nasal Cannula 2.00 05/24/22 02:37 99 Nasal Cannula 2.00 05/24/22 01:00 74 05/23/22 23:23 36.8 82 16 167/75 (105) 99 Nasal Cannula 2.00 05/23/22 21:52 95 Nasal Cannula 2.00 05/23/22 21:05 38.2 05/23/22 20:00 38.1 81 16 168/84 (112) 96 Nasal Cannula 3.00 05/23/22 19:50 Nasal Cannula 2.00 05/23/22 19:01 94 Nasal Cannula 2.00 05/23/22 19:00 86 05/23/22 16:00 36.8 75 16 165/76 (105) 96 Nasal Cannula 2.00 05/23/22 14:49 96 Nasal Cannula 2.00 05/23/22 13:00 72 05/23/22 12:25 95 Nasal Cannula 2.00 05/23/22 11:39 36.6 78 11 150/72 (98) 99 Nasal Cannula 3.00 05/23/22 10:00 36.4 74 12 138/64 (88) 96 Nasal Cannula 3.00 05/23/22 09:55 Nasal Cannula 3.00 05/23/22 09:50 36.5 20 164/86 (112) 96 Nasal Cannula 3.00 05/23/22 09:45 Nasal Cannula 3.00 05/23/22 09:40 20 159/93 (115) 95 OxyMask 4.00 05/23/22 09:30 OxyMask 4.00 05/23/22 09:30 20 158/82 (107) 95 OxyMask 4.00 I & O 05/24/22 07:00 Intake Total 1050 ml Output Total 2000 ml Balance -950 ml Lab Results Laboratory Tests 05/24/22 05:20: White Blood Count 12.1H, Red Blood Count 3.63L, Hemoglobin 10.9L, Hematocrit 33L , Mean Corpuscular Volume 90, Mean Corpuscular Hemoglobin 30, Mean Corpuscular Hemoglobin Concent 33, Red Cell Distribution Width 13.2, Platelet Count 371, Mean Platelet Volume 9.9, Sodium Level 137, Potassium Level 3.9, Chloride Level 108H, Carbon Dioxide Level 17L, Anion Gap 12, Blood Urea Nitrogen 11, Creatinine 0.69, Estimat Glomerular Filtration Rate 88, BUN/Creatinine Ratio 16, Glucose Level 86, Calcium Level 9.2 Microbiology 05/22/22 MRSA Screen - Final, Complete MRSA not isolated 05/22/22 Blood Culture - Preliminary, Resulted No growth 05/22/22 Urine Culture - Preliminary, Resulted Proteus mirabilis Imaging Postop AP pelvis was reviewed and demonstrated components to be in good position without complication Assessment and Plan Assessment Left Femoral Neck Fracture s/p Left Hip Bipolar Problem List Left Femoral Neck Fracture s/p Left Hip Bipolar Plan Mobilize as able DVT Prophylaxis Final Diagonsis Left Femoral Neck Fracture s/p Left Hip Bipolar Level of the visit: Level 3 (postop global) MARGARET BURNETT MD May 24, 2022 09:26
--- NOTE | 2022-05-24 09:34 | Anesthesia-General Post-Op ---
General Patient Condition Mental Status/LOC: Same as Preop Cardiovascular: Satisfactory Nausea/Vomiting: Absent Respiratory: Satisfactory Pain: Controlled Complications: Absent Post Op Complications Complications None Follow Up Care/Instructions Patient Instructions None needed. Anesthesia/Patient Condition Patient Condition Patient is doing well, no complaints, stable vital signs, no apparent adverse anesthesia problems. No complications reported per nursing. D/C home per [facility] Criteria: Yes KAVYA MCGREGOR CRNA May 24, 2022 09:34
--- NOTE | 2022-05-24 10:20 | Physical Therapy Evaluation ---
PT Evaluation-General Medical Diagnosis Admission Date May 22, 2022 at 14:58 Medical Diagnosis: left hip fracture Onset Date: May 22, 2022 Therapy Diagnosis Therapy Diagnosis: debility Height/Weight Height (Feet): 5 Height (Inches): 2.00 Weight (Pounds): 120 Weight (Ounces): 1.0 Precautions Precautions/Isolations: Fall Prevention, Standard Precautions Weight Bear Status Right Lower Extremity: Right Weight Bearing/Tolerated Left Lower Extremity: Left Non Weight Bearing Referral Physician: Brigida Reason for Referral: Evaluation/Treatment Medical History Pertinent Medical History: Dementia, HTN Current History non ambulatory prior to this admit with noted bilateral ankle contractures./EMS secondary to unwitnessed fall at [facility] Reviewed History: Yes Social History Home: Shelter Prior Prior Level of Function SCALE: Activities may be completed with or without assistive devices. 2-Ecoxeqmakz-tblwrce completes the activity by him/herself with no assistance from a helper. 5-Set-up or Clean-up Assistance-helper sets up or cleans up; patient completes activity. [place] assists only prior to or following the activity. 4-Supervision or Touching Assistance-helper provides verbal cues and/or touching/steadying and/or contact guard assistance as patient completes activity. Assistance may be provided throughout the activity or intermittently. 3-Partial/Moderate Assistance-helper does LESS THAN HALF the effort. [place] lifts, holds or supports trunk or limbs, but provides less than half the effort. 2-Substantial/Maximal Assistance-helper does MORE THAN HALF the effort. [place] lifts or holds trunk or limbs and provides more than half the effort. 3-Vaxkdjktx-masxue does ALL the effort. Patient does none of the effort to complete the activity. Or, the assistance of 2 or more helpers is required for the patient to complete the activity. If activity was not attempted, code reason: 7-Patient Refused. 9-Not Applicable-not attempted and the patient did not perform the activity before the current illness, exacerbation or injury. 10-Not Attempted due to Environmental Limitations-(lack of equipment, weather restraints, etc.). 88-Not Attempted due to Medical Conditions or Safety Concerns. Bed Mobility: 1 Transfers (B,C,W/C): 1 Gait: 9 Indoor Mobility (Ambulation): Not Applicalbe Stairs: Not Applicalbe Prior Devices Use: Manual wheelchair PT Evaluation-Current Subjective Patient screams with all bilateral LE mobility/ROM Objective Patient Orientation: Confused Attachments: Cleary Catheter, IV ROM/Strength ROM Lower Extremities left LE hip precautions/right LE WFL Strength Lower Extremities 2-/5 grossly bilateral LE (unable to formally test due to advanced dementia) Integumentary/Posture Integumentary refer to nursing notes Bowel Incontinence: Yes Bladder Incontinence: Cleary Cath Neuromuscular (Tone, Coordination, Reflexes) severely diminished with all Sensory Vision: Unable to Assess Hearing: Unable to Assess Transfers Roll Left to Right (QC): 1 Sit to Lying (QC): 88 Lying to Sitting/Side of Bed(Q: 88 Sit to Stand (QC): 88 Assessment/Needs Patient currently not safe for EOB or OOB activity due to advanced dementia, inability to follow simple direction, etc. PT to address functional strength and mobility as tolerated by patient. Rehab Potential: Poor PT It Systems Analyst Goals Longterm Goals PT It Systems Analyst Goals Time Frame: Jun 05, 2022 Roll Left & Right (QC): 2 Sit to Lying (QC): 1 Lying-Sitting on Side/Bed(QC): 1 Sit to Stand (QC): 1 Chair/Nqf-mw-Toixe Xfer(QC): 1 PT Plan Problem List Problem List: Activity Tolerance, Functional Strength, Safety, Balance, Gait, Transfer, Bed Mobility Treatment/Plan Treatment Plan: Continue Plan of Care Treatment Plan: Bed Mobility, Functional Activity Juaquin, Functional Strength, Gait, Safety, Therapeutic Exercise, Transfers Treatment Duration: Jun 05, 2022 Frequency: 5 times per week Estimated Hrs Per Day: .25 hour per day Time/GCodes Time In: 923 Time Out: 935 Total Billed Treatment Time: 12 Total Billed Treatment 1 visit EVMod 12 min KARISHMA NELSON PT May 24, 2022 10:20
[2022-05-24 12:37] VITALS: BP 151/70
[2022-05-24] MEDS ORDERED: ONDA4TAB11 PO (13:16)
[2022-05-24] MEDS ORDERED: NITR100C10 PO (13:16)
[2022-05-24] MEDS ORDERED: NITR0.4T39 SL (13:16)
[2022-05-24] MEDS ORDERED: ISOS60TA63 PO (13:16)
--- NOTE | 2022-05-24 13:18 | ST Dysphagia Evaluation ---
Speech Evaluation-General Medical Diagnosis Left Hip Fracture Onset Date: May 22, 2022 Therapy Diagnosis Therapy Diagnosis: Oropharyngeal Dysphagia Precautions Precautions: Fall, Pressure Ulcer, Aspiration, Hip Precautions/Isolations: Contact Isolation, Aspiration, Fall Prevention, Pressure Ulcer Referral Referring Physician: Dr. Flores Reason for Referral: Evaluation/Treatment Medical History Pertinent Medical History: Dementia, HTN Current History The patient is an 81 year old female with a past medical history of dementia, CABG, CAD, high cholesterol, HTN, GERD, arthritis, and eczema, who presented to [facility] following a fall which resulted in a left femur fracture. Reviewed History: Yes Speech PLF/Current-Dysphagia Prior Level of Function The patient was unable to provide prior medical history or P.O. intake history to the clinician due to her current level of dementia. The patient's family members were present who stated the patient consumed a regular diet with thin liquids prior to admission. Subjective The patient was lying in bed, awake with a mouth opened position. The patient does not make eye contact with the clinician when her name is spoken or respond to verbal greetings. The patient was positioned upright in bed for safe swallowing. Cognitive Status Patient Orientation: Unable to Assess Oral Motor Skills Dentition: Natural Ability to Follow Directions: Poor Oral Expression Ability: Severe Impairment Face Facial Symmetry: Symmetrical (At rest.) The patient was unable to follow verbal commands or direct modeling to participate in an oral mechanism. Oral-Facial Assessment Volitional Dry Swallow: No Voluntary Cough: No Can Clear Throat Volitionally: No Productive Cough: No Productive Throat Clear: No Dysphagia Evaluation Consistencies Presented: Thin Liquid (Via moist toothette and straw.) The patient did not attempt oral acceptance of any trial (via toothette or straw). The patient remains with open mouth posture and does not attempt to remove moisture from the lower lip. The patient makes no attempts to manipulate the oral swab or straw. The patient does not produce a pharyngeal swallow response for the clinician (involuntary or voluntary). The patient does not attempt to swallow her own secretions throughout the evaluation. The patient actively swings arms and pushes attempted oral trials away from the oral cavity. The patient turns her head and states, "no, no, no, no, no." The patient's daughter attempted to provide trials and the patient continued the above behavior. Dietary Recommendations: NPO Liquid Recommendations: NPO Recommendations: - The patient should remain NPO. - Frequent and excellent oral care to reduce the transfer of oral bacteria to the lungs should aspiration of secretions occur. - Speech pathology will attempt to re-assess the patient's oropharyngeal swallowing function daily and as appropriate. The recommendations were provided to the patient, the patient's family, and the RN (who were all present in the room for the evaluation). Dysphagia Evaluation Summary At this time, the clinician suspects oropharyngeal dysphagia however is unable to complete an in-depth evaluation due to consistent refusal by the patient. Speech Short Term Goals Short Term Goals Short Term Goals 1. The patient will participate in trials of the least restrictive consistency without s/s of suspected aspiration. Time Frame-STG: Three Days. Speech Mcc Goals Mcc Goals 1. The patient will tolerate the least restrictive consistency without s/s of suspected aspiration. Time Frame: Five Days. Speech-Plan Treatment Plan Speech Therapy Treatment Plan: Continue Plan of Care Treatment Duration: May 28, 2022 Frequency: 4 times per week Estimated Hrs Per Day: .25 hour per day Rehab Potential: Poor Pt/Family Agrees to Plan: Yes Safety Risks/Education Teaching Recipient: Patient, Family Teaching Methods: Discussion Response to Teaching: Verbalize Understanding Education Topics Provided: Results, Recommendations, Plan of Care Time Speech Therapy Time In: 12:35 Speech Therapy Time Out: 13:00 Total Billed Time: 25 Billed Treatment Time 1, JUJU ZAMUDIO ELIZABETH ST May 24, 2022 13:18
--- NOTE | 2022-05-24 14:19 | Occ Therapy Progress Note ---
Therapy Progress Note OT orders received and chart reviewed. OT attempted evaluation this afternoon, but pt unable to actively participate in OT tx. Pt had just received Morphine, and was sleeping, unable to arouse in order to participate in tx. OT will attempt evaluation tomorrow. 1, visit 1345 OLIVER PAULINO OT May 24, 2022 14:19
[2022-05-24] MEDS: MEROPENEM 500 MG in NS (IVPB) 100 ML IV SCH ×2 (14:39→19:43)
[2022-05-24 16:00] VITALS: BP 201/92
--- NOTE | 2022-05-24 17:48 | Progress Note - Hospitalist ---
Subjective HPI/CC On Admission Date Seen by Provider: May 24, 2022 Time Seen by Provider: 09:00 Pt is an 81yoCM with a PMH of dementia who presented to the ER after a fall at her Nursing facility. She is quite demented and the only thing she can tell me is that she has pain. She was found to have an extrenal rotated shortened leg by the ER. She underwent CT Head and Neck due to unwitnessed fall and imaging of her hip and pelvis which revealed a left femur fracture. Treatment options were discussed with family and they have elected to pursue surgical repair. They report she was ambulatory until somewhat recently and recently discharged from [facility] where her dementia medications were optimized. She discharged to [facility] and Rehab from there. Subjective/Events-last exam She speaks very softly. She is awake and alert. She appears comfortable. Objective Exam Vital Signs Vital Signs Date Time Temp Pulse Resp B/P (MAP) Pulse Ox O2 Delivery O2 Flow Rate FiO2 05/24/22 16:00 36.7 80 17 201/92 (128) 93 Room Air 05/24/22 08:00 2.00 05/22/22 16:14 24 Capillary Refill : Less Than 3 SecondsLess Than 3 Seconds General Appearance: No Apparent Distress, Chronically ill, Thin Respiratory: Lungs Clear, No Respiratory Distress Cardiovascular: Regular Rate, Rhythm, No Murmur Gastrointestinal: Normal Bowel Sounds, Soft Extremity: Normal Inspection, No Pedal Edema Neurologic/Psychiatric: Alert, Disoriented, Motor Weakness Skin: Warm/Dry, Pallor Results/Procedures Lab Laboratory Tests 05/24/22 05:20 Patient resulted labs reviewed. Imaging: Reviewed Imaging Report Assessment/Plan Assessment and Plan Assess & Plan/Chief Complaint Left femur fracture Ortho surgery following s/p surgical repair Pain regimen PT/OT UTI Urine culture from facility reportedly with ESBL Transition to [place] Dementia Dysphagia Failed swallow evaluation NPO HLD HTN Continue home meds as able Hydralazine prn DVT ppx: SCDs Diagnosis/Problems Diagnosis/Problems (1) Hip fracture Status: Acute Qualifiers: Encounter type: initial encounter Fracture type: closed (2) ESBL (extended spectrum beta-lactamase) producing bacteria infection Status: Acute (3) UTI (urinary tract infection) Status: Acute (4) Advanced dementia Status: Acute ALLEY CINTRON MD May 24, 2022 17:48
[2022-05-24] MEDS: HYDROXYCHLOROQUINE 200 MG (PLAQUENIL) TAB PO SCH (17:57)
[2022-05-24] MEDS: MEGESTROL ACETATE 400 MG/10 ML (MEGACE) UDC PO SCH (19:44)
[2022-05-24] MEDS: MIRTAZAPINE 15 MG (REMERON) TAB PO SCH (19:44)
[2022-05-24] MEDS: OLANZapine 2.5 MG (ZyPREXA) TAB PO SCH (19:45)
[2022-05-24 20:00] VITALS: BP 168/79
[2022-05-24] MEDS ORDERED: lisINopril 5 MG (PRINIVIL) TABLET PO SCH (21:00)
[2022-05-24] MEDS ORDERED: NON-FORMULARY MEDICATION 1 EA EA (Megestrol Acetate 20 MG) PO SCH (21:00)
[2022-05-24 23:48] VITALS: BP 164/77
[2022-05-25] MEDS: morphine INJ 4 MG/ML 1 ML (VIAL/SYRINGE) IVP PRN ×3 (00:21→09:58)
[2022-05-25 04:01] VITALS: BP 182/84
[2022-05-25] MEDS: MEROPENEM 500 MG in NS (IVPB) 100 ML IV SCH ×2 (04:22→14:03)
[2022-05-25] MEDS: hydrALAZINE (APESOLINE) 20 MG/ML VIAL IV PRN (04:22)
[2022-05-25 05:50] LABS: HEMATOCRIT 35 % (35-52); HEMOGLOBIN 11.6 g/dL (11.5-16.0); MEAN CORPUSCULAR HEMOGLOBIN 30 pg (25-34); MEAN CORPUSCULAR HGB CONC 33 g/dL (32-36); MEAN CORPUSCULAR VOLUME 89 fL (80-99); MEAN PLATELET VOLUME 9.5 fL (9.0-12.2); PLATELET COUNT 403 10^3/uL (130-400); WHITE BLOOD COUNT 12.4 10^3/uL (4.3-11.0)
[2022-05-25 06:07] LABS: POTASSIUM 3.6 MMOL/L (3.6-5.0)
[2022-05-25 06:08] LABS: CALCIUM 9.6 MG/DL (8.5-10.1)
[2022-05-25 06:13] LABS: CREATININE SERUM 0.65 MG/DL (0.60-1.30)
[2022-05-25] MEDS ORDERED: VENlafaxine XR 75 MG (EFFEXOR XR) CAP PO SCH (07:00)
[2022-05-25 07:21] VITALS: BP 153/72
--- NOTE | 2022-05-25 08:02 | Progress Note - Ortho ---
Progress Note Subjective Date of Exam 05/25/22 Chief Complaint POD #2 Left Hip Bipolar HPI/Events since last exam more alert this AM, responds to questions Review of Systems - Allergies: Coded Allergies: metoclopramide (Unverified Allergy, Severe, TARDIVE DYKENIESIA, 08/04/18) Home Meds Reported Medications Ondansetron (Ondansetron Odt) 4 Mg Tab.rapdis, 4 MG PO Q6H PRN for NAUSEA/VOMITING-1ST LINE, TAB 05/24/22 Nitroglycerin (Nitroglycerin) 0.4 Mg Tab.subl, 0.4 MG SL UD PRN for CHEST PAIN, TAB 05/24/22 Isosorbide Mononitrate (Isosorbide Mononitrate ER) 60 Mg Tab, 60 MG PO DAILY, TAB HOLD FOR SBP <100 OR PULSE <60- NOTIFY PCP IF HELD FOR 3 CONSECUTIVE DAYS 05/24/22 Nitrofurantoin Monohyd/M-Cryst (Nitrofurantoin [place]-Mcr 100 mg) 100 Mg Capsule, 100 MG PO BID, CAP FILLED 05-18-2022 #01/07 DAY SUPPLY 05/24/22 Venlafaxine HCl (Venlafaxine HCl ER) 75 Mg Tab.er.24, 75 MG PO DAILY, TAB 05/22/22 Mirtazapine (Mirtazapine) 15 Mg Tablet, 15 MG PO HS, TAB 05/22/22 Polyethylene Glycol 3350 (Miralax) 17 Gram/Dose Powder, 17 GM PO HS, EA 05/22/22 Megestrol Acetate (Megestrol Acetate) 20 Mg Tablet, 20 MG PO BID, TAB 05/22/22 Lisinopril (Lisinopril) 5 Mg Tablet, 5 MG PO HS, TAB HOLD FOR SBP <100 OR PULSE <60- NOTIFY PCP IF HELD FOR 3 CONSECUTIVE DAYS 05/22/22 Cranberry Extract (Cranberry) 250 Mg Capsule, 250 MG PO DAILY, CAP 05/22/22 Amlodipine Besylate (Amlodipine Besylate) 5 Mg Tablet, 5 MG PO DAILY, TAB HOLD FOR SBP <100 OR PULSE <60- NOTIFY PCP IF HELD FOR 3 CONSECUTIVE DAYS 05/22/22 Alendronate Sodium (Alendronate Sodium) 70 Mg Tablet, 70 MG PO HARIKA, TAB 05/22/22 Acetaminophen (Acetaminophen ER) 650 Mg Tablet.er, 650 MG PO Q6H PRN for PAIN- MILD (1-4), TAB 05/22/22 Pravastatin Sodium (Pravastatin Sodium) 10 Mg Tablet, 10 MG PO HS, TAB 10/18/19 Pantoprazole Sodium (Pantoprazole Sodium) 40 Mg Tablet.dr, 40 MG PO DAILY 10/18/19 Hydroxychloroquine Sulfate (Hydroxychloroquine Sulfate) 200 Mg Tablet, 200 MG PO BID, TAB 03/04/17 Clopidogrel Bisulfate (Clopidogrel) 75 Mg Tablet, 75 MG PO DAILY, TAB 03/04/17 Discontinued Reported Medications Ondansetron HCl (Ondansetron HCl) 4 Mg Tablet, 4 MG PO Q6H PRN for NAUSEA-1ST LINE, TAB 05/22/22 Nitroglycerin (Nitroglycerin) 0.4 Mg Tab.subl, 0.4 MG SL UD, #24 TAB Give 1 tab sublingually as needed for chest pain x 3 doses q5 minutes 05/22/22 Nitrofurantoin Monohyd/M-Cryst (Macrobid 100 mg Capsule) 100 Mg Capsule, 1 TAB PO BID, CAP 05/22/22 Isosorbide Mononitrate (Isosorbide Mononitrate ER) 30 Mg Tab.er.24h, 60 MG PO DAILY, TAB 10/18/19 Lisinopril (Lisinopril) 10 Mg Tablet, 10 MG PO HS, TAB 10/18/19 Acetaminophen (Tylenol 8 Hour) 650 Mg Tablet.er, 650 MG PO BID PRN for PAIN-MILD (1-4), TAB 10/18/19 Beta-Carotene(A) W-C & E/Min (Vision Vitamins) 1 Each Tablet, 1 EACH PO DAILY, TAB 03/04/17 Oxybutynin Chloride (Oxybutynin Chloride) 5 Mg Tablet, 5 MG PO BID, TAB 03/04/17 Discontinued Scripts Cefuroxime Axetil (Cefuroxime) 250 Mg Tablet, 250 MG PO BID, #10 TAB Prov:SUSHIL NI RESIDENTIAL MONITOR 09/07/21 Objective Exam L Hip: Dressing C/D/I, +DF of ankle, no s/s of DVT Vital Signs Vital Signs Date Time Temp Pulse Resp B/P (MAP) Pulse Ox O2 Delivery O2 Flow Rate FiO2 05/25/22 07:21 37.4 79 18 153/72 (99) 94 Room Air 05/25/22 04:01 37.2 77 20 182/84 (116) 95 Room Air 05/24/22 23:48 37.7 85 20 164/77 (106) 93 Room Air 05/24/22 20:00 37.1 80 17 168/79 (108) 92 Room Air 05/24/22 19:50 Room Air 05/24/22 16:00 36.7 80 17 201/92 (128) 93 Room Air 05/24/22 12:37 37.4 92 20 151/70 (97) 96 Room Air I & O 05/25/22 07:00 Intake Total 2350 ml Output Total 2600 ml Balance -250 ml Lab Results Laboratory Tests 05/25/22 05:38: White Blood Count 12.4H, Red Blood Count 3.93, Hemoglobin 11.6, Hematocrit 35, Mean Corpuscular Volume 89, Mean Corpuscular Hemoglobin 30, Mean Corpuscular Hemoglobin Concent 33, Red Cell Distribution Width 13.2, Platelet Count 403H, Mean Platelet Volume 9.5, Sodium Level 139, Potassium Level 3.6, Chloride Level 108H, Carbon Dioxide Level 17L, Anion Gap 14, Blood Urea Nitrogen 9, Creatinine 0.65, Estimat Glomerular Filtration Rate 89, BUN/Creatinine Ratio 14, Glucose Level 91, Calcium Level 9.6 Microbiology 05/22/22 MRSA Screen - Final, Complete MRSA not isolated 05/22/22 Blood Culture - Preliminary, Resulted No growth 05/22/22 Urine Culture - Preliminary, Resulted Proteus mirabilis Assessment and Plan Assessment Left Femoral Neck Fracture s/p Prosthetic Replacement Problem List Left Femoral Neck Fracture s/p Prosthetic Replacement Plan Mobilize as able DVT prophylaxis Final Diagonsis Left Femoral Neck Fracture s/p Prosthetic Replacement Level of the visit: Level 3 (postop global) MARGARET BURNETT MD May 25, 2022 08:02
[2022-05-25] MEDS ORDERED: PANTOPRAZOLE 40 MG (PROTONIX) TAB PO SCH (09:00)
[2022-05-25] MEDS ORDERED: NON-FORMULARY MEDICATION 1 EA EA (Venlafaxine HCl (Venlafaxine HCl ER) 75 MG) PO SCH (09:00)
[2022-05-25] MEDS ORDERED: ISOSORBIDE MONONITRATE 60 MG (IMDUR) TAB PO SCH (09:00)
[2022-05-25] MEDS ORDERED: amLODIPine 5 MG (NORVASC) TAB PO SCH (09:00)
[2022-05-25] MEDS: HYDROXYCHLOROQUINE 200 MG (PLAQUENIL) TAB PO SCH (09:46)
[2022-05-25] MEDS: MEGESTROL ACETATE 400 MG/10 ML (MEGACE) UDC PO SCH (09:47)
[2022-05-25] MEDS: NS IV 1000 ML 1,000 ML IV SCH (09:57)
[2022-05-25 11:12] VITALS: BP 164/83
--- NOTE | 2022-05-25 11:14 | Physical Therapy Daily Note ---
PT Daily Note-Current Subjective Patient more alert on this date. Mental Status Patient Orientation: Confused Attachments: Cleary Catheter, IV Transfers SCALE: Activities may be completed with or without assistive devices. 8-Snohvwmrcz-czzujkt completes the activity by him/herself with no assistance from a helper. 5-Set-up or Clean-up Assistance-helper sets up or cleans up; patient completes activity. [place] assists only prior to or following the activity. 4-Supervision or Touching Assistance-helper provides verbal cues and/or touching/steadying and/or contact guard assistance as patient completes activity. Assistance may be provided throughout the activity or intermittently. 3-Partial/Moderate Assistance-helper does LESS THAN HALF the effort. [place] lifts, holds or supports trunk or limbs, but provides less than half the effort. 2-Substantial/Maximal Assistance-helper does MORE THAN HALF the effort. [place] lifts or holds trunk or limbs and provides more than half the effort. 0-Hhufrrfuq-mgpgnm does ALL the effort. Patient does none of the effort to complete the activity. Or, the assistance of 2 or more helpers is required for the patient to complete the activity. If activity was not attempted, code reason: 7-Patient Refused. 9-Not Applicable-not attempted and the patient did not perform the activity before the current illness, exacerbation or injury. 10-Not Attempted due to Environmental Limitations-(lack of equipment, weather restraints, etc.). 88-Not Attempted due to Medical Conditions or Safety Concerns. Roll Left & Right (QC): 1 (x 2) Sit to Lying (QC): 1 (x 2) Lying to Sitting/Side of Bed(Q: 1 (x 2) max assist to maintain sitting EOB x 6 min Weight Bearing Right Lower Extremity: Right Weight Bearing/Tolerated Left Lower Extremity: Left Non Weight Bearing Exercises Supine Ex: Heel Slides, Straight leg raise, Hip abd/add Supine Reps: 12 Assessment Patient is very resistive with all movement due to advanced dementia and inabil ity to follow simple direction. Patient repositioned to side lying right with abduction pillow in place and pillow placement behind back, hips and abduction pillow. Patient does hold left LE in IR which appears to be for comfort due to PT ability to reposition left LE. RN notified. PT Fpc Goals [employer] Salesperson Goals PT Fpc Goals Time Frame: Jun 05, 2022 Roll Left & Right (QC): 2 Sit to Lying (QC): 1 Lying-Sitting on Side/Bed(QC): 1 Sit to Stand (QC): 1 Chair/Cab-dg-Toopg Xfer(QC): 1 PT Plan Treatment/Plan Treatment Plan: Continue Plan of Care Treatment Plan: Bed Mobility, Functional Activity [place], Functional Strength, Gait, Safety, Therapeutic Exercise, Transfers Treatment Duration: Jun 05, 2022 Frequency: 5 times per week Estimated Hrs Per Day: .25 hour per day Patient and/or Family Agrees t: Yes Time/GCodes Time In: 920 Time Out: 933 Total Billed Treatment Time: 13 Total Billed Treatment 1 visit FA 13 min KARISHMA NELSON PT May 25, 2022 11:14
--- NOTE | 2022-05-25 11:19 | Occupational Therapy Eval ---
OT Evaluation-General/PLF Medical Diagnosis Admission Date May 22, 2022 at 14:58 Medical Diagnosis: Left Hip Fracture Onset Date: May 22, 2022 Therapy Diagnosis Therapy Diagnosis: decreased ADL status Height/Weight Height (Feet): 5 Height (Inches): 2.00 Weight (Pounds): 120 Weight (Ounces): 1.0 Precautions Precautions/Isolations: Contact Isolation Comments L hip precautions. Referral Physician: Ja Referral Reason: Evaluation/Treatment Medical History Pertinent Medical History: Dementia, HTN Additional Medical History dementia, CAD, HTN, GERD, arthritis Current History ED from [place] after fall, L hip fx. 05/23/22 s/p L hip bipolar. Social History Home: [facility] ADL-Prior Level of Function SCALE: Activities may be completed with or without assistive devices. 5-Xbafqchmnp-wpbewvj completes the activity by him/herself with no assistance from a helper. 5-Set-up or Clean-up Assistance-helper sets up or cleans up; patient completes activity. [place] assists only prior to or following the activity. 4-Supervision or Touching Assistance-helper provides verbal cues and/or touching/steadying and/or contact guard assistance as patient completes activity. Assistance may be provided throughout the activity or intermittently. 3-Partial/Moderate Assistance-helper does LESS THAN HALF the effort. [place] lifts, holds or supports trunk or limbs, but provides less than half the effort. 2-Substantial/Maximal Assistance-helper does MORE THAN HALF the effort. [place] lifts or holds trunk or limbs and provides more than half the effort. 0-Crifgyfxo-oxafwu does ALL the effort. Patient does none of the effort to complete the activity. Or, the assistance of 2 or more helpers is required for the patient to complete the activity. If activity was not attempted, code reason: 7-Patient Refused. 9-Not Applicable-not attempted and the patient did not perform the activity before the current illness, exacerbation or injury. 10-Not Attempted due to Environmental Limitations-(lack of equipment, weather restraints, etc.). 88-Not Attempted due to Medical Conditions or Safety Concerns. ADL PLOF Comments Pt unable to provide information about PLOF. OT called pt's facility, they report pt required assistance at PLOF due to cognition. She was able to walk initially ad gabriela, but had a few falls resulting in weakness and requiring her to have supervision when she is walking short distances. Pt is able to take herself to bathroom and get dressed, but required supervision and assistance due to cognitive decline. Lately she has been using the w/c more due to unsteadiness in standing, and she was able to move w/c around facility. Self Care: Needed Some Help Functional Cognition: Needed Some Help OT Current Status Subjective Pt in bed, did not respond verbally to therapist during tx. Pt presents with mittens covering her hands. Mental Status/Objective Patient Orientation: Non-Verbal/Aphasic, Eyes Open Attachments: Cleary Catheter, IV Current Upper Extremity ROM Unable to assess due to pt resisting movements and not following instructions. Upper Extremity Strength Unable to assess due to pt resisting movements and not following instructions. ADL-Treatment Eating (QC): 88 (Pt currently NPO) Shower/Bathe Self (QC): 1 (Pt would require total assistance at this time due to not following instructions) Lower Body Dressing (QC): 1 (Pt would require total assistance at this time due to not following instructions) On/Off Footwear (QC): 1 (Pt would require total assistance at this time due to not following instructions) Toileting Hygiene (QC): 1 (Pt would require total assistance at this time due to not following instructions) Other Treatments Pt in bed, OT assisted pt with repositioning in bed. Pt positioned with pillows on L side upon OT arrival, and OT positioned pillows on R side. Pt resistive to all movements, requiring total assistance with repositioning. OT attempted BUE exercises, but pt actively resisted all movements. Post tx, pt in bed, call light in reach and all needs met, bed alarm activated. Nurse notified of pt position. Education OT Patient Education: Correct positioning, Modified ADL techniques, Progress toward Goal/Update tx plan, Purpose of tx/functional activities Teaching Recipient: Patient Teaching Methods: Discussion Response to Teaching: Reinforcement Needed OT Half-Way Goals Cloth Bin Packer Goals Time Frame: Jun 11, 2022 Oral Hygiene (QC): 3 Toileting Hygiene (QC): 2 Shower/Bathe Self (QC): 2 Lower Body Dressing (QC): 1 On/Off Footwear (QC): 2 Additional Goals: 1-Demonstrate ADL Tasks, 2-Verbalize Understanding, 3- ImproveStrength/[place] 1=Demonstrate adherence to instructed precautions during ADL tasks. 2=Patient will verbalize/demonstrate understanding of assistive devices/modifications for ADL. 3=Patient will improve strength/tolerance for activity to enable patient to perform ADL's. OT Education/Plan Problem List/Assessment Assessment: Decreased Activ Tolerance, Decreased Safety Aware, Decreased UE Strength, Dependent Transfers, Impaired Bed Mobility, Impaired Cognition, Impaired Coordination, Impaired Funct Balance, Impaired I ADL's, Impaired Self- Care Skills, Restricted Funct UE ROM Pt would benefit from skilled OT services in order to increase BUE Strength and activity tolerance and increase safety and independence with ADLs and functional mobility in order to maximize LOF for return to [facility]. Discharge Recommendations Plan/Recommendations: Continue POC Therapy Discharge Recommendati: Other, See Comments (NH) Barriers to Progress Pt has hip precautions but will most likely have difficulty remembering and adhering to her precautions, and limits AE education. Treatment Plan/Plan of Care Patient would benefit from OT for education, treatment and training to promote independence in ADL's, mobility, safety and/or upper extremity function for ADL's. Plan of Care: ADL Retraining, Functional Mobility, UE Funct Exercise/Act Treatment Duration: Jun 11, 2022 Frequency: 3 times per week (3-5 times a week) Rehab Potential: Poor Time/GCodes Start Time: 10:50 Stop Time: 11:00 Total Time Billed (hr/min): 10 Billed Treatment Time 1, OLIVER MATTSON OT May 25, 2022 11:19
--- NOTE | 2022-05-25 12:19 | Speech Therapy Daily Note ---
Speech Daily Progress Note Subjective Date Seen by Provider: May 25, 2022 Time Seen by Provider: 10:45 The patient was lying in bed, eyes opened and awake upon entrance to her room by the clinician. The patient does not respond to verbal greeting from the clinician or make eye contact. The patient was seated upright in the bed for safe swallowing posture. Objective The patient does not verbalize throughout the treatment session. The patient does not follow simple one-step directions for oral motor assessment. The patient presents the patient with an ice chip via teaspoon. The ice chip is used for tactile stimulation along the lips in attempts for oral acceptance. The pat ient does not open lips for the ice chip, pursing her lips more tightly. The patient presents a straw to the lips for tactile stimulation and familiarity. The patient moves her head away from the straw and again purses her lips tightly. The clinician placed a teaspoon coated in applesauce to the patient's lips, providing a small amount in attempts for the patient to remove the amount with a lingual sweep. The patient does not attempt any lingual oral oral movement and continues with a lips pursed behavior. At this time, the material was removed by the clinician with a paper towel. At this time, the patient continues refusal of P.O. Without acceptance of P.O., the clinician is unable to complete an oropharyngeal swallowing assessment. The clinician will continue attempts of the swallowing assessment as appropriate. At this time, the clinician will remain with the prior plan of care (NPO). Assessment Assessment Current Status: Poor Progress, Refused Treatment Treatment Plan Continue Plan of Care Speech Short Term Goals Short Term Goals Short Term Goals 1. The patient will participate in trials of the least restrictive consistency without s/s of suspected aspiration. Time Frame-STG: Three Days. Speech Retirement Goals Retirement Goals 1. The patient will tolerate the least restrictive consistency without s/s of suspected aspiration. Time Frame: Five Days. Speech-Plan Treatment Plan Speech Therapy Treatment Plan: Continue Plan of Care Treatment Duration: May 28, 2022 Frequency: 4 times per week Estimated Hrs Per Day: .25 hour per day Rehab Potential: Poor Safety Risks/Education Teaching Recipient: Patient Teaching Methods: Demonstration, Discussion Response to Teaching: Unable to Comprehend Education Topics Provided: Recommendations, Oral Motor Exercises Time Speech Therapy Time In: 10:45 Speech Therapy Time Out: 10:55 Total Billed Time: 10 Billed Treatment Time 1, DYST BINDU PATEL May 25, 2022 12:18
[2022-05-25] MEDS ORDERED: LORazepam 1 MG (ATIVAN) TAB SL PRN (13:45)
[2022-05-25] MEDS ORDERED: SALIVA STIMULANT MOUTH SPRAY (BIOTENE) 1.5 OZ MM PRN (13:45)
[2022-05-25] MEDS ORDERED: BISACODYL 10 MG SUPP (DULCOLAX) PR PRN (13:45)
[2022-05-25] MEDS ORDERED: GLYCOPYRROLATE 0.2 MG/ML (ROBINUL) 2 ML VIAL IV PRN (13:45)
[2022-05-25] MEDS ORDERED: PROMETHAZINE INJ 25 MG/ML (PHENERGAN) AMP IVP PRN (13:45)
[2022-05-25] MEDS ORDERED: RT-ALBUTEROL/IPRATROPIUM 3 ML (DUONEB) VIAL INH PRN (13:45)
[2022-05-25] MEDS ORDERED: ARTIFICAL TEARS 0.4 ML UNIT DOSE (REFRESH PLUS) OU PRN (13:45)
[2022-05-25] MEDS ORDERED: ACETAMINOPHEN 650 MG SUPP (TYLENOL) PR PRN (13:45)
[2022-05-25] MEDS ORDERED: ONDANSETRON 4 MG/2 ML (SDV) Z0FRAN IVP PRN (13:45)
--- NOTE | 2022-05-25 14:14 | Physical Therapy Progress Note ---
Therapy Progress Note PT to dismiss patient from services due to change to Comfort Care status and will transfer back to [place] per report. KARISHMA NELSON PT May 25, 2022 14:14
--- NOTE | 2022-05-25 14:51 | Speech Therapy Progress Note ---
Therapy Progress Note ST to sign off due to comfort care status. Please re-consult speech pathology as needed. Thank you. BINDU PATEL May 25, 2022 14:51
[2022-05-25] MEDS ORDERED: cefTRIAXone 1 GM PRE-MIX 50 ML IV SCH (15:00)
[2022-05-25] MEDS: morphine INJ 4 MG/ML 1 ML (VIAL/SYRINGE) IV PRN (15:30)
[2022-05-25 16:00] VITALS: BP 178/96
--- NOTE | 2022-05-25 16:56 | Progress Note - Hospitalist ---
Subjective HPI/CC On Admission Date Seen by Provider: May 25, 2022 Time Seen by Provider: 11:15 Pt is an 81yoCM with a PMH of dementia who presented to the ER after a fall at her Nursing facility. She is quite demented and the only thing she can tell me is that she has pain. She was found to have an extrenal rotated shortened leg by the ER. She underwent CT Head and Neck due to unwitnessed fall and imaging of her hip and pelvis which revealed a left femur fracture. Treatment options were discussed with family and they have elected to pursue surgical repair. They report she was ambulatory until somewhat recently and recently discharged from [facility] where her dementia medications were optimized. She discharged to [facility] from there. Subjective/Events-last exam She opens her eyes. She does not follow commands. She appears comfortable. Objective Exam Vital Signs Vital Signs Date Time Temp Pulse Resp B/P (MAP) Pulse Ox O2 Delivery O2 Flow Rate FiO2 05/25/22 16:00 36.9 100 17 178/96 (123) 94 Room Air 05/25/22 11:08 2.00 96 Capillary Refill : Less Than 3 SecondsLess Than 3 Seconds General Appearance: No Apparent Distress, Chronically ill, Thin Respiratory: Lungs Clear, No Respiratory Distress Cardiovascular: Regular Rate, Rhythm, No Edema, Systolic Murmur Gastrointestinal: Normal Bowel Sounds, Soft Extremity: Normal Inspection, No Pedal Edema Neurologic/Psychiatric: Alert, Aphasia, Motor Weakness Results/Procedures Lab Laboratory Tests 05/25/22 05:38 Patient resulted labs reviewed. Imaging: Reviewed Imaging Report Assessment/Plan Assessment and Plan Assess & Plan/Chief Complaint Left femur fracture UTI Advanced dementia Dysphagia HLD HTN Comfort measures only status Orthopedic surgery following s/p surgical repair Failed swallow evaluation Family has chosen to transition to comfort measures only SW consulted for possible hospice placement Diagnosis/Problems Diagnosis/Problems (1) Hip fracture Status: Acute Qualifiers: Encounter type: initial encounter Fracture type: closed (2) ESBL (extended spectrum beta-lactamase) producing bacteria infection Status: Acute (3) UTI (urinary tract infection) Status: Acute (4) Advanced dementia Status: Acute (5) Comfort measures only status Status: Acute ALLEY CINTRON MD May 25, 2022 16:56
--- NOTE | 2022-05-26 08:04 | Occ Therapy Progress Note ---
Therapy Progress Note OT to dismiss patient from services due to change to Comfort Care status and will transfer back to [place] per report. BLANK ALLEN May 26, 2022 08:04
[2022-05-26] MEDS: morphine INJ 4 MG/ML 1 ML (VIAL/SYRINGE) IV PRN (09:51)
--- NOTE | 2022-05-26 18:42 | Progress Note - Hospitalist ---
Subjective HPI/CC On Admission Date Seen by Provider: May 26, 2022 Time Seen by Provider: 11:00 Pt is an 81yoCM with a PMH of dementia who presented to the ER after a fall at her Nursing facility. She is quite demented and the only thing she can tell me is that she has pain. She was found to have an extrenal rotated shortened leg by the ER. She underwent CT Head and Neck due to unwitnessed fall and imaging of her hip and pelvis which revealed a left femur fracture. Treatment options were discussed with family and they have elected to pursue surgical repair. They repo rt she was ambulatory until somewhat recently and recently discharged from [facility] where her dementia medications were optimized. She discharged to [facility] from there. Subjective/Events-last exam She is sleeping on my arrival. She awakens easily. She denies pain. She is alert and talking. She appears comfortable. Objective Exam Vital Signs Vital Signs Date Time Temp Pulse Resp B/P (MAP) Pulse Ox O2 Delivery O2 Flow Rate FiO2 05/26/22 07:58 94 Room Air 96 05/25/22 16:00 36.9 100 17 178/96 (123) 05/25/22 11:08 2.00 Capillary Refill : Less Than 3 SecondsLess Than 3 Seconds General Appearance: No Apparent Distress, Chronically ill, Thin Respiratory: Lungs Clear, No Respiratory Distress Cardiovascular: Regular Rate, Rhythm, No Murmur Gastrointestinal: Normal Bowel Sounds, Soft Extremity: Normal Inspection, No Pedal Edema Neurologic/Psychiatric: Alert, Motor Weakness Results/Procedures Lab Patient resulted labs reviewed. Imaging: Reviewed Imaging Report Assessment/Plan Assessment and Plan Assess & Plan/Chief Complaint Left femur fracture UTI Advanced dementia Dysphagia HLD HTN Comfort measures only status Continue comfort measures Likely discharge to [facility] tomorrow Diagnosis/Problems Diagnosis/Problems (1) Hip fracture Status: Acute Qualifiers: Encounter type: initial encounter Fracture type: closed (2) ESBL (extended spectrum beta-lactamase) producing bacteria infection Status: Acute (3) UTI (urinary tract infection) Status: Acute (4) Advanced dementia Status: Acute (5) Comfort measures only status Status: Acute ALLEY CINTRON MD May 26, 2022 18:42
[2022-05-27] MEDS: morphine INJ 4 MG/ML 1 ML (VIAL/SYRINGE) IV PRN ×2 (07:00→10:53)
--- NOTE | 2022-05-27 08:44 | Speech Therapy Progress Note ---
Therapy Progress Note The speech pathologist received orders to complete a re-evaluation of the oropharyngeal swallowing function. The clinician presented to the room at 0835 and positions the patient upright in bed for safe swallowing. The patient does not return verbal greeting from the clinician or follow simple, one-step commands with direct modeling. The clinician attempts an moist oral swab, followed by presentations of ice chips and applesauce. The patient swats and hits at the clinician, yelling "No, no! I said don't do that!" The clinician provides gentle redirection and encouragement, however, the patient continues to hit (mittens on bilateral hands). At this time, the patient is not appropriate and provides multiple refusals of P.O. trial attempts. The clinician is unable to provide updated recommendations at this time and continues to follow the prio r plan of care. BINDU PATEL May 27, 2022 08:44
--- NOTE | 2022-05-27 16:11 | Discharge Summary ---
Discharge Summary Hospital Course Problems/Dx: (1) Hip fracture Status: Acute Qualifiers: (2) ESBL (extended spectrum beta-lactamase) producing bacteria infection Status: Acute (3) UTI (urinary tract infection) Status: Acute (4) Advanced dementia Status: Acute (5) Comfort measures only status Status: Acute Hospital Course Date of Admission: May 22, 2022 at 14:58 Admission Diagnosis : Hip fracture Family Physician/Provider: Maira Cisneros DO Date of Discharge: 05/27/22 Discharge Diagnosis: Hip fracture Hospital Course: Eboni Avila is an 81 year old female with advanced dementia who presented after a fall and was admitted with a hip fracture. Orthopedic surgery was consulted and performed surgical repair. She had issues with dysphagia. Her family elected to transition to comfort measures only and she discharged on [facility] to [facility]. Labs and Pending Lab Test: Microbiology 05/22/22 MRSA Screen - Final, Complete MRSA not isolated 05/22/22 Blood Culture - Final, Complete No growth 05/22/22 Urine Culture - Final, Complete Proteus mirabilis Home Meds Active No Active Prescriptions or Reported Medications Assessment/Pt Instructions Discharged on hospice with [facility]. Please contact them with any questions or concerns. Discharge Planning: >30 minutes discharge planning Discharge Instructions Discharge Diet: No Restrictions Activity as Tolerated: Yes Consultations Ortho Discharge Physical Examination Vital Signs Vital Signs Date Time Temp Pulse Resp B/P (MAP) Pulse Ox O2 Delivery O2 Flow Rate FiO2 05/27/22 08:00 Room Air 05/26/22 07:58 94 96 05/25/22 16:00 36.9 100 17 178/96 (123) 05/25/22 11:08 2.00 Allergies: Coded Allergies: metoclopramide (Unverified Allergy, Severe, TARDIVE DYKENIESIA, 08/04/18) Copy Copies To 1: MAIRA CISNEROS DO Copies To 2: ORQUIDEA WINSTON MD Discharge Summary Date of Admission May 22, 2022 at 14:58 Date of Discharge May 27, 2022 at 11:27 Discharge Date: May 27, 2022 Discharge Time: 11:27 Admission Diagnosis Left femur fracture Consults/Procedures Consulations Ortho Procedures Hip surgery Comfort Measures/ End of Life Care: Comfort Measures Discharge Diagnosis Left femur fracture UTI Advanced dementia Dysphagia HLD HTN Comfort measures only status (1) Hip fracture Status: Acute Qualifiers: (2) ESBL (extended spectrum beta-lactamase) producing bacteria infection Status: Acute (3) UTI (urinary tract infection) Status: Acute (4) Advanced dementia Status: Acute (5) Comfort measures only status Status: Acute ALLEY CINTRON MD May 27, 2022 16:11
== END 2022-05-27 11:27 | disposition hospice, inpatient (51) | DRG 522 ==
LOC: EDUNIT# 11:29 → ER 11:36 → 4TH 14:58
PROVIDERS: ADMIT Family Medicine; ATTEND Internal Medicine
PROC: 0SRS0JZ Replacement of Left Hip Joint, Femoral Surface with Synthetic Substitute, Open Approach (ICD-10-PCS; principal; 2022-05-23 06:57)
DX: S72.002A Fracture of unspecified part of neck of left femur, initial encounter for closed fracture (principal); N39.0 Urinary tract infection, site not specified; W18.30XA Fall on same level, unspecified, initial encounter; Z66 Do not resuscitate; F03.90 Unspecified dementia, unspecified severity, without behavioral disturbance, psychotic disturbance, mood disturbance, and anxiety; F32.A Depression, unspecified; K31.84 Gastroparesis; F41.9 Anxiety disorder, unspecified; Z90.81 Acquired absence of spleen; Z95.1 Presence of aortocoronary bypass graft; I25.10 Atherosclerotic heart disease of native coronary artery without angina pectoris; E78.00 Pure hypercholesterolemia, unspecified; I10 Essential (primary) hypertension; K21.9 Gastro-esophageal reflux disease without esophagitis; M81.0 Age-related osteoporosis without current pathological fracture; M19.90 Unspecified osteoarthritis, unspecified site; G89.29 Other chronic pain; M54.9 Dorsalgia, unspecified; R13.10 Dysphagia, unspecified; Z51.5 Encounter for palliative care
CPT/HCPCS: 36415; 51702; 70450; 72125; 72170; 80048; 81000; 85025; 85027; 87040; 87077; 87081; 87088; 87186; 94760; 96365; 96375; 96376